=== PATIENT | female | born 1975 | race Caucasian/White ===

== ENCOUNTER 2021-07-16 09:08 | Inpatient (IN) | payer OTHER, MEDICARE, MEDICAID, SELFPAY ==
[2021-07-16] VITALS (8 sets, daily range): BP systolic 118–156; BP diastolic 82–103; PULSE 77–121; RESP 16–21; TEMP -17.7–38.5; O2SAT 92–98; BMI 20.1; BMI 21.3
--- NOTE | 2021-07-16 09:14 | XR_ITS ---
PROCEDURE: XR CHEST PORTABLE CLINICAL HISTORY: SOA COMPARISON: No exams were available for comparison FINDINGS: The cardiomediastinal silhouette and pulmonary vascularity are within normal limits. The lungs are clear without infiltrates, suspicious nodules, or pleural effusions. There is an area of increased density in the left midlung laterally which is felt to represent summation artifact from the overlying scapula and skin fold artifact. No acute bony abnormalities. IMPRESSION: No acute findings. Dictated by: Ronnell Penny MD 07/16/2021 10:59 Ronnell Penny MD in [place] 07/16/2021 10:59
--- NOTE | 2021-07-16 09:35 | HMH.EDGENADL ---
ED Disposition Clinical Impression: Healthcare-associated pneumonia Disposition: Admitted as Observation Condition on Discharge: Fair - Critical Care Critical Care Time: No Attestation: On 07/16/21, the high probability of a clinically significant, sudden or life threatening deterioration of the following system(s) required my full and direct attention, intervention and personal management. The time I documented below is in addition to time spent performing reported procedures but includes the following listed in this critical care notation. Medical Decision Making - Dieudonne Inquiry Pt receiving controlled substance: No Vital Signs: 07/16/21 09:08 07/16/21 12:07 07/16/21 14:10 Temperature 101.3 F H Temperature Source Rectal Pulse Rate 98 H 102 H Pulse Rate [Left Radial] 121 H Respiratory Rate 18 16 16 Blood Pressure 135/95 H 128/85 Blood Pressure [Left Arm] 156/103 H Blood Pressure Mean [Left Arm] 120 Blood Pressure Source Automatic Cuff Automatic Cuff Blood Pressure Source [Left Arm] Automatic Cuff Blood Pressure Position Sitting Sitting Blood Pressure Position [Left Arm] Supine 02 Sat by Pulse Oximetry 93 L 98 98 Oxygen Delivery Method Room Air Room Air Room Air - Lab Data Lab Results 07/16/21 09:00: WBC 11.5 H, RBC 4.08 L, Hgb 13.6, Hct 38.4, MCV 94.1, MCH 33.2 H, MCHC 35.3, RDW 13.5, Plt Count 420, MPV 8.0, Neut % (Auto) 87.4 H, Lymph % (Auto) 8.5 L, Carter % (Auto) 3.6, Eos % (Auto) 0.3, Baso % (Auto) 0.2, Neut # (Auto) 10.1 H, Lymph # (Auto) 1.0, Carter # (Auto) 0.4, Eos # (Auto) 0.0, Baso # (Auto) 0.0, Total Counted 100, Neutrophils % (Manual) 91 H, Lymphocytes % (Manual) 6 L, Monocytes % (Manual) 3, Platelet Estimate Slight increase, RBC Morphology Kn 07/16/21 09:00: Sodium 135 L, Potassium 4.1, Chloride 102, Carbon Dioxide 28, Anion Gap 9.1, BUN 14, Creatinine 0.50 L, Estimated Creat Clear 110, Estimated GFR 132, Est GFR ( Amer) 160, Glucose 128 H, Calcium 9.5, Total Bilirubin 0.4, AST 35, ALT 55, Alkaline Phosphatase 128 H, Total Protein 7.1, Albumin 3.8, Globulin 3.3 H, Albumin/Globulin Ratio 1.2 07/16/21 09:57: Lactate 2.4 H 07/16/21 09:57: Urine Color Yellow, Urine Appearance Sl cloudy, Urine pH 7.0, Ur Specific [place] 1.020, Urine Protein Negative, Urine Glucose (UA) Negative, Urine Ketones Negative, Urine Blood 1+, Urine Nitrate Negative, Urine Bilirubin Negative, Urine Urobilinogen 0.2, Ur Leukocyte Esterase 2+ A, Urine RBC Occasional, Urine WBC 3-5, Ur Squamous Epith Cells Occasional, Urine Bacteria Trace 07/16/21 10:11: SARS-CoV-2 (PCR) Not detected, Influenza A Untype (PCR) Not detected, Influenza Type B (PCR) Not detected Result diagrams: 07/16/21 09:00 07/16/21 09:00 Orders (Tests/Meds): ED MEDICATIONS Generic Name Dose Route Start Last Admin Trade Name Freq PRN Reason Stop Dose Admin Acetaminophen 650 mg 07/16/21 13:55 Acetaminophen 325mg Tab PO 08/15/21 13:54 Q4HP PRN fever/pain Bisacodyl 5 mg 07/16/21 13:55 Bisacodyl 5mg Tablet PO 08/15/21 13:54 NEEDED PRN Constipation Gabapentin 300 mg 07/16/21 21:00 Gabapentin 300mg Capsule PO 08/15/21 20:59 TID VANESSA Cefepime HCl 2 gm/ Sodium 100 mls @ 100 mls/hr 07/16/21 21:30 Chloride IV 07/30/21 21:29 Q8H VANESSA Vancomycin HCl 750 mg/ Sodium 250 mls @ 125 mls/hr 07/16/21 15:00 Chloride IV 07/30/21 14:59 Q12H VANESSA Levofloxacin/Dextrose 750 mg in 150 mls @ 100 mls/hr 07/17/21 13:30 Levofloxacin 750mg/150ml Premix IV 07/30/21 13:29 Q24H VANESSA Sodium Chloride 1,000 mls @ 100 mls/hr 07/16/21 13:55 Sod Chlor 0.9% 1000ml Bag IV 08/15/21 13:54 .Q10H VANESSA Lactulose 20 gm 07/16/21 21:00 Lactulose 20gm/30ml Udc PO 08/15/21 20:59 BID VANESSA Non-Formulary Medication 4 mg 07/16/21 17:00 Hydromorphone Hcl [Dilaudid 4mg Tab] PO 08/15/21 16:59 Q6 VANESSA Non-Formulary Medication 200 mg 07/16/21 17:00 Ibuprofen [Ibuprofen 200
[2021-07-16 09:40] LABS: Basophils % 0.2 % (0.1-2.0); Eosinophils % 0.3 % (0.1-12.0); Hematocrit 38.4 % (37.0-47.0); Hemoglobin 13.6 g/dL (12.2-16.2); Lymphocytes % 8.5 % (10-50); Mean Corpuscular HGB Conc 35.3 g/dL (31.8-35.4); Mean Corpuscular Hemoglobin 33.2 pg (27.0-31.2); Mean Corpuscular Volume 94.1 fl (81-99); Monocytes # 0.4 K/mm3 (0.1-1.0); Monocytes % 3.6 % (1.7-9.3); Neutrophils # 10.1 K/mm3 (1.8-7.8); Neutrophils % 87.4 % (37.0-80.0); Platelet Count 420 K/mm3 (142-424); Red Blood Count 4.08 M/mm3 (4.20-5.40); Red Cell Distribution Width 13.5 % (11.5-17.5); White Blood Count 11.5 K/mm3 (4.8-10.8)
[2021-07-16 09:44] LABS: MANUAL DIFFERENTIAL MANUAL DIFFERENTIAL (MANUAL DIFF)
[2021-07-16 09:50] LABS: Alanine Aminotransferase 55 U/L (12-78); Albumin Level 3.8 g/dl (3.5-5.0); Albumin/Globulin Ratio 1.2 (1.1-1.8); Alkaline Phosphatase 128 U/L (38-126); Anion Gap 9.1 mEq/L (5-15); Aspartate Amino Transferase 35 U/L (14-36); Bilirubin,Total 0.4 mg/dl (0.2-1.3); Blood Urea Nitrogen 14 mg/dl (7-17); Calcium 9.5 mg/dl (8.4-10.2); Carbon Dioxide 28 mmol/L (22.0-30.0); Chloride 102 mmol/L (98-107); Creatinine Clearance Estimated 110 mL/min (50-200); Estimated Glomerular Filt Rate 132 ml/min (>60); GFR (African American) 160 ML/MIN (>60); Globulin 3.3 g/dL (1.3-3.2); Glucose 128 mg/dl (74-100); Potassium 4.1 mmoL/L (3.5-5.1); Sodium 135 mmol/L (136-145); Total Protein,Serum 7.1 g/dl (6.3-8.2)
[2021-07-16 10:07] LABS: Lymphocytes % 6 % (10-50); Monocytes % 3 % (2-9); Neutrophils % 91 % (42-76); Total Cells Counted 100
[2021-07-16 10:07] LABS: Microscopic, Urine URINE MICROSCOPIC (MICROSCOPIC)
[2021-07-16 10:08] LABS: Platelet Estimate Slight Increase; RBC Morphology KN
[2021-07-16 10:09] LABS: Appearance,Urine SL CLOUDY (Clear); Bilirubin,Urine Negative (Negative); Blood, Urine 1+ (Negative); Color,Urine YELLOW (Yellow); Glucose,Urine (UA) Negative (Negative); Ketones,Urine Negative (Negative); Leukocyte Esterase,Urine 2+ (Negative); Nitrate,Urine Negative (Negative); Protein,Urine Negative (Negative); Urobilinogen,Urine 0.2 EU/dl (0.2)
[2021-07-16 10:16] LABS: Lactic Acid 2.4 mmol/L (0.7-2.1)
[2021-07-16 10:21] LABS: Coronavirus 19, PCR Not Detected (NotDetected); Influenza A, PCR Not Detected (NotDetected); Influenza B, PCR Not Detected (NotDetected)
[2021-07-16 10:22] LABS: Bacteria,Urine Trace /lpf; RBC,Urine Occasional #/hpf (0-3); Squamous Epithelial Cell,Urine Occasional #/hpf (0-5)
--- NOTE | 2021-07-16 10:37 | PC.NURSE ---
PT ALSO RECEIVED A NS 500ML BOLUS BY EMS
--- NOTE | 2021-07-16 10:59 | CT_ITS ---
PROCEDURE: CT ABDOMEN PELVIS W CON CLINICAL INDICATION: abdo tenderness, fever COMPARISON: CR XR CHEST PORTABLE from 07/16/2021 TECHNIQUE: IV Contrast: 75ML Isovue 370 Oral Contrast None Axial images obtained with sagittal and coronal reformats. All CT scans at the facility use one or more dose reduction, viz: automated exposure control, ma/kV adjustment per patient size (including targeted exams where dose is matched to indication, i.e. head), or iterative reconstruction technique. FINDINGS: LOWER THORAX: There patchy areas opacification in the lower lobes on both sides consistent with pneumonia. ABDOMEN & PELVIS: No focal liver lesion. The spleen adrenal glands and pancreas have an unremarkable appearance. There is a 3 mm and a 4 mm nonobstructing stone in the mid aspect of the right kidney. 2 mm stone is present the upper pole of the left kidney and also 1 in the mid polar region. There is a 12 mm cyst in the upper pole of the right kidney. No ureteral calculi apparent. There is rectal fecal impaction with the rectum measuring 9.3 cm transverse. Moderate amount retained colonic feces is present within the remaining colon. The the appendix is not clearly delineated. The uterus is enlarged and canted toward the right with heterogeneous density and may represent diffuse fibroid involvement. Free fluid is present in the pelvis. Granad catheter is present. Urinary bladder is decompressed. No acute bony findings. IMPRESSION: 1. Patchy bilateral lower lobe pneumonia 2. Nonobstructing bilateral renal calculi. 3. Rectal fecal impaction with severe constipation. 4. Enlarged uterus with heterogeneous density and may be due to fibroid involvement. The uterus is canted toward the right. Other etiology for pelvic mass not excluded 5. Small amount free fluid in the pelvis Dictated by: Ronnell Penny MD 07/16/2021 12:03 Ronnell Penny MD in [place] 07/16/2021 12:03
--- NOTE | 2021-07-16 11:32 | PC.NURSE ---
went to ct
--- NOTE | 2021-07-16 11:43 | PC.NURSE ---
pt is back from ct
--- NOTE | 2021-07-16 13:14 | PC.NURSE ---
DR ANDIE COLE
--- NOTE | 2021-07-16 13:20 | PC.NURSE ---
Notified care management of admission
--- NOTE | 2021-07-16 13:33 | HMH.PHACONS ---
- Pharmacy Consult Date: 07/16/21 Time: 13:34 Referring provider: DR. HESS Reason for Consult:: VANCOMYCIN DOSING Allergies and ADEs:: Allergies Allergy/AdvReac Type Severity Reaction Status Date / Time methylprednisolone Allergy Verified 07/16/21 10:13 Home Medications:: Home Medications Medication Instructions Recorded Confirmed Type Acetaminophen [Acetaminophen 325mg 650 mg PO Q4HP PRN 07/16/21 07/16/21 History tab] Bisacodyl [Bisacodyl 10mg Supp] 10 mg RC NEEDED PRN 07/16/21 07/16/21 History Bisacodyl [Women's Laxative] 5 mg PO NEEDED PRN 07/16/21 07/16/21 History Docusate Sodium [Colace 250mg 250 mg PO BID 07/16/21 07/16/21 History capsule] Folic Acid/Vit B Complex and C 0.8 mg PO DAILY 07/16/21 07/16/21 History [Tika-Ella Tablet] Gabapentin 300 mg PO TID 07/16/21 07/16/21 History Hydromorphone HCl [Dilaudid 4mg 4 mg PO Q6 07/16/21 07/16/21 History Tab] Ibuprofen [Ibuprofen 200MG Capsule] 200 mg PO Q6 07/16/21 07/16/21 History Lactulose 30 ml PO BID 07/16/21 07/16/21 History Melatonin 5 mg PO HS 07/16/21 07/16/21 History Sennosides/Docusate Sodium 2 tab PO BID 07/16/21 07/16/21 History [Senexon-S 50-8.6 mg Tablet] Thiamine HCl [Vitamin B-1] 100 mg PO DAILY 07/16/21 07/16/21 History Vitamin A Palmitate [Vitamin A] 3,000 mcg PO DAILY 07/16/21 07/16/21 History Height: 1.57 m Weight: 49.895 kg Laboratory Results:: Laboratory Results - last 24 hr 07/16/21 09:00: WBC 11.5 H, RBC 4.08 L, Hgb 13.6, Hct 38.4, MCV 94.1, MCH 33.2 H, MCHC 35.3, RDW 13.5, Plt Count 420, MPV 8.0, Neut % (Auto) 87.4 H, Lymph % (Auto) 8.5 L, [place] % (Auto) 3.6, Eos % (Auto) 0.3, Baso % (Auto) 0.2, Neut # (Auto) 10.1 H, Lymph # (Auto) 1.0, [place] # (Auto) 0.4, Eos # (Auto) 0.0, Baso # (Auto) 0.0, Total Counted 100, Neutrophils % (Manual) 91 H, Lymphocytes % (Manual) 6 L, Monocytes % (Manual) 3, Platelet Estimate Slight increase, RBC Morphology Kn 07/16/21 09:00: Sodium 135 L, Potassium 4.1, Chloride 102, Carbon Dioxide 28, Anion Gap 9.1, BUN 14, Creatinine 0.50 L, Estimated Creat Clear 110, Estimated GFR 132, Est GFR ( Amer) 160, Glucose 128 H, Calcium 9.5, Total Bilirubin 0.4, AST 35, ALT 55, Alkaline Phosphatase 128 H, Total Protein 7.1, Albumin 3.8, Globulin 3.3 H, Albumin/Globulin Ratio 1.2 07/16/21 09:57: Lactate 2.4 H 07/16/21 09:57: Urine Color Yellow, Urine Appearance Sl cloudy, Urine pH 7.0, Ur Specific [place] 1.020, Urine Protein Negative, Urine Glucose (UA) Negative, Urine Ketones Negative, Urine Blood 1+, Urine Nitrate Negative, Urine Bilirubin Negative, Urine Urobilinogen 0.2, Ur Leukocyte Esterase 2+ A, Urine RBC Occasional, Urine WBC 3-5, Ur Squamous Epith Cells Occasional, Urine Bacteria Trace 07/16/21 10:11: SARS-CoV-2 (PCR) Not detected, Influenza A Untype (PCR) Not detected, Influenza Type B (PCR) Not detected Assessment and Plan - Assessment and plan all Dx Assessment and Plan for all problems:: Pharmacokinetic dosing service Objective: Patient: Floor: Age: 45 yo Serum creatinine: 0.60 mg/dL Height: 61.8 Inches Weight (kg): 50 Assessment: IBW (kg): 49.64 Dosing wt(kg): 50 Estimated Creatinine clearance (ml/min): 90.8 CRCL method: Cockcroft and Gault using ibw(default). Drug selected: Vancomycin Loading dose (mg): Vd (liters): 35.0 (factor used: 0.7 L/kg) Braxton (hr-1): 0.080 Half life (hrs): 8.66 CLvanco=?? 2.800 L/hr Recommended dose: 750 mg Interval: 12 hrs Infusion time (hrs): 2.0 Predicted peak (mcg/mL): 32.1 Predicted trough (mcg/mL): 14.42 Total body weight is being used for vancomycin dosing. Recommendations: Give Vancomycin 750 mg q 12 hrs with an expected Cpeak of 32.1 mcg/ml and an expected Ctrough of 14.42 mcg/ml AUC 0-24 /MONICA Data:
--- NOTE | 2021-07-16 13:40 | SW/DCPLANNER ---
Addendum entered by Mary Gates 07/17/21 10:28: PATIENT IS RETURNING BACK TO HER SENIOR LIVING BED AT [facility].. UPDATES HAVE BEEN SENT AND I HAVE NOTIFIED HOSPICE PATIENT WILL BE RETURNING TO HER SENIOR LIVING BED..... Original Note: Viriglio Kovacs spoke with Winsome from [facility]. Winsome has confirmed this patient is established with Hospice services, stay will be related and patient is a full code. This patient currently resides at [facility]. I will follow up with Hospice/[facility] during patients stay.
[2021-07-16 14:06] LABS: Reflex Lactic Add Lactic Reflex
--- NOTE | 2021-07-16 14:09 | HMH.PHAVTE ---
[facility] Pharmacy VTE Monitoring - Patient Demographics Admission date: 07/16/21 Report Date: 07/16/21 Time: 14:09 Allergies/Adverse Reactions: Patient Allergies methylprednisolone Allergy (Verified 07/16/21 10:13) Height: 1.57 m Weight: 49.895 kg Patient Problems: Current Active Problems Healthcare-associated pneumonia (Acute) - VTE Risk Labs: VTE Related Lab Results Hgb 13.6 g/dL (12.2-16.2) 07/16/21 09:00 Hct 38.4 % (37.0-47.0) 07/16/21 09:00 Plt Count 420 K/mm3 (142-424) 07/16/21 09:00 BUN 14 mg/dl (7-17) 07/16/21 09:00 Creatinine 0.50 mg/dl (0.52-1.04) L 07/16/21 09:00 Estimated Creat Clear 110 mL/min (50-200) 07/16/21 09:00 - Prophylaxis VTE Prophylaxis Ordered?: Yes Types of VTE Prophylaxis: TEDS Knee High Location of Applied Device: Bilateral Lower Extremeties
--- NOTE | 2021-07-16 14:40 | PC.NURSE ---
Speech is in there with pt
[2021-07-16 14:46] LABS: Lactic Acid Follow Up (RFLX 1) 1.3 mmol/L (0.7-2.1)
--- NOTE | 2021-07-16 15:02 | HMH.SLDYSPHA ---
Speech & Language Evaluation Speech/Language Dysphagia Evaluation Start: 07/16/21 14:53 Freq: ONCE Status: Active Protocol: Document 07/16/21 14:53 LIZABETH (Rec: 07/16/21 15:02 LIZABETH [id number]) Dysphagia Assess/Goals/Plan Assessment Date of Evaluation: 07/16/21 Evaluation Type Initial Certification Assessment/Problems Dysphagia Does Patient Qualify for Service No Qualify/Failure Comment Patient placed on leasts restrictive diet. Recommendations PHYSICIAN CERTIFICATION: The specified therapy services are required, authorized, and reviewed every 30 days. Diet Recommendations Pureed Liquid Type Recommendations Pudding Consistency SL Swallow Guidelines Assist w/all meals,High aspiration risk Dysphagia Swallow Precautions/Strategies Sitting Upright (90 deg), Liquids from Spoon,Small Bites and Sips,Alternate Liquids/ Solids Plan Pt/Guardian verbally ack understanding Yes: Notified of dx/prognosis/goals G -code Required No General Information General Current Food Consistancy Pureed,Pudding Liquids Dentition Poor Dentition Oxygen Status Room Air Patient Orientation Person,Place,Time,Situation Ability to Follow Directions Excellent Dysphagia:Food Presentation Evaluation Food Type Pureed,Pudding Dysphagia Evaluation Summary Ms. Medina was given the following consistencies: pudding thick liquids and pureed. She reports she is on this diet at the intermediate. No overt signs/symptoms of dysphagia were noted. At this time, it is recommended that he be placed on pureed diet with pudding thick liquids. Speech therapy is not warranted. Should her problems continue, a modified barium swallow study is warranted. Stroke Dysphagia Assessment PHYSICIAN CERTIFICATION: I certify the specified therapy services for Jeanne Medina are required, authorized, and reviewed every 30 days.
--- NOTE | 2021-07-16 15:27 | HMH.PHAINT ---
MEDICATION RECONCILIATION COMPLETED ON PATIENT USING MAR FROM [facility]. -JOSELIN PADGETT, LAURAD
--- NOTE | 2021-07-16 18:14 | HMH.HP ---
*Admission Date: 07/16/21 <Ole Patel - 07/16/21 18:15> *Chief complaint: fever and pneumonia <Ole Patel - 07/16/21 18:25> *History of present illness: Patient is a 45-year-old white female, fairly new admission to [place], who was evaluated in the emergency room earlier today with fever tachycardia and behavior changes. T-max at [facility] was 101.5. She was tachycardic but maintained decent saturations on room air. Upon arrival to the ER she was 1013 rectal with a respiratory rate between 16 and 18. Lab work was done. Her urinalysis was equivocal. Palpation to the abdomen elicited some signs of discomfort. The patient is a very poor communicator. CT of the abdomen was done which demonstrated a lower lobe pneumonia. She is admitted for further evaluation and treatment. Will be placed on a regimen for healthcare acquired pneumonia. When seen after her arrival to the floor patient did not complain about her right leg hurting her. Examination of the legs reveals disuse atrophy. She has some arthritic changes at the knee without warmth or effusion. There are no palpable bony changes. She is unable to relay a history of falling or other trauma. Patient is noted to be eating a pur?ed meal. <Ole Patel - 07/16/21 18:25> [facility] History I have reviewed the patient's past medical history: Yes <Deepa Butler - 07/17/21 12:44> Yes (patient with limited ability to give history) <Ole Patel - 07/16/21 18:34> *Have you ever received a pneumonia vaccine?: No <Deepa Butler - 07/17/21 12:44> No <Ole Patel - 07/16/21 18:15> *Have you received a flu vaccine this season?: No <Deepa Butler - 07/17/21 12:44> No <Ole Patel - 07/16/21 18:15> Other Medical History: Reports: Other <Deepa uBtler - 07/17/21 12:44> Reports: Other <Ole Patel - 07/16/21 18:34> Other Surgeries: Yes: Other <Deepa Butler - 07/17/21 12:44> Yes: Other <Ole Patel - 07/16/21 18:34> - *Social History Last grade of school completed: High school graduate <Deepa Butler - 07/17/21 12:44> High school graduate <Ole Patel - 07/16/21 18:34> Smoking Status: Unknown if ever smoked <LukeDeepa - 07/17/21 12:44> Unknown if ever smoked <Ole Patel - 07/16/21 18:34> Alcohol Intake: former <Deepa Butler - 07/17/21 12:44> Alcohol Intake Frequency:: 0-2 drinks per day <paulFidealexconnor - 07/17/21 12:44> 0-2 drinks per day <JorgeOle - 07/16/21 18:34> Substance Use Type: unknown <paulDeepa - 07/17/21 12:44> unknown <JorgeOle - 07/16/21 18:34> Last Used Substance: unknown <Deepa Butler - 07/17/21 12:44> unknown <Ole Patel - 07/16/21 18:34> *Occupational Status:: disabled <LukeDeepa - 07/17/21 12:44> disabled <Ole Patel - 07/16/21 18:34> *Travel in the last 8 weeks: None <LukeDeepa - 07/17/21 12:44> None <JorgeOle - 07/16/21 18:34> Family Hx:: Unable to obtain <Deepa Butler - 07/17/21 12:44> Unable to obtain <Ole Patel - 07/16/21 18:34> Review of Systems - Review of Systems Review of systems:: unable to obtain <CruzkamalaFidealexconnor - 07/17/21 12:44> unable to obtain <JorgeOle - 07/16/21 18:25> Meds Home Medications Medication Instructions Recorded Confirmed Type Acetaminophen [Acetaminophen 325mg 650 mg PO Q4HP PRN 07/16/21 07/16/21 History tab] Bisacodyl [Bisacodyl 10mg Supp] 10 mg RC DAILYP PRN 07/16/21 07/16/21 History Bisacodyl [Women's Laxative] 5 mg PO DAILYP PRN 07/16/21 07/16/21 History Docusate
--- NOTE | 2021-07-16 18:38 | XR_ITS ---
PROCEDURE INFORMATION: Exam: XR Right Knee Exam date and time: 07/16/2021 6:38 PM Age: 45 years old Clinical indication: Pain; Knee; Right TECHNIQUE: Imaging protocol: XR Right knee. Views: 3 views. COMPARISON: No relevant prior studies available. FINDINGS: Bones/joints: Small joint effusion. 10 mm ossification at the patellar tendon insertion. Somewhat heterogeneous mottled appearance to the bone marrow. No acute fracture or dislocation. Soft tissues: No radiopaque foreign body. IMPRESSION: 1. Small joint effusion without visualized acute fracture or dislocation. If there is concern for internal derangement, MRI would be more sensitive. 2. Somewhat heterogeneous mottled appearance to the bone marrow which is abnormal but nonspecific and potentially secondary to osteopenia. This could also be further evaluated on MRI.
--- NOTE | 2021-07-16 18:39 | XR_ITS ---
PROCEDURE INFORMATION: Exam: XR Right Tibia and Fibula Exam date and time: 07/16/2021 6:39 PM Age: 45 years old Clinical indication: Pain; Lower leg; Right TECHNIQUE: Imaging protocol: XR Right tibia and fibula. Views: 2 views. COMPARISON: No relevant prior studies available. FINDINGS: Bones/joints: Small joint effusion. 10 mm ossicle at the patellar tendon insertion which appears chronic. Mottled appearance to the bone marrow. No acute fracture or dislocation. Soft tissues: No radiopaque foreign body. IMPRESSION: 1. Small joint effusion without visualized acute fracture or dislocation. If there is concern for internal derangement, MRI is recommended for further evaluation. 2. Mottled appearance to the bone marrow which is abnormal but nonspecific and potentially related to osteopenia. This could also be further evaluated on MRI.
[2021-07-17 04:15] VITALS: BP 106/68; PULSE 61; RESP 16; TEMP 36.9; O2SAT 100
[2021-07-17 04:29] VITALS: BMI 21.2
--- NOTE | 2021-07-17 05:35 | PC.NURSE ---
pt rested well most of the night, no issues noted, vss, antibiotics administered as ordered. pt remains on room air with o2 sats 100%
[2021-07-17 08:00] VITALS: BP 162/57; PULSE 86; RESP 16; TEMP 36.4; O2SAT 97
[2021-07-17 09:48] LABS: Basophils % 0.4 % (0.1-2.0); Eosinophils # 0.1 K/mm3 (0.0-0.4); Eosinophils % 1.8 % (0.1-12.0); Hematocrit 35.4 % (37.0-47.0); Hemoglobin 11.9 g/dL (12.2-16.2); Lymphocytes # 1.4 K/mm3 (0.7-4.5); Mean Corpuscular HGB Conc 33.7 g/dL (31.8-35.4); Mean Corpuscular Hemoglobin 32.5 pg (27.0-31.2); Mean Corpuscular Volume 96.4 fl (81-99); Monocytes # 0.3 K/mm3 (0.1-1.0); Monocytes % 4.8 % (1.7-9.3); Neutrophils # 3.9 K/mm3 (1.8-7.8); Platelet Count 359 K/mm3 (142-424); Red Blood Count 3.67 M/mm3 (4.20-5.40); Red Cell Distribution Width 12.9 % (11.5-17.5); White Blood Count 5.6 K/mm3 (4.8-10.8)
[2021-07-17 09:52] LABS: Chloride 107 mmol/L (98-107); Sodium 139 mmol/L (136-145)
[2021-07-17 09:53] LABS: Potassium 3.9 mmoL/L (3.5-5.1)
[2021-07-17 09:55] LABS: Blood Urea Nitrogen 11 mg/dl (7-17); Creatinine Clearance Estimated 134 mL/min (50-200); Estimated Glomerular Filt Rate 171 ml/min (>60); GFR (African American) 207 ML/MIN (>60)
[2021-07-17 09:56] LABS: Anion Gap 10.9 mEq/L (5-15); Calcium 8.5 mg/dl (8.4-10.2); Carbon Dioxide 25 mmol/L (22.0-30.0); Glucose 118 mg/dl (74-100)
--- NOTE | 2021-07-17 11:02 | HMH.DCSUM ---
General - General Admission date:: 07/16/21 Discharge date: 07/17/21 HPI HPI: Patient is a 45-year-old white female, fairly new admission to [place], who was evaluated in the emergency room earlier today with fever tachycardia and behavior changes. T-max at [facility] was 101.5. She was tachycardic but maintained decent saturations on room air. Upon arrival to the ER she was 1013 rectal with a respiratory rate between 16 and 18. Lab work was done. Her urinalysis was equivocal. Palpation to the abdomen elicited some signs of discomfort. The patient is a very poor communicator. CT of the abdomen was done which demonstrated a lower lobe pneumonia. She is admitted for further evaluation and treatment. Will be placed on a regimen for healthcare acquired pneumonia. When seen after her arrival to the floor patient did not complain about her right leg hurting her. Examination of the legs reveals disuse atrophy. She has some arthritic changes at the knee without warmth or effusion. There are no palpable bony changes. She is unable to relay a history of falling or other trauma. Patient is noted to be eating a pur?ed meal. Hospital Course Hospital Course: Laboratory Tests 07/16/21 07/16/21 07/16/21 09:00 09:00 09:57 WBC 11.5 H RBC 4.08 L Hgb 13.6 Hct 38.4 MCV 94.1 MCH 33.2 H MCHC 35.3 RDW 13.5 Plt Count 420 MPV 8.0 Neut % (Auto) 87.4 H Lymph % (Auto) 8.5 L [place] % (Auto) 3.6 Eos % (Auto) 0.3 Baso % (Auto) 0.2 Neut # (Auto) 10.1 H Lymph # (Auto) 1.0 [place] # (Auto) 0.4 Eos # (Auto) 0.0 Baso # (Auto) 0.0 Total Counted 100 Neutrophils % (Manual) 91 H Lymphocytes % (Manual) 6 L Monocytes % (Manual) 3 Platelet Estimate Slight increase RBC Morphology Kn Sodium 135 L Potassium 4.1 Chloride 102 Carbon Dioxide 28 Anion Gap 9.1 BUN 14 Creatinine 0.50 L Estimated Creat Clear 110 Estimated GFR 132 Est GFR ( Amer) 160 Glucose 128 H Lactate 2.4 H Calcium 9.5 Total Bilirubin 0.4 AST 35 ALT 55 Alkaline Phosphatase 128 H Total Protein 7.1 Albumin 3.8 Globulin 3.3 H Albumin/Globulin Ratio 1.2 Urine Color Urine Appearance Urine pH Ur Specific [place] Urine Protein Urine Glucose (UA) Urine Ketones Urine Blood Urine Nitrate Urine Bilirubin Urine Urobilinogen Ur Leukocyte Esterase Urine RBC Urine WBC Ur Squamous Epith Cells Urine Bacteria SARS-CoV-2 (PCR) Influenza A Untype (PCR) Influenza Type B (PCR) 07/16/21 07/16/21 07/16/21 09:57 10:11 14:18 WBC RBC Hgb Hct MCV MCH MCHC RDW Plt Count MPV Neut % (Auto) Lymph % (Auto) [place] % (Auto) Eos % (Auto) Baso % (Auto) Neut # (Auto) Lymph # (Auto) [place] # (Auto) Eos # (Auto) Baso # (Auto) Total Counted Neutrophils % (Manual) Lymphocytes % (Manual) Monocytes % (Manual) Platelet Estimate RBC Morphology Sodium Potassium Chloride Carbon Dioxide Anion Gap BUN Creatinine Estimated Creat Clear Estimated GFR Est GFR ( Amer) Glucose Lactate 1.3 Calcium Total Bilirubin AST ALT Alkaline Phosphatase Total Protein Albumin Globulin Albumin/Globulin Ratio Urine Color Yellow Urine Appearance Sl cloudy Urine pH 7.0 Ur Specific [place] 1.020 Urine Protein Negative Urine Glucose (UA) Negative Urine Ketones Negative Urine Blood 1+ Urine Nitrate Negative Urine Bilirubin Negative Urine Urobilinogen 0.2 Ur Leukocyte Esterase 2+ A Urine RBC Occasional Urine WBC 3-5 Ur Squamous Epith Cells Occasional Urine Bacteria Trace SARS-CoV-2 (PCR) Not detected Influenza A Untype (PCR) Not detected Influenza Type B (PCR) Not detected 1
--- NOTE | 2021-07-17 14:55 | PC.NURSE ---
Patient is ready to discharge back to [place]. Granda and IV discontinued
[2021-07-18 21:33] LABS: POC Glucose,Bedside 112 (70-110)
== END 2021-07-17 15:38 | disposition hospice, inpatient (51) | DRG 179 ==
LOC: ER 13:22 → 2ND 13:43
PROVIDERS: Nurse Practitioner Family; Admitting Provider Emergency Medicine; Emergency Provider Emergency Medicine; PCP Emergency Medicine; Visit Provider Emergency Medicine
DX: J69.0 Pneumonitis due to inhalation of food and vomit (principal); G35 Multiple sclerosis; K59.00 Constipation, unspecified; M79.661 Pain in right lower leg; Z20.822 Contact with and (suspected) exposure to COVID-19; Z51.5 Encounter for palliative care
CPT/HCPCS: 36415; 71045; 73562; 73590; 74177; 80048; 80053; 81001; 82962; 83605; 85007; 85025; 87040; 87086; 92610; 96365; 99284; C9803; J3370; Q9967; U0003; U0005

== ENCOUNTER 2021-07-24 13:28 | Inpatient (IN) | payer MEDICARE, MEDICAID, SELFPAY ==
[2021-07-24] VITALS (15 sets, daily range): BP systolic 107–199; BP diastolic 78–116; PULSE 108–150; RESP 18–26; TEMP 36.3–38.7; O2SAT 83–100; BMI 18.9; BMI 16.9
--- NOTE | 2021-07-24 13:30 | XR_ITS ---
PROCEDURE: XR CHEST PORTABLE CLINICAL HISTORY: sob COMPARISON: CR XR CHEST PORTABLE from 07/16/2021 FINDINGS: The cardiomediastinal silhouette and pulmonary vascularity are within normal limits. The lungs are clear without infiltrates, suspicious nodules, or pleural effusions. No acute bony abnormalities. IMPRESSION: No acute findings. Dictated by: Ronnell Penny MD 07/24/2021 16:13 Ronnell Penny MD in [place] 07/24/2021 16:13
--- NOTE | 2021-07-24 13:34 | ECG_ITS ---
APPROVED REPORT Exam: Resting ECG HR:144 bpm ECG Measurements Heart Rate 144 AXES VT 146 P 77 QRSd 72 QRS 63 QT 344 T 64 QTc 532 Conclusion Sinus tachycardia Biatrial enlargement Nonspecific T wave abnormality Abnormal ECG Electronically signed by : Eddie Blanton MD 07/25/2021 06:13:53
[2021-07-24 13:45] LABS: Chloride 104 mmol/L (98-107)
[2021-07-24 13:46] LABS: Potassium 4.4 mmoL/L (3.5-5.1); Sodium 142 mmol/L (136-145)
[2021-07-24 13:48] LABS: Alanine Aminotransferase 55 U/L (12-78); Alkaline Phosphatase 150 U/L (38-126); Aspartate Amino Transferase 53 U/L (14-36); Bilirubin,Total 0.7 mg/dl (0.2-1.3); Blood Urea Nitrogen 18 mg/dl (7-17); Estimated Glomerular Filt Rate 171 ml/min (>60); GFR (African American) 207 ML/MIN (>60)
[2021-07-24 13:49] LABS: Albumin/Globulin Ratio 1.1 (1.1-1.8); Anion Gap 13.4 mEq/L (5-15); Calcium 10.3 mg/dl (8.4-10.2); Carbon Dioxide 29 mmol/L (22.0-30.0); Globulin 3.6 g/dL (1.3-3.2); Glucose 159 mg/dl (74-100); Total Protein,Serum 7.6 g/dl (6.3-8.2)
[2021-07-24 13:55] LABS: Basophils # 0.2 K/mm3 (0-0.2); Basophils % 0.9 % (0.1-2.0); Eosinophils # 0.1 K/mm3 (0.0-0.4); Eosinophils % 0.4 % (0.1-12.0); Hematocrit 43.1 % (37.0-47.0); Hemoglobin 14.4 g/dL (12.2-16.2); Lymphocytes # 2.9 K/mm3 (0.7-4.5); Lymphocytes % 15.2 % (10-50); Mean Corpuscular HGB Conc 33.5 g/dL (31.8-35.4); Mean Corpuscular Volume 95.4 fl (81-99); Mean Platelet Volume 8.4 fl (7.4-10.4); Monocytes # 0.8 K/mm3 (0.1-1.0); Monocytes % 4.1 % (1.7-9.3); Neutrophils # 15.1 K/mm3 (1.8-7.8); Neutrophils % 79.4 % (37.0-80.0); Platelet Count 700 K/mm3 (142-424); Red Blood Count 4.51 M/mm3 (4.20-5.40); Red Cell Distribution Width 13.9 % (11.5-17.5)
--- NOTE | 2021-07-24 13:55 | XR_ITS ---
PROCEDURE: XR CHEST PORTABLE CLINICAL HISTORY: sob COMPARISON: CR XR CHEST PORTABLE from 07/16/2021 FINDINGS: Unremarkable cardiovascular structures. COPD changes. One images obtained at 13:42 and 08/21/2020. At 14:21 image demonstrates an endotracheal tube in place 1.6 cm above the lovely. There is vague increased density in the left lung base and may be related to an area of developing infiltrate IMPRESSION: Endotracheal tube tip 1.6 cm above the lovely at the T5 level. COPD with patchy infiltrate in the left lower lobe Dictated by: Ronnell Penny MD 07/24/2021 14:31 Ronnell Penny MD in OV 07/24/2021 15:37
[2021-07-24 14:03] LABS: Troponin I < 0.01 ng/ml (0.00-0.034)
--- NOTE | 2021-07-24 14:17 | PC.NURSE ---
Upon pt arrival to ED, Hospice nurse, Winsome called and stated that family is removing pt from Hospice care to be as aggressive as she wants with treatment.
[2021-07-24 14:30] LABS: MANUAL DIFFERENTIAL MANUAL DIFFERENTIAL (MANUAL DIFF)
[2021-07-24 14:31] LABS: Lymphocytes % 11 % (10-50); Monocytes % 2 % (2-9); Neutrophils % 87 % (42-76); Total Cells Counted 100
[2021-07-24 14:32] LABS: Anisocytosis 1+; Hypochromasia 1+; Macrocytosis 1+; Platelet Estimate Normal
[2021-07-24 14:39] LABS: Bilirubin,Total 0.8 mg/dl (0.2-1.3)
--- NOTE | 2021-07-24 14:42 | PC.NURSE ---
Pt came in with altered mental status, low o2 sats. Dr. Clark intubated pt. We hooked pt up to fluids gave 20 mg of etomidate, and 50 mg of succinylcholine. This started at 1346 and was successful at 1348 with a size 7 tube, and is at 22 at the teeth. We started propofol 3ml/hr. Pt is resting confortably in bed.
[2021-07-24 14:43] LABS: Lactic Acid 1.2 mmol/L (0.7-2.1)
--- NOTE | 2021-07-24 15:08 | PC.NURSE ---
Pt started to move her eye and hands. We titrated up her propofol to 6.
[2021-07-24 15:13] LABS: Activated Partial Thrombo Time 29.6 seconds (22.8-30.6); INR 1.01 (0.9-1.1); Prothrombin Time 11.4 seconds (10.1-12.5)
--- NOTE | 2021-07-24 15:19 | PC.NURSE ---
Dr Clark speaking with Dr Welsh for possible admission
[2021-07-24 15:20] LABS: ABG Base Excess -1.5 mmol/L (-2.4-2.3); ABG HCO3 22.8 mmhg (22.0-26.0); ABG PCO2 34.9 mmhg (35.0-45.0); ABG PH 7.43 mmol/L (7.35-7.45); ABG PO2 251.5 mmhg (80-100); ABG TCO2 23.9 mmhg (23-27)
--- NOTE | 2021-07-24 15:21 | XR_ITS ---
PROCEDURE: XR CHEST PORTABLE CLINICAL HISTORY: eval ETT COMPARISON: CR XR CHEST PORTABLE from 07/16/2021 CR XR CHEST PORTABLE from 07/24/2021 CR XR CHEST PORTABLE from 07/24/2021 FINDINGS: 3:32 p.m. endotracheal tube tip is approximately 1.6 cm above the lovely at the T5 level and could be withdrawn approximately 2 cm for optimal positioning. Normal heart size. There is increasing density in the left lower lobe consistent with pneumonia with possible small effusion. The right lung is clear. No acute bony abnormalities. IMPRESSION: Endotracheal tube tip 1.5 cm above the lovely and could be withdrawn 1-1/2 2 cm. Developing left lower lobe infiltrate with small effusion. Dictated by: Ronnell Penny MD 07/24/2021 16:23 Ronnell Penny MD in OV 07/24/2021 16:23
[2021-07-24 15:22] LABS: Microscopic, Urine URINE MICROSCOPIC (MICROSCOPIC)
[2021-07-24 15:28] LABS: Appearance,Urine CLEAR (Clear); Bilirubin,Urine Negative (Negative); Blood, Urine Negative (Negative); Color,Urine YELLOW (Yellow); Glucose,Urine (UA) Negative (Negative); Ketones,Urine Negative (Negative); Leukocyte Esterase,Urine Negative (Negative); Nitrate,Urine Negative (Negative); Protein,Urine Negative (Negative); Urobilinogen,Urine 0.2 EU/dl (0.2)
[2021-07-24 15:33] LABS: Oxygen 100 %; Tidal Volume 380
[2021-07-24 15:34] LABS: Allen's Test Patient Unable; PEEP 5; Source Left Brachial; Vent Rate 20
[2021-07-24 15:46] LABS: Bacteria,Urine Trace /lpf; WBC,Urine Occasional #/hpf (0-3)
[2021-07-24 15:52] LABS: Coronavirus 19, PCR Not Detected (NotDetected); Influenza A, PCR Not Detected (NotDetected); Influenza B, PCR Not Detected (NotDetected)
--- NOTE | 2021-07-24 16:14 | PC.NURSE ---
Talked to [facility] about Vanc. He is going to mix and bring down.
--- NOTE | 2021-07-24 16:17 | HMH.PHACONS ---
- Pharmacy Consult Date: 07/24/21 Time: 16:17 Referring provider: DR. PULLIAM Reason for Consult:: VANCOMYCIN CONSULT Allergies and ADEs:: Allergies Allergy/AdvReac Type Severity Reaction Status Date / Time methylprednisolone Allergy Verified 07/24/21 15:31 Home Medications:: Home Medications Medication Instructions Recorded Confirmed Type Acetaminophen [Acetaminophen 325mg 650 mg PO Q4HP PRN 07/16/21 07/24/21 History tab] Bisacodyl [Bisacodyl 10mg Supp] 10 mg RC DAILYP PRN 07/16/21 07/24/21 History Bisacodyl [Women's Laxative] 5 mg PO DAILYP PRN 07/16/21 07/24/21 History Docusate Sodium [Colace 250mg 250 mg PO BID 07/16/21 07/24/21 History capsule] Folic Acid/Vit B Complex and C 0.8 mg PO DAILY 07/16/21 07/24/21 History [Tika-Ella Tablet] Gabapentin 300 mg PO TID 07/16/21 07/24/21 History Hydromorphone HCl [Dilaudid 4mg 4 mg PO Q6H 07/16/21 07/24/21 History Tab] Ibuprofen [Ibuprofen 200MG Capsule] 200 mg PO Q6HP PRN 07/16/21 07/24/21 History Lactulose 30 ml PO DAILYP PRN 07/16/21 07/24/21 History Melatonin 5 mg PO HS 07/16/21 07/24/21 History Sennosides/Docusate Sodium 2 tab PO BID 07/16/21 07/24/21 History [Senexon-S 50-8.6 mg Tablet] Thiamine HCl [Vitamin B-1] 100 mg PO DAILY 07/16/21 07/24/21 History Vitamin A Palmitate [Vitamin A] 3,000 mcg PO DAILY 07/16/21 07/24/21 History Amoxicillin/Potassium Clav 500 mg PO BID 07/24/21 07/24/21 History [Augmentin 500mg tab] Ceftriaxone Sodium [Rocephin 1gm 1 gm IM ONCE 07/24/21 07/24/21 History vial] levoFLOXacin [Levaquin 500mg 500 mg PO DAILY 07/24/21 07/24/21 History tab] Height: 1.63 m Weight: 50 kg Laboratory Results:: Laboratory Results - last 24 hr 07/24/21 13:15: WBC 19.0 H, RBC 4.51, Hgb 14.4, Hct 43.1, MCV 95.4, MCH 32.0 H, MCHC 33.5, RDW 13.9, Plt Count 700 H, MPV 8.4, Neut % (Auto) 79.4, Lymph % (Auto) 15.2, [place] % (Auto) 4.1, Eos % (Auto) 0.4, Baso % (Auto) 0.9, Neut # (Auto) 15.1 H, Lymph # (Auto) 2.9, [place] # (Auto) 0.8, Eos # (Auto) 0.1, Baso # (Auto) 0.2, Total Counted 100, Neutrophils % (Manual) 87 H, Lymphocytes % (Manual) 11, Monocytes % (Manual) 2, Platelet Estimate Normal, Hypochromasia 1+, Anisocytosis 1+, Macrocytosis 1+ 07/24/21 13:15: Sodium 142, Potassium 4.4, Chloride 104, Carbon Dioxide 29, Anion Gap 13.4, BUN 18 H, Creatinine 0.40 L, Estimated GFR 171, Est GFR ( Amer) 207, Glucose 159 H, Calcium 10.3 H, Total Bilirubin 0.7, AST 53 H, ALT 55, Alkaline Phosphatase 150 H, Troponin I < 0.01, Total Protein 7.6, Albumin 4.0, Globulin 3.6 H, Albumin/Globulin Ratio 1.1 07/24/21 13:15: PT 11.4, INR 1.01, APTT 29.6 07/24/21 13:15: Total Bilirubin 0.8 07/24/21 14:00: Lactate 1.2 07/24/21 14:00: Urine Color Yellow, Urine Appearance Clear, Urine pH 6.0, Ur Specific Bath 1.020, Urine Protein Negative, Urine Glucose (UA) Negative, Urine Ketones Negative, Urine Blood Negative, Urine Nitrate Negative, Urine Bilirubin Negative, Urine Urobilinogen 0.2, Ur Leukocyte Esterase Negative, Urine RBC None, Urine WBC Occasional, Ur Squamous Epith Cells None, Urine Bacteria Trace 07/24/21 15:00: Specimen Source Left brachial, O2 % 100, ABG pH 7.43, ABG pCO2 34.9 L, ABG pO2 251.5 H, ABG HCO3 22.8, ABG Total CO2 23.9, ABG Base Excess -1.5, Ronnell Test Patient unable, Vent Rate 20, Tidal Volume 380, PEEP 5 07/24/21 15:48: SARS-CoV-2 (PCR) Not detected, Influenza A Untype (PCR) Not detected, Influenza Type B (PCR) Not detected Assessment and Plan - Assessment and plan all Dx Assessment and Plan for all problems:: Age: 45 yo Serum creatinine: 0.8 mg/dL Height: 64.0 Inches Weight (kg): 50 Assessment: IBW (kg): 54.70 Dosing wt(kg): 50 Estimated Creatinine clearance (ml/min): 68.6 CRCL method: Cockcroft and Gault using ibw(default). Drug selected: Vancomycin Loading dose (mg): 0 Vd (liters): 40.0 (factor used: 0.8 L/kg) Braxton (hr-1): 0.061 Half life (hrs): 11.36
--- NOTE | 2021-07-24 16:22 | PC.NURSE ---
house called for bed placement
--- NOTE | 2021-07-24 16:52 | PC.NURSE ---
Pt had a loose bowel movement. Pt changed and new brief applied. Pt does have a small area of breakdown on her coccyx
[2021-07-24 17:32] LABS: Troponin I < 0.01 ng/ml (0.00-0.034)
--- NOTE | 2021-07-24 20:41 | PC.NURSE ---
Assessment of pt coccyx/sacral area for skin injuries.
--- NOTE | 2021-07-24 21:39 | PC.NURSE ---
spoke with pt daughter, password of [place] put in place. verified pt code status as a full code as well.
--- NOTE | 2021-07-24 21:52 | PC.NURSE ---
1920 called and spoke to ER staff. had them remind ER MD that physician documentation was needed from the ER
--- NOTE | 2021-07-24 22:29 | HMH.EDGENADL ---
ED Disposition Clinical Impression: Respiratory failure Qualifiers: Chronicity: acute Respiratory failure complication: hypoxia Qualified Code(s): J96.01 - Acute respiratory failure with hypoxia Disposition: Admitted As Inpatient Condition on Discharge: Undetermined - Critical Care Critical Care Time: Yes (Required emergent intubation and admission to ICU) Attestation: On 07/24/21, the high probability of a clinically significant, sudden or life threatening deterioration of the following system(s) required my full and direct attention, intervention and personal management. The time I documented below is in addition to time spent performing reported procedures but includes the following listed in this critical care notation. Total Critical Care Time: 60 Vital system(s) involved:: Central Nervous System, Respiratory Failure, Shock (Septic) My critical care processes included: Assessment & monitoring of V/S, Initial and Re-exams, Data Review/Interpretation, Coordinating Care, Medication Orders and management, Documentation Medical Decision Making - Medical Records Medical records reviewed: Yes: I reviewed the patient's medical records. - Dieudonne Inquiry Pt receiving controlled substance: No Vital Signs: 07/24/21 14:15 07/24/21 15:05 07/24/21 15:15 Temperature 101.7 F H Temperature Source Rectal Pulse Rate 125 H 120 H Pulse Rate [Right Radial] 150 H Respiratory Rate 26 H Blood Pressure 115/84 115/82 Blood Pressure [Right Arm] 199/116 H Blood Pressure Mean 90 Blood Pressure Mean [Right Arm] 143 Blood Pressure Source [Right Arm] Automatic Cuff Blood Pressure Position [Right Arm] Supine 02 Sat by Pulse Oximetry 83 L 97 98 Oxygen Delivery Method Nasal Cannula Mechanical Ventilation Mechanical Ventilation Oxygen Flow Rate (LPM) 5 07/24/21 15:30 07/24/21 15:45 07/24/21 16:00 Temperature Temperature Source Pulse Rate 122 H 118 H 112 H Pulse Rate [Right Radial] Respiratory Rate Blood Pressure 112/80 108/80 L 111/81 Blood Pressure [Right Arm] Blood Pressure Mean 87 85 87 Blood Pressure Mean [Right Arm] Blood Pressure Source [Right Arm] Blood Pressure Position [Right Arm] 02 Sat by Pulse Oximetry 98 98 98 Oxygen Delivery Method Mechanical Ventilation Mechanical Ventilation Mechanical Ventilation Oxygen Flow Rate (LPM) 07/24/21 16:30 07/24/21 16:45 07/24/21 18:00 Temperature 100 F H Temperature Source Rectal Pulse Rate 110 H 110 H Pulse Rate [Right Radial] Respiratory Rate 20 Blood Pressure 107/83 L 116/78 Blood Pressure [Right Arm] Blood Pressure Mean 88 88 Blood Pressure Mean [Right Arm] Blood Pressure Source [Right Arm] Blood Pressure Position [Right Arm] 02 Sat by Pulse Oximetry 98 98 94 L Oxygen Delivery Method Mechanical Ventilation Mechanical Ventilation Oxygen Flow Rate (LPM) - Lab Data Lab results reviewed: Yes: I reviewed the patient's lab results. Lab Results 07/24/21 13:15: WBC 19.0 H, RBC 4.51, Hgb 14.4, Hct 43.1, MCV 95.4, MCH 32.0 H, MCHC 33.5, RDW 13.9, Plt Count 700 H, MPV 8.4, Neut % (Auto) 79.4, Lymph % (Auto) 15.2, [place] % (Auto) 4.1, Eos % (Auto) 0.4, Baso % (Auto) 0.9, Neut # (Auto) 15.1 H, Lymph # (Auto) 2.9, [place] # (Auto) 0.8, Eos # (Auto) 0.1, Baso # (Auto) 0.2, Total Counted 100, Neutrophils % (Manual) 87 H, Lymphocytes % (Manual) 11, Monocytes % (Manual) 2, Platelet Estimate Normal, Hypochromasia 1+, Anisocytosis 1+, Macrocytosis 1+ 07/24/21 13:15: Sodium 142, Potassium 4.4, Chloride 104, Carbon Dioxide 29, Anion Gap 13.4, BUN 18 H, Creatinine 0.40 L, Estimated GFR 171, Est GFR ( Amer) 207, Glucose 159 H, Calcium 10.3 H, Total Bilirubin 0.7, AST 53 H, ALT 55, Alkaline Phosphatase 150 H, Troponin I < 0.01, Total Protein 7.6, Albumin 4.0, Globulin 3.6 H, Albumin/Globulin Ratio 1.1 07/24/21 13:15: PT 11.4, INR 1.01, APTT 29.6 07/24/21 13:15: Total Bilirubin 0.8 07/24/21 14:00: Lactate 1.2
[2021-07-25] VITALS (24 sets, daily range): BP systolic 103–166; BP diastolic 72–123; PULSE 85–112; RESP 0–28; TEMP 36.6–37.8; O2SAT 40–100; BMI 17.4
[2021-07-25 06:09] LABS: POC Glucose,Bedside 133 (70-110)
[2021-07-25 06:29] LABS: Chloride 109 mmol/L (98-107); Sodium 145 mmol/L (136-145)
[2021-07-25 06:31] LABS: Blood Urea Nitrogen 16 mg/dl (7-17); Creatinine Clearance Estimated 102 mL/min (50-200); Estimated Glomerular Filt Rate 132 ml/min (>60); GFR (African American) 160 ML/MIN (>60)
[2021-07-25 06:32] LABS: Alanine Aminotransferase 38 U/L (12-78); Albumin Level 3.4 g/dl (3.5-5.0); Alkaline Phosphatase 134 U/L (38-126); Aspartate Amino Transferase 40 U/L (14-36); Bilirubin,Total 0.8 mg/dl (0.2-1.3); Calcium 9.2 mg/dl (8.4-10.2); Carbon Dioxide 27 mmol/L (22.0-30.0); Globulin 3.5 g/dL (1.3-3.2); Glucose 118 mg/dl (74-100); Phosphorous 3.2 mg/dl (2.5-4.5); Total Protein,Serum 6.9 g/dl (6.3-8.2)
[2021-07-25 06:33] LABS: Magnesium 1.7 mg/dl (1.6-2.3)
[2021-07-25 06:38] LABS: Basophils % 0.5 % (0.1-2.0); Eosinophils % 0.5 % (0.1-12.0); Hematocrit 33.8 % (37.0-47.0); Lymphocytes # 1.6 K/mm3 (0.7-4.5); Lymphocytes % 18.9 % (10-50); Mean Corpuscular HGB Conc 35.4 g/dL (31.8-35.4); Mean Corpuscular Hemoglobin 32.9 pg (27.0-31.2); Mean Corpuscular Volume 92.8 fl (81-99); Mean Platelet Volume 8.6 fl (7.4-10.4); Monocytes # 0.3 K/mm3 (0.1-1.0); Monocytes % 3.9 % (1.7-9.3); Neutrophils # 6.5 K/mm3 (1.8-7.8); Neutrophils % 76.3 % (37.0-80.0); Platelet Count 373 K/mm3 (142-424); Red Blood Count 3.64 M/mm3 (4.20-5.40); Red Cell Distribution Width 13.7 % (11.5-17.5); White Blood Count 8.6 K/mm3 (4.8-10.8)
--- NOTE | 2021-07-25 06:44 | PC.NURSE ---
no acute events overnight. pt sedated on 50mcg propofol but still able to answer questions by nodding head. pt has had 2 large loose BMs this shift. draining cloudy yellow urine via man. pt has thick white secretions, oral care q2h, turned q2h, heels floated.
--- NOTE | 2021-07-25 07:57 | PC.NURSE ---
received call from lab ([facility]) reporting K 3.0. Name and verified. Dr. Welsh notified.
[2021-07-25 07:59] LABS: ABG Base Excess 1.3 mmol/L (-2.4-2.3); ABG HCO3 23.8 mmhg (22.0-26.0); ABG Oxygen Saturation 99 % (90-100); ABG PCO2 28.3 mmhg (35.0-45.0); ABG PH 7.54 mmol/L (7.35-7.45); ABG PO2 157.8 mmhg (80-100); ABG TCO2 24.7 mmhg (23-27)
[2021-07-25 08:01] LABS: Allen's Test Patient Unable; Oxygen 60 %; PEEP 5; Source Right Radial; Tidal Volume 380; Vent Rate 20
--- NOTE | 2021-07-25 08:31 | XR_ITS ---
PROCEDURE INFORMATION: Exam: XR Chest Exam date and time: 07/25/2021 8:31 AM Age: 45 years old Clinical indication: Shortness of breath; Additional info: Pnm, SOB, on a vent TECHNIQUE: Imaging protocol: XR of the chest. Views: 1 view. COMPARISON: CR XR CHEST PORTABLE 07/24/2021 3:30 PM FINDINGS: Tubes, catheters and devices: Endotracheal tube terminates 4.2 cm above the lovely. Enteric tube is seen within the stomach. The tip is not identified.. Lungs: Unremarkable. No consolidation. Pleural spaces: Unremarkable. No pleural effusion. No pneumothorax. Heart/Mediastinum: Unremarkable. No cardiomegaly. Bones/joints: Unremarkable. IMPRESSION: 1. Endotracheal tube terminates 4.2 cm above the lovely. 2. Enteric tube is seen within the stomach. The tip is not identified..
--- NOTE | 2021-07-25 10:58 | PC.NURSE ---
RESP CARE NOTE: Pt placed on SPONT ventilation mode with 5 cmH2O of pressure support and 5 cmH2O of PEEP per Dr Monahan t/o.
--- NOTE | 2021-07-25 11:12 | PC.NURSE ---
RESP CARE NOTE: Pt on spontaneous mode of ventilation with settings of 5/5cmH2O. Vt on average 400-450ml with a rate of 20 bpm. SPO2 remains 100%. Will continue to monitor.
--- NOTE | 2021-07-25 12:07 | HMH.HP ---
*Admission Date: 07/24/21 *Chief complaint: sob *History of present illness: this patient was sent from [facility] to [facility] ed for resp distress -called from [place] she stated that pt may have reaspirated. She stated that she was on 2 L and her o2 sat was 65% she changed it to 5L and was unable to give me new o2 sat on new flow rate. She stated that auxillary temp was 101.1, RR 26, pulse was 136. She has hx of UTI and MS. She is unable to move by her self. She has dysphagia. She was lethargic, and altered mental status Patient is a 45-year-old female with a history of MS and frequent aspiration is presenting via EMS from [facility] for chief complaint of respiratory distress. On arrival, patient is not able to answer and state name, has diffuse rales bilaterally with oxygen saturation of 83% on a nonrebreather. No further history is obtained from patient due to acuity of situation and no family at bedside. Additionally, patient is tachycardic and febrile on arrival, concerning for sepsis. acute hypoxic respiratory failure with altered mental status. Differential diagnosis is broad and includes respiratory infection, sepsis, urinary tract infection, other. On initial exam, patient has diffuse rhonchi throughout her lung sounds and has oxygen saturations of 83% on room air. Given this, patient was emergently intubated in the emergency department and placed on propofol drip. Chest x-ray confirmed appropriate ET tube placement. Given critical condition, patient was started on antibiotics and admitted [facility] History I have reviewed the patient's past medical history: Yes *Have you ever received a pneumonia vaccine?: No *Have you received a flu vaccine this season?: No Other Medical History: Reports: Other Other Surgeries: Yes: Other - *Social History Smoking Status: Unknown if ever smoked Alcohol Intake: never Alcohol Intake Frequency:: 0-2 drinks per day Substance Use Type: unknown *Occupational Status:: unemployed, disabled Housing: [facility] *Travel in the last 8 weeks: None Family Hx:: Unable to obtain Review of Systems - Review of Systems Review of systems:: unable to obtain Meds Home Medications Medication Instructions Recorded Confirmed Type Acetaminophen [Acetaminophen 325mg 650 mg PO Q4HP PRN 07/16/21 07/24/21 History tab] Bisacodyl [Bisacodyl 10mg Supp] 10 mg RC DAILYP PRN 07/16/21 07/24/21 History Bisacodyl [Women's Laxative] 5 mg PO DAILYP PRN 07/16/21 07/24/21 History Docusate Sodium [Colace 250mg 250 mg PO BID 07/16/21 07/24/21 History capsule] Folic Acid/Vit B Complex and C 0.8 mg PO DAILY 07/16/21 07/24/21 History [Tika-Ella Tablet] Gabapentin 300 mg PO TID 07/16/21 07/24/21 History Hydromorphone HCl [Dilaudid 4mg 4 mg PO Q6H 07/16/21 07/24/21 History Tab] Ibuprofen [Ibuprofen 200MG Capsule] 200 mg PO Q6HP PRN 07/16/21 07/24/21 History Lactulose 30 ml PO DAILYP PRN 07/16/21 07/24/21 History Melatonin 5 mg PO HS 07/16/21 07/24/21 History Sennosides/Docusate Sodium 2 tab PO BID 07/16/21 07/24/21 History [Senexon-S 50-8.6 mg Tablet] Thiamine HCl [Vitamin B-1] 100 mg PO DAILY 07/16/21 07/24/21 History Vitamin A Palmitate [Vitamin A] 3,000 mcg PO DAILY 07/16/21 07/24/21 History Amoxicillin/Potassium Clav 500 mg PO BID 07/24/21 07/24/21 History [Augmentin 500mg tab] Ceftriaxone Sodium [Rocephin 1gm 1 gm IM ONCE 07/24/21 07/24/21 History vial] levoFLOXacin [Levaquin 500mg 500 mg PO DAILY 07/24/21 07/24/21 History tab] Allergies Allergy/AdvReac Type Severity Reaction Status Date / Time methylprednisolone Allergy Verified 07/24/21 15:31 Exam Vital signs and Labs for Last 24 Hours: Temp Pulse Resp BP Pulse Ox 97.9 F 85 16 103/72 L 100 07/25/21 08:00 07/25/21 10:00 07/25/21 10:00 07/25/21 10:00 07/25/21 10:00 Laboratory Results - last 24 hr 07/24/21 13:15: WBC 19.0 H, RBC 4.51, Hgb 14.4, Hct 43.1, MCV 95.4, MCH 32.0 H, MCHC 33.5, RDW
[2021-07-25 12:59] LABS: POC Glucose,Bedside 113 (70-110)
--- NOTE | 2021-07-25 13:09 | HMH.PHAVTE ---
[facility] Pharmacy VTE Monitoring - Patient Demographics Admission date: 07/25/21 Report Date: 07/25/21 Time: 13:09 Allergies/Adverse Reactions: Patient Allergies methylprednisolone Allergy (Verified 07/24/21 15:31) Height: 1.63 m Weight: 46.465 kg Patient Problems: Current Active Problems Healthcare-associated pneumonia (Acute) Multiple sclerosis (Chronic) Respiratory failure (Acute) Low body mass index (BMI) (Acute) Severe sepsis with acute organ dysfunction (Acute) - VTE Risk Labs: VTE Related Lab Results Hgb 12.0 g/dL (12.2-16.2) L D 07/25/21 05:56 Hct 33.8 % (37.0-47.0) L 07/25/21 05:56 Plt Count 373 K/mm3 (142-424) D 07/25/21 05:56 PT 11.4 seconds (10.1-12.5) 07/24/21 13:15 INR 1.01 (0.9-1.1) 07/24/21 13:15 APTT 29.6 seconds (22.8-30.6) 07/24/21 13:15 BUN 16 mg/dl (7-17) 07/25/21 05:56 Creatinine 0.50 mg/dl (0.52-1.04) L D 07/25/21 05:56 Estimated Creat Clear 102 mL/min (50-200) 07/25/21 05:56 Was VTE Risk Assessment Performed: Yes VTE Score: 2 VTE Risk Level: Low Risk - Prophylaxis Types of VTE Prophylaxis: TEDS Knee High Location of Applied Device: Bilateral Lower Extremeties (TREVOR HOSE ORDER PLACED)
[2021-07-25 17:02] LABS: POC Glucose,Bedside 101 (70-110)
[2021-07-26] VITALS (30 sets, daily range): BP systolic 122–174; BP diastolic 60–116; PULSE 84–103; RESP 16–28; TEMP 36.7–37.3; O2SAT 96–100; BMI 18.8
[2021-07-26 00:47] LABS: POC Glucose,Bedside 83 (70-110)
[2021-07-26 05:25] LABS: POC Glucose,Bedside 83 (70-110)
[2021-07-26 05:56] LABS: Basophils % 0.4 % (0.1-2.0); Eosinophils # 0.1 K/mm3 (0.0-0.4); Eosinophils % 0.6 % (0.1-12.0); Hematocrit 32.4 % (37.0-47.0); Lymphocytes # 1.1 K/mm3 (0.7-4.5); Lymphocytes % 12.6 % (10-50); Mean Corpuscular HGB Conc 32.4 g/dL (31.8-35.4); Mean Corpuscular Hemoglobin 31.7 pg (27.0-31.2); Mean Corpuscular Volume 97.9 fl (81-99); Mean Platelet Volume 7.9 fl (7.4-10.4); Monocytes # 0.3 K/mm3 (0.1-1.0); Monocytes % 2.9 % (1.7-9.3); Neutrophils # 7.5 K/mm3 (1.8-7.8); Neutrophils % 83.6 % (37.0-80.0); Platelet Count 349 K/mm3 (142-424); Red Blood Count 3.31 M/mm3 (4.20-5.40); Red Cell Distribution Width 13.5 % (11.5-17.5)
[2021-07-26 05:57] LABS: Hemoglobin 10.5 g/dL (12.2-16.2)
--- NOTE | 2021-07-26 06:00 | XR_ITS ---
PROCEDURE INFORMATION: Exam: XR Chest Exam date and time: 07/26/2021 6:00 AM Age: 45 years old Clinical indication: Other: Intubated; Additional info: Daily while intubated TECHNIQUE: Imaging protocol: XR of the chest. Views: 1 view. COMPARISON: CR XR CHEST PORTABLE 07/25/2021 8:57 AM FINDINGS: Tubes, catheters and devices: Endotracheal tube terminates approximately 2 cm above the lovely. NG tube passes into the stomach. Lungs: Left basilar airspace opacity. Pleural spaces: Query small left pleural effusion. No pneumothorax. Heart/Mediastinum: Unremarkable. No cardiomegaly. Bones/joints: Unremarkable. IMPRESSION: 1. Endotracheal tube terminates approximately 2 cm above the lovely. 2. Left basilar airspace opacity may reflect atelectasis versus aspiration or pneumonia. 3. Query small left pleural effusion.
[2021-07-26 06:01] LABS: Chloride 112 mmol/L (98-107); Sodium 148 mmol/L (136-145)
[2021-07-26 06:04] LABS: Alanine Aminotransferase 30 U/L (12-78); Albumin Level 3.3 g/dl (3.5-5.0); Albumin/Globulin Ratio 0.9 (1.1-1.8); Alkaline Phosphatase 132 U/L (38-126); Aspartate Amino Transferase 28 U/L (14-36); Bilirubin,Total 0.8 mg/dl (0.2-1.3); Blood Urea Nitrogen 16 mg/dl (7-17); Calcium 9.3 mg/dl (8.4-10.2); Carbon Dioxide 21 mmol/L (22.0-30.0); Creatinine Clearance Estimated 110 mL/min (50-200); Estimated Glomerular Filt Rate 132 ml/min (>60); GFR (African American) 160 ML/MIN (>60); Globulin 3.5 g/dL (1.3-3.2); Glucose 113 mg/dl (74-100); Total Protein,Serum 6.8 g/dl (6.3-8.2)
[2021-07-26 06:06] LABS: Anion Gap 17.8 mEq/L (5-15); Potassium 2.8 mmoL/L (3.5-5.1)
--- NOTE | 2021-07-26 06:41 | PC.NURSE ---
notified MD Sorensen guest relations officer of pt's critical potassium of 2.8, no new orders at this time
--- NOTE | 2021-07-26 07:12 | PC.NURSE ---
Placed Pt on Spontaneous Breathing Trial, discussed with RN agrees with plan Per Dr. Monahan. Pt tolerating well at this time, will continue to monitor.
[2021-07-26 08:35] LABS: Vancomycin,Random 26.1 ug/ml
[2021-07-26 09:48] LABS: ABG Base Excess -2.3 mmol/L (-2.4-2.3); ABG Oxygen Saturation 96 % (90-100); ABG PCO2 28.1 mmhg (35.0-45.0); ABG PH 7.49 mmol/L (7.35-7.45); ABG PO2 79.6 mmhg (80-100); ABG TCO2 21.9 mmhg (23-27)
[2021-07-26 09:55] LABS: Oxygen 40 %; PEEP 5; Pressure Support 10
[2021-07-26 09:56] LABS: Allen's Test Acceptable; Source Left Radial
--- NOTE | 2021-07-26 11:16 | PC.NURSE ---
Pt placed on T-piece for weaning per Dr. Monahan discussed with RN aware of the plan. Pt placed on cool aerosol T-piece at 60% FiO2 bleed in. HR 92, RR 22, SPO2 99%. Pt tolerating well at this time, no respiratory distress noted. Will continue to monitor.
[2021-07-26 12:59] LABS: POC Glucose,Bedside 111 (70-110)
--- NOTE | 2021-07-26 13:21 | HMH.ACPN2 ---
Internal Medicine - PN: Subj *Date: 07/26/21 *Time: 13:27 Interval history: Patient has made decent progress overnight. She was intubated in the emergency room, now is to a T-piece. White count went from 19-9. We have noted a drop in her hemoglobin from 12-10.5. She is on vancomycin and Zosyn was on a Protonix and dipper Van drip. She is more alert. She appears to be in no distress. Is hypokalemic today at 2.8 I spoke to respiratory therapy. We will make a move to extubate the patient later today Exam Vital signs and Labs for Last 24 Hours: Temp Pulse Resp BP Pulse Ox 98.6 F 96 H 21 147/94 H 99 07/26/21 12:00 07/26/21 12:00 07/26/21 12:00 07/26/21 12:00 07/26/21 12:00 Laboratory Results - last 24 hr 07/25/21 16:56: POC Glucose 101 07/26/21 00:21: POC Glucose 83 07/26/21 05:12: POC Glucose 83 07/26/21 05:36: WBC 9.0, RBC 3.31 L, Hgb 10.5 L D, Hct 32.4 L, MCV 97.9, MCH 31.7 H, MCHC 32.4, RDW 13.5, Plt Count 349, MPV 7.9, Neut % (Auto) 83.6 H, Lymph % (Auto) 12.6, [place] % (Auto) 2.9, Eos % (Auto) 0.6, Baso % (Auto) 0.4, Neut # (Auto) 7.5, Lymph # (Auto) 1.1, [place] # (Auto) 0.3, Eos # (Auto) 0.1, Baso # (Auto) 0.0 07/26/21 05:36: Sodium 148 H, Potassium 2.8 L*, Chloride 112 H, Carbon Dioxide 21 L, Anion Gap 17.8 H, BUN 16, Creatinine 0.50 L, Estimated Creat Clear 110, Estimated GFR 132, Est GFR ( Amer) 160, Glucose 113 H, Calcium 9.3, Total Bilirubin 0.8, AST 28 D, ALT 30, Alkaline Phosphatase 132 H, Total Protein 6.8, Albumin 3.3 L, Globulin 3.5 H, Albumin/Globulin Ratio 0.9 L 07/26/21 05:36: Random Vancomycin 26.1 07/26/21 06:00: Specimen Source Left radial, O2 % 40, ABG pH 7.49 H, ABG pCO2 28.1 L, ABG pO2 79.6 L, ABG HCO3 21.0 L, ABG Total CO2 21.9 L, ABG O2 Saturation 96, ABG Base Excess -2.3, Ronnell Test Acceptable, PEEP 5 07/26/21 12:51: POC Glucose 111 H I & O for Last 24 hours: Intake & Output 07/23/21 07/24/21 07/25/21 07/26/21 23:59 23:59 23:59 23:59 Intake Total 1969 944 / 944 Output Total 170 220 939 / 977 483 / 483 Balance -170 / -220 1031 / 1064 461 / 461 Weight 99 lb 4 oz 102 lb 7 oz 110 lb Microbiology Reports for the Last 24 Hours: Microbiology 07/24/21 13:50 Sputum - Expectorated Sputum Gram Stain - Final 07/24/21 13:50 Sputum - Expectorated Sputum Sputum Culture - Preliminary 07/24/21 14:00 Urine,Random Urine Culture - Preliminary NO GROWTH AFTER 24 HOURS - Constitutional chronically ill appearing - *Routine HEENT Exam Head: Present: normocephalic Eye: Present: EOMI, PERRL ENT: Present: mucous membranes moist - *Routine Neck Exam Present: supple. Absent: lymphadenopathy - *Routine Respiratory Exam Present: CTA bilaterally. Absent: respiratory distress - *Routine Cardiovascular Exam Present: RRR - *Routine Abdominal Exam Present: soft, normoactive bowel sounds. Absent: tenderness - *Routine Extremities Exam Absent: cyanosis, clubbing, edema - *Routine Skin Exam Present: warm. Absent: rash - *Routine Neurological Exam Present: alert, oriented X3, vision grossly intact, hearing grossly intact. Absent: normal speech Assessment and Plan (1) Healthcare-associated pneumonia Status: Acute Category: Medical Code(s): J18.9 - Pneumonia, unspecified organism (2) Multiple sclerosis Status: Chronic Category: Medical Code(s): G35 - Multiple sclerosis (3) Low body mass index (BMI) Status: Acute Category: Medical (4) Respiratory failure Status: Acute Qualifiers: Chronicity: acute Respiratory failure complication: hypoxia Qualified Code(s): J96.01 - Acute respiratory failure with hypoxia Category: Medical Code(s): J96.90 - Respiratory failure, unspecified, unspecified whether with hypoxia or hypercapnia (5) Severe sepsis with acute organ dysfunction Status: Acute Category: Medical Code(s): A41.9 - Sepsis, unspecified organism; R65.20 - Severe sepsis without se
[2021-07-26 20:11] LABS: POC Glucose,Bedside 97 (70-110)
[2021-07-27] VITALS (20 sets, daily range): BP systolic 142–194; BP diastolic 92–122; PULSE 79–115; RESP 18–24; TEMP 36.9–37.2; O2SAT 91–100; BMI 18.6
--- NOTE | 2021-07-27 06:00 | XR_ITS ---
PROCEDURE INFORMATION: Exam: XR Chest Exam date and time: 07/27/2021 6:00 AM Age: 45 years old Clinical indication: Device placement; Ett placement (vent status); Additional info: Daily while intubated TECHNIQUE: Imaging protocol: XR of the chest. Views: 1 view. COMPARISON: CR XR CHEST PORTABLE 07/26/2021 6:06 AM FINDINGS: Tubes, catheters and devices: Nasogastric tube and ET tubes are in good position. Lungs: Some retrocardiac density is unchanged. Pleural spaces: Unremarkable. No pleural effusion. No pneumothorax. Heart/Mediastinum: Unremarkable. No cardiomegaly. Bones/joints: Unremarkable. IMPRESSION: Stable retrocardiac opacity.
[2021-07-27 06:57] LABS: Basophils % 0.3 % (0.1-2.0); Eosinophils # 0.1 K/mm3 (0.0-0.4); Eosinophils % 0.5 % (0.1-12.0); Hematocrit 33.7 % (37.0-47.0); Lymphocytes # 1.1 K/mm3 (0.7-4.5); Lymphocytes % 11.4 % (10-50); Mean Corpuscular HGB Conc 32.7 g/dL (31.8-35.4); Mean Corpuscular Hemoglobin 31.7 pg (27.0-31.2); Mean Corpuscular Volume 96.8 fl (81-99); Mean Platelet Volume 8.2 fl (7.4-10.4); Monocytes # 0.4 K/mm3 (0.1-1.0); Monocytes % 3.8 % (1.7-9.3); Neutrophils # 8.2 K/mm3 (1.8-7.8); Neutrophils % 83.9 % (37.0-80.0); Platelet Count 398 K/mm3 (142-424); Red Blood Count 3.48 M/mm3 (4.20-5.40); Red Cell Distribution Width 13.5 % (11.5-17.5); White Blood Count 9.8 K/mm3 (4.8-10.8)
[2021-07-27 07:00] LABS: Chloride 115 mmol/L (98-107); Sodium 149 mmol/L (136-145)
[2021-07-27 07:02] LABS: Blood Urea Nitrogen 10 mg/dl (7-17); Creatinine Clearance Estimated 109 mL/min (50-200); Estimated Glomerular Filt Rate 132 ml/min (>60); GFR (African American) 160 ML/MIN (>60)
[2021-07-27 07:03] LABS: Alanine Aminotransferase 22 U/L (12-78); Albumin Level 3.3 g/dl (3.5-5.0); Albumin/Globulin Ratio 0.9 (1.1-1.8); Alkaline Phosphatase 121 U/L (38-126); Aspartate Amino Transferase 21 U/L (14-36); Bilirubin,Total 0.6 mg/dl (0.2-1.3); Calcium 8.9 mg/dl (8.4-10.2); Carbon Dioxide 22 mmol/L (22.0-30.0); Globulin 3.5 g/dL (1.3-3.2); Glucose 96 mg/dl (74-100); Total Protein,Serum 6.8 g/dl (6.3-8.2)
[2021-07-27 07:05] LABS: Potassium 2.8 mmoL/L (3.5-5.1)
--- NOTE | 2021-07-27 07:06 | PC.NURSE ---
notified MD Welsh of pt's critical potassium of 2.8, no new orders at this time time
--- NOTE | 2021-07-27 09:42 | HMH.ACPN2 ---
Internal Medicine - PN: Subj *Date: 07/27/21 *Time: 08:50 Interval history: pt laying in bed alert, on t piece trial Exam Vital signs and Labs for Last 24 Hours: Temp Pulse Resp BP Pulse Ox 98.9 F 93 H 20 164/104 H 94 L 07/27/21 08:00 07/27/21 08:00 07/27/21 08:00 07/27/21 08:00 07/27/21 08:00 Laboratory Results - last 24 hr 07/26/21 06:00: Specimen Source Left radial, O2 % 40, ABG pH 7.49 H, ABG pCO2 28.1 L, ABG pO2 79.6 L, ABG HCO3 21.0 L, ABG Total CO2 21.9 L, ABG O2 Saturation 96, ABG Base Excess -2.3, Ronnell Test Acceptable, PEEP 5 07/26/21 12:51: POC Glucose 111 H 07/26/21 20:04: POC Glucose 97 07/27/21 05:42: WBC 9.8, RBC 3.48 L, Hgb 11.0 L, Hct 33.7 L, MCV 96.8, MCH 31.7 H, MCHC 32.7, RDW 13.5, Plt Count 398, MPV 8.2, Neut % (Auto) 83.9 H, Lymph % (Auto) 11.4, [place] % (Auto) 3.8, Eos % (Auto) 0.5, Baso % (Auto) 0.3, Neut # (Auto) 8.2 H, Lymph # (Auto) 1.1, [place] # (Auto) 0.4, Eos # (Auto) 0.1, Baso # (Auto) 0.0 07/27/21 05:42: Sodium 149 H, Potassium 2.8 L*, Chloride 115 H, Carbon Dioxide 22, Anion Gap 12.0, BUN 10 D, Creatinine 0.50 L, Estimated Creat Clear 109, Estimated GFR 132, Est GFR ( Amer) 160, Glucose 96, Calcium 8.9, Total Bilirubin 0.6, AST 21, ALT 22 D, Alkaline Phosphatase 121, Total Protein 6.8, Albumin 3.3 L, Globulin 3.5 H, Albumin/Globulin Ratio 0.9 L I & O for Last 24 hours: Intake & Output 12/07/25/21 07/26/21 07/27/21 11:59 11:59 11:59 11:59 Intake Total 2914 / 2914 2685 / 2685 Output Total 787 / 802 785 / 805 1090 / 1090 Balance -787 / -802 9 / 210 1595 / 1595 Weight 102 lb 7 oz 110 lb 109 lb Microbiology Reports for the Last 24 Hours: Microbiology 07/24/21 13:50 Sputum - Expectorated Sputum Gram Stain - Final 07/24/21 13:50 Sputum - Expectorated Sputum Sputum Culture - Final Yeast 07/24/21 14:00 Urine,Random Urine Culture - Final NO GROWTH AFTER 48 HOURS 07/24/21 14:00 Blood Blood Culture - Preliminary NO GROWTH AFTER 48 HOURS 07/24/21 14:00 Blood Blood Culture - Preliminary NO GROWTH AFTER 48 HOURS - Constitutional no acute distress, chronically ill appearing - *Routine HEENT Exam Head: Present: normocephalic Eye: Present: PERRL ENT: Present: mucous membranes moist - *Routine Neck Exam Present: supple. Absent: lymphadenopathy - *Routine Respiratory Exam Present: patient mechanically ventilated, rhonchi - *Routine Cardiovascular Exam Present: RRR - *Routine Abdominal Exam Present: soft, normoactive bowel sounds. Absent: tenderness - *Routine Extremities Exam Absent: cyanosis, clubbing, edema - *Routine Skin Exam Present: warm. Absent: rash - *Routine Neurological Exam Present: alert Assessment and Plan (1) Healthcare-associated pneumonia Status: Acute Category: Medical Code(s): J18.9 - Pneumonia, unspecified organism (2) Multiple sclerosis Status: Chronic Category: Medical Code(s): G35 - Multiple sclerosis (3) Low body mass index (BMI) Status: Acute Category: Medical (4) Respiratory failure Status: Acute Qualifiers: Chronicity: acute Respiratory failure complication: hypoxia Qualified Code(s): J96.01 - Acute respiratory failure with hypoxia Category: Medical Code(s): J96.90 - Respiratory failure, unspecified, unspecified whether with hypoxia or hypercapnia (5) Severe sepsis with acute organ dysfunction Status: Acute Category: Medical Code(s): A41.9 - Sepsis, unspecified organism; R65.20 - Severe sepsis without septic shock - Assessment and plan all Dx Assessment and Plan for all problems:: rounded with dr castillo all orders per dr castillo pulizabel consult poss extubate today
[2021-07-27 11:14] LABS: POC Glucose,Bedside 95 (70-110)
[2021-07-27 11:28] LABS: Vancomycin,Trough 12.9 ug/mL (5.0-10.0)
--- NOTE | 2021-07-27 11:28 | SW/DCPLANNER ---
Addendum entered by Chen Yoon 07/28/21 09:51: I have faxed updated patient information to Sita hunt/ [facility] Smiley. Original Note: This patient currently resides at [facility]. Patient was under Hospice services prior to admission and has since revoked Hospice. Updated patient information has been faxed to Sita with [facility]. I will follow up with Sita once patient is medically stable for discharge.
--- NOTE | 2021-07-27 11:34 | HMH.PULMCON ---
*Admission Date: 07/25/21 *Reason for consult:: Acute hypoxic respiratory failure *History of present illness: Patient was intubatedAND could not engage in meaningful conversation. Much of the history is obtained from chart review. Ms. Medina is a 45-year-old female with a prior history of multiple sclerosis, recurrent aspiration pneumonia and UTI presented to the hospital for management with worsening respiratory distress along with febrile episodes and tachycardia eventually needing intubation and mechanical ventilatory support and pulmonary was called for further management. [facility] History *Have you ever received a pneumonia vaccine?: No *Have you received a flu vaccine this season?: No Other Medical History: Reports: Other Other Surgeries: Yes: Other - *Social History Smoking Status: Unknown if ever smoked Alcohol Intake: never Alcohol Intake Frequency:: 0-2 drinks per day Substance Use Type: unknown *Occupational Status:: unemployed, disabled Housing: group home *Travel in the last 8 weeks: None Family Hx:: Unable to obtain ROS - Review of Systems Review of systems:: unable to obtain Intubated Meds Home Medications Medication Instructions Recorded Confirmed Type Acetaminophen [Acetaminophen 325mg 650 mg PO Q4HP PRN 07/16/21 07/24/21 History tab] Bisacodyl [Bisacodyl 10mg Supp] 10 mg RC DAILYP PRN 07/16/21 07/24/21 History Bisacodyl [Women's Laxative] 5 mg PO DAILYP PRN 07/16/21 07/24/21 History Docusate Sodium [Colace 250mg 250 mg PO BID 07/16/21 07/24/21 History capsule] Folic Acid/Vit B Complex and C 0.8 mg PO DAILY 07/16/21 07/24/21 History [Tika-Ella Tablet] Gabapentin 300 mg PO TID 07/16/21 07/24/21 History Hydromorphone HCl [Dilaudid 4mg 4 mg PO Q6H 07/16/21 07/24/21 History Tab] Ibuprofen [Ibuprofen 200MG Capsule] 200 mg PO Q6HP PRN 07/16/21 07/24/21 History Lactulose 30 ml PO DAILYP PRN 07/16/21 07/24/21 History Melatonin 5 mg PO HS 07/16/21 07/24/21 History Sennosides/Docusate Sodium 2 tab PO BID 07/16/21 07/24/21 History [Senexon-S 50-8.6 mg Tablet] Thiamine HCl [Vitamin B-1] 100 mg PO DAILY 07/16/21 07/24/21 History Vitamin A Palmitate [Vitamin A] 3,000 mcg PO DAILY 07/16/21 07/24/21 History Allergies Allergy/AdvReac Type Severity Reaction Status Date / Time methylprednisolone Allergy Verified 07/24/21 15:31 Exam - Constitutional Constitutional:: Present: no acute distress, comfortable - HENMT Exam HENMT: Present: normocephalic, atraumatic - Eye Exam Eyes:: Present: normal appearance both eyes and related structures - Neck Exam Neck:: Present: normal visual inspection - Respiratory Exam Respiratory:: Present: no respiratory distress, normal respiratory effort, rhonchi - Cardiovascular Exam Cardiac:: Present: S1, S2 - GI Exam GI:: Present: soft - Skin Exam Skin: Present: warm - Neurological Exam Neurological: Present: awake. Absent: alert, normal cognition - Extremities Exam Extremities: Present: no cyanosis, no clubbing, edema - Psychiatric Exam Psychiatric: Present: normal affect Internal Medicine - CN: Reslt - Labs CBC & Chem 7: 07/27/21 05:42 07/27/21 05:42 Labs: Short CBC 07/27/21 Range/Units 05:42 WBC 9.8 (4.8-10.8) K/mm3 Hgb 11.0 L (12.2-16.2) g/dL Hct 33.7 L (37.0-47.0) % Plt Count 398 (142-424) K/mm3 BMP 07/27/21 05:42 Sodium 149 H Potassium 2.8 L* Chloride 115 H Carbon Dioxide 22 BUN 10 D Creatinine 0.50 L Glucose 96 Calcium 8.9 Liver Function 07/27/21 Range/Units 05:42 Total Bilirubin 0.6 (0.2-1.3) mg/dl AST 21 (14-36) U/L ALT 22 D (12-78) U/L Alkaline Phosphatase 121 (38-126) U/L Albumin 3.3 L (3.5-5.0) g/dl - ABG Interpretation ABG results: 07/24/21 07/25/21 07/26/21 15:00 06:00 06:00 ABG pH 7.43 7.54 H 7.49 H ABG pCO2 34.9 L 28.3 L 28.1 L ABG pO2 251.5 H 157.8 H 79.6 L ABG HCO3 22.8 23.8 21.0 L ABG Total C
[2021-07-27 11:44] LABS: POC Glucose,Bedside 95 (70-110)
--- NOTE | 2021-07-27 14:35 | HMH.ACPN ---
Internal Medicine - PN: Subj *Date: 07/27/21 *Time: 14:35 Exam Vital signs and Labs for Last 24 Hours: Temp Pulse Resp BP Pulse Ox 98.9 F 87 18 156/93 H 96 07/27/21 08:00 07/27/21 13:00 07/27/21 13:00 07/27/21 13:00 07/27/21 13:40 Laboratory Results - last 24 hr 07/26/21 20:04: POC Glucose 97 07/27/21 05:42: WBC 9.8, RBC 3.48 L, Hgb 11.0 L, Hct 33.7 L, MCV 96.8, MCH 31.7 H, MCHC 32.7, RDW 13.5, Plt Count 398, MPV 8.2, Neut % (Auto) 83.9 H, Lymph % (Auto) 11.4, [place] % (Auto) 3.8, Eos % (Auto) 0.5, Baso % (Auto) 0.3, Neut # (Auto) 8.2 H, Lymph # (Auto) 1.1, [place] # (Auto) 0.4, Eos # (Auto) 0.1, Baso # (Auto) 0.0 07/27/21 05:42: Sodium 149 H, Potassium 2.8 L*, Chloride 115 H, Carbon Dioxide 22, Anion Gap 12.0, BUN 10 D, Creatinine 0.50 L, Estimated Creat Clear 109, Estimated GFR 132, Est GFR ( Amer) 160, Glucose 96, Calcium 8.9, Total Bilirubin 0.6, AST 21, ALT 22 D, Alkaline Phosphatase 121, Total Protein 6.8, Albumin 3.3 L, Globulin 3.5 H, Albumin/Globulin Ratio 0.9 L 07/27/21 06:28: POC Glucose 95 07/27/21 10:30: Vancomycin Trough 12.9 H 07/27/21 11:34: POC Glucose 95 I & O for Last 24 hours: Intake & Output 07/24/21 07/25/21 07/26/21 07/27/21 23:59 23:59 23:59 23:59 Intake Total 1969 / 2040 2878 / 3030 1451 / 1451 Output Total 170 / 220 939 / 977 1003 / 1078 550 / 550 Balance -170 / -220 1031 / 1064 1875 / 1952 901 / 901 Weight 45.019 kg 46.465 kg 49.895 kg 49.442 kg Microbiology Reports for the Last 24 Hours: Microbiology 07/24/21 13:50 Sputum - Expectorated Sputum Gram Stain - Final 07/24/21 13:50 Sputum - Expectorated Sputum Sputum Culture - Final Yeast 07/24/21 14:00 Urine,Random Urine Culture - Final NO GROWTH AFTER 48 HOURS 07/24/21 14:00 Blood Blood Culture - Preliminary NO GROWTH AFTER 48 HOURS 07/24/21 14:00 Blood Blood Culture - Preliminary NO GROWTH AFTER 48 HOURS Assessment and Plan (1) Healthcare-associated pneumonia Status: Acute Category: Medical Code(s): J18.9 - Pneumonia, unspecified organism (2) Multiple sclerosis Status: Chronic Category: Medical Code(s): G35 - Multiple sclerosis (3) Low body mass index (BMI) Status: Acute Category: Medical (4) Respiratory failure Status: Acute Qualifiers: Chronicity: acute Respiratory failure complication: hypoxia Qualified Code(s): J96.01 - Acute respiratory failure with hypoxia Category: Medical Code(s): J96.90 - Respiratory failure, unspecified, unspecified whether with hypoxia or hypercapnia (5) Severe sepsis with acute organ dysfunction Status: Acute Category: Medical Code(s): A41.9 - Sepsis, unspecified organism; R65.20 - Severe sepsis without septic shock The patient's infection will respond to the chosen ABx?: Yes Is the patient receiving the right drug, dose, and route?: Yes Could a more targeted ABx be ordered?: No (URINE/BLOOD CX (-), AFEBRILE, WBC WNL, YEAST IN SPUTUM.)
[2021-07-27 16:28] LABS: POC Glucose,Bedside 83 (70-110)
--- NOTE | 2021-07-27 16:34 | PC.NURSE ---
Patient was extubated at 1015 this am and tolerated well, has been weaned to 4LNC, had large liquid BM this shift, has c/o pain x1 this shift, MD contacted and obtained order for diluadid, treated pain per emar with good results, pt has been hypertensive at times this shift, given one time dose of lopressor per MD order, vital signs stable at this time, no s/s of distress noted, has been turned q2h and provided oral care, FC patent and draining clear yellow urine at bedside.
[2021-07-27 20:09] LABS: POC Glucose,Bedside 81 (70-110)
--- NOTE | 2021-07-27 23:20 | PC.NURSE ---
No care needed.
[2021-07-28] VITALS (11 sets, daily range): BP systolic 114–183; BP diastolic 60–114; PULSE 60–97; RESP 16–28; TEMP 36.5–37.1; O2SAT 91–98
--- NOTE | 2021-07-28 00:35 | PC.NURSE ---
pt's oxygen saturation 89% sustained on 4LNC, increased oxygen to 5LNC and pt's sats 91%
--- NOTE | 2021-07-28 03:52 | PC.NURSE ---
pt's sats dropped to 84% on 5LNC, increased to 6LNC, sats still 84% sustained, notified Janet with respiratory therapy, RT gave pt neb treatment for wheezing, sats still 86%, RT applying hi-flow nasal cannula to increase oxygen saturations
--- NOTE | 2021-07-28 04:05 | PC.NURSE ---
RT Janet increased high flow nasal cannula to 15L and is NT suctioning, pt sats still mid to high 80's
--- NOTE | 2021-07-28 04:30 | PC.NURSE ---
pt's respiratory effort increased and respirations shallow, pt on 15 L high flow nasal cannula and oxygen saturations are 90-92%
[2021-07-28 05:41] LABS: POC Glucose,Bedside 88 (70-110)
--- NOTE | 2021-07-28 05:54 | PC.NURSE ---
Emptied trash and linens
--- NOTE | 2021-07-28 05:54 | PC.NURSE ---
Emptied trash and linens
--- NOTE | 2021-07-28 06:00 | XR_ITS ---
PROCEDURE INFORMATION: Exam: XR Chest Exam date and time: 07/28/2021 6:00 AM Age: 45 years old Clinical indication: Device placement; Ett placement (vent status); Patient HX: Extubated 07/27; Additional info: Daily while intubated TECHNIQUE: Imaging protocol: XR of the chest. Views: 1 view. COMPARISON: CR XR CHEST PORTABLE 07/27/2021 5:12 AM FINDINGS: Tubes, catheters and devices: Interval removal of endotracheal and NG tubes. Lungs: Persistent left base pulmonary opacities. Pleural spaces: Unremarkable. No pleural effusion. No pneumothorax. Heart/Mediastinum: Unremarkable. No cardiomegaly. Bones/joints: Unremarkable. IMPRESSION: 1. Persistent left base pulmonary opacities. 2. Interval extubation and removal of NG tube.
[2021-07-28 07:16] LABS: Basophils % 0.2 % (0.1-2.0); Eosinophils % 0.3 % (0.1-12.0); Hematocrit 34.9 % (37.0-47.0); Hemoglobin 11.4 g/dL (12.2-16.2); Lymphocytes # 1.1 K/mm3 (0.7-4.5); Lymphocytes % 13.3 % (10-50); Mean Corpuscular HGB Conc 32.6 g/dL (31.8-35.4); Mean Corpuscular Hemoglobin 31.4 pg (27.0-31.2); Mean Corpuscular Volume 96.5 fl (81-99); Mean Platelet Volume 7.2 fl (7.4-10.4); Monocytes # 0.3 K/mm3 (0.1-1.0); Monocytes % 3.8 % (1.7-9.3); Neutrophils # 6.7 K/mm3 (1.8-7.8); Neutrophils % 82.3 % (37.0-80.0); Platelet Count 398 K/mm3 (142-424); Red Blood Count 3.61 M/mm3 (4.20-5.40); White Blood Count 8.1 K/mm3 (4.8-10.8)
[2021-07-28 07:24] LABS: Chloride 115 mmol/L (98-107); Sodium 149 mmol/L (136-145)
[2021-07-28 07:27] LABS: Alanine Aminotransferase 19 U/L (12-78); Albumin Level 3.3 g/dl (3.5-5.0); Alkaline Phosphatase 116 U/L (38-126); Aspartate Amino Transferase 20 U/L (14-36); Bilirubin,Total 0.4 mg/dl (0.2-1.3); Blood Urea Nitrogen 9 mg/dl (7-17); Calcium 8.8 mg/dl (8.4-10.2); Carbon Dioxide 21 mmol/L (22.0-30.0); Creatinine Clearance Estimated 109 mL/min (50-200); Estimated Glomerular Filt Rate 132 ml/min (>60); GFR (African American) 160 ML/MIN (>60); Globulin 3.2 g/dL (1.3-3.2); Glucose 92 mg/dl (74-100); Total Protein,Serum 6.5 g/dl (6.3-8.2)
--- NOTE | 2021-07-28 07:34 | PC.NURSE ---
received call from lab ([place]) reporting K 3.0. Name and verified. Dr. Welsh updated.
--- NOTE | 2021-07-28 09:06 | PC.NURSE ---
Dr. Monahan @ [facility]. Orders received to discontinue LR @ 75ml/hr, suction pt via oral route using oral airway, add Robinul prn for increased secretions, attempt to wean 15L HFNC. He states that he will enter orders.
--- NOTE | 2021-07-28 09:19 | HMH.ACPN2 ---
Internal Medicine - PN: Subj *Date: 07/28/21 *Time: 16:31 Interval history: 45-year-old female patient sitting up in bed, she does not engage in conversation. She was extubated yesterday and today oxygen saturation is 92% on 15 L per high flow nasal cannula. There is a moderate amount of blood and suction tubing Exam Vital signs and Labs for Last 24 Hours: Temp Pulse Resp BP Pulse Ox 98.4 F 96 H 28 H 178/107 H 92 L 07/28/21 08:00 07/28/21 08:00 07/28/21 08:00 07/28/21 08:00 07/28/21 08:00 Laboratory Results - last 24 hr 07/27/21 06:28: POC Glucose 95 07/27/21 10:30: Vancomycin Trough 12.9 H 07/27/21 11:34: POC Glucose 95 07/27/21 16:21: POC Glucose 83 07/27/21 20:02: POC Glucose 81 07/28/21 05:28: POC Glucose 88 07/28/21 06:10: WBC 8.1, RBC 3.61 L, Hgb 11.4 L, Hct 34.9 L, MCV 96.5, MCH 31.4 H, MCHC 32.6, RDW 13.0, Plt Count 398, MPV 7.2 L, Neut % (Auto) 82.3 H, Lymph % (Auto) 13.3, [place] % (Auto) 3.8, Eos % (Auto) 0.3, Baso % (Auto) 0.2, Neut # (Auto) 6.7, Lymph # (Auto) 1.1, [place] # (Auto) 0.3, Eos # (Auto) 0.0, Baso # (Auto) 0.0 07/28/21 06:10: Sodium 149 H, Potassium 3.0 L, Chloride 115 H, Carbon Dioxide 21 L, Anion Gap 16.0 H, BUN 9, Creatinine 0.50 L, Estimated Creat Clear 109, Estimated GFR 132, Est GFR ( Amer) 160, Glucose 92, Calcium 8.8, Total Bilirubin 0.4, AST 20, ALT 19, Alkaline Phosphatase 116, Total Protein 6.5, Albumin 3.3 L, Globulin 3.2, Albumin/Globulin Ratio 1.0 L I & O for Last 24 hours: Intake & Output 12/18/21 12/19/21 12/20/21 12/21/21 23:59 23:59 23:59 23:59 Intake Total 1969 2878 / 3030 2937 / 2937 Output Total 939 / 977 1003 / 1078 550 / 800 250 / 250 Balance 1031 / 1064 1875 / 1952 2387 / 2137 -250 / -250 Weight 102 lb 7 oz 110 lb 109 lb 0.015 oz Microbiology Reports for the Last 24 Hours: Microbiology 07/24/21 13:50 Sputum - Expectorated Sputum Gram Stain - Final 07/24/21 13:50 Sputum - Expectorated Sputum Sputum Culture - Final Yeast - Constitutional no acute distress, chronically ill appearing - *Routine HEENT Exam Head: Present: normocephalic Eye: Present: EOMI ENT: Present: mucous membranes moist - *Routine Neck Exam Present: trachea midline. Absent: tracheal deviation - *Routine Respiratory Exam Present: rhonchi. Absent: accessory muscle use - *Routine Cardiovascular Exam Present: RRR - *Routine Abdominal Exam Present: soft, normoactive bowel sounds. Absent: tenderness - *Routine Extremities Exam Present: full ROM, pulses intact. Absent: cyanosis, clubbing - *Routine Skin Exam Present: intact, warm. Absent: cyanosis, erythema - *Routine Neurological Exam Present: alert, altered mental status. Absent: motor deficit - Routine Psychiatric Exam Present: unable to assess Assessment and Plan (1) Healthcare-associated pneumonia Status: Acute Category: Medical Code(s): J18.9 - Pneumonia, unspecified organism (2) Multiple sclerosis Status: Chronic Category: Medical Code(s): G35 - Multiple sclerosis (3) Low body mass index (BMI) Status: Acute Category: Medical (4) Respiratory failure Status: Acute Qualifiers: Chronicity: acute Respiratory failure complication: hypoxia Qualified Code(s): J96.01 - Acute respiratory failure with hypoxia Category: Medical Code(s): J96.90 - Respiratory failure, unspecified, unspecified whether with hypoxia or hypercapnia (5) Severe sepsis with acute organ dysfunction Status: Acute Category: Medical Code(s): A41.9 - Sepsis, unspecified organism; R65.20 - Severe sepsis without septic shock - Assessment and plan all Dx Assessment and Plan for all problems:: Rounded with Dr. Welsh, all orders per Dr. Welsh: 1. Continue current medical regimen 2. Wean O2 as tolerated 3. Pulmonology following
--- NOTE | 2021-07-28 10:17 | HMH.PULMPN ---
Internal Medicine - PN: Subj *Date: 07/28/21 *Time: 10:17 Interval history: Patient respiratory status continued to worsen with increasing oxygen requirements. Patient unable to engage in meaningful conversations. Exam - Constitutional Constitutional:: Absent: no acute distress, comfortable - HENMT Exam HENMT: Present: normocephalic, atraumatic - Eye Exam Eyes:: Present: normal appearance both eyes and related structures - Neck Exam Neck:: Present: normal visual inspection - Respiratory Exam Respiratory:: Present: respiratory distress, rhonchi. Absent: able to speak in complete sentences - Cardiovascular Exam Cardiac:: Present: S1, S2 - GI Exam GI:: Present: soft, no hepatosplenomegaly - Skin Exam Skin: Present: warm - Neurological Exam Neurological: Present: awake. Absent: alert, normal cognition, normal speech - Extremities Exam Extremities: Present: no cyanosis, no clubbing, no edema - Psychiatric Exam Psychiatric: Present: anxious Assessment and Plan (1) Healthcare-associated pneumonia Status: Acute Category: Medical Code(s): J18.9 - Pneumonia, unspecified organism (2) Multiple sclerosis Status: Chronic Category: Medical Code(s): G35 - Multiple sclerosis (3) Low body mass index (BMI) Status: Acute Category: Medical (4) Respiratory failure Status: Acute Qualifiers: Chronicity: acute Respiratory failure complication: hypoxia Qualified Code(s): J96.01 - Acute respiratory failure with hypoxia Category: Medical Code(s): J96.90 - Respiratory failure, unspecified, unspecified whether with hypoxia or hypercapnia (5) Severe sepsis with acute organ dysfunction Status: Acute Category: Medical Code(s): A41.9 - Sepsis, unspecified organism; R65.20 - Severe sepsis without septic shock - Assessment and plan all Dx Assessment and Plan for all problems:: #Acute hypoxic respiratory failure: 45-year-old history of multiple sclerosis, high risk of aspiration and history of recurrent aspiration pneumonia presents with worsening respiratory distress monitoring intubation and mechanical ventilatory support. Patient respiratory status significantly improved, successfully passing spontaneous breathing well on T-piece and was successfully extubated this morning. Chest x-ray showed stable and minimal left lower lobe opacity. Patient was initiated on vancomycin and Zosyn on admission. Tracheal aspirate from admission showing gram-positive cocci in pairs and clusters along with moderate yeast. Blood and urine cultures no growth so far. Patient respiratory status continued to worsen post intubation. Patient is not having a strong cough reflex and her inability to clear the secretions along with her high risk of aspiration are contributing to her worsening respiratory status. Repeat chest x-ray from today did not show any worsening infiltrates. Plan: -Aggressive pulmonary toilet - NG/OG suction as needed along with chest percussion therapy. Patient unable use external oscillating devices for clearance techniques. -Nasal cannula to maintain a O2 saturation goal of 88% and above -Zosyn to complete a total of 7-day course.Nasal MRSA PCR -Strict aspiration precautions. F/U speech eval #Thank you for involving pulmonary in this patient care. We will continue to follow.
[2021-07-28 11:49] LABS: POC Glucose,Bedside 89 (70-110)
--- NOTE | 2021-07-28 12:43 | PC.NURSE ---
RESP CARE NOTE: Pt NT suctioned via Left nare and Nasal trumpet placement. Copious amounts of creamy yellow sputum suctioned. Pt did attempt a weak cough with each advancement. SpO2 increased back to 96% on 15 lpm HFNC.
--- NOTE | 2021-07-28 13:37 | PC.NURSE ---
pt has pulled her 15L HFNC off and O2 sat is 95% on RA. Dr. Monahan made aware and ordered to keep O2 sat > 88%. Pt to remain on RA at this time
--- NOTE | 2021-07-28 14:03 | PC.NURSE ---
Addendum entered by Gi Mills, RT 07/28/21 14:06: Pt on room air, SPO2 remains at 94% on room air. Original Note: RESP CARE NOTE: Oxygen slowly weaned to 2 lpm nc, SPO2 remains at 96%. Pt resting comfortably, will continue to monitor.
[2021-07-28 16:55] LABS: POC Glucose,Bedside 89 (70-110)
[2021-07-29] VITALS (15 sets, daily range): BP systolic 103–178; BP diastolic 82–123; PULSE 90–147; RESP 14–29; TEMP 36.8–37.8; O2SAT 92–100
--- NOTE | 2021-07-29 06:00 | XR_ITS ---
PROCEDURE INFORMATION: Exam: XR Chest Exam date and time: 07/29/2021 6:00 AM Age: 45 years old Clinical indication: Device placement; Ett placement (vent status); Patient HX: Extubated; Additional info: Daily while intubated TECHNIQUE: Imaging protocol: XR of the chest. Views: 1 view. COMPARISON: CR XR CHEST PORTABLE 07/28/2021 5:27 AM FINDINGS: Lungs: Subtle left basal atelectasis. No focal consolidation. Pleural spaces: Unremarkable. No pleural effusion. No pneumothorax. Heart/Mediastinum: Unremarkable. No cardiomegaly. Bones/joints: Unremarkable. IMPRESSION: Subtle left basal atelectasis.
[2021-07-29 06:37] LABS: Chloride 114 mmol/L (98-107); Sodium 148 mmol/L (136-145)
[2021-07-29 06:39] LABS: Alanine Aminotransferase 16 U/L (12-78); Alkaline Phosphatase 94 U/L (38-126); Aspartate Amino Transferase 27 U/L (14-36); Bilirubin,Total 0.4 mg/dl (0.2-1.3); Blood Urea Nitrogen 7 mg/dl (7-17); Creatinine Clearance Estimated 109 mL/min (50-200); Estimated Glomerular Filt Rate 132 ml/min (>60); GFR (African American) 160 ML/MIN (>60)
[2021-07-29 06:40] LABS: Albumin Level 3.2 g/dl (3.5-5.0); Anion Gap 11.7 mEq/L (5-15); Calcium 8.7 mg/dl (8.4-10.2); Carbon Dioxide 25 mmol/L (22.0-30.0); Globulin 3.3 g/dL (1.3-3.2); Glucose 87 mg/dl (74-100); Total Protein,Serum 6.5 g/dl (6.3-8.2)
[2021-07-29 06:46] LABS: Potassium 2.7 mmoL/L (3.5-5.1)
[2021-07-29 06:56] LABS: Basophils % 0.4 % (0.1-2.0); Eosinophils # 0.1 K/mm3 (0.0-0.4); Eosinophils % 0.6 % (0.1-12.0); Hematocrit 36.5 % (37.0-47.0); Hemoglobin 11.9 g/dL (12.2-16.2); Lymphocytes # 1.2 K/mm3 (0.7-4.5); Lymphocytes % 15.2 % (10-50); Mean Corpuscular HGB Conc 32.7 g/dL (31.8-35.4); Mean Corpuscular Volume 94.9 fl (81-99); Mean Platelet Volume 7.2 fl (7.4-10.4); Monocytes # 0.4 K/mm3 (0.1-1.0); Monocytes % 5.2 % (1.7-9.3); Neutrophils # 6.4 K/mm3 (1.8-7.8); Neutrophils % 78.6 % (37.0-80.0); Platelet Count 419 K/mm3 (142-424); Red Blood Count 3.84 M/mm3 (4.20-5.40); Red Cell Distribution Width 13.1 % (11.5-17.5); White Blood Count 8.1 K/mm3 (4.8-10.8)
--- NOTE | 2021-07-29 08:45 | PC.NURSE ---
RESP CARE NOTE: Pt NT suctioned due to decreased SPO2 and increased oxygenation needs. Copious amounts of bloody and creamy yellow secretions sucitoned via multiple advancements of suction catheter. 26 bul[place]ian Nasal trumpet also placed in the left nare, prior to suctioning, to decrease trauma to the nasal passage.
--- NOTE | 2021-07-29 10:59 | P.PN_ITS ---
Internal Medicine - PN: Subj *Date: 07/29/21 *Time: 12:43 Interval history: No acute respiratory events overnight. Exam - Constitutional Constitutional:: Present: no acute distress, comfortable - HENMT Exam HENMT: Present: normocephalic - Eye Exam Eyes:: Present: normal appearance both eyes and related structures - Neck Exam Neck:: Present: normal visual inspection - Respiratory Exam Respiratory:: Present: no respiratory distress, rhonchi. Absent: accessory muscle use, wheezing - Cardiovascular Exam Cardiac:: Present: S1, S2 - GI Exam GI:: Present: soft - Skin Exam Skin: Present: warm, no rash - Neurological Exam Neurological: Present: awake. Absent: alert, normal cognition - Extremities Exam Extremities: Present: no cyanosis, no clubbing, edema Assessment and Plan (1) Healthcare-associated pneumonia Status: Acute Category: Medical Code(s): J18.9 - Pneumonia, unspecified organism (2) Multiple sclerosis Status: Chronic Category: Medical Code(s): G35 - Multiple sclerosis (3) Low body mass index (BMI) Status: Acute Category: Medical (4) Respiratory failure Status: Acute Qualifiers: Chronicity: acute Respiratory failure complication: hypoxia Qualified Code(s): J96.01 - Acute respiratory failure with hypoxia Category: Medical Code(s): J96.90 - Respiratory failure, unspecified, unspecified whether with hypoxia or hypercapnia (5) Severe sepsis with acute organ dysfunction Status: Acute Category: Medical Code(s): A41.9 - Sepsis, unspecified organism; R65.20 - Severe sepsis without septic shock - Assessment and plan all Dx Assessment and Plan for all problems:: #Acute hypoxic respiratory failure: # Tracheitis 45-year-old history of multiple sclerosis, high risk of aspiration and history of recurrent aspiration pneumonia presents with worsening respiratory distress monitoring intubation and mechanical ventilatory support. Patient respiratory status significantly improved, successfully passing spontaneous breathing well on T-piece and was successfully extubated this morning. Chest x-ray showed stable and minimal left lower lobe opacity. Patient was init iated on vancomycin and Zosyn on admission. Tracheal aspirate from admission showing gram-positive cocci in pairs and clusters along with moderate yeast. Blood and urine cultures no growth so far. Patient noted her copious amount of secretions, poor cough and gag reflex. Unable to clear. Waxing and waning respiratory status secondary to secretions. Patient was on 15 L nasal cannula yesterday morning was weaned to room air post suctioning. Patient this morning on 2 L nasal cannula post suctioning. No evidence of respiratory distress noted. Sputum culture from this admission is growing moderate yeast, no obvious consolidation noted on chest x-ray. Leukocytosis improved and stable. Low-grade fever with a T-max of 100.0 in the last 24 hours. Plan: -Repeat cultures from NG suction -Continue aggressive pulmonary toilet - NG/OG suction as needed along with chest percussion therapy. Patient unable use external oscillating devices for clearance techniques. -Nasal cannula to maintain a O2 saturation goal of 88% and above -Zosyn to complete a total of 7-day course. F/U Nasal MRSA PCR and repeat cultures. -Strict aspiration precautions. F/U speech recs #Thank you for involving pulmonary in this patient care. We will continue to follow.
[2021-07-29 11:39] LABS: POC Glucose,Bedside 88 (70-110)
[2021-07-29 11:39] LABS: POC Glucose,Bedside 85 (70-110)
--- NOTE | 2021-07-29 11:54 | HMH.ACPN2 ---
Internal Medicine - PN: Subj *Date: 07/29/21 *Time: 08:45 Exam Vital signs and Labs for Last 24 Hours: Temp Pulse Resp BP Pulse Ox 99.5 F 102 H 15 171/117 H 95 07/29/21 11:10 07/29/21 11:10 07/29/21 11:10 07/29/21 11:10 07/29/21 11:10 Laboratory Results - last 24 hr 07/28/21 16:49: POC Glucose 89 07/28/21 19:55: POC Glucose 88 07/29/21 05:13: WBC 8.1, RBC 3.84 L, Hgb 11.9 L, Hct 36.5 L, MCV 94.9, MCH 31.0, MCHC 32.7, RDW 13.1, Plt Count 419, MPV 7.2 L, Neut % (Auto) 78.6, Lymph % (Auto) 15.2, [place] % (Auto) 5.2, Eos % (Auto) 0.6, Baso % (Auto) 0.4, Neut # (Auto) 6.4, Lymph # (Auto) 1.2, [place] # (Auto) 0.4, Eos # (Auto) 0.1, Baso # (Auto) 0.0 07/29/21 05:13: Sodium 148 H, Potassium 2.7 L*, Chloride 114 H, Carbon Dioxide 25, Anion Gap 11.7, BUN 7, Creatinine 0.50 L, Estimated Creat Clear 109, Estimated GFR 132, Est GFR ( Amer) 160, Glucose 87, Calcium 8.7, Total Bilirubin 0.4, AST 27 D, ALT 16, Alkaline Phosphatase 94, Total Protein 6.5, Albumin 3.2 L, Globulin 3.3 H, Albumin/Globulin Ratio 1.0 L 07/29/21 06:07: POC Glucose 85 I & O for Last 24 hours: Intake & Output 07/26/21 07/27/21 07/28/21 07/29/21 11:59 11:59 11:59 11:59 Intake Total 2914 / 2914 3035 / 3210 2864 / 2864 200 / 200 Output Total 785 / 805 1090 / 1090 250 / 250 1250 / 1250 Balance 2128 / 2109 1945 / 0 2614 / 2614 -1050 / -1050 Weight 110 lb 109 lb 109 lb 0.015 oz - Constitutional no acute distress - *Routine HEENT Exam Head: Present: normocephalic Eye: Present: PERRL ENT: Present: mucous membranes moist - *Routine Neck Exam Present: supple. Absent: lymphadenopathy - *Routine Respiratory Exam Present: rhonchi - *Routine Cardiovascular Exam Present: RRR - *Routine Abdominal Exam Present: soft, normoactive bowel sounds. Absent: tenderness - *Routine Extremities Exam Absent: cyanosis, clubbing, edema - *Routine Skin Exam Present: warm. Absent: rash - *Routine Neurological Exam Present: alert pt opens eyes to questions Assessment and Plan (1) Healthcare-associated pneumonia Status: Acute Category: Medical Code(s): J18.9 - Pneumonia, unspecified organism (2) Multiple sclerosis Status: Chronic Category: Medical Code(s): G35 - Multiple sclerosis (3) Low body mass index (BMI) Status: Acute Category: Medical (4) Respiratory failure Status: Acute Qualifiers: Qualified Code(s): J96.01 - Acute respiratory failure with hypoxia Category: Medical Code(s): J96.90 - Respiratory failure, unspecified, unspecified whether with hypoxia or hypercapnia (5) Severe sepsis with acute organ dysfunction Status: Acute Category: Medical Code(s): A41.9 - Sepsis, unspecified organism; R65.20 - Severe sepsis without septic shock - Assessment and plan all Dx Assessment and Plan for all problems:: rounded with dr castillo all orders per dr castillo consult pulm
--- NOTE | 2021-07-29 16:32 | PC.NURSE ---
No acute changes noted this shift, pt has required NT suctioning once this shift, large amount of white thin secretions noted with suctioning, on 2LNC at this time and tolerating well, pt has been medicated for pain x2 this shift per emar, patient moans out in pain and reports her pain is in her knees and her back, pt has been repositioned frequently and provided oral care, stage I noted to buttocks, pt has been hypertensive this shift, MD is aware.
--- NOTE | 2021-07-29 21:33 | XR_ITS ---
PROCEDURE INFORMATION: Exam: XR Chest Exam date and time: 07/29/2021 9:33 PM Age: 45 years old Clinical indication: Device placement; Ett placement (vent status); Additional info: Ett placement verification TECHNIQUE: Imaging protocol: XR of the chest. Views: 2 views. COMPARISON: CR XR CHEST PORTABLE 07/29/2021 5:28 AM FINDINGS: Tubes, catheters and devices: ET tube terminating overlying the midthoracic trachea. Lungs: Relative hyperinflation of the left lung and hypoinflation of the right lung with elevation of the right hemidiaphragm. Pleural spaces: Unremarkable. No pleural effusion. No pneumothorax. Heart/Mediastinum: Unremarkable. No cardiomegaly. Bones/joints: Unremarkable. IMPRESSION: 1. ET tube terminating overlying the midthoracic trachea. 2. Relative hyperinflation of the left lung and hypoinflation of the right lung with elevation of the right hemidiaphragm.
[2021-07-29 21:36] LABS: POC Glucose,Bedside 118 (70-110)
[2021-07-29 21:42] LABS: ABG Base Excess -10.3 mmol/L (-2.4-2.3); ABG HCO3 16.8 mmhg (22.0-26.0); ABG Oxygen Saturation 55 % (90-100); ABG PCO2 38.4 mmhg (35.0-45.0); ABG PH 7.26 mmol/L (7.35-7.45)
[2021-07-29 21:56] LABS: ABG Base Excess -15.1 mmol/L (-2.4-2.3); ABG HCO3 14.1 mmhg (22.0-26.0); ABG Oxygen Saturation 37 % (90-100); ABG PCO2 43.4 mmhg (35.0-45.0); ABG TCO2 15.4 mmhg (23-27)
[2021-07-29 22:08] LABS: Oxygen 100 %
[2021-07-29 22:09] LABS: ABG PO2 32.2 mmhg (80-100); Allen's Test Acceptable; Source Left Radial
[2021-07-29 22:10] LABS: Allen's Test Acceptable; Oxygen 100 %; Source Right Femoral
[2021-07-29 22:11] LABS: ABG PH 7.13 mmol/L (7.35-7.45); ABG PO2 28.9 mmhg (80-100)
--- NOTE | 2021-07-29 22:11 | HMH.RR ---
Acute Rapid Response Note - Subjective Date Responded: 07/29/21 Time Responded: 21:45 Provider Note: called because of low sat and dec resp effort -pt with low pulse oxy and dec resp rate - after intubation had episode of dec hr and required cpr and epi but responded after a few minutes has sig secretions - Objective Findings: Vital Signs - Last 4 Hours Temperature 98.3 F 07/29/21 15:37 Temperature Source Oral 07/29/21 15:37 Pulse Rate 96 H 07/29/21 16:00 Respiratory Rate 14 07/29/21 15:37 Blood Pressure 146/102 H 07/29/21 15:37 Blood Pressure Mean 116 07/29/21 15:37 Blood Pressure Source Automatic Cuff 07/29/21 15:37 Blood Pressure Position Supine 07/29/21 15:37 02 Sat by Pulse Oximetry 93 L 07/29/21 18:04 Oxygen Delivery Method 07/29/21 18:31 Oxygen Flow Rate (LPM) 2 07/29/21 18:31 Lab Results for Past 12 Hours 07/29/21 21:54: Specimen Source Right femoral, O2 % 100, Ronnell Test Acceptable 07/29/21 21:31: Specimen Source Left radial, O2 % 100, ABG pH 7.26 L, ABG pCO2 38.4, ABG pO2 32.2 L, ABG HCO3 16.8 L, ABG Total CO2 18.0 L, ABG O2 Saturation 55 L*, ABG Base Excess -10.3 L, Ronnell Test Acceptable 07/29/21 21:27: POC Glucose 118 H 07/29/21 06:07: POC Glucose 85 07/28/21 19:55: POC Glucose 88 My Orders Category Date Time Status Communication order ONCE Care 07/29/21 21:31 Active XR chest portable Stat Exams 07/29/21 21:33 Completed Basic Metabolic Panel Stat Lab 07/29/21 22:00 Received Complete Blood Count Auto Diff Stat Lab 07/29/21 22:00 Received POC Glucose,Bedside Routine Lab 07/29/21 21:27 Completed Sodium Chloride For Inhalation [Sodium Chloride 3% 15mL Med 07/29/21 21:34 Ordered Neb] 3 ml IH ONCE PRN Sputum Culture & Gram Stain Routine Micro 07/29/21 21:34 Ordered ABG [Arterial Blood Gas] Stat RT 07/29/21 21:31 Completed ABG [Arterial Blood Gas] Stat RT 1222/21 22:02 Ordered Arterial Blood Gas Routine RT 07/29/21 21:54 Results - Radiology Findings #1 Xray Reviewed: Chest Image Reviewed: Yes I reviewed the patient's radiology image ED XR Results: Abnormal (et tube ) Rapid Response Exam - General General appearance: obtunded, in distress, cachectic, other (Unresponsive to sternal rub) - Head Head exam: atraumatic - Eye Eye exam: Present: PERRL, EOMI. Absent: scleral icterus - ENT ENT exam: Present: mucous membranes dry - Neck Neck exam: Present: trachea midline - Respiratory Respiratory exam: Present: respiratory distress - Cardiovascular Cardiovascular exam: Present: tachycardia - Abdominal Exam Abdominal exam: Present: soft - Extremities Exam Extremities exam: Absent: pedal edema - Neurological Exam Neurological exam: Present: other (obtunded w/o posturing) - Skin Skin exam: Absent: rash RR Procedures/Assess/Plan - Bedside Intubation Time Out Performed: Yes Sedative: Etomidate Mg given: 20 Paralytic: Succinylcholine Mg given: 100 Laryngoscope: Roberto Tube size: 7 Tube uncuffed: No Secured Depth: 23 Secured location: lips Placement confirmation: visualized tube passing through cords, confirmation by capnometry Patient tolerated procedure intubation: no complications (1) Healthcare-associated pneumonia Status: Acute (2) Multiple sclerosis Status: Chronic (3) Low body mass index (BMI) Status: Acute (4) Respiratory failure Status: Acute Qualifiers: Chronicity: acute Respiratory failure complication: hypoxia Qualified Code(s): J96.01 - Acute respiratory failure with hypoxia (5) Severe sepsis with acute organ dysfunction Status: Acute - Assessment and plan all Dx Assessment and Plan for all problems:: had acute resp distress requiring intubation and brief cpr with epi
[2021-07-29 22:16] LABS: Basophils # 0.5 K/mm3 (0-0.2); Eosinophils # 0.1 K/mm3 (0.0-0.4); Eosinophils % 0.2 % (0.1-12.0); Hematocrit 41.6 % (37.0-47.0); Lymphocytes % 45.8 % (10-50); Mean Corpuscular HGB Conc 32.1 g/dL (31.8-35.4); Mean Corpuscular Hemoglobin 32.2 pg (27.0-31.2); Mean Corpuscular Volume 100.6 fl (81-99); Mean Platelet Volume 8.1 fl (7.4-10.4); Monocytes # 0.7 K/mm3 (0.1-1.0); Monocytes % 2.7 % (1.7-9.3); Neutrophils # 11.8 K/mm3 (1.8-7.8); Neutrophils % 49.3 % (37.0-80.0); Platelet Count 693 K/mm3 (142-424); Red Blood Count 4.13 M/mm3 (4.20-5.40); Red Cell Distribution Width 13.5 % (11.5-17.5); White Blood Count 23.9 K/mm3 (4.8-10.8)
[2021-07-29 22:20] LABS: MANUAL DIFFERENTIAL MANUAL DIFFERENTIAL (MANUAL DIFF)
[2021-07-29 22:23] LABS: Chloride 115 mmol/L (98-107)
[2021-07-29 22:26] LABS: Blood Urea Nitrogen 7 mg/dl (7-17)
[2021-07-29 22:27] LABS: Calcium 7.9 mg/dl (8.4-10.2); Carbon Dioxide 18 mmol/L (22.0-30.0); Glucose 85 mg/dl (74-100)
[2021-07-29 22:30] LABS: Sodium 150 mmol/L (136-145)
[2021-07-29 22:32] LABS: Creatinine Clearance Estimated 90 mL/min (50-200); Estimated Glomerular Filt Rate 107 ml/min (>60); GFR (African American) 130 ML/MIN (>60)
[2021-07-29 23:50] LABS: Anisocytosis 1+; Eosinophils % 2 % (0-3); Lymphocytes % 13 % (10-50); Monocytes % 7 % (2-9); Neutrophils % 78 % (42-76); Platelet Estimate Normal; Total Cells Counted 100
[2021-07-30] VITALS (28 sets, daily range): BP systolic 90–121; BP diastolic 67–86; PULSE 90–130; RESP 18–24; TEMP 36.8–37.8; O2SAT 96–100; BMI 16.9
--- NOTE | 2021-07-30 00:03 | PC.NURSE ---
People in room: Libby Rico RT Phillip hammer RN Carmel Stubbs SRNA Dary Horowitz RT IONA Castillo 2124 Rapid red called, RT @ bedside NT suctioning O2 sat 48% BP 195/132 P [address] [address] castillo to bedside [address] castillo states to prepare for intubation 2134 chest xray and sputum ordered 2135 20mg etomidate given, 100mg succinylcholine given [address] castillo with 7.0 ett, secured at 23 @ lip. 2140 chest xray obtained 2141 Anna ordered to pull tube back 1 inch, tube now 21 @ lip 2142 2nd chest xray done, anna confirmed tube in good position 2145 HR 35, no pulse felt, compressions started 2146 1mg of epi given 2149 2nd blood gas drawn 2151 1 of bicarb given, 1 epi given 2151 BP 182/120, HR 167, O2 100 2158 Family called and updated, they are unable to come to hospital and request automatic data processing planner be called. confirmed pt is still a full code. 2200 pt placed on vent. settings- 100 Fio2, TV 380, RR 16, PEEP 5 2213 HR 152, O2 84, BP 116/[address] castillo left room 2214 pH 7.07, CO2 60.4, PO2 436, Bicarb 16.9, Sat 99.8, Lactic 8.62. Results called to Dr Castillo- ordered 1 amp bicarb, increase rate to 24, decrease FiO2 to 80% 2246 Propofol started at 50mcg 2340 BP 77/61, Levophed started at 4mcg 2350 Fentanyl gtt started at 50mcg
[2021-07-30 00:37] LABS: Hemoglobin 13.1 g/dL (12.2-16.2)
--- NOTE | 2021-07-30 05:41 | PC.NURSE ---
Addendum entered by Yaritza Pelaez RN 07/30/21 05:45: pt turned q2h and oral care done q2h since intubation. heels floated. Original Note: Propofol infusing at 40 mcg, Fent @ 50 mcg, Levo at 6 mcg. OG inserted at 60.
[2021-07-30 05:56] LABS: Basophils # 0.3 K/mm3 (0-0.2); Basophils % 1.5 % (0.1-2.0); Eosinophils % 0.2 % (0.1-12.0); Hematocrit 45.3 % (37.0-47.0); Lymphocytes # 2.4 K/mm3 (0.7-4.5); Lymphocytes % 12.7 % (10-50); Mean Corpuscular HGB Conc 32.2 g/dL (31.8-35.4); Mean Corpuscular Hemoglobin 31.3 pg (27.0-31.2); Mean Corpuscular Volume 97.1 fl (81-99); Mean Platelet Volume 8.6 fl (7.4-10.4); Monocytes # 0.6 K/mm3 (0.1-1.0); Monocytes % 3.2 % (1.7-9.3); Neutrophils # 15.6 K/mm3 (1.8-7.8); Neutrophils % 82.3 % (37.0-80.0); Platelet Count 698 K/mm3 (142-424); Red Blood Count 4.67 M/mm3 (4.20-5.40); Red Cell Distribution Width 13.8 % (11.5-17.5); White Blood Count 18.9 K/mm3 (4.8-10.8)
--- NOTE | 2021-07-30 06:00 | XR_ITS ---
PROCEDURE INFORMATION: Exam: XR Chest Exam date and time: 07/30/2021 6:00 AM Age: 45 years old Clinical indication: Device placement; Ett placement (vent status); Additional info: Daily while intubated TECHNIQUE: Imaging protocol: XR of the chest. Views: 1 view. COMPARISON: CR XR CHEST PORTABLE 07/29/2021 9:45 PM FINDINGS: Tubes, catheters and devices: Endotracheal tube noted with the tip above the lovely approximately 3.2 cm. Multiple overlying cardiac leads are present. The endogastric tube is noted with distal portion overlying the stomach. Lungs: There is increasing left lower lung field airspace opacity, worrisome for pneumonia. Pleural spaces: Unremarkable. No pleural effusion. No pneumothorax. Heart/Mediastinum: Unremarkable. No cardiomegaly. Bones/joints: Unremarkable. IMPRESSION: 1. Increasing left lower lung field airspace opacity, worrisome for pneumonia. 2. Support catheters noted, as above. No pneumothorax.
[2021-07-30 06:03] LABS: Hemoglobin 14.5 g/dL (12.2-16.2)
[2021-07-30 06:10] LABS: Chloride 119 mmol/L (98-107); Potassium 3.1 mmoL/L (3.5-5.1)
[2021-07-30 06:13] LABS: Alanine Aminotransferase 214 U/L (12-78); Albumin/Globulin Ratio 0.9 (1.1-1.8); Alkaline Phosphatase 156 U/L (38-126); Anion Gap 20.1 mEq/L (5-15); Aspartate Amino Transferase 344 U/L (14-36); Bilirubin,Total 0.7 mg/dl (0.2-1.3); Blood Urea Nitrogen 11 mg/dl (7-17); Carbon Dioxide 15 mmol/L (22.0-30.0); Creatinine Clearance Estimated 99 mL/min (50-200); Estimated Glomerular Filt Rate 132 ml/min (>60); GFR (African American) 160 ML/MIN (>60); Globulin 3.2 g/dL (1.3-3.2); Total Protein,Serum 6.2 g/dl (6.3-8.2)
[2021-07-30 06:14] LABS: Calcium 8.4 mg/dl (8.4-10.2); Glucose 143 mg/dl (74-100)
[2021-07-30 06:52] LABS: Sodium 151 mmol/L (136-145)
[2021-07-30 07:00] LABS: ABG PH 7.07 mmol/L (7.35-7.45)
[2021-07-30 07:01] LABS: ABG Base Excess -13.3 mmol/L (-2.4-2.3); ABG HCO3 16.9 mmhg (22.0-26.0); ABG Oxygen Saturation 100 % (90-100); ABG PCO2 60.4 mmhg (35.0-45.0); ABG PO2 436.1 mmhg (80-100); ABG TCO2 18.8 mmhg (23-27); Oxygen 100 %
[2021-07-30 07:43] LABS: POC Glucose,Bedside 136 (70-110)
--- NOTE | 2021-07-30 09:29 | HMH.ACPN2 ---
Internal Medicine - PN: Subj *Date: 07/30/21 *Time: 13:45 Interval history: 45-year-old female patient went into respiratory distress late last evening, was intubated. Remains on ventilator today with settings VC 24/380/40 +5. Blood pressure was soft during the night and Levophed was started and remains on today. She is sedated with propofol and fentanyl, she is in no respiratory distress at present. Family was made aware of patient's condition last night Exam Vital signs and Labs for Last 24 Hours: Temp Pulse Resp BP Pulse Ox 98.2 F 115 H 24 105/83 L 99 07/30/21 05:00 07/30/21 06:36 07/30/21 06:36 07/30/21 06:36 07/30/21 06:36 Laboratory Results - last 24 hr 07/28/21 19:55: POC Glucose 88 07/29/21 06:07: POC Glucose 85 07/29/21 21:27: POC Glucose 118 H 07/29/21 21:31: Specimen Source Left radial, O2 % 100, ABG pH 7.26 L, ABG pCO2 38.4, ABG pO2 32.2 L, ABG HCO3 16.8 L, ABG Total CO2 18.0 L, ABG O2 Saturation 55 L*, ABG Base Excess -10.3 L, Ronnell Test Acceptable 07/29/21 21:54: Specimen Source Right femoral, O2 % 100, ABG pH 7.13 L*, ABG pCO2 43.4, ABG pO2 28.9 L, ABG HCO3 14.1 L, ABG Total CO2 15.4 L, ABG O2 Saturation 37 L*, ABG Base Excess -15.1 L, Ronnell Test Acceptable 07/29/21 22:00: WBC 23.9 H* D, RBC 4.13 L, Hgb 13.1 D, Hct 41.6, MCV 100.6 H, MCH 32.2 H, MCHC 32.1, RDW 13.5, Plt Count 693 H D, MPV 8.1, Neut % (Auto) 49.3, Lymph % (Auto) 45.8, [place] % (Auto) 2.7, Eos % (Auto) 0.2, Baso % (Auto) 2.0, Neut # (Auto) 11.8 H, Lymph # (Auto) 11.0 H, [place] # (Auto) 0.7, Eos # (Auto) 0.1, Baso # (Auto) 0.5 H, Total Counted 100, Neutrophils % (Manual) 78 H, Lymphocytes % (Manual) 13, Monocytes % (Manual) 7, Eosinophils % (Manual) 2, Platelet Estimate Normal, Anisocytosis 1+ 07/29/21 22:00: Sodium 150 H, Potassium 5.0 D, Chloride 115 H, Carbon Dioxide 18 L, Anion Gap 22.0 H, BUN 7, Creatinine 0.60, Estimated Creat Clear 90, Estimated GFR 107, Est GFR ( Amer) 130, Glucose 85, Calcium 7.9 L 07/29/21 22:02: Specimen Source r femoral, O2 % 100, ABG pH 7.07 L*, ABG pCO2 60.4 H, ABG pO2 436.1 H, ABG HCO3 16.9 L, ABG Total CO2 18.8 L, ABG O2 Saturation 100, ABG Base Excess -13.3 L 07/30/21 05:30: POC Glucose 136 H 07/30/21 05:41: WBC 18.9 H, RBC 4.67, Hgb 14.5 D, Hct 45.3, MCV 97.1, MCH 31.3 H, MCHC 32.2, RDW 13.8, Plt Count 698 H, MPV 8.6, Neut % (Auto) 82.3 H, Lymph % (Auto) 12.7, [place] % (Auto) 3.2, Eos % (Auto) 0.2, Baso % (Auto) 1.5, Neut # (Auto) 15.6 H, Lymph # (Auto) 2.4, [place] # (Auto) 0.6, Eos # (Auto) 0.0, Baso # (Auto) 0.3 H 07/30/21 05:41: Sodium 151 H*, Potassium 3.1 L D, Chloride 119 H, Carbon Dioxide 15 L, Anion Gap 20.1 H, BUN 11 D, Creatinine 0.50 L, Estimated Creat Clear 99, Estimated GFR 132, Est GFR ( Amer) 160 D, Glucose 143 H D, Calcium 8.4, Total Bilirubin 0.7, AST 344 H* D, ALT 214 H D, Alkaline Phosphatase 156 H, Total Protein 6.2 L, Albumin 3.0 L, Globulin 3.2, Albumin/Globulin Ratio 0.9 L I & O for Last 24 hours: Intake & Output 07/27/21 07/28/21 07/29/21 07/30/21 23:59 23:59 23:59 23:59 Intake Total 2937 / 2937 1228 / 1228 500 / 500 315 / 315 Output Total 550 / 800 1300 / 1500 755 / 835 590 / 590 Balance 2387 / 2137 -72 / -272 -255 / -335 -275 / -275 Weight 109 lb 0.015 oz 99 lb 9.6 oz Microbiology Reports for the Last 24 Hours: Microbiology 07/29/21 22:20 Sputum - Endotracheal Tube Aspirate Gram Stain - Final 07/24/21 14:00 Blood Blood Culture - Final NO GROWTH AFTER 5 DAYS 07/24/21 14:00 Blood Blood Culture - Final NO GROWTH AFTER 5 DAYS - Constitutional no acute distress Comments: Sedated - *Routine HEENT Exam Head: Present: normocephalic ENT: Present: mucous membranes moist - *Routine Neck Exam Present: trachea midline. Absent: tracheal deviation - *Routine Respiratory Exam Present: patient mechanically ventilated, rhonchi - *Routine Cardiovascular Exam Present: RRR - *Routine Abdominal
[2021-07-30 09:35] LABS: ABG PH 7.54 mmol/L (7.35-7.45)
[2021-07-30 09:36] LABS: ABG Base Excess -3.8 mmol/L (-2.4-2.3); ABG Oxygen Saturation 98 % (90-100); ABG PCO2 19.1 mmhg (35.0-45.0); ABG PO2 88.5 mmhg (80-100); ABG TCO2 16.6 mmhg (23-27); Oxygen 40 %
[2021-07-30 09:37] LABS: Allen's Test acceptable; Lactate Arterial 1.9 mmol/L (0.4-2.0); PEEP 5; Tidal Volume 380; Vent Rate 24
--- NOTE | 2021-07-30 09:49 | PC.NURSE ---
ABG critical called by RT-- CO2 19; provider ([facility] office and MD Taniya) notified. RR decreased from 24 to 18.
--- NOTE | 2021-07-30 10:27 | PC.NURSE ---
Called office of [facility], spoke with engineering secretary. Requested doppler for RUE to assess for possible blood clot. Patients pulse is +1 radial and extremity is cold to the touch, edema +3, mottled. Left call back number.
--- NOTE | 2021-07-30 10:58 | CA_ITS ---
APPROVED REPORT Right Upper Extremity Venous Study for DVT. Chemistry Quality Control Analyst: Sidra Collins RT(R) Indications Upper Extremity Edema: Right Shortness of breath Patient has multiple sclerosis, sepsis, resp distress currently ventilated. Risk Factors Bed Rest Vein Imaging IJV (R): Normal phasic flow is seen. Normal flow, augmentation and compression is seen. No evidence of Deep Vein Thrombosis. No abnormalities are demonstrated. Axillary (R): Compressible Brachial (R): Compressible Radial (R): Compressible Ulnar (R): Compressible Findings Duplex evaluation of the right upper extremity demonstrates no evidence of DVT. Limited scanning due to patient currently on ventilator and unable to abduct arm. Interstitial edema noted in distal right arm. Conclusion Duplex evaluation of the right upper extremity demonstrates no evidence of DVT. Limited scanning due to patient currently on ventilator and unable to abduct arm. Interstitial edema noted in distal right arm. Electronically signed by : Ronnell Penny MD 07/30/2021 14:19:52
--- NOTE | 2021-07-30 12:42 | PC.NURSE ---
Placed pt in spont breathing mode. Pt did not breathe on her own for 2 minutes. Pt still sleeply and RN aware. Will reasses for later time.
[2021-07-30 17:21] LABS: POC Glucose,Bedside 120 (70-110)
[2021-07-30 17:21] LABS: POC Glucose,Bedside 136 (70-110)
--- NOTE | 2021-07-30 17:33 | ECG_ITS ---
APPROVED REPORT Exam: Resting ECG HR:115 bpm ECG Measurements Heart Rate 115 AXES VA 130 P 74 QRSd 68 QRS 61 QT 290 T -87 QTc 401 Conclusion Sinus tachycardia Septal infarct, age undetermined Possible Lateral infarct, age undetermined Abnormal ECG Electronically signed by : Eddie Blanton MD 07/31/2021 12:35:05
--- NOTE | 2021-07-30 17:43 | XR_ITS ---
PROCEDURE INFORMATION: Exam: XR Chest Exam date and time: 07/30/2021 5:43 PM Age: 45 years old Clinical indication: Other: Change in respiratory status TECHNIQUE: Imaging protocol: XR of the chest. Views: 1 view. COMPARISON: CR XR CHEST PORTABLE 07/30/2021 5:56 AM FINDINGS: Tubes, catheters and devices: ET tube is below the thoracic inlet and above the lovely. NG tube is in the stomach. Lungs: Left lower lobe infiltrate. Pleural spaces: Left costophrenic angle hydropneumothorax. Heart/Mediastinum: Unremarkable. No cardiomegaly. Bones/joints: Unremarkable. IMPRESSION: 1. Left costophrenic angle hydropneumothorax. 2. Left lower lobe infiltrate.
--- NOTE | 2021-07-30 18:28 | PC.NURSE ---
at bedside at this time.
--- NOTE | 2021-07-30 18:38 | PC.NURSE ---
Patient was being turned for qshift picture of skin integrity, patient HR dropped to 14. BP sustained, RN overrode atropine. Atropine not given, patient rebounded to HR 110's. MD Parker paged (provider medication technician). STAT CXR, STAT EKG ordered. As well as breathing treatments added to care plan to aid in thinning secretions. Patient has bilateral rhonchi. Family notified of deteriorating patient condition. RN requested that family come to bedside, educated family on potential progression of care regarding code status, family reaffirmed they wanted patient to be full code. When questioned regarding whether they could come to bedside, family stated, we care for our other elderly mother... and it[place]. Family will continue to be updated.
--- NOTE | 2021-07-30 18:45 | PC.NURSE ---
RN changed propofol line, began new bag of fentanyl drip and LR. unable to properly scan in eMAR. VErified with Lizette Puga RN
--- NOTE | 2021-07-30 19:33 | PC.NURSE ---
MD Jorge on location, notified of critical CXR result
[2021-07-31] VITALS (31 sets, daily range): BP systolic 93–143; BP diastolic 56–103; PULSE 66–99; RESP 16–32; TEMP 36.4–37.2; O2SAT 91–100; BMI 18.4
--- NOTE | 2021-07-31 04:53 | PC.NURSE ---
No acute events overnight. pt remains moderately sedated on prop @ 50, Fent at 50. Levo at 4. Vent settings FiO2 @ 40%, TV 380, PEEP 5, RR 18. 2+ nonpitting edema noted to BLE and BUE. oral care q2h, turned q2h.
[2021-07-31 06:13] LABS: POC Glucose,Bedside 138 (70-110)
[2021-07-31 06:47] LABS: Basophils # 0.3 K/mm3 (0-0.2); Basophils % 1.8 % (0.1-2.0); Eosinophils # 0.1 K/mm3 (0.0-0.4); Eosinophils % 0.8 % (0.1-12.0); Hematocrit 39.9 % (37.0-47.0); Hemoglobin 13.1 g/dL (12.2-16.2); Lymphocytes # 3.5 K/mm3 (0.7-4.5); Lymphocytes % 24.7 % (10-50); Mean Corpuscular HGB Conc 32.7 g/dL (31.8-35.4); Mean Corpuscular Volume 97.8 fl (81-99); Mean Platelet Volume 9.7 fl (7.4-10.4); Monocytes # 0.7 K/mm3 (0.1-1.0); Monocytes % 4.7 % (1.7-9.3); Neutrophils # 9.5 K/mm3 (1.8-7.8); Neutrophils % 68.1 % (37.0-80.0); Platelet Count 472 K/mm3 (142-424); Red Blood Count 4.08 M/mm3 (4.20-5.40); Red Cell Distribution Width 14.2 % (11.5-17.5)
[2021-07-31 07:13] LABS: Chloride 122 mmol/L (98-107)
[2021-07-31 07:16] LABS: Blood Urea Nitrogen 9 mg/dl (7-17); Creatinine Clearance Estimated 134 mL/min (50-200); Estimated Glomerular Filt Rate 171 ml/min (>60); GFR (African American) 207 ML/MIN (>60)
[2021-07-31 07:17] LABS: Anion Gap 19.7 mEq/L (5-15); Calcium 8.5 mg/dl (8.4-10.2); Carbon Dioxide 14 mmol/L (22.0-30.0); Glucose 128 mg/dl (74-100)
[2021-07-31 07:35] LABS: Potassium 2.7 mmoL/L (3.5-5.1); Sodium 153 mmol/L (136-145)
--- NOTE | 2021-07-31 08:03 | XR_ITS ---
PROCEDURE: XR CHEST PORTABLE CLINICAL HISTORY: daily while intubated COMPARISON: CR XR CHEST PORTABLE from 07/29/2021 CR XR CHEST PORTABLE from 07/30/2021 CR XR CHEST PORTABLE from 07/30/2021 FINDINGS: 8:33 a.m.. Endotracheal tube tip is in good position 3.7 cm above the lovely. Nasogastric tube tip at the antral region of the stomach. Left lower lobe pneumonia once again noted. Small left-sided hydropneumothorax unchanged in the left CP angle. No acute bony anomalies. IMPRESSION: No change left lower lobe pneumonia with small hydropneumothorax with good position of the endotracheal tube and nasogastric tube. Dictated by: Ronnell Penny MD 07/31/2021 08:45 Ronnell Penny MD in OV 07/31/2021 08:45
--- NOTE | 2021-07-31 09:09 | HMH.PULMPN ---
Internal Medicine - PN: Subj *Date: 07/31/21 *Time: 09:38 Interval history: Patient continues remain on minimal vent settings. Exam - Constitutional Constitutional:: Present: no acute distress, comfortable - HENMT Exam HENMT: Present: normocephalic, atraumatic - Eye Exam Eyes:: Present: normal appearance both eyes and related structures - Neck Exam Neck:: Present: normal visual inspection - Respiratory Exam Respiratory:: Present: no respiratory distress, rhonchi. Absent: wheezing - Cardiovascular Exam Cardiac:: Present: S1, S2 - GI Exam GI:: Present: soft - Skin Exam Skin: Present: warm - Neurological Exam Neurological: Present: awake. Absent: alert, normal cognition - Extremities Exam Extremities: Present: no cyanosis, no clubbing, no edema Assessment and Plan (1) Healthcare-associated pneumonia Status: Acute Category: Medical Code(s): J18.9 - Pneumonia, unspecified organism (2) Multiple sclerosis Status: Chronic Category: Medical Code(s): G35 - Multiple sclerosis (3) Low body mass index (BMI) Status: Acute Category: Medical (4) Respiratory failure Status: Acute Qualifiers: Chronicity: acute Respiratory failure complication: hypoxia Qualified Code(s): J96.01 - Acute respiratory failure with hypoxia Category: Medical Code(s): J96.90 - Respiratory failure, unspecified, unspecified whether with hypoxia or hypercapnia (5) Severe sepsis with acute organ dysfunction Status: Acute Category: Medical Code(s): A41.9 - Sepsis, unspecified organism; R65.20 - Severe sepsis without septic shock - Assessment and plan all Dx Assessment and Plan for all problems:: #Acute hypoxic respiratory failure: # Tracheitis: #Left lower lobe pneumonia: Hydropneumothorax: 45-year-old history of multiple sclerosis, high risk of aspiration and history of recurrent aspiration pneumonia presents with worsening respiratory distress monitoring intubation and mechanical ventilatory support. Patient respiratory status significantly improved, successfully passing spontaneous breathing well on T-piece and was successfully extubated this morning. Chest x-ray showed stable and minimal left lower lobe opacity. Patient was initiated on vancomycin and Zosyn on admission. Tracheal aspirate from admission showing gram-positive cocci in pairs and clusters along with moderate yeast. Blood and urine cultures no growth so far. Patient noted her copious amount of secretions, poor cough and gag reflex. Unable to clear. Waxing and waning respiratory status secondary to secretions. Patient was on 15 L nasal cannula yesterday morning was weaned to room air post suctioning. Patient this morning on 2 L nasal cannula post suctioning. Interval update: Patient had a cardiopulmonary decompensation leading to bradycardia with intubation and mechanical ventilatory support. Patient remained on minimal vent settings post intubation. Repeat chest x-ray continued to show left costophrenic angle hydropneumothorax which was stable in the last 12 hours. Plan: -Continue on all the sedation with propofol and fentanyl. Wean sedation as tolerated. Respiratory status remained stable on low vent settings. 380 of tidal volume, rate of 18, 30% FiO2 and PEEP of 5. We will follow repeat ABG Chest x-ray from this morning stable left costophrenic hydropneumothorax. Chest auscultation continue to show rhonchi, significantly improved along with improving secretions. Blood and urine cultures no growth. Nasal MRSA PCR negative. Repeat tracheal aspirate gram-positive cocci, less than 10 WBC and less than 10 epithelial cells.. Sputum culture on admission growing yeast. Continue to receive Zosyn. Continue aggressive pulmonary toilet. Blood gas around intubation showed metabolic acidosis. Repeat blood gas post intubation showed respiratory alkalosis and patient minute ventilation was raised. Abdomen soft nontender. Transaminitis n
--- NOTE | 2021-07-31 09:10 | HMH.ACPN2 ---
Internal Medicine - PN: Subj *Date: 08/01/21 *Time: 06:40 Interval history: pt on vent at this time - doing some better but has dec u/o - pul following pt also Exam Vital signs and Labs for Last 24 Hours: Temp Pulse Resp BP Pulse Ox 97.6 F 66 18 109/71 L 100 07/31/21 08:00 07/31/21 09:00 07/31/21 09:00 07/31/21 09:00 07/31/21 09:00 Laboratory Results - last 24 hr 07/30/21 09:33: Specimen Source l radial, O2 % 40, ABG pH 7.54 H, ABG pCO2 19.1 L, ABG pO2 88.5, ABG HCO3 16.0 L, ABG Total CO2 16.6 L, ABG O2 Saturation 98, ABG Base Excess -3.8 L, Ronnell Test acceptable, ABG Lactate 1.9, Vent Rate 24, Tidal Volume 380, PEEP 5 07/30/21 12:51: POC Glucose 136 H 07/30/21 16:33: POC Glucose 120 H 07/31/21 05:51: WBC 14.0 H D, RBC 4.08 L, Hgb 13.1, Hct 39.9, MCV 97.8, MCH 32.0 H, MCHC 32.7, RDW 14.2, Plt Count 472 H D, MPV 9.7, Neut % (Auto) 68.1, Lymph % (Auto) 24.7, [place] % (Auto) 4.7, Eos % (Auto) 0.8, Baso % (Auto) 1.8, Neut # (Auto) 9.5 H, Lymph # (Auto) 3.5, [place] # (Auto) 0.7, Eos # (Auto) 0.1, Baso # (Auto) 0.3 H 07/31/21 05:51: Sodium 153 H*, Potassium 2.7 L*, Chloride 122 H, Carbon Dioxide 14 L, Anion Gap 19.7 H, BUN 9, Creatinine 0.40 L, Estimated Creat Clear 134, Estimated GFR 171, Est GFR ( Amer) 207 D, Glucose 128 H, Calcium 8.5 07/31/21 06:06: POC Glucose 138 H I & O for Last 24 hours: Intake & Output 1207/29/21 07/30/21 07/31/21 11:59 11:59 11:59 11:59 Intake Total 2864 / 2864 200 / 200 1177 / 1273 2394 / 2394 Output Total 250 / 250 1250 / 1250 1370 / 1430 1047 / 1047 Balance 2614 / 2614 -1050 / -1050 -193 / -157 1347 / 1347 Weight 109 lb 0.015 oz 99 lb 9.6 oz 108 lb Microbiology Reports for the Last 24 Hours: Microbiology 07/27/21 13:48 Nose - Nasal MRSA Culture - Final Negative - Constitutional Comments: sedated - *Routine HEENT Exam Head: Present: normocephalic Eye: Present: PERRL ENT: Present: other (intubated) - *Routine Neck Exam Absent: JVD - *Routine Respiratory Exam Present: patient mechanically ventilated - *Routine Cardiovascular Exam Present: RRR - *Routine Abdominal Exam Present: soft - *Routine Extremities Exam Absent: calf tenderness - *Routine Skin Exam Present: intact - *Routine Neurological Exam Present: altered mental status - Routine Psychiatric Exam Present: unable to assess Assessment and Plan (1) Healthcare-associated pneumonia Status: Acute Category: Medical Code(s): J18.9 - Pneumonia, unspecified organism (2) Multiple sclerosis Status: Chronic Category: Medical Code(s): G35 - Multiple sclerosis (3) Low body mass index (BMI) Status: Acute Category: Medical (4) Respiratory failure Status: Acute Qualifiers: Chronicity: acute Respiratory failure complication: hypoxia Qualified Code(s): J96.01 - Acute respiratory failure with hypoxia Category: Medical Code(s): J96.90 - Respiratory failure, unspecified, unspecified whether with hypoxia or hypercapnia (5) Severe sepsis with acute organ dysfunction Status: Acute Category: Medical Code(s): A41.9 - Sepsis, unspecified organism; R65.20 - Severe sepsis without septic shock
--- NOTE | 2021-07-31 09:36 | PC.NURSE ---
Propofol gtt and Fentanyl gtt turned OFF at this time.
[2021-07-31 09:39] LABS: ABG Base Excess -1.9 mmol/L (-2.4-2.3); ABG Oxygen Saturation 98 % (90-100); ABG PO2 105.1 mmhg (80-100); ABG TCO2 20.7 mmhg (23-27)
[2021-07-31 09:42] LABS: Oxygen 30% %
[2021-07-31 09:43] LABS: ABG PH 7.58 mmol/L (7.35-7.45); Allen's Test UNABLE; PEEP 5; Source L RADIAL; Tidal Volume 380; Vent Rate 18
--- NOTE | 2021-07-31 09:55 | PC.NURSE ---
pH 7.[address] Monahan notified.
--- NOTE | 2021-07-31 09:57 | DIET.NUTRFU ---
recommend initiating TF if not extubated within 24 hours, to meet 100% nutrition needs- pulmocare 1.5 at 40ml/hr ATC providing 1380kcal and 57.5gm protein and 722ml free water with flush of 30ml/hr ATC with feeding for total fluid of 1412ml/day. CBW is 49kg.
--- NOTE | 2021-07-31 10:03 | PC.NURSE ---
BP 136/95. Levo gtt turned OFF at this time
[2021-07-31 11:42] LABS: POC Glucose,Bedside 115 (70-110)
--- NOTE | 2021-07-31 13:06 | DIET.NUTRFU ---
TF was initiated with pulmocare 20ml with goal rate of 40ml;/hr ATC with 100mL free water Q4hrs= providing 1380kcal and 57.5gm protein and 722ml free water with total fluid of 1322ml/day. CBW is 49kg. Reviewed labs, potassium replacement started. Propofol ordered but not given yet today. With current order it will provide 1320kcal/day in addition to TF. Will adjust if continues when goal rate is met.
--- NOTE | 2021-07-31 14:00 | PC.NURSE ---
Pulmocare initiated @ 20mL/hr. Goal rate of 40mL/hr.
[2021-07-31 16:58] LABS: Chloride 121 mmol/L (98-107)
[2021-07-31 16:59] LABS: Potassium 3.5 mmoL/L (3.5-5.1)
[2021-07-31 17:01] LABS: Alanine Aminotransferase 93 U/L (12-78); Aspartate Amino Transferase 41 U/L (14-36); Blood Urea Nitrogen 9 mg/dl (7-17); Creatinine Clearance Estimated 134 mL/min (50-200); Estimated Glomerular Filt Rate 171 ml/min (>60); GFR (African American) 207 ML/MIN (>60)
[2021-07-31 17:02] LABS: Albumin Level 2.9 g/dl (3.5-5.0); Alkaline Phosphatase 107 U/L (38-126); Anion Gap 14.5 mEq/L (5-15); Bilirubin,Total 0.7 mg/dl (0.2-1.3); Calcium 8.3 mg/dl (8.4-10.2); Carbon Dioxide 19 mmol/L (22.0-30.0); Globulin 2.9 g/dL (1.3-3.2); Glucose 123 mg/dl (74-100); Magnesium 1.3 mg/dl (1.6-2.3); Total Protein,Serum 5.8 g/dl (6.3-8.2)
[2021-07-31 17:04] LABS: Sodium 151 mmol/L (136-145)
--- NOTE | 2021-07-31 17:05 | PC.NURSE ---
received call from lab ([facility]) reporting Na [id number]. Name and verified. Dr. Monahan notified.
--- NOTE | 2021-07-31 17:10 | PC.NURSE ---
pt has 1 PIV in left AC vein. Mulitple RNs have attempted to start a 2nd PIV but have been unsuccessful. Right FA PIV was discontinued this morning @ 0715 r/t infiltation of LR. Compression dressing was applied.
[2021-07-31 21:44] LABS: POC Glucose,Bedside 133 (70-110)
[2021-08-01] VITALS (30 sets, daily range): BP systolic 102–136; BP diastolic 69–91; PULSE 79–96; RESP 0–26; TEMP 37–38.4; O2SAT 94–99; BMI 19.7
[2021-08-01 05:19] LABS: POC Glucose,Bedside 121 (70-110)
--- NOTE | 2021-08-01 06:00 | XR_ITS ---
PROCEDURE INFORMATION: Exam: XR Chest Exam date and time: 08/01/2021 6:00 AM Age: 45 years old Clinical indication: Device placement; Ett placement (vent status); Additional info: Daily while intubated TECHNIQUE: Imaging protocol: XR of the chest. Views: 1 view. COMPARISON: CR XR CHEST PORTABLE 07/31/2021 8:33 AM FINDINGS: Tubes, catheters and devices: In theEndotracheal tube, and enteric tube unchanged in position. Lungs: Lung opacities unchanged from prior. Pleural spaces: No pneumothorax. Heart/Mediastinum: Unremarkable. No cardiomegaly. Bones/joints: Unremarkable. IMPRESSION: Stable chest examination.
[2021-08-01 07:20] LABS: Lactate Arterial 0.8 mmol/L (0.4-2.0)
[2021-08-01 07:21] LABS: ABG Base Excess -1.1 mmol/L (-2.4-2.3); ABG HCO3 20.6 mmhg (22.0-26.0); ABG Oxygen Saturation 99 % (90-100); ABG PO2 141.2 mmhg (80-100); ABG TCO2 21.3 mmhg (23-27)
[2021-08-01 07:25] LABS: Allen's Test Patient Unable; Oxygen 30 %; PEEP 5; Source Left Radial; Tidal Volume 360; Vent Rate 16
[2021-08-01 07:25] LABS: Chloride 121 mmol/L (98-107)
[2021-08-01 07:26] LABS: ABG PH 7.59 mmol/L (7.35-7.45)
--- NOTE | 2021-08-01 07:26 | HMH.ACPN2 ---
Internal Medicine - PN: Subj *Date: 08/02/21 *Time: 04:39 Interval history: still on vent seems less alert but no focal changes - labs pending Exam Vital signs and Labs for Last 24 Hours: Temp Pulse Resp BP Pulse Ox 99.5 F 91 H 16 113/74 96 08/01/21 04:00 08/01/21 06:00 08/01/21 06:00 08/01/21 06:00 08/01/21 06:00 Laboratory Results - last 24 hr 07/31/21 05:51: Sodium 153 H*, Potassium 2.7 L*, Chloride 122 H, Carbon Dioxide 14 L, Anion Gap 19.7 H, BUN 9, Creatinine 0.40 L, Estimated Creat Clear 134, Estimated GFR 171, Est GFR ( Amer) 207 D, Glucose 128 H, Calcium 8.5 07/31/21 08:03: Specimen Source L radial, O2 % 30%, ABG pH 7.58 H*, ABG pCO2 22.0 L, ABG pO2 105.1 H, ABG HCO3 20.0 L, ABG Total CO2 20.7 L, ABG O2 Saturation 98, ABG Base Excess -1.9, Ronnell Test Unable, Vent Rate 18, Tidal Volume 380, PEEP 5 07/31/21 11:31: POC Glucose 115 H 07/31/21 16:30: Sodium 151 H*, Potassium 3.5 D, Chloride 121 H, Carbon Dioxide 19 L, Anion Gap 14.5, BUN 9, Creatinine 0.40 L, Estimated Creat Clear 134, Estimated GFR 171, Est GFR ( Amer) 207, Glucose 123 H, Calcium 8.3 L, Magnesium 1.3 L, Total Bilirubin 0.7, AST 41 H D, ALT 93 H D, Alkaline Phosphatase 107, Total Protein 5.8 L, Albumin 2.9 L, Globulin 2.9, Albumin/Globulin Ratio 1.0 L 07/31/21 21:35: POC Glucose 133 H 08/01/21 05:10: POC Glucose 121 H 08/01/21 06:00: Specimen Source Left radial, O2 % 30, ABG pH 7.59 H*, ABG pCO2 22.0 L, ABG pO2 141.2 H, ABG HCO3 20.6 L, ABG Total CO2 21.3 L, ABG O2 Saturation 99, ABG Base Excess -1.1, Ronnell Test Patient unable, Vent Rate 16, Tidal Volume 360, PEEP 5 I & O for Last 24 hours: Intake & Output 07/29/21 07/30/21 07/31/21 08/01/21 11:59 11:59 11:59 11:59 Intake Total 200 / 200 1177 / 1273 2394 / 2494 2255 / 2255 Output Total 1250 / 1250 1370 / 1430 1079 / 1089 506 / 506 Balance -1050 / -1050 -193 / -157 1315 / 1405 1749 / 1749 Weight 99 lb 9.6 oz 108 lb 115 lb 9 oz Microbiology Reports for the Last 24 Hours: Microbiology 07/29/21 22:20 Sputum - Endotracheal Tube Aspirate Gram Stain - Final 07/29/21 22:20 Sputum - Endotracheal Tube Aspirate Sputum Culture - Preliminary - Constitutional Comments: sedated on vent - *Routine HEENT Exam Head: Present: normocephalic Eye: Present: PERRL ENT: Present: mucous membranes dry - *Routine Neck Exam Absent: JVD - *Routine Respiratory Exam Present: patient mechanically ventilated, decreased breath sounds - *Routine Cardiovascular Exam Present: RRR - *Routine Abdominal Exam Present: soft - *Routine Extremities Exam Absent: joint swelling - *Routine Skin Exam Present: intact - *Routine Neurological Exam Present: altered mental status (no posturing ) - Routine Psychiatric Exam Present: unable to assess Assessment and Plan (1) Healthcare-associated pneumonia Status: Acute Category: Medical Code(s): J18.9 - Pneumonia, unspecified organism (2) Multiple sclerosis Status: Chronic Category: Medical Code(s): G35 - Multiple sclerosis (3) Low body mass index (BMI) Status: Acute Category: Medical (4) Respiratory failure Status: Acute Qualifiers: Chronicity: acute Respiratory failure complication: hypoxia Qualified Code(s): J96.01 - Acute respiratory failure with hypoxia Category: Medical Code(s): J96.90 - Respiratory failure, unspecified, unspecified whether with hypoxia or hypercapnia (5) Severe sepsis with acute organ dysfunction Status: Acute Category: Medical Code(s): A41.9 - Sepsis, unspecified organism; R65.20 - Severe sepsis without septic shock (6) Hypernatremia Status: Acute Category: Medical Code(s): E87.0 - Hyperosmolality and hypernatremia (7) Hypokalemia Status: Acute Category: Medical Code(s): E87.6 - Hypokalemia
[2021-08-01 07:28] LABS: Anion Gap 8.6 mEq/L (5-15); Blood Urea Nitrogen 10 mg/dl (7-17); Carbon Dioxide 23 mmol/L (22.0-30.0); Creatinine Clearance Estimated 144 mL/min (50-200); Estimated Glomerular Filt Rate 171 ml/min (>60); GFR (African American) 207 ML/MIN (>60)
[2021-08-01 07:29] LABS: Glucose 139 mg/dl (74-100)
[2021-08-01 09:00] LABS: Basophils # 0.1 K/mm3 (0-0.2); Basophils % 0.7 % (0.1-2.0); Eosinophils # 0.2 K/mm3 (0.0-0.4); Hematocrit 34.5 % (37.0-47.0); Hemoglobin 11.5 g/dL (12.2-16.2); Lymphocytes # 1.6 K/mm3 (0.7-4.5); Lymphocytes % 16.4 % (10-50); Mean Corpuscular HGB Conc 33.4 g/dL (31.8-35.4); Mean Corpuscular Hemoglobin 32.1 pg (27.0-31.2); Mean Platelet Volume 10.1 fl (7.4-10.4); Monocytes # 0.2 K/mm3 (0.1-1.0); Monocytes % 2.1 % (1.7-9.3); Neutrophils # 7.8 K/mm3 (1.8-7.8); Neutrophils % 78.7 % (37.0-80.0); Platelet Count 190 K/mm3 (142-424); Red Cell Distribution Width 14.7 % (11.5-17.5); White Blood Count 9.9 K/mm3 (4.8-10.8)
[2021-08-01 09:01] LABS: Potassium 2.6 mmoL/L (3.5-5.1); Sodium 150 mmol/L (136-145)
--- NOTE | 2021-08-01 11:10 | PC.NURSE ---
Placed pt in sbt at 10:45. At 1100 pt resp rate is 20 and resting. Pt elinor well at this time. Will continue to monitor.
[2021-08-01 11:44] LABS: POC Glucose,Bedside 138 (70-110)
--- NOTE | 2021-08-01 12:38 | PC.WOUNDNOTE ---
Stage II, dsg applied
--- NOTE | 2021-08-01 14:15 | PC.NURSE ---
Pt lpaced back in ac mode on venttilator at 1400. Pt was starting to have some apnea and tire. Pt is now resting well.
--- NOTE | 2021-08-01 16:35 | PC.NURSE ---
No acute changes noted this shift, patient completed four hour SBT this shift, remains intubated with 7.0 ETT, 21@lip, vent settings as follows AC mode, FiO2 30%, TV 340, RR 14, Peep 5. OG tube present with pulmocare infusing at goal rate of 40ml/hr, minimal GRV noted this shift 10-20, 16F Granda catheter present, reduced urine output noted this shift, output 10-20 per hour, 1+ edema noted to BUE, Patient has been turned q2h, provided oral care and suctioning, two stage II noted to buttocks, pictures uploaded, dsg placed, patient has received no sedation this shift but remains minimally responsive, does blink her eyes and flinches to painful stimuli but cannot track or follow any commands, patient was febrile this shift treated with tylenol suppository per emar, had one liquid BM, no s/s of distress noted, will continue to monitor for changes.
--- NOTE | 2021-08-01 22:31 | PC.NURSE ---
No care needed
[2021-08-01 23:54] LABS: POC Glucose,Bedside 114 (70-110)
[2021-08-02] VITALS (32 sets, daily range): BP systolic 128–158; BP diastolic 88–107; PULSE 70–84; RESP 14–22; TEMP 36.8–37.8; O2SAT 96–100; BMI 18.4
--- NOTE | 2021-08-02 03:59 | PC.NURSE ---
Pt was febrile early in shift. Medicated per oct. Has slept at intervals this shift. Pt was noted multiple times biting and or pacifying on ETT. Oral care and suctioning provided. Moderate amount of sputum noted. Clear to cream and thin. Pt is following some direction this AM. She blinked eyes twice after asked. Pt also noted to smile twice. Bed bath given this shift. VS currently stable. Vent settings are as follows: AC, FiO2 30%, TV 340, R 14, PEEP5. OG in place. Pulmocare infusing @ 40 ml/hr. Residuals 0-5 ml. F/C draining to bedside with dark yellow urine. Sediment noted. Urine output has been no more than 35 ml per hour. No other concerns at this time. Will continue to monitor.
[2021-08-02 06:01] LABS: Basophils # 0.1 K/mm3 (0-0.2); Eosinophils # 0.2 K/mm3 (0.0-0.4); Eosinophils % 2.2 % (0.1-12.0); Hematocrit 33.7 % (37.0-47.0); Hemoglobin 10.8 g/dL (12.2-16.2); Lymphocytes # 1.5 K/mm3 (0.7-4.5); Lymphocytes % 19.8 % (10-50); Mean Corpuscular Hemoglobin 31.9 pg (27.0-31.2); Mean Corpuscular Volume 99.7 fl (81-99); Mean Platelet Volume 10.2 fl (7.4-10.4); Monocytes # 0.3 K/mm3 (0.1-1.0); Monocytes % 3.6 % (1.7-9.3); Neutrophils # 5.5 K/mm3 (1.8-7.8); Neutrophils % 73.5 % (37.0-80.0); Platelet Count 315 K/mm3 (142-424); Red Blood Count 3.38 M/mm3 (4.20-5.40); Red Cell Distribution Width 14.8 % (11.5-17.5); White Blood Count 7.5 K/mm3 (4.8-10.8)
[2021-08-02 06:05] LABS: POC Glucose,Bedside 136 (70-110)
[2021-08-02 06:10] LABS: Blood Urea Nitrogen 13 mg/dl (7-17); Calcium 7.8 mg/dl (8.4-10.2); Carbon Dioxide 25 mmol/L (22.0-30.0); Chloride 120 mmol/L (98-107); Creatinine Clearance Estimated 134 mL/min (50-200); Estimated Glomerular Filt Rate 171 ml/min (>60); GFR (African American) 207 ML/MIN (>60); Glucose 126 mg/dl (74-100)
[2021-08-02 06:21] LABS: Sodium 150 mmol/L (136-145)
--- NOTE | 2021-08-02 06:37 | PC.NURSE ---
Critical lab results reported.
--- NOTE | 2021-08-02 07:00 | XR_ITS ---
PROCEDURE INFORMATION: Exam: XR Chest Exam date and time: 08/02/2021 7:00 AM Age: 45 years old Clinical indication: Other: Intubated; Additional info: Ett and og placment TECHNIQUE: Imaging protocol: XR of the chest. Views: 1 view. COMPARISON: CR XR CHEST PORTABLE 08/01/2021 5:37 AM FINDINGS: Tubes, catheters and devices: Tip of ET tube lies 5.5 cm from the lovely. Tip of NG tube lies below the GE junction, however tip is not included on the study. Lungs: Resolving consolidation at the left lung base. Pleural spaces: Unremarkable. No pleural effusion. No pneumothorax. Heart/Mediastinum: Unremarkable. No cardiomegaly. Bones/joints: Unremarkable. IMPRESSION: 1. Resolving consolidation left lower lobe. 2. Support lines and tubes as above.
--- NOTE | 2021-08-02 09:33 | HMH.ACPN2 ---
Internal Medicine - PN: Subj *Date: 08/04/21 *Time: 02:18 Interval history: more alert- labs noted- will give k- on vent Exam Vital signs and Labs for Last 24 Hours: Temp Pulse Resp BP Pulse Ox 99.0 F 72 18 133/89 99 08/02/21 04:00 08/02/21 06:59 08/02/21 06:59 08/02/21 06:59 08/02/21 06:59 Laboratory Results - last 24 hr 08/01/21 08:50: WBC 9.9 D, RBC 3.60 L, Hgb 11.5 L, Hct 34.5 L, MCV 96.0, MCH 32.1 H, MCHC 33.4, RDW 14.7, Plt Count 190 D, MPV 10.1, Neut % (Auto) 78.7, Lymph % (Auto) 16.4, [place] % (Auto) 2.1, Eos % (Auto) 2.0, Baso % (Auto) 0.7, Neut # (Auto) 7.8, Lymph # (Auto) 1.6, [place] # (Auto) 0.2, Eos # (Auto) 0.2, Baso # (Auto) 0.1 08/01/21 11:23: POC Glucose 138 H 08/01/21 21:24: POC Glucose 114 H 08/02/21 05:32: WBC 7.5, RBC 3.38 L, Hgb 10.8 L, Hct 33.7 L, MCV 99.7 H, MCH 31.9 H, MCHC 32.0, RDW 14.8, Plt Count 315 D, MPV 10.2, Neut % (Auto) 73.5, Lymph % (Auto) 19.8, [place] % (Auto) 3.6, Eos % (Auto) 2.2, Baso % (Auto) 1.0, Neut # (Auto) 5.5, Lymph # (Auto) 1.5, [place] # (Auto) 0.3, Eos # (Auto) 0.2, Baso # (Auto) 0.1 08/02/21 05:32: Sodium 150 H, Potassium 3.0 L, Chloride 120 H, Carbon Dioxide 25, Anion Gap 8.0, BUN 13 D, Creatinine 0.40 L, Estimated Creat Clear 134, Estimated GFR 171, Est GFR ( Amer) 207, Glucose 126 H, Calcium 7.8 L 08/02/21 05:43: POC Glucose 136 H I & O for Last 24 hours: Intake & Output 07/30/21 07/31/21 08/01/21 08/02/21 11:59 11:59 11:59 11:59 Intake Total 1177 / 1273 2394 / 2494 2515 / 2555 1560 / 1560 Output Total 1370 / 1430 1079 / 1089 586 / 601 352 / 352 Balance -193 / -157 1315 / 1405 1929 / 1954 1208 / 1208 Weight 99 lb 9.6 oz 108 lb 115 lb 9 oz 108 lb Microbiology Reports for the Last 24 Hours: Microbiology 07/29/21 22:20 Sputum - Endotracheal Tube Aspirate Gram Stain - Final 07/29/21 22:20 Sputum - Endotracheal Tube Aspirate Sputum Culture - Final Yeast - Constitutional no acute distress - *Routine HEENT Exam Head: Absent: CSF otorrhea Eye: Present: PERRL ENT: Present: mucous membranes dry - *Routine Neck Exam Absent: JVD - *Routine Respiratory Exam Present: CTA bilaterally - *Routine Cardiovascular Exam Present: RRR - *Routine Abdominal Exam Present: soft - *Routine Extremities Exam Absent: calf tenderness - *Routine Skin Exam Present: intact - *Routine Neurological Exam Present: alert, oriented X3, CN II-XII intact - Routine Psychiatric Exam Present: normal affect Assessment and Plan (1) Healthcare-associated pneumonia Status: Acute Category: Medical Code(s): J18.9 - Pneumonia, unspecified organism (2) Multiple sclerosis Status: Chronic Category: Medical Code(s): G35 - Multiple sclerosis (3) Low body mass index (BMI) Status: Acute Category: Medical (4) Respiratory failure Status: Acute Qualifiers: Chronicity: acute Respiratory failure complication: hypoxia Qualified Code(s): J96.01 - Acute respiratory failure with hypoxia Category: Medical Code(s): J96.90 - Respiratory failure, unspecified, unspecified whether with hypoxia or hypercapnia (5) Severe sepsis with acute organ dysfunction Status: Acute Category: Medical Code(s): A41.9 - Sepsis, unspecified organism; R65.20 - Severe sepsis without septic shock (6) Hypernatremia Status: Acute Category: Medical Code(s): E87.0 - Hyperosmolality and hypernatremia (7) Hypokalemia Status: Acute Category: Medical Code(s): E87.6 - Hypokalemia
--- NOTE | 2021-08-02 12:46 | PC.WOUNDNOTE ---
Stage IIs with excoriation from frequent liquid stools, dsg changed
--- NOTE | 2021-08-02 18:22 | PC.NURSE ---
No acute changes noted this shift, patient has been much more alert than previous day, has been able to nod head yes or no appropriately to questions, has smiled, and is moving her right upper extremity at baseline, completed four hour SBT this shift and tolerated well, secretions much less today than previous day, patient has been turned q2h and provided oral care and suctioning, pt has had two large liquids BMs this shift, two small stage II areas on buttocks, pictures uploaded on chart and dsg changed, heels floated in bed, FC patent and draining clear yellow urine at bedside, UOP 30-35 per hour, vital signs have remained stable, no s/s of distress noted.
[2021-08-03] VITALS (43 sets, daily range): BP systolic 114–200; BP diastolic 78–123; PULSE 78–98; RESP 14–22; TEMP 36.3–37.1; O2SAT 92–100
--- NOTE | 2021-08-03 03:51 | XR_ITS ---
PROCEDURE INFORMATION: Exam: XR Chest Exam date and time: 08/03/2021 3:51 AM Age: 45 years old Clinical indication: Other: 02 sats have dropped; Additional info: Change in o2 sat TECHNIQUE: Imaging protocol: XR of the chest. Views: 1 view. COMPARISON: CR XR CHEST PORTABLE 08/02/2021 7:24 AM FINDINGS: Tubes, catheters and devices: ET tube and nasogastric tube. Lungs: New retrocardiac density is noted with loss of the left hemidiaphragm to lung interface suggestive of possible left lower lobe collapse and or development of infiltrate and effusion. Pleural spaces: Unremarkable. No pleural effusion. No pneumothorax. Heart/Mediastinum: Unremarkable. No cardiomegaly. Bones/joints: Unremarkable. IMPRESSION: New left lower lobe process with effusion as described
--- NOTE | 2021-08-03 04:08 | ECG_ITS ---
APPROVED REPORT Exam: Resting ECG HR:91 bpm ECG Measurements Heart Rate 91 AXES IA 112 P 71 QRSd 72 QRS 16 QT 388 T 46 QTc 477 Conclusion Normal sinus rhythm Nonspecific T wave abnormality Prolonged QT Abnormal ECG Electronically signed by : Eddie Blanton MD 08/05/2021 13:27:53
[2021-08-03 04:48] LABS: Basophils # 0.1 K/mm3 (0-0.2); Basophils % 1.2 % (0.1-2.0); Eosinophils # 0.2 K/mm3 (0.0-0.4); Eosinophils % 1.9 % (0.1-12.0); Hematocrit 33.8 % (37.0-47.0); Hemoglobin 10.9 g/dL (12.2-16.2); Lymphocytes % 21.3 % (10-50); Mean Corpuscular HGB Conc 32.4 g/dL (31.8-35.4); Mean Corpuscular Hemoglobin 31.6 pg (27.0-31.2); Mean Corpuscular Volume 97.7 fl (81-99); Mean Platelet Volume 8.2 fl (7.4-10.4); Monocytes # 0.2 K/mm3 (0.1-1.0); Monocytes % 2.3 % (1.7-9.3); Neutrophils # 6.8 K/mm3 (1.8-7.8); Neutrophils % 73.3 % (37.0-80.0); Platelet Count 345 K/mm3 (142-424); Red Blood Count 3.46 M/mm3 (4.20-5.40); White Blood Count 9.3 K/mm3 (4.8-10.8)
[2021-08-03 05:08] LABS: Anion Gap 9.7 mEq/L (5-15); Blood Urea Nitrogen 12 mg/dl (7-17); Carbon Dioxide 22 mmol/L (22.0-30.0); Chloride 120 mmol/L (98-107); Creatinine Clearance Estimated 134 mL/min (50-200); Estimated Glomerular Filt Rate 171 ml/min (>60); GFR (African American) 207 ML/MIN (>60); Glucose 112 mg/dl (74-100); Potassium 3.7 mmoL/L (3.5-5.1); Sodium 148 mmol/L (136-145)
--- NOTE | 2021-08-03 07:02 | PC.NURSE ---
Pt became restless this AM around 0330 after receiving bath and oral care. Pt desat due to biting ETT. Pt was bagged and bite guard was placed. RT was present in room. Pt was placed back on vent after sats increased. Pt was positioned on (L) side and O2 sats declined into the mid 80s. Diana was paged. Pt was then repositioned again on back and O2 sats increased to low 90s. Pt was noted to be hypertensive. MD Welsh was updated on pt status due to unable to contact Taniya. New orders received. CXR, CBC, BMP, EKG. Pt FiO2 was increased to 50% temporarily, but is back on 30%. BP has improved. Currently 136/93. Will continue to monitor.
[2021-08-03 08:03] LABS: ABG Base Excess -0.5 mmol/L (-2.4-2.3); ABG HCO3 22.8 mmhg (22.0-26.0); ABG Oxygen Saturation 98 % (90-100); ABG PCO2 30.3 mmhg (35.0-45.0); ABG PH 7.49 mmol/L (7.35-7.45); ABG PO2 99.5 mmhg (80-100); ABG TCO2 23.7 mmhg (23-27)
[2021-08-03 08:06] LABS: Allen's Test Acceptable; Oxygen 30 %; PEEP 5; Source Right Radial; Tidal Volume 340; Vent Rate 14
--- NOTE | 2021-08-03 08:17 | PC.NURSE ---
RESP CARE NOTE: Pt switched to Spont breathing trial per protocol. Settings of 8/5cmH2O and FIO2 of 30%.
--- NOTE | 2021-08-03 08:20 | PC.NURSE ---
abg given to Dr Welsh at 0820 sbt began at 0816
--- NOTE | 2021-08-03 09:07 | HMH.ACPN2 ---
Internal Medicine - PN: Subj *Date: 08/03/21 *Time: 08:50 Interval history: intubated- sedation off and spontaneous breathing trial- abg competed Exam Vital signs and Labs for Last 24 Hours: Temp Pulse Resp BP Pulse Ox 98.5 F 81 14 137/109 H 98 08/03/21 08:41 08/03/21 08:00 08/03/21 08:00 08/03/21 08:00 08/03/21 08:00 Laboratory Results - last 24 hr 08/03/21 04:40: WBC 9.3, RBC 3.46 L, Hgb 10.9 L, Hct 33.8 L, MCV 97.7, MCH 31.6 H, MCHC 32.4, RDW 15.0, Plt Count 345, MPV 8.2, Neut % (Auto) 73.3, Lymph % (Auto) 21.3, [place] % (Auto) 2.3, Eos % (Auto) 1.9, Baso % (Auto) 1.2, Neut # (Auto) 6.8, Lymph # (Auto) 2.0, [place] # (Auto) 0.2, Eos # (Auto) 0.2, Baso # (Auto) 0.1 08/03/21 04:40: Sodium 148 H, Potassium 3.7 D, Chloride 120 H, Carbon Dioxide 22, Anion Gap 9.7, BUN 12, Creatinine 0.40 L, Estimated Creat Clear 134, Estimated GFR 171, Est GFR ( Amer) 207, Glucose 112 H, Calcium 8.0 L 08/03/21 06:00: Specimen Source Right radial, O2 % 30, ABG pH 7.49 H, ABG pCO2 30.3 L, ABG pO2 99.5, ABG HCO3 22.8, ABG Total CO2 23.7, ABG O2 Saturation 98, ABG Base Excess -0.5, Ronnell Test Acceptable, Vent Rate 14, Tidal Volume 340, PEEP 5 I & O for Last 24 hours: Intake & Output 07/31/21 08/01/21 08/02/21 08/03/21 11:59 11:59 11:59 11:59 Intake Total 2394 / 2494 2515 / 2555 2420 / 2560 1711 / 1711 Output Total 1079 / 1089 586 / 601 487 / 517 1023 / 1023 Balance 1315 / 1405 1928 / 1953 688 / 688 Weight 108 lb 115 lb 9 oz 108 lb - Constitutional no acute distress, chronically ill appearing - *Routine HEENT Exam Head: Present: normocephalic Eye: Present: PERRL ENT: Present: mucous membranes moist - *Routine Neck Exam Present: supple. Absent: lymphadenopathy - *Routine Respiratory Exam Present: patient mechanically ventilated, CTA bilaterally - *Routine Cardiovascular Exam Present: RRR - *Routine Abdominal Exam Present: soft, normoactive bowel sounds. Absent: tenderness - *Routine Extremities Exam Absent: cyanosis, clubbing, edema - *Routine Skin Exam Present: warm. Absent: rash - *Routine Neurological Exam Present: alert Assessment and Plan (1) Healthcare-associated pneumonia Status: Acute Category: Medical Code(s): J18.9 - Pneumonia, unspecified organism (2) Multiple sclerosis Status: Chronic Category: Medical Code(s): G35 - Multiple sclerosis (3) Low body mass index (BMI) Status: Acute Category: Medical (4) Respiratory failure Status: Acute Qualifiers: Chronicity: acute Respiratory failure complication: hypoxia Qualified Code(s): J96.01 - Acute respiratory failure with hypoxia Category: Medical Code(s): J96.90 - Respiratory failure, unspecified, unspecified whether with hypoxia or hypercapnia (5) Severe sepsis with acute organ dysfunction Status: Acute Category: Medical Code(s): A41.9 - Sepsis, unspecified organism; R65.20 - Severe sepsis without septic shock (6) Hypernatremia Status: Acute Category: Medical Code(s): E87.0 - Hyperosmolality and hypernatremia (7) Hypokalemia Status: Acute Category: Medical Code(s): E87.6 - Hypokalemia - Assessment and plan all Dx Assessment and Plan for all problems:: rounded with dr barrett all orders per dr barrett pulm consult- poss extubate today bronch planned for today vent settings- fi02 30,tv 340,rate 14.ps 8, peep 5
--- NOTE | 2021-08-03 09:43 | PC.NURSE ---
Notified switchboard operator receptionist OR team of scheduled Bronch at 11:30am.
--- NOTE | 2021-08-03 10:37 | HMH.PULMPN ---
Internal Medicine - PN: Subj *Date: 08/03/21 *Time: 10:37 Interval history: No acute respiratory events over the weekend Exam - Constitutional Constitutional:: Present: no acute distress, comfortable - HENMT Exam HENMT: Present: normocephalic, atraumatic - Eye Exam Eyes:: Present: normal appearance both eyes and related structures - Neck Exam Neck:: Present: normal visual inspection - Respiratory Exam Respiratory:: Present: normal breath sounds, normal respiratory effort, decreased breath sounds, rhonchi - Cardiovascular Exam Cardiac:: Present: S1, S2 - GI Exam GI:: Present: soft - Skin Exam Skin: Present: warm, no rash - Neurological Exam Neurological: Present: awake. Absent: alert, normal cognition - Extremities Exam Extremities: Present: no cyanosis, no clubbing, edema Assessment and Plan (1) Healthcare-associated pneumonia Status: Acute Category: Medical Code(s): J18.9 - Pneumonia, unspecified organism (2) Multiple sclerosis Status: Chronic Category: Medical Code(s): G35 - Multiple sclerosis (3) Low body mass index (BMI) Status: Acute Category: Medical (4) Respiratory failure Status: Acute Qualifiers: Chronicity: acute Respiratory failure complication: hypoxia Qualified Code(s): J96.01 - Acute respiratory failure with hypoxia Category: Medical Code(s): J96.90 - Respiratory failure, unspecified, unspecified whether with hypoxia or hypercapnia (5) Severe sepsis with acute organ dysfunction Status: Acute Category: Medical Code(s): A41.9 - Sepsis, unspecified organism; R65.20 - Severe sepsis without septic shock (6) Hypernatremia Status: Acute Category: Medical Code(s): E87.0 - Hyperosmolality and hypernatremia (7) Hypokalemia Status: Acute Category: Medical Code(s): E87.6 - Hypokalemia - Assessment and plan all Dx Assessment and Plan for all problems:: #Acute hypoxic respiratory failure: # Tracheitis: #Left lower lobe pneumonia: # Left Pleural Effusion 45-year-old history of multiple sclerosis, high risk of aspiration and history of recurrent aspiration pneumonia presents with worsening respiratory distress needing intubation and mechanical ventilatory support. Patient was also changed to vancomycin and Zosyn was deescalated to Zosyn for hospital-acquired pneumonia. Chest x-ray showed possible left lower lobe airspace disease. Patient also have poor cough and gag reflex, significant amount of secretions in the leading to frequent respiratory compromise needing aggressive pulmonary toilet. Patient also noted an episode of bradycardia and hypotensive eventually needing reintubation. Patient ventilatory has been relatively stable and minimal since then. Chest x-ray 2 days post intubation showed small left costophrenic angle hydropneumothorax that was followed and her pneumothorax resolved. X-ray from today showed slight worsening of left lower lobe pleural effusion. Airspace disease improving. Patient secretions improved, still not to moderate amount of thick secretions needing every 2-3 hours pulmonary toilet. We will proceed with bronchoscopy and will plan for extubation later today. Plan: -Continue PRN sedation protocol. Wean sedation as tolerated. Respiratory status remained stable on low vent settings. Repeat ABG improving oxygenation improving respiratory alkalosis Chest x-ray from this morning resolved left costophrenic pneumothorax, slight worsening effusion on the left side Chest auscultation continue to show rhonchi, though improved from prior Blood and urine cultures no growth. Nasal MRSA PCR negative. Repeat tracheal aspirate gram-positive cocci, less than 10 WBC and less than 10 epithelial cells.. Sputum culture on admission growing yeast. Continue to receive Zosyn. Continue aggressive pulmonary toilet. Abdomen soft nontender. Transaminitis improving. Continue tube feeds. BUN/creatinine stable. Hypokalemia resolved now
--- NOTE | 2021-08-03 11:20 | DIET.NUTRFU ---
During rounds with Dr. Welsh today he indicated she will need placement an is high risk for readmission. Propofol was discontinued on 07/31. She continues on tubefeeding to provide 100% of nutrition. Providing 1380kcal and 57.5gm protein and 722ml free water with total fluid of 1322ml/day. Tolerating 40ml/hr with 5-10ml residuals. Weights fluctuating d/t edema, +3 noted 07/30, +2 07/31, +1 08/01. CBW 48.9kg. Will continue enteral feedings until weaned off vent. Once weaned initiate oral diet if appropriate.
--- NOTE | 2021-08-03 11:35 | PC.NURSE ---
called and spoke with pt daughter to obtain consent for bronchoscopy. Niurka Posada RN verified consent
--- NOTE | 2021-08-03 11:52 | PC.NURSE ---
Addendum entered by Yenny Purcell RN 08/03/21 12:16: case complete at approx 1208 Original Note: DR Monahan, D Virgie RT, Lucy Gregory RT, Nehemias Monae at bedside and monitoring pt for bronchoscopy at this time.
--- NOTE | 2021-08-03 11:55 | PC.NURSE ---
RESP CARE NOTE: Assisted Dr Monahan with Broncheal lavage. Specimen collected and Pt with all normal vital signs. Will continue to monitor.
--- NOTE | 2021-08-03 13:10 | HMH.BRONCH ---
- Procedure: Date: 08/03/21 Patient Date of :: 1975 Procedure Performed:: Bronchoscopy airway examination and alveolar lavage Indications:: Pneumonia, acute hypoxic respiratory failure Performing Provider:: Farhan Monahan MD Referring Provider:: Dr. Welsh Sedation:: Conscious sedation Procedure:: Bronchoscopy airway examination alveolar lavage: Clean therapeutic bronchoscope ET tube. Copious amounts of thick mucoid secretions were suctioned from the ET tube. Examined up to the lovely and airways were examined up to subsegmental bronchi. No obvious evidence of secretions noted in the bronchi. Airway appeared grossly normal. Bronchoalveolar lavage was performed the left lower lobe specimen was sent for bacterial Gram stain culture and sensitivity. Patient tolerated the procedure well. Findings:: Please see the procedure note Recommendations:: Please see the progress note from today Complications:: None Estimated blood obtained (mL): 0
--- NOTE | 2021-08-03 13:15 | PC.NURSE ---
RESP CARE NOTE: Pt placed back into AC mode of ventilation per Dr Monahan t/o. Will monitor.
--- NOTE | 2021-08-03 13:48 | PC.NURSE ---
telephone order from Dr Monahan at 1235 for pt to get lasix 40 iv x 1. med verified with gladys will rn and admin prior to being in comp
--- NOTE | 2021-08-03 14:30 | PC.NURSE ---
RESP CARE NOTE: Pt placed back into Spontaneous Breathing Trial per Dr Monahan t/o. 8/5 cmH2O FIO2 30%. Will monitor patient.
--- NOTE | 2021-08-03 15:43 | PC.NURSE ---
1300 called and notified RT that pt was experiencing apnea with tv inhale of 0 tv exhale of no greater than 80. pt was given o2 boost at 100% per vent. 1315 RT at bedside. pt placed back on AC mode for 1 hour in anticipation of extubation this afternoon. will monitor for further episodes of apnea. RT notified Dr Monahan of pt situation as well at this time 1444 Dr Randolph notified of pt consistent elevated bp. 161/98. pt received ordered dilaudid this am at approx 1213 r/t pt discomfort. (pt was able to nod head and indicate she was uncomfortable. 1530- pt bp 181/[address] more office to notify. no answer at office. 1540 called office again, message left to return call as soon as provider was available.
--- NOTE | 2021-08-03 16:30 | PC.NURSE ---
[address] Chawla office, ordered relayed through Giovanni. pt bp 170/110 new order for vasotec 1.25mg iv x 1
--- NOTE | 2021-08-03 22:19 | ECG_ITS ---
APPROVED REPORT Exam: Resting ECG HR:84 bpm ECG Measurements Heart Rate 84 AXES NC 104 P 84 QRSd 70 QRS 74 QT 378 T -58 QTc 446 Conclusion Sinus rhythm with short NC Nonspecific T wave abnormality Abnormal ECG Electronically signed by : Eddie Blanton MD 08/05/2021 13:25:24
--- NOTE | 2021-08-03 22:50 | PC.NURSE ---
Pt noted to have 14 beat run of Vtach. BP remains elevated. MD Welsh notified. Advised to consult MD Crockett. Spoke with MD Crockett with new order received. Give Metoprolol Tartrate 50 mg once and call back 2 hrs if it doesn't improve.
[2021-08-04] VITALS (28 sets, daily range): BP systolic 141–178; BP diastolic 93–115; PULSE 70–94; RESP 12–29; TEMP 36.4–37.7; O2SAT 92–100; BMI 18.8
--- NOTE | 2021-08-04 06:00 | PC.NURSE ---
MD Crockett notified of hypertension. New orders received. Metoprolol tartrate 50 mg once. Metoprolol tartrate 100 mg BID.
[2021-08-04 06:01] LABS: Basophils # 0.1 K/mm3 (0-0.2); Basophils % 1.2 % (0.1-2.0); Eosinophils # 0.1 K/mm3 (0.0-0.4); Eosinophils % 1.2 % (0.1-12.0); Hemoglobin 12.1 g/dL (12.2-16.2); Lymphocytes # 1.6 K/mm3 (0.7-4.5); Lymphocytes % 15.6 % (10-50); Mean Corpuscular HGB Conc 31.9 g/dL (31.8-35.4); Mean Corpuscular Hemoglobin 31.6 pg (27.0-31.2); Mean Corpuscular Volume 98.9 fl (81-99); Mean Platelet Volume 8.4 fl (7.4-10.4); Monocytes # 0.3 K/mm3 (0.1-1.0); Monocytes % 3.2 % (1.7-9.3); Neutrophils # 7.8 K/mm3 (1.8-7.8); Neutrophils % 78.7 % (37.0-80.0); Platelet Count 403 K/mm3 (142-424); Red Blood Count 3.84 M/mm3 (4.20-5.40); Red Cell Distribution Width 14.9 % (11.5-17.5)
[2021-08-04 06:14] LABS: Chloride 116 mmol/L (98-107)
[2021-08-04 06:15] LABS: Sodium 148 mmol/L (136-145)
[2021-08-04 06:17] LABS: Blood Urea Nitrogen 11 mg/dl (7-17); Creatinine Clearance Estimated 110 mL/min (50-200); Estimated Glomerular Filt Rate 132 ml/min (>60); GFR (African American) 160 ML/MIN (>60)
[2021-08-04 06:18] LABS: Anion Gap 8.9 mEq/L (5-15); Calcium 8.3 mg/dl (8.4-10.2); Carbon Dioxide 26 mmol/L (22.0-30.0); Glucose 121 mg/dl (74-100)
[2021-08-04 06:27] LABS: Potassium 2.9 mmoL/L (3.5-5.1)
--- NOTE | 2021-08-04 07:58 | PC.NURSE ---
RESP CARE NOTE: Pt placed in spontaneous breathing trial with settings of 8/5 cmH2O and FIO2 of 30%. Will continue to monitor patient.
--- NOTE | 2021-08-04 09:22 | HMH.PULMPN ---
Internal Medicine - PN: Subj *Date: 08/04/21 *Time: 10:44 Interval history: No acute respiratory events overnight. Patient continued to remain on minimal ventilator settings. Exam - Constitutional Constitutional:: Present: no acute distress, comfortable - HENMT Exam HENMT: Present: normocephalic, atraumatic - Eye Exam Eyes:: Present: normal appearance both eyes and related structures - Neck Exam Neck:: Present: normal visual inspection - Respiratory Exam Respiratory:: Present: lungs clear, no respiratory distress, normal respiratory effort. Absent: rhonchi - Cardiovascular Exam Cardiac:: Present: S1, S2 - GI Exam GI:: Present: soft - Skin Exam Skin: Present: warm - Neurological Exam Neurological: Absent: alert, awake, normal cognition Assessment and Plan (1) Healthcare-associated pneumonia Status: Acute Category: Medical Code(s): J18.9 - Pneumonia, unspecified organism (2) Multiple sclerosis Status: Chronic Category: Medical Code(s): G35 - Multiple sclerosis (3) Low body mass index (BMI) Status: Acute Category: Medical (4) Respiratory failure Status: Acute Qualifiers: Chronicity: acute Respiratory failure complication: hypoxia Qualified Code(s): J96.01 - Acute respiratory failure with hypoxia Category: Medical Code(s): J96.90 - Respiratory failure, unspecified, unspecified whether with hypoxia or hypercapnia (5) Severe sepsis with acute organ dysfunction Status: Acute Category: Medical Code(s): A41.9 - Sepsis, unspecified organism; R65.20 - Severe sepsis without septic shock (6) Hypernatremia Status: Acute Category: Medical Code(s): E87.0 - Hyperosmolality and hypernatremia (7) Hypokalemia Status: Acute Category: Medical Code(s): E87.6 - Hypokalemia - Assessment and plan all Dx Assessment and Plan for all problems:: #Acute hypoxic respiratory failure: # Tracheitis: #Left lower lobe pneumonia: # Left Pleural Effusion 45-year-old history of multiple sclerosis, high risk of aspiration and history of recurrent aspiration pneumonia presents with worsening respiratory distress needing intubation and mechanical ventilatory support. Patient was also changed to vancomycin and Zosyn was deescalated to Zosyn for hospital-acquired pneumonia. Chest x-ray showed possible left lower lobe airspace disease. Patient also have poor cough and gag reflex, significant amount of secretions in the leading to frequent respiratory compromise needing aggressive pulmonary toilet. Patient also noted an episode of bradycardia and hypotensive eventually needing reintubation. Patient ventilatory has been relatively stable and minimal since then. Chest x-ray 2 days post intubation showed small left costophrenic angle hydropneumothorax that was followed and her pneumothorax resolved. X-ray from showing slight worsening of left lower lobe pleural effusion. Airspace disease improving. Status post bronchoscopy, auscultation significantly improved with no rhonchi. Continue to remain on minimal vent settings. Plan: -Continue PRN sedation protocol. Patient appears more lethargic compared yesterday. Currently on SBT. Tolerating well. Will await her mentation to improve and will extubate the patient. Decreased opiates to morphine 1 mg every 6 hours RN for pain. F/U CXR. Continue SBT, awaiting mentation to improve for extubation. Respiratory status remained stable on low vent settings. Chest x-ray stable with left-sided pleural effusion. No pneumothorax. Bronchoscopy performed yesterday. No evidence of copious secretions except for thick secretions in the ET tube. Plan was to extubate yesterday, however patient had apneic episodes with SBT. Will reevaluate today and proceed with extubation if appropriate. Blood and urine cultures no growth. Nasal MRSA PCR negative. Repeat tracheal aspirate gram-positive cocci, less than 10 WBC and less than 10 epithelial cells.. Sputum culture
--- NOTE | 2021-08-04 10:48 | XR_ITS ---
PROCEDURE: XR CHEST PORTABLE CLINICAL HISTORY: PNM COMPARISON: CR XR CHEST PORTABLE from 08/03/2021 FINDINGS: 11:09 a.m.. Endotracheal tube tip is in good position at the T3-T4 level. NG tube tip is not visible on the film but is below the GE junction. Patchy infiltrate is present in the left lower lobe. Left lower lobe consolidation appears slightly improved. No evidence of pneumothorax. Suspect small left effusion which appears somewhat improved., IMPRESSION: Tubes and lines in good position with persistent but slightly improved left basilar pneumonia and small effusion Dictated by: Ronnell Penny MD 08/04/2021 11:23 Ronnell Penny MD in [facility] 08/04/2021 11:23
--- NOTE | 2021-08-04 13:15 | PC.NURSE ---
RESP CARE NOTE: Pt extubated per Dr Monahan v/o. Oxygen weaned to 2lpm nc to keep SpO2 above 90%.
--- NOTE | 2021-08-04 20:01 | HMH.ACPN2 ---
Internal Medicine - PN: Subj *Date: 08/04/21 *Time: 09:01 Interval history: 45-year-old female patient resting in bed quietly remains intubated. Is currently on spontaneous breathing trial with plans to extubate this afternoon if tolerated. Patient is still nonresponsive to verbal stimuli. Family has been contacted multiple times they will visit her when she returns to snf, they were informed of her condition and verbalized understanding her poor prognosis. Exam Vital signs and Labs for Last 24 Hours: Temp Pulse Resp BP Pulse Ox 99.2 F 78 24 156/95 H 96 08/04/21 16:00 08/04/21 19:00 08/04/21 19:00 08/04/21 19:00 08/04/21 19:00 Laboratory Results - last 24 hr 08/04/21 05:30: WBC 10.0, RBC 3.84 L, Hgb 12.1 L, Hct 38.0, MCV 98.9, MCH 31.6 H, MCHC 31.9, RDW 14.9, Plt Count 403, MPV 8.4, Neut % (Auto) 78.7, Lymph % (Auto) 15.6, [place] % (Auto) 3.2, Eos % (Auto) 1.2, Baso % (Auto) 1.2, Neut # (Auto) 7.8, Lymph # (Auto) 1.6, [place] # (Auto) 0.3, Eos # (Auto) 0.1, Baso # (Auto) 0.1 08/04/21 05:30: Sodium 148 H, Potassium 2.9 L* D, Chloride 116 H, Carbon Dioxide 26, Anion Gap 8.9, BUN 11, Creatinine 0.50 L D, Estimated Creat Clear 110, Estimated GFR 132, Est GFR ( Amer) 160 D, Glucose 121 H, Calcium 8.3 L I & O for Last 24 hours: Intake & Output 08/01/21 08/02/21 08/03/21 08/04/21 23:59 23:59 23:59 23:59 Intake Total 1680 / 1820 2670 / 2710 1025 / 1155 1555 / 1555 Output Total 567 / 592 774 / 789 3610 / 3630 848 / 848 Balance 1113 / 1228 1896 / 1921 -2585 / -2475 707 / 707 Weight 115 lb 9 oz 108 lb 110 lb Microbiology Reports for the Last 24 Hours: Microbiology 08/03/21 11:58 Bronchial Washings - Left Lower Lobe Gram Stain - Final - Constitutional no acute distress, chronically ill appearing - *Routine HEENT Exam Head: Present: normocephalic Eye: Present: EOMI ENT: Present: mucous membranes moist - *Routine Neck Exam Present: trachea midline. Absent: tracheal deviation - *Routine Respiratory Exam Present: CTA bilaterally. Absent: accessory muscle use - *Routine Cardiovascular Exam Present: RRR - *Routine Abdominal Exam Present: soft, normoactive bowel sounds. Absent: tenderness, firm - *Routine Extremities Exam Present: edema, pulses intact. Absent: cyanosis, clubbing Comments: RUE Edema - *Routine Skin Exam Present: intact, dry, warm. Absent: cyanosis, erythema - *Routine Neurological Exam Present: altered mental status - Routine Psychiatric Exam Present: unable to assess Assessment and Plan (1) Healthcare-associated pneumonia Status: Acute Category: Medical Code(s): J18.9 - Pneumonia, unspecified organism (2) Multiple sclerosis Status: Chronic Category: Medical Code(s): G35 - Multiple sclerosis (3) Low body mass index (BMI) Status: Acute Category: Medical (4) Respiratory failure Status: Acute Qualifiers: Chronicity: acute Respiratory failure complication: hypoxia Qualified Code(s): J96.01 - Acute respiratory failure with hypoxia Category: Medical Code(s): J96.90 - Respiratory failure, unspecified, unspecified whether with hypoxia or hypercapnia (5) Severe sepsis with acute organ dysfunction Status: Acute Category: Medical Code(s): A41.9 - Sepsis, unspecified organism; R65.20 - Severe sepsis without septic shock (6) Hypernatremia Status: Acute Category: Medical Code(s): E87.0 - Hyperosmolality and hypernatremia (7) Hypokalemia Status: Acute Category: Medical Code(s): E87.6 - Hypokalemia - Assessment and plan all Dx Assessment and Plan for all problems:: Rounded with Dr. Patel, all orders per Dr. Patel: 1. Continue continuous breathing trial with plans to extubate this afternoon 2. Pulmonology following
[2021-08-05] VITALS (23 sets, daily range): BP systolic 104–208; BP diastolic 78–123; PULSE 70–107; RESP 14–29; TEMP 36.7–37.7; O2SAT 79–100; BMI 18.4
[2021-08-05 06:10] LABS: Basophils # 0.1 K/mm3 (0-0.2); Basophils % 1.1 % (0.1-2.0); Eosinophils # 0.1 K/mm3 (0.0-0.4); Eosinophils % 1.7 % (0.1-12.0); Hemoglobin 12.1 g/dL (12.2-16.2); Lymphocytes # 1.6 K/mm3 (0.7-4.5); Lymphocytes % 20.5 % (10-50); Mean Corpuscular HGB Conc 31.9 g/dL (31.8-35.4); Mean Corpuscular Hemoglobin 31.9 pg (27.0-31.2); Mean Corpuscular Volume 99.7 fl (81-99); Mean Platelet Volume 10.6 fl (7.4-10.4); Monocytes # 0.4 K/mm3 (0.1-1.0); Monocytes % 5.5 % (1.7-9.3); Neutrophils # 5.5 K/mm3 (1.8-7.8); Neutrophils % 71.1 % (37.0-80.0); Platelet Count 355 K/mm3 (142-424); Red Blood Count 3.81 M/mm3 (4.20-5.40); Red Cell Distribution Width 15.2 % (11.5-17.5); White Blood Count 7.8 K/mm3 (4.8-10.8)
[2021-08-05 06:12] LABS: Chloride 119 mmol/L (98-107); Sodium 147 mmol/L (136-145)
[2021-08-05 06:13] LABS: Potassium 3.9 mmoL/L (3.5-5.1)
[2021-08-05 06:15] LABS: Blood Urea Nitrogen 11 mg/dl (7-17); Creatinine Clearance Estimated 135 mL/min (50-200); Estimated Glomerular Filt Rate 171 ml/min (>60); GFR (African American) 207 ML/MIN (>60)
[2021-08-05 06:16] LABS: Anion Gap 10.9 mEq/L (5-15); Calcium 8.6 mg/dl (8.4-10.2); Carbon Dioxide 21 mmol/L (22.0-30.0); Glucose 91 mg/dl (74-100)
--- NOTE | 2021-08-05 09:21 | HMH.PULMPN ---
Internal Medicine - PN: Subj *Date: 08/05/21 *Time: 12:20 Interval history: No acute respiratory vents overnight. Exam - Constitutional Constitutional:: Present: no acute distress, comfortable - HENMT Exam HENMT: Present: normocephalic, atraumatic - Eye Exam Eyes:: Present: normal appearance both eyes and related structures - Neck Exam Neck:: Present: normal visual inspection - Respiratory Exam Respiratory:: Present: no respiratory distress, normal respiratory effort, rhonchi. Absent: accessory muscle use - Cardiovascular Exam Cardiac:: Present: S1, S2 - GI Exam GI:: Present: soft - Skin Exam Skin: Present: warm, no rash - Neurological Exam Neurological: Present: awake. Absent: alert, normal cognition - Extremities Exam Extremities: Present: no cyanosis, no clubbing, no edema Assessment and Plan (1) Healthcare-associated pneumonia Status: Acute Category: Medical Code(s): J18.9 - Pneumonia, unspecified organism (2) Multiple sclerosis Status: Chronic Category: Medical Code(s): G35 - Multiple sclerosis (3) Low body mass index (BMI) Status: Acute Category: Medical (4) Respiratory failure Status: Acute Qualifiers: Chronicity: acute Respiratory failure complication: hypoxia Qualified Code(s): J96.01 - Acute respiratory failure with hypoxia Category: Medical Code(s): J96.90 - Respiratory failure, unspecified, unspecified whether with hypoxia or hypercapnia (5) Severe sepsis with acute organ dysfunction Status: Acute Category: Medical Code(s): A41.9 - Sepsis, unspecified organism; R65.20 - Severe sepsis without septic shock (6) Hypernatremia Status: Acute Category: Medical Code(s): E87.0 - Hyperosmolality and hypernatremia (7) Hypokalemia Status: Acute Category: Medical Code(s): E87.6 - Hypokalemia - Assessment and plan all Dx Assessment and Plan for all problems:: #Acute hypoxic respiratory failure: #Tracheitis: #Left lower lobe pneumonia: # Left Pleural Effusion 45-year-old history of multiple sclerosis, high risk of aspiration and history of recurrent aspiration pneumonia presents with worsening respiratory distress needing intubation and mechanical ventilatory support. Patient was also changed to vancomycin and Zosyn was deescalated to Zosyn for hospital-acquired pneumonia. Chest x-ray showed possible left lower lobe airspace disease. Patient also have poor cough and gag reflex, significant amount of secretions in the leading to frequent respiratory compromise needing aggressive pulmonary toilet. Patient also noted an episode of bradycardia and hypotensive eventually needing reintubation. Patient ventilatory has been relatively stable and minimal since then. Chest x-ray 2 days post intubation showed small left costophrenic angle hydropneumothorax that was followed and her pneumothorax resolved. X-ray from showing slight worsening of left lower lobe pleural effusion. Airspace disease improving.Respiratory status and maintain significantly improved and patient was eventually extubated to room air on 08/04/2021. She completed 10 days of Zosyn . Repeat BAL from 08/03 more than 25 WBC, no organisms seen. Interval update: Patient respiratory status gradually declining status post bronchoscopy last clinic today reveal significant rhonchi when it was clear post and extubation. She is on room air saturating 90% this morning when she was saturating 98%. Given patient's inability to protect her airway, patient need aggressive pulmonary toilet. I am concerned that patient will have recurrent respiratory issues secondary to her inability to protect her airway. We will closely monitor on the patient were to have frequent respiratory compromise is needing mechanical ventilatory support due her inability to protect her airway, then she will be a candidate for tracheostomy. Plan: -Discontinue antibiotics -Aggressive pulmonary toilet - NG/OG suction as needed al
--- NOTE | 2021-08-05 11:02 | DIET.NUTRFU ---
Reviewed POC today during rounds, she is now on room air. NG tube pulled, need discussions made about G-tube. Patient was on pudding thick puree last admit but continues to aspirate, oral diet is desired by patient but not safe. Long-term tx is G-tube placement for nutrition. Provider to review with family. Labs reviewed on 08/05: Na 147H (down from 150), K 3.9 (up from 2.9L), BUN 11, Cr 0.40L and glucose 91. May need to start IVF or NG well POC is reviewed with family. Provider inidcate family has indicated in the past they will agreed to PEG placement
--- NOTE | 2021-08-05 13:46 | PC.NURSE ---
SBP 185. Nipride gtt started @ 1mcg/kg/min.
--- NOTE | 2021-08-05 13:49 | HMH.CNCARD ---
History of Present Illness Consult date: 08/05/21 Requesting physician: Ole Patel Chief complaint: malignant htn History of present illness: This is a 45-year-old white female who has known end-stage multiple sclerosis with frequent aspiration who was admitted to the hospital from [facility] in respiratory distress. The patient had aspiration pneumonia and ultimately ended up intubated on mechanical ventilation. The patient has actually been intubated twice on this admission and her second extubation was today. The patient is making loud audible noises when I walk into the room but she is not following any commands and cannot answer any of my questions. I was unable to complete a review of systems. She does not appear to be in any distress. Her vital signs are stable except for her malignantly elevated blood pressure. [facility] History I have reviewed the patient's past medical history: Yes *Have you ever received a pneumonia vaccine?: No *Have you received a flu vaccine this season?: No Other Medical History: Reports: Other Comment:: Multiple sclerosis Other Surgeries: Yes: Other - *Social History Smoking Status: Unknown if ever smoked Alcohol Intake: never Alcohol Intake Frequency:: 0-2 drinks per day Substance Use Type: unknown *Occupational Status:: unemployed, disabled Housing: shelter *Travel in the last 8 weeks: None Family Hx:: Unable to obtain Med Home Medications Medication Instructions Recorded Confirmed Type Acetaminophen [Acetaminophen 325mg 650 mg PO Q4HP PRN 07/16/21 07/24/21 History tab] Bisacodyl [Bisacodyl 10mg Supp] 10 mg RC DAILYP PRN 07/16/21 07/24/21 History Bisacodyl [Women's Laxative] 5 mg PO DAILYP PRN 07/16/21 07/24/21 History Docusate Sodium [Colace 250mg 250 mg PO BID 07/16/21 07/24/21 History capsule] Folic Acid/Vit B Complex and C 0.8 mg PO DAILY 07/16/21 07/24/21 History [Tika-Ella Tablet] Gabapentin 300 mg PO TID 07/16/21 07/24/21 History Hydromorphone HCl [Dilaudid 4mg 4 mg PO Q6H 07/16/21 07/24/21 History Tab] Ibuprofen [Ibuprofen 200MG Capsule] 200 mg PO Q6HP PRN 07/16/21 07/24/21 History Lactulose 30 ml PO DAILYP PRN 07/16/21 07/24/21 History Melatonin 5 mg PO HS 07/16/21 07/24/21 History Sennosides/Docusate Sodium 2 tab PO BID 07/16/21 07/24/21 History [Senexon-S 50-8.6 mg Tablet] Thiamine HCl [Vitamin B-1] 100 mg PO DAILY 07/16/21 07/24/21 History Vitamin A Palmitate [Vitamin A] 3,000 mcg PO DAILY 07/16/21 07/24/21 History Allergies Allergy/AdvReac Type Severity Reaction Status Date / Time methylprednisolone Allergy Verified 07/24/21 15:31 Exam Vital signs and Labs for Last 24 Hours: Temp Pulse Resp BP Pulse Ox 98.6 F 101 H 29 H 200/123 H 90 L 08/05/21 12:00 08/05/21 12:00 08/05/21 12:00 08/05/21 12:00 08/05/21 12:00 Laboratory Results - last 24 hr 08/05/21 05:26: WBC 7.8, RBC 3.81 L, Hgb 12.1 L, Hct 38.0, MCV 99.7 H, MCH 31.9 H, MCHC 31.9, RDW 15.2, Plt Count 355, MPV 10.6 H, Neut % (Auto) 71.1, Lymph % (Auto) 20.5, [place] % (Auto) 5.5, Eos % (Auto) 1.7, Baso % (Auto) 1.1, Neut # (Auto) 5.5, Lymph # (Auto) 1.6, [place] # (Auto) 0.4, Eos # (Auto) 0.1, Baso # (Auto) 0.1 08/05/21 05:26: Sodium 147 H, Potassium 3.9 D, Chloride 119 H, Carbon Dioxide 21 L, Anion Gap 10.9, BUN 11, Creatinine 0.40 L, Estimated Creat Clear 135, Estimated GFR 171, Est GFR ( Amer) 207 D, Glucose 91 D, Calcium 8.6 I & O for Last 24 hours: Intake & Output 08/02/21 08/03/21 08/04/21 08/05/21 23:59 23:59 23:59 23:59 Intake Total 8950 / 2710 1025 / 1155 1655 / 1655 100 / 100 Output Total 774 / 789 3610 / 3630 1038 / 1098 925 / 925 Balance 1896 / 1921 -2585 / -2475 617 / 557 -825 / -825 Weight 108 lb 110 lb 108 lb 3 oz Narrative: EKG is sinus rhythm with nonspecific T wave abnormalities and a rate of 84. - Constitutional no acute distress, average body habitus, chronically ill appearing - *Routine HEENT Exam Head: Present: normocephalic,
--- NOTE | 2021-08-05 15:00 | PC.NURSE ---
pt re-intubated today @ [address] Monahan. 7.5 ET tube is 21cm @ the lip. Current vent settings are 50%, 16, 340, 5/-.
--- NOTE | 2021-08-05 15:02 | XR_ITS ---
PROCEDURE: XR CHEST PORTABLE CLINICAL HISTORY: intubation COMPARISON: CR XR CHEST PORTABLE from 08/02/2021 CR XR CHEST PORTABLE from 08/03/2021 CR XR CHEST PORTABLE from 08/04/2021 FINDINGS: 1511 hours. Endotracheal tube tip is in the ostium of the right mainstem bronchus. There has been interval development of left-sided lung collapse with mediastinal shift toward the left at elevated left hemidiaphragm. Endotracheal tube should be withdrawn 4-5 cm. There is mild hyperinflation of the right lung. Nasogastric tube tip is in the region of the body of the stomach. Overlying monitoring devices are present. IMPRESSION: Endotracheal tube tip is low at the ostium of the right mainstem bronchus with resultant collapse of the left lung with mediastinal shift and elevated left hemidiaphragm. This report was called to the floor and report given to Dr. Monahan 08/05/2021 at 3:35 p.m. Dictated by: Ronnell Penny MD 08/05/2021 15:42 Rnonell Penny MD in OV 08/05/2021 15:42
--- NOTE | 2021-08-05 15:52 | PC.NURSE ---
bronch @ BS with Dr. Monahan
--- NOTE | 2021-08-05 16:00 | XR_ITS ---
PROCEDURE: XR CHEST PORTABLE CLINICAL HISTORY: collapsed lung post intubation COMPARISON: CR XR CHEST PORTABLE from 08/03/2021 CR XR CHEST PORTABLE from 08/04/2021 CR XR CHEST PORTABLE from 08/05/2021 FINDINGS: 08/05/2021 at 1547 hours Endotracheal tube has been repositioned and is in good position 3 cm above the lovely. Nasogastric tube tip is in the region the body of the stomach. There remains collapse of the left lung with mediastinal shift toward the left and elevated left hemidiaphragm with hyperinflated right lung. IMPRESSION: Good position of endotracheal tube. Persistent collapse of the left lung. Dictated by: Ronnell Penny MD 08/05/2021 15:55 Ronnell Penny MD in OV 08/05/2021 15:55
--- NOTE | 2021-08-05 16:31 | PC.NURSE ---
son-in-law (Noah) updated by phone. He explains that he and Ivanna (pt's daughter) wish for pt to remain a full code and to receive a trach and PEG when conducive. Informed him that pt can have visitors. He replies we can't deal with hospital traffic right now . He and daughter verbalized understanding of pt's condition.
--- NOTE | 2021-08-05 16:47 | HMH.BRONCH ---
- Procedure: Date: 08/05/21 Patient Date of :: 1975 Procedure Performed:: Emergent bronchoscopy Indications:: Acute hypoxic respiratory failure, left lung collapse Performing Provider:: Farhan Monahan MD Referring Provider:: Dr. Welsh Sedation:: Patient intubated and sedated. Procedure:: Emergent bronchoscopy: Patient noted acute hypoxic respiratory failure needing intubation mechanical ventilatory support and x-ray post implant showed left lung collapse emergent bronchoscopy was performed with concern for mucous plugging. Patient noted to have thick mucoid secretions filled up to her left mainstem bronchus. Mucus secretions were suctioned. Oxygen saturation significantly improved post bronchoscopy. No samples were sent for analysis from this procedure. Findings:: Please see the procedure note Recommendations:: Please see the procedure note and progress note from today Complications:: None Estimated blood obtained (mL): 0
--- NOTE | 2021-08-05 16:56 | HMH.ACPN2 ---
Internal Medicine - PN: Subj *Date: 08/05/21 *Time: 08:15 Interval history: pt laying in bed, Exam Vital signs and Labs for Last 24 Hours: Temp Pulse Resp BP Pulse Ox 98.6 F 101 H 16 200/123 H 93 L 08/05/21 12:00 08/05/21 12:00 08/05/21 15:00 08/05/21 12:00 08/05/21 15:00 Laboratory Results - last 24 hr 08/05/21 05:26: WBC 7.8, RBC 3.81 L, Hgb 12.1 L, Hct 38.0, MCV 99.7 H, MCH 31.9 H, MCHC 31.9, RDW 15.2, Plt Count 355, MPV 10.6 H, Neut % (Auto) 71.1, Lymph % (Auto) 20.5, [place] % (Auto) 5.5, Eos % (Auto) 1.7, Baso % (Auto) 1.1, Neut # (Auto) 5.5, Lymph # (Auto) 1.6, [place] # (Auto) 0.4, Eos # (Auto) 0.1, Baso # (Auto) 0.1 08/05/21 05:26: Sodium 147 H, Potassium 3.9 D, Chloride 119 H, Carbon Dioxide 21 L, Anion Gap 10.9, BUN 11, Creatinine 0.40 L, Estimated Creat Clear 135, Estimated GFR 171, Est GFR ( Amer) 207 D, Glucose 91 D, Calcium 8.6 I & O for Last 24 hours: Intake & Output 08/03/21 08/04/21 08/05/21 08/06/21 11:59 11:59 11:59 11:59 Intake Total 1732 / 1732 1133 / 1133 1105 / 1105 Output Total 1189 / 1299 3445 / 3485 1258 / 1458 200 / 200 Balance 543 / 433 -2312 / -2352 -153 / -353 -200 / -200 Weight 110 lb 108 lb 3 oz - Constitutional no acute distress, chronically ill appearing - *Routine HEENT Exam Head: Present: normocephalic Eye: Present: PERRL ENT: Present: mucous membranes moist - *Routine Neck Exam Present: supple. Absent: lymphadenopathy - *Routine Respiratory Exam Present: rhonchi - *Routine Cardiovascular Exam Present: RRR - *Routine Abdominal Exam Present: soft, normoactive bowel sounds. Absent: tenderness - *Routine Extremities Exam Absent: cyanosis, clubbing, edema - *Routine Skin Exam Present: warm. Absent: rash - *Routine Neurological Exam Present: alert pt is nonverbal Assessment and Plan (1) Healthcare-associated pneumonia Status: Acute Category: Medical Code(s): J18.9 - Pneumonia, unspecified organism (2) Multiple sclerosis Status: Chronic Category: Medical Code(s): G35 - Multiple sclerosis (3) Low body mass index (BMI) Status: Acute Category: Medical (4) Respiratory failure Status: Acute Qualifiers: Chronicity: acute Respiratory failure complication: hypoxia Qualified Code(s): J96.01 - Acute respiratory failure with hypoxia Category: Medical Code(s): J96.90 - Respiratory failure, unspecified, unspecified whether with hypoxia or hypercapnia (5) Severe sepsis with acute organ dysfunction Status: Acute Category: Medical Code(s): A41.9 - Sepsis, unspecified organism; R65.20 - Severe sepsis without septic shock (6) Hypernatremia Status: Acute Category: Medical Code(s): E87.0 - Hyperosmolality and hypernatremia (7) Hypokalemia Status: Acute Category: Medical Code(s): E87.6 - Hypokalemia (8) Malignant hypertension Status: Acute Category: Medical Code(s): I10 - Essential (primary) hypertension (9) Sinus tachycardia Status: Acute Category: Medical Code(s): R00.0 - Tachycardia, unspecified - Assessment and plan all Dx Assessment and Plan for all problems:: rounded with dr thacker and all orders per dr htacker numerous attempts today to contact daughter - pt is unable to eat or drink and is aspirating on her own secretions, is needing deep suctioning per rt. recommending trach and gtube if they want aggressive treatment or dnr/hospice if non aggressive treatment is preferred. left message to return call or be available for phone call at 830 in am.
[2021-08-06] VITALS (32 sets, daily range): BP systolic 94–170; BP diastolic 62–111; PULSE 85–107; RESP 0–30; TEMP 36.6–37.6; O2SAT 97–100; BMI 18.2
--- NOTE | 2021-08-06 02:49 | PC.NURSE ---
Canderide gtt turned off at 2230. BP 119/83
--- NOTE | 2021-08-06 06:00 | XR_ITS ---
PROCEDURE INFORMATION: Exam: XR Chest Exam date and time: 08/06/2021 6:00 AM Age: 45 years old Clinical indication: Device placement; Ett placement (vent status); Additional info: Daily while intubated TECHNIQUE: Imaging protocol: XR of the chest. Views: 1 view. COMPARISON: CR XR CHEST PORTABLE 08/05/2021 3:47 PM FINDINGS: Tubes, catheters and devices: Nasogastric tube remains in place. Endotracheal tube remains in place with the tip above the lovely. Lungs: The left lung is now aerated and there is no longer mediastinal shift to the left. Pleural spaces: Unremarkable. No pleural effusion. No pneumothorax. Heart/Mediastinum: See Lungs finding. Bones/joints: Unremarkable. IMPRESSION: The left lung is now aerated and there is no longer mediastinal shift to the left.
[2021-08-06 08:26] LABS: Basophils # 0.1 K/mm3 (0-0.2); Basophils % 1.2 % (0.1-2.0); Eosinophils # 0.2 K/mm3 (0.0-0.4); Eosinophils % 1.4 % (0.1-12.0); Hematocrit 37.4 % (37.0-47.0); Hemoglobin 12.1 g/dL (12.2-16.2); Lymphocytes # 2.2 K/mm3 (0.7-4.5); Lymphocytes % 19.1 % (10-50); Mean Corpuscular HGB Conc 32.3 g/dL (31.8-35.4); Mean Corpuscular Hemoglobin 31.7 pg (27.0-31.2); Mean Platelet Volume 11.7 fl (7.4-10.4); Monocytes # 0.6 K/mm3 (0.1-1.0); Monocytes % 5.1 % (1.7-9.3); Neutrophils # 8.6 K/mm3 (1.8-7.8); Neutrophils % 73.2 % (37.0-80.0); Platelet Count 443 K/mm3 (142-424); Red Blood Count 3.81 M/mm3 (4.20-5.40); Red Cell Distribution Width 15.7 % (11.5-17.5); White Blood Count 11.8 K/mm3 (4.8-10.8)
--- NOTE | 2021-08-06 08:51 | HMH.PNCARD ---
Subjective Date: 08/06/21 Time: 08:45 Principal diagnosis: malignant htn Interval history: This is a 45-year-old white female with end-stage multiple sclerosis and frequent aspirations who was admitted from [facility] in respiratory distress. The patient has aspiration pneumonia. She has been intubated 3 times on this admission. Cardiology was consulted yesterday for malignant hypertension and she was started on a night pride drip. This did improve her blood pressure. However she had respiratory distress and ultimately ended up reintubated yesterday for the 3rd time. She also had a bronchoscopy yesterday which showed thick mucoid secretions which were suctioned from her left mainstem bronchus and her oxygen saturation improved. She remains intubated and on the ventilator this morning. Her vital signs are stable. She appears to be in no distress. She is alert but does not follow any commands. Exam Vital signs and Labs for Last 24 Hours: Temp Pulse Resp BP Pulse Ox 98.9 F 88 0 L 98/64 L 100 08/06/21 08:00 08/06/21 06:33 08/06/21 06:38 08/06/21 06:33 08/06/21 06:38 Laboratory Results - last 24 hr 08/06/21 05:35: WBC 11.8 H D, RBC 3.81 L, Hgb 12.1 L, Hct 37.4, MCV 98.0, MCH 31.7 H, MCHC 32.3, RDW 15.7, Plt Count 443 H, MPV 11.7 H, Neut % (Auto) 73.2, Lymph % (Auto) 19.1, [place] % (Auto) 5.1, Eos % (Auto) 1.4, Baso % (Auto) 1.2, Neut # (Auto) 8.6 H, Lymph # (Auto) 2.2, [place] # (Auto) 0.6, Eos # (Auto) 0.2, Baso # (Auto) 0.1 I & O for Last 24 hours: Intake & Output 08/03/21 08/04/21 08/05/21 08/06/21 23:59 23:59 23:59 23:59 Intake Total 1025 / 1155 1655 / 1655 235 / 235 240 / 240 Output Total 3610 / 3630 1038 / 1098 1485 / 1545 285 / 285 Balance -2585 / -2475 617 / 557 -1250 / -1310 -45 / -45 Weight 110 lb 108 lb 3 oz 106 lb 12.8 oz Microbiology Reports for the Last 24 Hours: Microbiology 08/05/21 15:09 Sputum - Endotracheal Tube Aspirate Gram Stain - Final Narrative: Telemetry strip is sinus rhythm with a rate of 95. - Constitutional no acute distress, average body habitus, chronically ill appearing - *Routine HEENT Exam Head: Present: normocephalic, atraumatic Eye: Present: PERRL ENT: Present: mucous membranes moist - *Routine Neck Exam Present: normal carotid upstroke. Absent: JVD, carotid bruit, lymphadenopathy - *Routine Respiratory Exam Present: patient mechanically ventilated, rhonchi - *Routine Cardiovascular Exam Present: RRR, Normal S1, Normal S2. Absent: murmur - *Routine Abdominal Exam Present: soft, normoactive bowel sounds. Absent: tenderness - *Routine Extremities Exam Present: pulses intact, normal capillary refill. Absent: cyanosis, clubbing, edema - *Routine Skin Exam Present: intact. Absent: erythema, rash - *Routine Neurological Exam Present: alert, altered mental status - Routine Psychiatric Exam Present: unable to assess Progress Note: A&P (1) Healthcare-associated pneumonia Status: Acute (2) Multiple sclerosis Status: Chronic (3) Low body mass index (BMI) Status: Acute (4) Respiratory failure Status: Acute (5) Severe sepsis with acute organ dysfunction Status: Acute (6) Hypernatremia Status: Acute (7) Malignant hypertension Status: Resolved (8) Sinus tachycardia Status: Resolved Assessment and Plan for All Diagnoses:: Plan: 1. The patient has end-stage multiple sclerosis and was admitted to the hospital for aspiration pneumonia. She had been extubated but had some respiratory failure yesterday and ended up reintubated for the third time and placed back on the ventilator. She underwent bronchoscopy and had thick mucoid secretions suctioned and her oxygen saturations did improve. There is concern that the patient will not be able to protect her airway long-term and she will likely end up with a tracheostomy and on the ventilator long-term. This is being managed per pulmonology. Will defer. 2. The supa
--- NOTE | 2021-08-06 09:29 | HMH.ACPN2 ---
Internal Medicine - PN: Subj *Date: 08/06/21 *Time: 19:45 Interval history: 45-year-old female patient resting in bed intubated/sedated, no distress at present. Patient was emergently intubated yesterday afternoon with left lobe collapse then underwent bronchoscopy with excessive mucus plugging in the left lobe. The patient remains on vent this morning with planned spontaneous breathing trial. Long discussion with son-in-law and daughter explaining grave condition of patient, unable to clear secretions, frequent intubations, and general poor prognosis. Son-in-law and daughter both verbalized understanding patient's poor condition and still insist on full code with trach and PEG placement. Exam Vital signs and Labs for Last 24 Hours: Temp Pulse Resp BP Pulse Ox 98.9 F 95 H 16 131/88 100 08/06/21 08:00 08/06/21 08:00 08/06/21 08:00 08/06/21 08:00 08/06/21 08:00 Laboratory Results - last 24 hr 08/06/21 05:35: WBC 11.8 H D, RBC 3.81 L, Hgb 12.1 L, Hct 37.4, MCV 98.0, MCH 31.7 H, MCHC 32.3, RDW 15.7, Plt Count 443 H, MPV 11.7 H, Neut % (Auto) 73.2, Lymph % (Auto) 19.1, [place] % (Auto) 5.1, Eos % (Auto) 1.4, Baso % (Auto) 1.2, Neut # (Auto) 8.6 H, Lymph # (Auto) 2.2, [place] # (Auto) 0.6, Eos # (Auto) 0.2, Baso # (Auto) 0.1 I & O for Last 24 hours: Intake & Output 08/03/21 08/04/21 08/05/21 08/06/21 23:59 23:59 23:59 23:59 Intake Total 1025 / 1155 1655 / 1655 235 / 235 240 / 240 Output Total 3610 / 3630 1038 / 1098 1485 / 1545 385 / 385 Balance -2585 / -2475 617 / 557 -1250 / -1310 -145 / -145 Weight 110 lb 108 lb 3 oz 106 lb 12.8 oz Microbiology Reports for the Last 24 Hours: Microbiology 08/05/21 15:09 Sputum - Endotracheal Tube Aspirate Gram Stain - Final - Constitutional no acute distress, chronically ill appearing - *Routine HEENT Exam Head: Present: normocephalic Eye: Present: EOMI ENT: Present: mucous membranes moist - *Routine Neck Exam Present: trachea midline. Absent: tracheal deviation - *Routine Respiratory Exam Present: accessory muscle use, patient mechanically ventilated, rhonchi - *Routine Cardiovascular Exam Present: RRR - *Routine Abdominal Exam Present: soft, normoactive bowel sounds. Absent: tenderness, firm - *Routine Extremities Exam Present: edema, pulses intact. Absent: cyanosis, clubbing Comments: RUE Edema - *Routine Skin Exam Present: intact, cyanosis, dry. Absent: erythema - *Routine Neurological Exam Present: altered mental status Intubated/Sedated - Routine Psychiatric Exam Present: unable to assess Comments: Intubated/Sedated Assessment and Plan (1) Healthcare-associated pneumonia Status: Acute Category: Medical Code(s): J18.9 - Pneumonia, unspecified organism (2) Multiple sclerosis Status: Chronic Category: Medical Code(s): G35 - Multiple sclerosis (3) Low body mass index (BMI) Status: Acute Category: Medical (4) Respiratory failure Status: Acute Qualifiers: Chronicity: acute Respiratory failure complication: hypoxia Qualified Code(s): J96.01 - Acute respiratory failure with hypoxia Category: Medical Code(s): J96.90 - Respiratory failure, unspecified, unspecified whether with hypoxia or hypercapnia (5) Severe sepsis with acute organ dysfunction Status: Acute Category: Medical Code(s): A41.9 - Sepsis, unspecified organism; R65.20 - Severe sepsis without septic shock (6) Hypernatremia Status: Acute Category: Medical Code(s): E87.0 - Hyperosmolality and hypernatremia (7) Malignant hypertension Status: Resolved Category: Medical Code(s): I10 - Essential (primary) hypertension (8) Sinus tachycardia Status: Resolved Category: Medical Code(s): R00.0 - Tachycardia, unspecified - Assessment and plan all Dx Assessment and Plan for all problems:: Rounded with Dr. Patel, all orders per Dr. Patel: 1. Continue to wean oxygen as tolerated 2. Plan for trach/
--- NOTE | 2021-08-06 11:31 | DIET.NUTRFU ---
Addendum entered by Liberty Mg RD, LD 08/07/21 11:22: Tubefeeding is running, tolerating at 20ml/hr, will continue to increase to reach goal rate and provide 100% nutrition Original Note: This RD saw pateint during rounds, family had called during rounds and expressed wishes to [employer] to do whatever needed including PEG placement and trach. [facility] home she lives at will not take her back unless she has a PEG placed and does not need trach. May need new placement. [employer] was not sure at this time PEG/trach are feasible at current condition. May need to use NG tube until feasible. Patient has been NPO now since yesterday when extubated. She required intubation again last night, continues to aspirate on her own secretions and oral diet will not be medically feasible. Propofol ordered to start today 14.533ml/hr providing 383kcal/day. Recommend to start TF to provide her nutrition, she has tolerated in the past. Pulomcare at 20ml/hr with goal of 40ml/hr ATC with 100mL free water Q4hrs= providing 1380kcal and 57.5gm protein and 722ml free water with total fluid of 1322ml/day. CBW is 48.4kg. Reviewed labs from 08/05: Na 147, K 3.9, Bun 11, Cr .40, glucose 91.
--- NOTE | 2021-08-06 12:18 | HMH.PULMPN ---
Internal Medicine - PN: Subj *Date: 08/06/21 *Time: 12:18 Interval history: No acute respiratory events overnight. Exam - Constitutional Constitutional:: Present: no acute distress, comfortable - HENMT Exam HENMT: Present: normocephalic, atraumatic - Eye Exam Eyes:: Present: normal appearance both eyes and related structures - Neck Exam Neck:: Present: normal visual inspection - Respiratory Exam Respiratory:: Present: no respiratory distress, rhonchi - Cardiovascular Exam Cardiac:: Present: S1, S2 - GI Exam GI:: Present: soft - Skin Exam Skin: Present: warm, no rash - Neurological Exam Neurological: Present: awake. Absent: alert, normal cognition - Extremities Exam Extremities: Present: no cyanosis, no clubbing, no edema Assessment and Plan (1) Healthcare-associated pneumonia Status: Acute Category: Medical Code(s): J18.9 - Pneumonia, unspecified organism (2) Multiple sclerosis Status: Chronic Category: Medical Code(s): G35 - Multiple sclerosis (3) Low body mass index (BMI) Status: Acute Category: Medical (4) Respiratory failure Status: Acute Qualifiers: Chronicity: acute Respiratory failure complication: hypoxia Qualified Code(s): J96.01 - Acute respiratory failure with hypoxia Category: Medical Code(s): J96.90 - Respiratory failure, unspecified, unspecified whether with hypoxia or hypercapnia (5) Severe sepsis with acute organ dysfunction Status: Acute Category: Medical Code(s): A41.9 - Sepsis, unspecified organism; R65.20 - Severe sepsis without septic shock (6) Hypernatremia Status: Acute Category: Medical Code(s): E87.0 - Hyperosmolality and hypernatremia (7) Malignant hypertension Status: Resolved Category: Medical Code(s): I10 - Essential (primary) hypertension (8) Sinus tachycardia Status: Resolved Category: Medical Code(s): R00.0 - Tachycardia, unspecified - Assessment and plan all Dx Assessment and Plan for all problems:: #Acute hypoxic respiratory failure: 45-year-old history of multiple sclerosis, high risk of aspiration and history of recurrent aspiration pneumonia presents with worsening respiratory distress needing intubation and mechanical ventilatory support. Patient completed 10-day course of Zosyn and clindamycin. Patient predominant problem throughout his hospital admission is her inability to protect her airway and clear her secretions. Patient was intubated 3x04 secondary inability to protect her secretions. Fortunately most recent intubation was secondary to mucous plugging of her left mainstem bronchus with near complete collapse of the left lung. Given her continued inability to for airway and unable to clear the secretions I believe patient would be an ideal candidate for tracheostomy. Patient will need aggressive pulmonary toilet. Primary team has discussed with the family and the family want to proceed with trach and PEG placement. Plan: -Continue PRN sedation protocol. Continue SBT daily. Respiratory status significantly post bronchoscopy. Repeat chest x-ray showed bilateral aeration both lung macdonald. On minimal ventilator settings. Not receiving any antibiotics currently. We will continue current ventilator suppprt and perform daily SBT. We will follow ENT and primary team to facilitate trach and PEG placement. Will perform cuff leak testing as concern for laryngeal edema. Abdomen soft nontender. Reinitiate tube feeds. BUN/creatinine stable. Mild hypernatremia @ 147 150mlevery 4 hour free water flushes with tube feeds - Continue mechanical ventilatory support - VAP bundle Elevate head of the bed at 30 to 45 degrees Oral care with chlorhexidne GI ulcer prophylaxis - Famotidine 20mg IV BID Chemical DVT prophylaxis #Thank you for involving pulmonary in this patient care. We will continue to follow.
[2021-08-06 15:37] LABS: Chloride 113 mmol/L (98-107)
[2021-08-06 15:38] LABS: Sodium 145 mmol/L (136-145)
[2021-08-06 15:40] LABS: Alanine Aminotransferase 29 U/L (12-78); Aspartate Amino Transferase 38 U/L (14-36); Blood Urea Nitrogen 12 mg/dl (7-17); Creatinine Clearance Estimated 106 mL/min (50-200); Estimated Glomerular Filt Rate 132 ml/min (>60); GFR (African American) 160 ML/MIN (>60)
[2021-08-06 15:41] LABS: Albumin Level 3.3 g/dl (3.5-5.0); Alkaline Phosphatase 81 U/L (38-126); Bilirubin,Total 0.8 mg/dl (0.2-1.3); Calcium 8.6 mg/dl (8.4-10.2); Carbon Dioxide 18 mmol/L (22.0-30.0); Globulin 3.2 g/dL (1.3-3.2); Total Protein,Serum 6.5 g/dl (6.3-8.2)
[2021-08-06 15:47] LABS: Glucose 41 mg/dl (74-100)
[2021-08-06 17:14] LABS: Chloride 113 mmol/L (98-107); Potassium 3.5 mmoL/L (3.5-5.1); Sodium 144 mmol/L (136-145)
[2021-08-06 17:17] LABS: Alanine Aminotransferase 27 U/L (12-78); Albumin Level 3.5 g/dl (3.5-5.0); Albumin/Globulin Ratio 1.1 (1.1-1.8); Alkaline Phosphatase 86 U/L (38-126); Anion Gap 15.5 mEq/L (5-15); Aspartate Amino Transferase 29 U/L (14-36); Bilirubin,Total 0.8 mg/dl (0.2-1.3); Blood Urea Nitrogen 10 mg/dl (7-17); Calcium 8.7 mg/dl (8.4-10.2); Carbon Dioxide 19 mmol/L (22.0-30.0); Creatinine Clearance Estimated 133 mL/min (50-200); Estimated Glomerular Filt Rate 171 ml/min (>60); GFR (African American) 207 ML/MIN (>60); Globulin 3.2 g/dL (1.3-3.2); Glucose 84 mg/dl (74-100); Total Protein,Serum 6.7 g/dl (6.3-8.2)
[2021-08-07] VITALS (31 sets, daily range): BP systolic 115–185; BP diastolic 74–118; PULSE 86–133; RESP 16–34; TEMP 36.3–37.8; O2SAT 95–100; BMI 16.9
--- NOTE | 2021-08-07 06:00 | XR_ITS ---
PROCEDURE INFORMATION: Exam: XR Chest Exam date and time: 08/07/2021 6:00 AM Age: 45 years old Clinical indication: Device placement; Ett placement (vent status); Additional info: Daily while intubated TECHNIQUE: Imaging protocol: XR of the chest. Views: 1 view. COMPARISON: CR XR CHEST PORTABLE 08/06/2021 5:15 AM FINDINGS: Tubes, catheters and devices: Endotracheal tube terminates approximately 4 cm above the lovely. NG tube passes into the stomach. Lungs: Left basilar airspace opacity. Pleural spaces: Unremarkable. No pleural effusion. No pneumothorax. Heart/Mediastinum: Unremarkable. No cardiomegaly. Bones/joints: Unremarkable. IMPRESSION: 1. Endotracheal tube terminates approximately 4 cm above the lovely. 2. Left basilar airspace opacity may reflect atelectasis versus aspiration or pneumonia.
[2021-08-07 06:16] LABS: Basophils # 0.1 K/mm3 (0-0.2); Basophils % 0.6 % (0.1-2.0); Eosinophils # 0.1 K/mm3 (0.0-0.4); Eosinophils % 1.5 % (0.1-12.0); Hematocrit 37.2 % (37.0-47.0); Lymphocytes # 1.8 K/mm3 (0.7-4.5); Lymphocytes % 18.8 % (10-50); Mean Corpuscular HGB Conc 32.2 g/dL (31.8-35.4); Mean Corpuscular Hemoglobin 31.1 pg (27.0-31.2); Mean Corpuscular Volume 96.6 fl (81-99); Mean Platelet Volume 8.2 fl (7.4-10.4); Monocytes # 0.4 K/mm3 (0.1-1.0); Monocytes % 4.7 % (1.7-9.3); Neutrophils % 74.3 % (37.0-80.0); Platelet Count 517 K/mm3 (142-424); Red Blood Count 3.85 M/mm3 (4.20-5.40); White Blood Count 9.4 K/mm3 (4.8-10.8)
[2021-08-07 06:47] LABS: Chloride 112 mmol/L (98-107); Sodium 145 mmol/L (136-145)
[2021-08-07 06:49] LABS: Alanine Aminotransferase 22 U/L (12-78); Alkaline Phosphatase 92 U/L (38-126); Aspartate Amino Transferase 28 U/L (14-36); Blood Urea Nitrogen 10 mg/dl (7-17); Carbon Dioxide 20 mmol/L (22.0-30.0); Creatinine Clearance Estimated 99 mL/min (50-200); Estimated Glomerular Filt Rate 132 ml/min (>60); GFR (African American) 160 ML/MIN (>60)
[2021-08-07 06:50] LABS: Albumin Level 3.2 g/dl (3.5-5.0); Calcium 8.7 mg/dl (8.4-10.2); Globulin 3.2 g/dL (1.3-3.2); Glucose 85 mg/dl (74-100); Total Protein,Serum 6.4 g/dl (6.3-8.2)
[2021-08-07 07:38] LABS: ABG Base Excess -5.7 mmol/L (-2.4-2.3); ABG Oxygen Saturation 99 % (90-100); ABG PCO2 25.4 mmhg (35.0-45.0); ABG PH 7.47 mmol/L (7.35-7.45); ABG PO2 158.3 mmhg (80-100); ABG TCO2 18.8 mmhg (23-27)
[2021-08-07 07:45] LABS: Oxygen 40% %; Tidal Volume 340
[2021-08-07 07:46] LABS: Allen's Test Patient Unable; PEEP 10; Source Right Radial; Vent Rate 16
[2021-08-07 07:47] LABS: Lactate Arterial 0.9 mmol/L (0.4-2.0)
--- NOTE | 2021-08-07 09:54 | HMH.ACPN2 ---
Internal Medicine - PN: Subj *Date: 08/07/21 *Time: 13:37 Interval history: 45-year-old female patient resting in bed mechanically ventilated. She is currently on spontaneous breathing trial and tolerating without difficulties. After discussion with family yesterday they insist on PEG and trach placement even after long medical discussion emphasizing poor prognosis. Tube feed restarted Exam Vital signs and Labs for Last 24 Hours: Temp Pulse Resp BP Pulse Ox 100 F H 115 H 26 H 148/106 H 98 08/07/21 08:00 08/07/21 09:00 08/07/21 09:00 08/07/21 09:00 08/07/21 09:00 Laboratory Results - last 24 hr 08/06/21 05:35: Sodium 145, Potassium 4.0, Chloride 113 H, Carbon Dioxide 18 L, Anion Gap 18.0 H, BUN 12, Creatinine 0.50 L D, Estimated Creat Clear 106, Estimated GFR 132, Est GFR ( Amer) 160 D, Glucose 41 L, Calcium 8.6, Total Bilirubin 0.8, AST 38 H, ALT 29, Alkaline Phosphatase 81, Total Protein 6.5, Albumin 3.3 L, Globulin 3.2, Albumin/Globulin Ratio 1.0 L 08/06/21 16:08: Sodium 144, Potassium 3.5, Chloride 113 H, Carbon Dioxide 19 L, Anion Gap 15.5 H, BUN 10, Creatinine 0.40 L, Estimated Creat Clear 133, Estimated GFR 171, Est GFR ( Amer) 207 D, Glucose 84 D, Calcium 8.7, Total Bilirubin 0.8, AST 29, ALT 27, Alkaline Phosphatase 86, Total Protein 6.7, Albumin 3.5, Globulin 3.2, Albumin/Globulin Ratio 1.1 08/07/21 05:12: WBC 9.4, RBC 3.85 L, Hgb 12.0 L, Hct 37.2, MCV 96.6, MCH 31.1, MCHC 32.2, RDW 16.0, Plt Count 517 H, MPV 8.2, Neut % (Auto) 74.3, Lymph % (Auto) 18.8, [place] % (Auto) 4.7, Eos % (Auto) 1.5, Baso % (Auto) 0.6, Neut # (Auto) 7.0, Lymph # (Auto) 1.8, [place] # (Auto) 0.4, Eos # (Auto) 0.1, Baso # (Auto) 0.1 08/07/21 05:12: Sodium 145, Potassium 3.0 L, Chloride 112 H, Carbon Dioxide 20 L, Anion Gap 16.0 H, BUN 10, Creatinine 0.50 L D, Estimated Creat Clear 99, Estimated GFR 132, Est GFR ( Amer) 160 D, Glucose 85, Calcium 8.7, Total Bilirubin 1.0, AST 28, ALT 22, Alkaline Phosphatase 92, Total Protein 6.4, Albumin 3.2 L, Globulin 3.2, Albumin/Globulin Ratio 1.0 L 08/07/21 06:00: Specimen Source Right radial, O2 % 40%, ABG pH 7.47 H, ABG pCO2 25.4 L, ABG pO2 158.3 H, ABG HCO3 18.0 L, ABG Total CO2 18.8 L, ABG O2 Saturation 99, ABG Base Excess -5.7 L, Ronnell Test Patient unable, Vent Rate 16, Tidal Volume 340, PEEP 10 08/07/21 06:57: ABG Lactate 0.9 I & O for Last 24 hours: Intake & Output 08/04/21 08/05/21 08/06/21 08/07/21 23:59 23:59 23:59 23:59 Intake Total 1655 / 1655 235 / 235 440 / 440 Output Total 1038 / 1098 1485 / 1545 1475 / 1560 490 / 490 Balance 617 / 557 -1250 / -1310 -1035 / -1120 -490 / -490 Weight 110 lb 108 lb 3 oz 106 lb 12.8 oz 99 lb 2 oz Microbiology Reports for the Last 24 Hours: Microbiology 08/05/21 15:09 Sputum - Endotracheal Tube Aspirate Gram Stain - Final 08/05/21 15:09 Sputum - Endotracheal Tube Aspirate Sputum Culture - Preliminary 08/03/21 11:58 Bronchial Washings - Left Lower Lobe Gram Stain - Final 08/03/21 11:58 Bronchial Washings - Left Lower Lobe Bronchoalveolar Lavage Culture - Final Yeast - Constitutional no acute distress, chronically ill appearing - *Routine HEENT Exam Head: Present: normocephalic Eye: Present: EOMI ENT: Present: mucous membranes moist - *Routine Neck Exam Present: carotid bruit. Absent: tracheal deviation - *Routine Respiratory Exam Present: patient mechanically ventilated, rhonchi - *Routine Cardiovascular Exam Present: RRR - *Routine Abdominal Exam Present: soft, normoactive bowel sounds. Absent: tenderness, distended - *Routine Extremities Exam Present: edema. Absent: cyanosis, clubbing Comments: RUE Edema - *Routine Skin Exam Present: warm, wounds - *Routine Neurological Exam Intubated - Routine Psychiatric Exam Present: unable to assess Comments: Intubated Assessment and Plan (1) Healthcare-associated pneumonia Status: Acute Category:
[2021-08-07 10:19] LABS: POC Glucose,Bedside 86 (70-110)
--- NOTE | 2021-08-07 10:51 | SUR.OPER ---
Procedure Start: 08/05/21 1555 Procedure End: 08/05/21 1552
--- NOTE | 2021-08-07 11:30 | SW/DCPLANNER ---
PATIENT ADMITTED TO [facility] ON 07/24 FROM [facility] WHERE SHE WAS AN ICF LEVEL OF CARE UNDER HER MEDICAID BENEFIT. PATIENT IS COMPLETELY DEBILITATED AND PRETTY MUCH BEDRIDDEN... SHE PRESENTED INTO THE HOSPITAL WITH ACUTE RESPIRATORY FAILURE AND HYPOXIA.. PATIENT HAS BEEN ON THE VENTILATOR AND WAS WEANED OFF BUT WHEN THEY WEAN HER SHE GETS MUCOUS PLUGS AND PATIENT DOES NOT HAVE THE STRENGTH TO COUGH THEM UP WHICH INHIBITS HER TO BE ABLE TO BREATH. SHE THEN ENDS BACK ON THE VENTILATOR AGAIN BECAUSE SHE IS A FULL CODE. HANK NAVARRETE HAS SPOKEN WITH DAUGHTER AND SON IN LAW AND THEY WISH FOR EVERYTHING TO BE DONE FOR HER CONTRARY TO HER ILL HEALTH AND COMORBIDITIES.. IN ORDER FOR PATIENT TO RETURN TO HER LONGTERM BED PATIENT WILL NEED EITHER A FEEDING TUBE OR HOSPICE SERVICES AND FAMILY DOES NOT WISH TO HAVE HOSPICE. SHE WAS ON HOSPICE CARE AND THEY REVOKED IT FOR HER TO COME TO THE HOSPITAL.. I AM NOT SURE IF PATIENT COULD WITHSTAND TO HAVE PEG TUBE PLACEMENT AND IF IT WOULD BENEFIT HER SINCE SHE HAS NO GAG RESISTANCE AND WOULD CONTINUE TO ASPIRATE. AT THIS TIME HER NUTRITION IS PROVIDED BY NG FEEDINGS.. WILL SEE WHAT THE SURGEON SAYS THE FIRST OF THE WEEK.PATIENT WILL REMAIN HERE AT [facility]...
--- NOTE | 2021-08-07 13:25 | PC.NURSE ---
RESP CARE NOTE: SBT is finished, pt has spent 4 hours in spontaneous breathing trial. She now on AC ventilation mode, back to pre-trial settings.
--- NOTE | 2021-08-07 19:40 | PC.NURSE ---
No acute changes noted this shift, patient has rested well, SBT completed for four hours, tolerated well, remains intubated with 7.5ETT 21@lip, current vent settings AC FiO2 40%, RR 16, TV 340, peep 10. OG in place @65, pulmocare infusing at 30ml/hr, no GRV this shift, two stage IIs, pics on chart, no s/s of distress noted.
[2021-08-08] VITALS (30 sets, daily range): BP systolic 117–146; BP diastolic 71–101; PULSE 72–106; RESP 10–29; TEMP 36.6–37.6; O2SAT 99–100; BMI 16.6
--- NOTE | 2021-08-08 03:13 | PC.NURSE ---
Vent settings are as follows: AC FiO2 40%, TV 340, R 16, PEEP 10. Pt has had copious amount of secretions, cream color. OG in place @65. Pulmocare infusing @ 30 ml/hr. 100 ml flushes q4. Residuals have increased. 40 ml last check. Urine output has decreased. Pt remains off sedation. Oral care and suctioning administered. Pt turned and repositioned. No other concerns. Will continue to monitor.
--- NOTE | 2021-08-08 06:00 | XR_ITS ---
PROCEDURE INFORMATION: Exam: XR Chest Exam date and time: 08/08/2021 6:00 AM Age: 45 years old Clinical indication: Device placement; Ett placement (vent status); Additional info: Daily while intubated TECHNIQUE: Imaging protocol: XR of the chest. Views: 1 view. COMPARISON: CR XR CHEST PORTABLE 08/07/2021 5:15 AM FINDINGS: Tubes, catheters and devices: Endotracheal tube, and enteric tube unchanged in position. Lungs: Lung opacities unchanged from prior. Pleural spaces: Unremarkable. No pleural effusion. No pneumothorax. Heart/Mediastinum: Unremarkable. No cardiomegaly. Bones/joints: Unremarkable. IMPRESSION: Stable chest examination.
[2021-08-08 07:00] LABS: Basophils # 0.1 K/mm3 (0-0.2); Basophils % 0.6 % (0.1-2.0); Eosinophils # 0.1 K/mm3 (0.0-0.4); Eosinophils % 1.1 % (0.1-12.0); Hematocrit 37.2 % (37.0-47.0); Hemoglobin 11.7 g/dL (12.2-16.2); Lymphocytes % 19.1 % (10-50); Mean Corpuscular HGB Conc 31.4 g/dL (31.8-35.4); Mean Corpuscular Hemoglobin 31.2 pg (27.0-31.2); Mean Corpuscular Volume 99.6 fl (81-99); Mean Platelet Volume 8.6 fl (7.4-10.4); Monocytes # 0.6 K/mm3 (0.1-1.0); Monocytes % 5.9 % (1.7-9.3); Neutrophils # 7.4 K/mm3 (1.8-7.8); Neutrophils % 73.3 % (37.0-80.0); Platelet Count 539 K/mm3 (142-424); Red Blood Count 3.74 M/mm3 (4.20-5.40); Red Cell Distribution Width 16.5 % (11.5-17.5); White Blood Count 10.2 K/mm3 (4.8-10.8)
[2021-08-08 07:16] LABS: Alanine Aminotransferase 22 U/L (12-78); Albumin Level 3.1 g/dl (3.5-5.0); Alkaline Phosphatase 102 U/L (38-126); Anion Gap 9.4 mEq/L (5-15); Aspartate Amino Transferase 26 U/L (14-36); Bilirubin,Total 0.5 mg/dl (0.2-1.3); Blood Urea Nitrogen 12 mg/dl (7-17); Calcium 8.5 mg/dl (8.4-10.2); Carbon Dioxide 25 mmol/L (22.0-30.0); Chloride 110 mmol/L (98-107); Creatinine Clearance Estimated 121 mL/min (50-200); Estimated Glomerular Filt Rate 171 ml/min (>60); GFR (African American) 207 ML/MIN (>60); Globulin 3.1 g/dL (1.3-3.2); Glucose 136 mg/dl (74-100); Potassium 3.4 mmoL/L (3.5-5.1); Sodium 141 mmol/L (136-145); Total Protein,Serum 6.2 g/dl (6.3-8.2)
[2021-08-08 08:07] LABS: Lactate Arterial 0.8 mmol/L (0.4-2.0)
[2021-08-08 08:09] LABS: ABG Base Excess -1.7 mmol/L (-2.4-2.3); ABG HCO3 21.9 mmhg (22.0-26.0); ABG Oxygen Saturation 99 % (90-100); ABG PCO2 30.7 mmhg (35.0-45.0); ABG PH 7.47 mmol/L (7.35-7.45); ABG PO2 171.9 mmhg (80-100); ABG TCO2 22.9 mmhg (23-27)
[2021-08-08 08:11] LABS: Allen's Test Patient Unable; Oxygen 40 %; PEEP 10; Source Right Radial; Tidal Volume 340; Vent Rate 16
--- NOTE | 2021-08-08 12:03 | HMH.ACPN2 ---
Internal Medicine - PN: Subj *Date: 08/08/21 *Time: 12:03 Interval history: No significant events or downturns over the night. Patient is currently on a breathing trial and is in no distress. Neurologically she is without much change. Exam Vital signs and Labs for Last 24 Hours: Temp Pulse Resp BP Pulse Ox 99.0 F 97 H 28 H 131/88 100 08/08/21 06:37 08/08/21 06:37 08/08/21 10:06 08/08/21 06:37 08/08/21 10:06 Laboratory Results - last 24 hr 08/08/21 06:00: ABG Lactate 0.8 08/08/21 06:00: Specimen Source Right radial, O2 % 40, ABG pH 7.47 H, ABG pCO2 30.7 L, ABG pO2 171.9 H, ABG HCO3 21.9 L, ABG Total CO2 22.9 L, ABG O2 Saturation 99, ABG Base Excess -1.7, Ronnell Test Patient unable, Vent Rate 16, Tidal Volume 340, PEEP 10 08/08/21 06:20: WBC 10.2, RBC 3.74 L, Hgb 11.7 L, Hct 37.2, MCV 99.6 H, MCH 31.2, MCHC 31.4 L, RDW 16.5, Plt Count 539 H, MPV 8.6, Neut % (Auto) 73.3, Lymph % (Auto) 19.1, [place] % (Auto) 5.9, Eos % (Auto) 1.1, Baso % (Auto) 0.6, Neut # (Auto) 7.4, Lymph # (Auto) 2.0, [place] # (Auto) 0.6, Eos # (Auto) 0.1, Baso # (Auto) 0.1 08/08/21 06:20: Sodium 141, Potassium 3.4 L, Chloride 110 H, Carbon Dioxide 25, Anion Gap 9.4, BUN 12, Creatinine 0.40 L, Estimated Creat Clear 121, Estimated GFR 171, Est GFR ( Amer) 207 D, Glucose 136 H, Calcium 8.5, Total Bilirubin 0.5, AST 26, ALT 22, Alkaline Phosphatase 102, Total Protein 6.2 L, Albumin 3.1 L, Globulin 3.1, Albumin/Globulin Ratio 1.0 L I & O for Last 24 hours: Intake & Output 08/05/21 08/06/21 08/07/21 08/08/21 23:59 23:59 23:59 23:59 Intake Total 235 / 235 440 / 440 647 / 777 310 / 310 Output Total 1485 / 1545 1475 / 1560 893 / 908 90 / 90 Balance -1250 / -1310 -1035 / -1120 -246 / -131 220 / 220 Weight 108 lb 3 oz 106 lb 12.8 oz 99 lb 2 oz 97 lb 6.4 oz Microbiology Reports for the Last 24 Hours: Microbiology 08/07/21 16:20 Anus CRE Surveillance Culture - Final Negative 08/05/21 15:09 Sputum - Endotracheal Tube Aspirate Gram Stain - Final 08/05/21 15:09 Sputum - Endotracheal Tube Aspirate Sputum Culture - Final Yeast 08/03/21 11:58 Bronchial Washings - Left Lower Lobe Gram Stain - Final 08/03/21 11:58 Bronchial Washings - Left Lower Lobe Bronchoalveolar Lavage Culture - Final Yeast - Constitutional chronically ill appearing, cooperative - *Routine HEENT Exam Head: Present: normocephalic Eye: Present: EOMI, PERRL ENT: Present: mucous membranes moist - *Routine Neck Exam Present: supple. Absent: lymphadenopathy - *Routine Respiratory Exam Present: patient mechanically ventilated. Absent: accessory muscle use - *Routine Cardiovascular Exam Present: RRR - *Routine Abdominal Exam Present: soft, normoactive bowel sounds. Absent: tenderness - *Routine Extremities Exam Absent: cyanosis, clubbing, edema - *Routine Skin Exam Present: warm. Absent: rash - *Routine Neurological Exam Present: alert. Absent: normal speech, tremors Assessment and Plan (1) Healthcare-associated pneumonia Status: Acute Category: Medical Code(s): J18.9 - Pneumonia, unspecified organism (2) Multiple sclerosis Status: Chronic Category: Medical Code(s): G35 - Multiple sclerosis (3) Low body mass index (BMI) Status: Acute Category: Medical (4) Respiratory failure Status: Acute Qualifiers: Chronicity: acute Respiratory failure complication: hypoxia Qualified Code(s): J96.01 - Acute respiratory failure with hypoxia Category: Medical Code(s): J96.90 - Respiratory failure, unspecified, unspecified whether with hypoxia or hypercapnia (5) Severe sepsis with acute organ dysfunction Status: Acute Category: Medical Code(s): A41.9 - Sepsis, unspecified organism; R65.20 - Severe sepsis without septic shock (6) Hypernatremia Status: Acute Category: Medical Code(s): E87.0 - Hyperosmolality and hypern
[2021-08-09] VITALS (30 sets, daily range): BP systolic 119–158; BP diastolic 78–103; PULSE 61–91; RESP 14–20; TEMP 36.8–37.3; O2SAT 97–100
--- NOTE | 2021-08-09 06:00 | XR_ITS ---
PROCEDURE INFORMATION: Exam: XR Chest Exam date and time: 08/09/2021 6:00 AM Age: 45 years old Clinical indication: Other: Intubated patient; Additional info: Daily while intubated TECHNIQUE: Imaging protocol: XR of the chest. Views: 1 view. COMPARISON: CR XR CHEST PORTABLE 08/08/2021 5:36 AM FINDINGS: Tubes, catheters and devices: Endotracheal tube remains in place with the tip above the lovely. Nasogastric tube remains in place. Lungs: Unremarkable. No consolidation. Pleural spaces: Unremarkable. No pleural effusion. No pneumothorax. Heart/Mediastinum: Unremarkable. No cardiomegaly. Bones/joints: Unremarkable. IMPRESSION: Stable chest.
[2021-08-09 06:31] LABS: Basophils # 0.1 K/mm3 (0-0.2); Basophils % 0.7 % (0.1-2.0); Eosinophils # 0.1 K/mm3 (0.0-0.4); Eosinophils % 1.2 % (0.1-12.0); Hematocrit 36.3 % (37.0-47.0); Hemoglobin 11.5 g/dL (12.2-16.2); Lymphocytes # 1.9 K/mm3 (0.7-4.5); Lymphocytes % 21.6 % (10-50); Mean Corpuscular HGB Conc 31.7 g/dL (31.8-35.4); Mean Corpuscular Hemoglobin 31.4 pg (27.0-31.2); Mean Platelet Volume 8.1 fl (7.4-10.4); Monocytes # 0.4 K/mm3 (0.1-1.0); Monocytes % 5.1 % (1.7-9.3); Neutrophils # 6.2 K/mm3 (1.8-7.8); Neutrophils % 71.4 % (37.0-80.0); Platelet Count 490 K/mm3 (142-424); Red Blood Count 3.67 M/mm3 (4.20-5.40); Red Cell Distribution Width 16.4 % (11.5-17.5); White Blood Count 8.7 K/mm3 (4.8-10.8)
[2021-08-09 06:45] LABS: Alanine Aminotransferase 20 U/L (12-78); Albumin Level 3.1 g/dl (3.5-5.0); Alkaline Phosphatase 109 U/L (38-126); Anion Gap 9.4 mEq/L (5-15); Aspartate Amino Transferase 23 U/L (14-36); Bilirubin,Total 0.4 mg/dl (0.2-1.3); Blood Urea Nitrogen 11 mg/dl (7-17); Calcium 8.6 mg/dl (8.4-10.2); Carbon Dioxide 27 mmol/L (22.0-30.0); Chloride 108 mmol/L (98-107); Creatinine Clearance Estimated 121 mL/min (50-200); Estimated Glomerular Filt Rate 171 ml/min (>60); GFR (African American) 207 ML/MIN (>60); Globulin 3.2 g/dL (1.3-3.2); Glucose 121 mg/dl (74-100); Potassium 3.4 mmoL/L (3.5-5.1); Sodium 141 mmol/L (136-145); Total Protein,Serum 6.3 g/dl (6.3-8.2)
[2021-08-09 08:32] LABS: ABG Base Excess 0.8 mmol/L (-2.4-2.3); ABG HCO3 24.4 mmhg (22.0-26.0); ABG Oxygen Saturation 99 % (90-100); ABG PCO2 33.8 mmhg (35.0-45.0); ABG PH 7.48 mmol/L (7.35-7.45); ABG PO2 148.2 mmhg (80-100); ABG TCO2 25.4 mmhg (23-27)
[2021-08-09 08:57] LABS: Allen's Test Patient Unable; Oxygen 32% %; PEEP 10; Source Right Radial; Tidal Volume 340; Vent Rate 14
--- NOTE | 2021-08-09 11:20 | PC.NURSE ---
Pt placed back on AC mode on ventilator due to apnea. Tidal volume decreased to [address] Monahan.
--- NOTE | 2021-08-09 17:52 | HMH.ACPN2 ---
Internal Medicine - PN: Subj *Date: 08/09/21 *Time: 17:52 Interval history: vent back to ac mode cxr w/o much interval change Exam Vital signs and Labs for Last 24 Hours: Temp Pulse Resp BP Pulse Ox 98.5 F 77 17 143/95 H 99 08/09/21 16:00 08/09/21 16:00 08/09/21 16:00 08/09/21 16:00 08/09/21 16:00 Laboratory Results - last 24 hr 08/09/21 05:16: WBC 8.7, RBC 3.67 L, Hgb 11.5 L, Hct 36.3 L, MCV 99.0, MCH 31.4 H, MCHC 31.7 L, RDW 16.4, Plt Count 490 H, MPV 8.1, Neut % (Auto) 71.4, Lymph % (Auto) 21.6, [place] % (Auto) 5.1, Eos % (Auto) 1.2, Baso % (Auto) 0.7, Neut # (Auto) 6.2, Lymph # (Auto) 1.9, [place] # (Auto) 0.4, Eos # (Auto) 0.1, Baso # (Auto) 0.1 08/09/21 05:16: Sodium 141, Potassium 3.4 L, Chloride 108 H, Carbon Dioxide 27, Anion Gap 9.4, BUN 11, Creatinine 0.40 L, Estimated Creat Clear 121, Estimated GFR 171, Est GFR ( Amer) 207, Glucose 121 H, Calcium 8.6, Total Bilirubin 0.4, AST 23, ALT 20, Alkaline Phosphatase 109, Total Protein 6.3, Albumin 3.1 L, Globulin 3.2, Albumin/Globulin Ratio 1.0 L 08/09/21 06:00: Specimen Source Right radial, O2 % 32%, ABG pH 7.48 H, ABG pCO2 33.8 L, ABG pO2 148.2 H, ABG HCO3 24.4, ABG Total CO2 25.4, ABG O2 Saturation 99, ABG Base Excess 0.8, Ronnell Test Patient unable, Vent Rate 14, Tidal Volume 340, PEEP 10 I & O for Last 24 hours: Intake & Output 08/06/21 08/07/21 08/08/21 08/09/21 23:59 23:59 23:59 23:59 Intake Total 440 / 440 647 / 777 1185 / 1185 360 / 360 Output Total 1475 / 1560 893 / 908 430 / 450 430 / 430 Balance -1035 / -1120 -246 / -131 755 / 735 -70 / -70 Weight 106 lb 12.8 oz 99 lb 2 oz 97 lb 6.4 oz - Constitutional no acute distress, cachectic, chronically ill appearing, somnolent - *Routine HEENT Exam Head: Present: normocephalic Eye: Present: EOMI, PERRL ENT: Present: mucous membranes moist - *Routine Neck Exam Present: supple. Absent: lymphadenopathy - *Routine Respiratory Exam Present: patient mechanically ventilated - *Routine Cardiovascular Exam Present: RRR - *Routine Abdominal Exam Present: soft, normoactive bowel sounds. Absent: tenderness - *Routine Extremities Exam Absent: cyanosis, clubbing, edema - *Routine Skin Exam Present: warm. Absent: rash - *Routine Neurological Exam Present: altered mental status. Absent: normal speech Assessment and Plan (1) Healthcare-associated pneumonia Status: Acute Category: Medical Code(s): J18.9 - Pneumonia, unspecified organism (2) Multiple sclerosis Status: Chronic Category: Medical Code(s): G35 - Multiple sclerosis (3) Low body mass index (BMI) Status: Acute Category: Medical (4) Respiratory failure Status: Acute Qualifiers: Chronicity: acute Respiratory failure complication: hypoxia Qualified Code(s): J96.01 - Acute respiratory failure with hypoxia Category: Medical Code(s): J96.90 - Respiratory failure, unspecified, unspecified whether with hypoxia or hypercapnia (5) Severe sepsis with acute organ dysfunction Status: Acute Category: Medical Code(s): A41.9 - Sepsis, unspecified organism; R65.20 - Severe sepsis without septic shock (6) Hypernatremia Status: Acute Category: Medical Code(s): E87.0 - Hyperosmolality and hypernatremia (7) Malignant hypertension Status: Resolved Category: Medical Code(s): I10 - Essential (primary) hypertension (8) Sinus tachycardia Status: Resolved Category: Medical Code(s): R00.0 - Tachycardia, unspecified - Assessment and plan all Dx Assessment and Plan for all problems:: continuing current regimen w/vent support ongoing efforts to find optimal penitentiary measures
[2021-08-10] VITALS (31 sets, daily range): BP systolic 121–173; BP diastolic 82–116; PULSE 53–82; RESP 14–23; TEMP 36.4–37.2; O2SAT 90–99; BMI 17.6
--- NOTE | 2021-08-10 06:00 | XR_ITS ---
PROCEDURE INFORMATION: Exam: XR Chest Exam date and time: 08/10/2021 6:00 AM Age: 45 years old Clinical indication: Device placement; Ett placement (vent status); Additional info: Daily while intubated TECHNIQUE: Imaging protocol: XR of the chest. Views: 1 view. COMPARISON: CR XR CHEST PORTABLE 08/09/2021 5:32 AM FINDINGS: Tubes, catheters and devices: ET tube nasogastric tube are in good position. Lungs: Unremarkable. No consolidation. Pleural spaces: Unremarkable. No pleural effusion. No pneumothorax. Heart/Mediastinum: Unremarkable. No cardiomegaly. Bones/joints: Unremarkable. IMPRESSION: ET tube and nasogastric tube in good position.
[2021-08-10 06:37] LABS: Basophils # 0.1 K/mm3 (0-0.2); Basophils % 0.9 % (0.1-2.0); Eosinophils % 0.4 % (0.1-12.0); Hematocrit 41.4 % (37.0-47.0); Hemoglobin 13.5 g/dL (12.2-16.2); Lymphocytes # 0.7 K/mm3 (0.7-4.5); Lymphocytes % 11.3 % (10-50); Mean Corpuscular HGB Conc 32.7 g/dL (31.8-35.4); Mean Corpuscular Hemoglobin 32.3 pg (27.0-31.2); Mean Platelet Volume 10.9 fl (7.4-10.4); Monocytes # 0.3 K/mm3 (0.1-1.0); Neutrophils # 5.3 K/mm3 (1.8-7.8); Neutrophils % 82.3 % (37.0-80.0); Platelet Count 521 K/mm3 (142-424); Red Blood Count 4.18 M/mm3 (4.20-5.40); Red Cell Distribution Width 16.3 % (11.5-17.5); White Blood Count 6.5 K/mm3 (4.8-10.8)
[2021-08-10 07:31] LABS: Alanine Aminotransferase 18 U/L (12-78); Albumin Level 3.3 g/dl (3.5-5.0); Alkaline Phosphatase 96 U/L (38-126); Anion Gap 8.5 mEq/L (5-15); Aspartate Amino Transferase 39 U/L (14-36); Bilirubin,Total 0.5 mg/dl (0.2-1.3); Blood Urea Nitrogen 14 mg/dl (7-17); Calcium 8.7 mg/dl (8.4-10.2); Carbon Dioxide 25 mmol/L (22.0-30.0); Chloride 108 mmol/L (98-107); Creatinine Clearance Estimated 162 mL/min (50-200); Estimated Glomerular Filt Rate 238 ml/min (>60); GFR (African American) 289 ML/MIN (>60); Globulin 3.2 g/dL (1.3-3.2); Glucose 155 mg/dl (74-100); Potassium 4.5 mmoL/L (3.5-5.1); Sodium 137 mmol/L (136-145); Total Protein,Serum 6.5 g/dl (6.3-8.2)
[2021-08-10 08:14] LABS: Lactate Arterial 0.8 mmol/L (0.4-2.0)
--- NOTE | 2021-08-10 08:34 | PC.WOUNDNOTE ---
Right upper extremity rash/petechia Pt coccyx on am assessment
[2021-08-10 08:39] LABS: ABG PCO2 32.9 mmhg (35.0-45.0); ABG PH 7.49 mmol/L (7.35-7.45)
[2021-08-10 08:40] LABS: ABG Base Excess 1.4 mmol/L (-2.4-2.3); ABG HCO3 24.3 mmhg (22.0-26.0); ABG Oxygen Saturation 98 % (90-100); ABG TCO2 25.3 mmhg (23-27); Oxygen 25 %; PEEP 10; Tidal Volume 320; Vent Rate 14
[2021-08-10 08:41] LABS: Allen's Test Acceptable; Source Right Radial
--- NOTE | 2021-08-10 11:36 | HMH.PULMPN ---
Internal Medicine - PN: Subj *Date: 08/10/21 *Time: 11:36 Interval history: No acute respiratory events over the weekend. Exam - Constitutional Constitutional:: Present: no acute distress, comfortable - HENMT Exam HENMT: Present: normocephalic, atraumatic - Eye Exam Eyes:: Present: normal appearance both eyes and related structures - Neck Exam Neck:: Present: normal visual inspection - Respiratory Exam Respiratory:: Present: rhonchi. Absent: no respiratory distress, normal respiratory effort, accessory muscle use, crackles, wheezing - Cardiovascular Exam Cardiac:: Present: S1, S2 - GI Exam GI:: Present: soft - Skin Exam Skin: Present: warm, no rash - Neurological Exam Neurological: Present: awake - Extremities Exam Extremities: Present: no cyanosis, no clubbing, no edema Assessment and Plan (1) Healthcare-associated pneumonia Status: Acute Category: Medical Code(s): J18.9 - Pneumonia, unspecified organism (2) Multiple sclerosis Status: Chronic Category: Medical Code(s): G35 - Multiple sclerosis (3) Low body mass index (BMI) Status: Acute Category: Medical (4) Respiratory failure Status: Acute Qualifiers: Chronicity: acute Respiratory failure complication: hypoxia Qualified Code(s): J96.01 - Acute respiratory failure with hypoxia Category: Medical Code(s): J96.90 - Respiratory failure, unspecified, unspecified whether with hypoxia or hypercapnia (5) Severe sepsis with acute organ dysfunction Status: Acute Category: Medical Code(s): A41.9 - Sepsis, unspecified organism; R65.20 - Severe sepsis without septic shock (6) Hypernatremia Status: Acute Category: Medical Code(s): E87.0 - Hyperosmolality and hypernatremia (7) Malignant hypertension Status: Resolved Category: Medical Code(s): I10 - Essential (primary) hypertension (8) Sinus tachycardia Status: Resolved Category: Medical Code(s): R00.0 - Tachycardia, unspecified - Assessment and plan all Dx Assessment and Plan for all problems:: #Acute hypoxic respiratory failure: 45-year-old history of multiple sclerosis, high risk of aspiration and history of recurrent aspiration pneumonia presents with worsening respiratory distress needing intubation and mechanical ventilatory support. Patient completed 10-day course of Zosyn and clindamycin. Patient predominant problem throughout his hospital admission is her inability to protect her airway and clear her secretions. Patient was intubated 3x04 secondary inability to protect her secretions. Fortunately most recent intubation was secondary to mucous plugging of her left mainstem bronchus with near complete collapse of the left lung. Given her continued inability to for airway and unable to clear the secretions I believe patient would be an ideal candidate for tracheostomy. Patient will need aggressive pulmonary toilet. Primary team has discussed with the family and the family want to proceed with trach and PEG placement. Interval update: Patient respiratory status did not significantly change. She remained on minimal ventilator settings. Absent appropriate cuff leak. Given patient's continued inability to clear secretions along with decreased cuff leak and laryngeal niharika, recurrent respiratory failure needing during intubation (intubated 3 time on this admission) recommend tracheostomy. Plan was relayed to primary team and was working on facilitating this procedure. Plan: -Continue PRN sedation protocol. Continue SBT daily. -Respiratory status remained stable. Chest x-ray reviewed, no obvious pulmonary parenchymal pathology. Blood gas reviewed, continue to show respiratory alkalosis, will decrease her rate to 12 and tidal volume to 300. ET tube in place. Continue to remain on minimal vent settings. Successfully performing SBT's with intermittent apnea episodes. Absent cuff leak status post steroids. Recommend tracheostomy, plan informed
--- NOTE | 2021-08-10 13:21 | HMH.ACPN2 ---
Internal Medicine - PN: Subj *Date: 08/10/21 *Time: 20:12 Interval history: remains on vent and sedated Exam Vital signs and Labs for Last 24 Hours: Temp Pulse Resp BP Pulse Ox 97.8 F 74 19 162/109 H 90 L 08/10/21 05:00 08/10/21 07:00 08/10/21 07:00 08/10/21 07:00 08/10/21 07:00 Laboratory Results - last 24 hr 08/10/21 05:41: WBC 6.5 D, RBC 4.18 L, Hgb 13.5, Hct 41.4, MCV 99.0, MCH 32.3 H, MCHC 32.7, RDW 16.3, Plt Count 521 H, MPV 10.9 H, Neut % (Auto) 82.3 H, Lymph % (Auto) 11.3, [place] % (Auto) 5.0, Eos % (Auto) 0.4, Baso % (Auto) 0.9, Neut # (Auto) 5.3, Lymph # (Auto) 0.7, [place] # (Auto) 0.3, Eos # (Auto) 0.0, Baso # (Auto) 0.1 08/10/21 05:41: Sodium 137, Potassium 4.5 D, Chloride 108 H, Carbon Dioxide 25, Anion Gap 8.5, BUN 14 D, Creatinine 0.30 L D, Estimated Creat Clear 162, Estimated GFR 238, Est GFR ( Amer) 289 D, Glucose 155 H, Calcium 8.7, Total Bilirubin 0.5, AST 39 H D, ALT 18, Alkaline Phosphatase 96, Total Protein 6.5, Albumin 3.3 L, Globulin 3.2, Albumin/Globulin Ratio 1.0 L 08/10/21 06:00: ABG Lactate 0.8 08/10/21 06:00: Specimen Source Right radial, O2 % 25, ABG pH 7.49 H, ABG pCO2 32.9 L, ABG pO2 93.0, ABG HCO3 24.3, ABG Total CO2 25.3, ABG O2 Saturation 98, ABG Base Excess 1.4, Ronnell Test Acceptable, Vent Rate 14, Tidal Volume 320, PEEP 10 I & O for Last 24 hours: Intake & Output 08/07/21 08/08/21 08/09/21 08/10/21 23:59 23:59 23:59 23:59 Intake Total 647 / 777 1185 / 1185 2083 / 2133 400 / 400 Output Total 893 / 908 430 / 450 565 / 615 400 / 400 Balance -246 / -131 755 / 735 1518 / 1518 0 / 0 Weight 99 lb 2 oz 97 lb 6.4 oz - Constitutional no acute distress, cachectic, chronically ill appearing - *Routine HEENT Exam Head: Present: normocephalic Eye: Present: EOMI, PERRL ENT: Present: mucous membranes moist - *Routine Neck Exam Present: supple. Absent: lymphadenopathy - *Routine Respiratory Exam Present: patient mechanically ventilated - *Routine Cardiovascular Exam Present: RRR - *Routine Abdominal Exam Present: soft, normoactive bowel sounds. Absent: tenderness - *Routine Extremities Exam Absent: cyanosis, clubbing, edema - *Routine Skin Exam Present: warm. Absent: rash - *Routine Neurological Exam Present: altered mental status. Absent: alert, oriented X3 Assessment and Plan (1) Healthcare-associated pneumonia Status: Acute Category: Medical Code(s): J18.9 - Pneumonia, unspecified organism (2) Multiple sclerosis Status: Chronic Category: Medical Code(s): G35 - Multiple sclerosis (3) Low body mass index (BMI) Status: Acute Category: Medical (4) Respiratory failure Status: Acute Qualifiers: Chronicity: acute Respiratory failure complication: hypoxia Qualified Code(s): J96.01 - Acute respiratory failure with hypoxia Category: Medical Code(s): J96.90 - Respiratory failure, unspecified, unspecified whether with hypoxia or hypercapnia (5) Severe sepsis with acute organ dysfunction Status: Acute Category: Medical Code(s): A41.9 - Sepsis, unspecified organism; R65.20 - Severe sepsis without septic shock (6) Hypernatremia Status: Acute Category: Medical Code(s): E87.0 - Hyperosmolality and hypernatremia (7) Malignant hypertension Status: Resolved Category: Medical Code(s): I10 - Essential (primary) hypertension (8) Sinus tachycardia Status: Resolved Category: Medical Code(s): R00.0 - Tachycardia, unspecified - Assessment and plan all Dx Assessment and Plan for all problems:: continue regimen following w/pulm
--- NOTE | 2021-08-10 14:36 | PC.NURSE ---
RESP CARE NOTE: Rate decreased to 12 bpm, and Vt decreased to 300ml per Dr Monahan t/o.
--- NOTE | 2021-08-10 14:42 | PC.NURSE ---
pt tube feedings have been held since 1000 when she endorsed abdominal pain to staff. when residuals were checked it was noted that pt had 100ml residual.
[2021-08-11] VITALS (32 sets, daily range): BP systolic 131–185; BP diastolic 84–114; PULSE 60–100; RESP 13–22; TEMP 36.2–37.1; O2SAT 95–100; BMI 16.6
--- NOTE | 2021-08-11 06:00 | XR_ITS ---
PROCEDURE INFORMATION: Exam: XR Chest Exam date and time: 08/11/2021 6:00 AM Age: 45 years old Clinical indication: Device placement; Ett placement (vent status); Additional info: Daily while intubated TECHNIQUE: Imaging protocol: XR of the chest. Views: 1 view. COMPARISON: CR XR CHEST PORTABLE 08/10/2021 5:29 AM FINDINGS: Tubes, catheters and devices: ET tube and nasogastric tube are in good position. Lungs: Unremarkable. No consolidation. Pleural spaces: Unremarkable. No pleural effusion. No pneumothorax. Heart/Mediastinum: Unremarkable. No cardiomegaly. Bones/joints: Unremarkable. IMPRESSION: ET tube and nasogastric tube in good position. The lungs are clear.
--- NOTE | 2021-08-11 06:01 | PC.NURSE ---
Pt has not slept much tonight. Has c/o discomfort to abdomen early in shift. Tube feedings on hold at this time due to residuals of 120 ml this am. Pt has been hypertensive at times. Vent settings are as follows. FiO2 25%, TV 300, R 12, PEEP 5. Pt has remained afebrile this shift. Bed bath given. Pt turned Q2. Oral care and suctioning provided. Will continue to monitor.
[2021-08-11 07:39] LABS: Basophils % 0.4 % (0.1-2.0); Eosinophils % 0.4 % (0.1-12.0); Hematocrit 40.9 % (37.0-47.0); Hemoglobin 12.9 g/dL (12.2-16.2); Lymphocytes % 10.2 % (10-50); Mean Corpuscular HGB Conc 31.6 g/dL (31.8-35.4); Mean Corpuscular Hemoglobin 31.7 pg (27.0-31.2); Mean Corpuscular Volume 100.5 fl (81-99); Mean Platelet Volume 8.9 fl (7.4-10.4); Monocytes # 0.4 K/mm3 (0.1-1.0); Monocytes % 3.5 % (1.7-9.3); Neutrophils # 8.6 K/mm3 (1.8-7.8); Neutrophils % 85.5 % (37.0-80.0); Platelet Count 568 K/mm3 (142-424); Red Blood Count 4.07 M/mm3 (4.20-5.40); Red Cell Distribution Width 16.4 % (11.5-17.5)
[2021-08-11 07:42] LABS: MANUAL DIFFERENTIAL MANUAL DIFFERENTIAL (MANUAL DIFF)
[2021-08-11 08:14] LABS: Alanine Aminotransferase 19 U/L (12-78); Albumin Level 3.5 g/dl (3.5-5.0); Albumin/Globulin Ratio 1.1 (1.1-1.8); Alkaline Phosphatase 92 U/L (38-126); Anion Gap 11.6 mEq/L (5-15); Aspartate Amino Transferase 31 U/L (14-36); Bilirubin,Total 0.6 mg/dl (0.2-1.3); Blood Urea Nitrogen 16 mg/dl (7-17); Carbon Dioxide 24 mmol/L (22.0-30.0); Chloride 106 mmol/L (98-107); Creatinine Clearance Estimated 162 mL/min (50-200); Estimated Glomerular Filt Rate 238 ml/min (>60); GFR (African American) 289 ML/MIN (>60); Globulin 3.1 g/dL (1.3-3.2); Glucose 123 mg/dl (74-100); Potassium 4.6 mmoL/L (3.5-5.1); Sodium 137 mmol/L (136-145); Total Protein,Serum 6.6 g/dl (6.3-8.2)
[2021-08-11 08:23] LABS: Lymphocytes % 16 % (10-50); Macrocytosis 1+; Monocytes % 3 % (2-9); Neutrophils % 81 % (42-76); Platelet Estimate Slight Increase; Total Cells Counted 100
--- NOTE | 2021-08-11 08:24 | HMH.ACPN2 ---
Internal Medicine - PN: Subj *Date: 08/11/21 *Time: 12:07 Interval history: 45-year-old female patient resting quietly in bed remains intubated. Is tolerating daily spontaneous breathing trials. Tube feeds have been on hold for increased residuals. We will consult ENT for trach and general surgery for PEG placement and then eventual senior living placement Exam Vital signs and Labs for Last 24 Hours: Temp Pulse Resp BP Pulse Ox 98.8 F 71 22 162/107 H 99 08/11/21 04:00 08/11/21 08:00 08/11/21 08:00 08/11/21 08:00 08/11/21 08:00 Laboratory Results - last 24 hr 08/10/21 06:00: Specimen Source Right radial, O2 % 25, ABG pH 7.49 H, ABG pCO2 32.9 L, ABG pO2 93.0, ABG HCO3 24.3, ABG Total CO2 25.3, ABG O2 Saturation 98, ABG Base Excess 1.4, Ronnell Test Acceptable, Vent Rate 14, Tidal Volume 320, PEEP 10 08/11/21 06:45: WBC 10.0 D, RBC 4.07 L, Hgb 12.9, Hct 40.9, MCV 100.5 H, MCH 31.7 H, MCHC 31.6 L, RDW 16.4, Plt Count 568 H, MPV 8.9, Neut % (Auto) 85.5 H, Lymph % (Auto) 10.2, [place] % (Auto) 3.5, Eos % (Auto) 0.4, Baso % (Auto) 0.4, Neut # (Auto) 8.6 H, Lymph # (Auto) 1.0, [place] # (Auto) 0.4, Eos # (Auto) 0.0, Baso # (Auto) 0.0 08/11/21 06:45: Sodium 137, Potassium 4.6, Chloride 106, Carbon Dioxide 24, Anion Gap 11.6, BUN 16, Creatinine 0.30 L, Estimated Creat Clear 162, Estimated GFR 238, Est GFR ( Amer) 289, Glucose 123 H, Calcium 9.0, Total Bilirubin 0.6, AST 31, ALT 19, Alkaline Phosphatase 92, Total Protein 6.6, Albumin 3.5, Globulin 3.1, Albumin/Globulin Ratio 1.1 I & O for Last 24 hours: Intake & Output 08/08/21 08/09/21 08/10/21 08/11/21 23:59 23:59 23:59 23:59 Intake Total 1185 / 1185 2083 / 2133 585 / 615 150 / 150 Output Total 430 / 450 565 / 615 930 / 955 265 / 265 Balance 755 / 735 1518 / 1518 -345 / -340 -115 / -115 Weight 97 lb 6.4 oz 103 lb 97 lb 8 oz - Constitutional no acute distress, chronically ill appearing - *Routine HEENT Exam Head: Present: normocephalic Eye: Present: EOMI ENT: Present: mucous membranes moist - *Routine Neck Exam Present: trachea midline. Absent: tracheal deviation - *Routine Respiratory Exam Present: patient mechanically ventilated, rhonchi. Absent: accessory muscle use - *Routine Cardiovascular Exam Present: RRR - *Routine Abdominal Exam Present: soft, normoactive bowel sounds. Absent: distended - *Routine Extremities Exam Present: pulses intact. Absent: cyanosis, clubbing - *Routine Skin Exam Present: intact, dry. Absent: cyanosis, erythema - *Routine Neurological Exam Present: alert, altered mental status. Absent: oriented X3 - Routine Psychiatric Exam Present: unable to assess Assessment and Plan (1) Healthcare-associated pneumonia Status: Acute Category: Medical Code(s): J18.9 - Pneumonia, unspecified organism (2) Multiple sclerosis Status: Chronic Category: Medical Code(s): G35 - Multiple sclerosis (3) Low body mass index (BMI) Status: Acute Category: Medical (4) Respiratory failure Status: Acute Qualifiers: Chronicity: acute Respiratory failure complication: hypoxia Qualified Code(s): J96.01 - Acute respiratory failure with hypoxia Category: Medical Code(s): J96.90 - Respiratory failure, unspecified, unspecified whether with hypoxia or hypercapnia (5) Severe sepsis with acute organ dysfunction Status: Acute Category: Medical Code(s): A41.9 - Sepsis, unspecified organism; R65.20 - Severe sepsis without septic shock (6) Hypernatremia Status: Acute Category: Medical Code(s): E87.0 - Hyperosmolality and hypernatremia (7) Malignant hypertension Status: Resolved Category: Medical Code(s): I10 - Essential (primary) hypertension (8) Sinus tachycardia Status: Resolved Category: Medical Code(s): R00.0 - Tachycardia, unspecified - Assessment and plan all Dx Assessment and Plan for all problems:: Rounded with Dr. Patel, all orders per Dr. Patel: 1. Cont to w
--- NOTE | 2021-08-11 09:16 | HMH.PULMPN ---
Internal Medicine - PN: Subj *Date: 08/11/21 *Time: 16:31 Interval history: No acute respiratory events overnight. Continue to remain on minimal vent settings. Exam - Constitutional Constitutional:: Present: no acute distress, comfortable - HENMT Exam HENMT: Present: normocephalic, atraumatic - Eye Exam Eyes:: Present: normal appearance both eyes and related structures - Neck Exam Neck:: Present: normal visual inspection - Respiratory Exam Respiratory:: Present: no respiratory distress, rhonchi. Absent: crackles, wheezing - Cardiovascular Exam Cardiac:: Present: S1, S2 - GI Exam GI:: Present: soft - Skin Exam Skin: Present: warm, no rash - Neurological Exam Neurological: Present: alert, awake, normal cognition - Extremities Exam Extremities: Present: no cyanosis, no clubbing, no edema Assessment and Plan (1) Healthcare-associated pneumonia Status: Acute Category: Medical Code(s): J18.9 - Pneumonia, unspecified organism (2) Multiple sclerosis Status: Chronic Category: Medical Code(s): G35 - Multiple sclerosis (3) Low body mass index (BMI) Status: Acute Category: Medical (4) Respiratory failure Status: Acute Qualifiers: Chronicity: acute Respiratory failure complication: hypoxia Qualified Code(s): J96.01 - Acute respiratory failure with hypoxia Category: Medical Code(s): J96.90 - Respiratory failure, unspecified, unspecified whether with hypoxia or hypercapnia (5) Severe sepsis with acute organ dysfunction Status: Acute Category: Medical Code(s): A41.9 - Sepsis, unspecified organism; R65.20 - Severe sepsis without septic shock (6) Hypernatremia Status: Acute Category: Medical Code(s): E87.0 - Hyperosmolality and hypernatremia (7) Malignant hypertension Status: Resolved Category: Medical Code(s): I10 - Essential (primary) hypertension (8) Sinus tachycardia Status: Resolved Category: Medical Code(s): R00.0 - Tachycardia, unspecified - Assessment and plan all Dx Assessment and Plan for all problems:: #Acute hypoxic respiratory failure: 45-year-old history of multiple sclerosis, high risk of aspiration and history of recurrent aspiration pneumonia presents with worsening respiratory distress needing intubation and mechanical ventilatory support. Patient completed 10-day course of Zosyn and clindamycin. Patient predominant problem throughout his hospital admission is her inability to protect her airway and clear her secretions. Patient was intubated 3x04 secondary inability to protect her secretions. Fortunately most recent intubation was secondary to mucous plugging of her left mainstem bronchus with near complete collapse of the left lung. Given her continued inability to for airway and unable to clear the secretions I believe patient would be an ideal candidate for tracheostomy. Patient will need aggressive pulmonary toilet. Primary team has discussed with the family and the family want to proceed with trach and PEG placement. Interval update: Patient respiratory status did not significantly change. She remained on minimal ventilator settings. Absent appropriate cuff leak. Given patient's continued inability to clear secretions along with decreased cuff leak and laryngeal edema, recurrent respiratory failure needing during intubation (intubated 3 time on this admission) recommend tracheostomy. Plan was relayed to primary team and was working on facilitating this procedure. Plan: -Continue PRN sedation protocol. Continue SBT daily. -Respiratory status remained stable. Chest x-ray reviewed, no obvious pulmonary parenchymal pathology. ET tube in place. Continue to remain on minimal vent settings. Successfully performing SBT's with intermittent apnea episodes. Cuff leak improving. ENT on board, scheduled for tracheostomy next week. Recommend discontinuing Diflucan if for yeast in her sputum. Abdomen soft nontender. Continue tub
--- NOTE | 2021-08-11 11:07 | DIET.NUTRFU ---
Rd notified of tube feeding on hold due to high residuals, 100-200ml. TF is patient only source of nutrition. Current method via OG tube, for fci success PEG would recommend, sx to consult. Today during rounds patient seemed more agitated then yesterday. Labs reviewed from 08/11 hydration WNL. She continues to have skin breakdown, tx in place. High risk d/t limited mobility, dependent on staff for turning and repositioning and now lack of nutrition. Spoke to nursing they will attempt to restart TF and check residuals as ordered. If cannot tolerate TF will benefit from IVF fluids to provide hydration. Will follow-up with PEG placement recommendations.
--- NOTE | 2021-08-11 11:33 | HMH.PTWOUND ---
Rehab Inpt Wound Evaluation Rehab IP Wound Evaluation Start: 08/11/21 10:09 Freq: ONCE Status: Active Protocol: Document 08/11/21 11:25 [email or web address] (Rec: 08/11/21 11:33 [email or web address] [id number]) Rehab PT Wound Assessment Patient Status Premedicated Prior to Dressing Change No Subjective Subjective Pt nods yes to respond to allow us to look at wound on bottom. Pt on mechaincal ventilation, 45 y/o female w/ history of MS. Wound Medial Distal Sacrum Wound Type Pressure Ulcer Wound Staging Stage II Query Text:Stage I - Unbroken, red skin, no blanching. Stage II - Skin broken, superficial skin loss involving epidermis alone or also dermis. Partial loss of skin layers. Stage III - Pressure area involves epidermis, dermis and subcutaneous tissue, full thickness skin loss. Stage IV - Pressure area involves epidermis, subcutaneous tissue, bone and other supportive tissue. Full thickness skin loss with extensive destruction of underlying tissue and structures. Wound Length (cm) 8 Wound Width (cm) 6 Wound Bed Appearance Beefy Red,Dusky Red Percentage Granulated (%) 100 Wound Margins Description Indistinct Surrounding Tissue Appearance [place] Surrounding Tissue Temperature Warm Wound Drainage Description None Drainage Amount None Drainage Odor No Odor Dressing Status Dry & Intact Primary Dressing Absorbant Pad Comment optifoam sacral for protection Dressing Change Patient Tolerance Tolerated Well Plan/Recommendation Comment PT wound care to supply NSG w/ opticell silver to help absorb moisture and continue to protect skin. Barrier cream to be applied - NSG to follow pressure relief protocol - wound care team to be available for continuing consult if necessary Eval Complexity Eval Charge Codes 29409 - Low Complexity G-codes PT Current Status Other PT/OT Status PT Current Status Modifier CM-At least 80% but less than 100% impaired, limited or restricted PT Goal Status Other PT/OT Status PT Goal Status Modifer CM-At least 80% but less than
--- NOTE | 2021-08-11 12:45 | PC.NURSE ---
RESP CARE NOTE: Cuff leak test performed, per Dr Monahan t/o. 150-250 ml breaths returned by patient, no cough, gag or gurgle during testing.
--- NOTE | 2021-08-11 14:36 | HMH.ACPN ---
Internal Medicine - PN: Subj *Date: 08/11/21 *Time: 14:36 Exam Vital signs and Labs for Last 24 Hours: Temp Pulse Resp BP Pulse Ox 98.1 F 69 20 165/106 H 98 08/11/21 09:00 08/11/21 13:00 08/11/21 13:00 08/11/21 13:00 08/11/21 13:00 Laboratory Results - last 24 hr 08/11/21 06:45: WBC 10.0 D, RBC 4.07 L, Hgb 12.9, Hct 40.9, MCV 100.5 H, MCH 31.7 H, MCHC 31.6 L, RDW 16.4, Plt Count 568 H, MPV 8.9, Neut % (Auto) 85.5 H, Lymph % (Auto) 10.2, [place] % (Auto) 3.5, Eos % (Auto) 0.4, Baso % (Auto) 0.4, Neut # (Auto) 8.6 H, Lymph # (Auto) 1.0, [place] # (Auto) 0.4, Eos # (Auto) 0.0, Baso # (Auto) 0.0, Total Counted 100, Neutrophils % (Manual) 81 H, Lymphocytes % (Manual) 16, Monocytes % (Manual) 3, Platelet Estimate Slight increase, Macrocytosis 1+ 08/11/21 06:45: Sodium 137, Potassium 4.6, Chloride 106, Carbon Dioxide 24, Anion Gap 11.6, BUN 16, Creatinine 0.30 L, Estimated Creat Clear 162, Estimated GFR 238, Est GFR ( Amer) 289, Glucose 123 H, Calcium 9.0, Total Bilirubin 0.6, AST 31, ALT 19, Alkaline Phosphatase 92, Total Protein 6.6, Albumin 3.5, Globulin 3.1, Albumin/Globulin Ratio 1.1 I & O for Last 24 hours: Intake & Output 08/08/21 08/09/21 08/10/21 08/11/21 23:59 23:59 23:59 23:59 Intake Total 1185 / 1185 2083 / 2133 585 / 615 441 / 441 Output Total 430 / 450 565 / 615 930 / 955 589 / 589 Balance 755 / 735 1518 / 1518 -345 / -340 -148 / -148 Weight 44.18 kg 46.72 kg 44.225 kg Assessment and Plan (1) Healthcare-associated pneumonia Status: Acute Category: Medical Code(s): J18.9 - Pneumonia, unspecified organism (2) Multiple sclerosis Status: Chronic Category: Medical Code(s): G35 - Multiple sclerosis (3) Low body mass index (BMI) Status: Acute Category: Medical (4) Respiratory failure Status: Acute Qualifiers: Chronicity: acute Respiratory failure complication: hypoxia Qualified Code(s): J96.01 - Acute respiratory failure with hypoxia Category: Medical Code(s): J96.90 - Respiratory failure, unspecified, unspecified whether with hypoxia or hypercapnia (5) Severe sepsis with acute organ dysfunction Status: Acute Category: Medical Code(s): A41.9 - Sepsis, unspecified organism; R65.20 - Severe sepsis without septic shock (6) Hypernatremia Status: Acute Category: Medical Code(s): E87.0 - Hyperosmolality and hypernatremia (7) Malignant hypertension Status: Resolved Category: Medical Code(s): I10 - Essential (primary) hypertension (8) Sinus tachycardia Status: Resolved Category: Medical Code(s): R00.0 - Tachycardia, unspecified The patient's infection will respond to the chosen ABx?: Yes Is the patient receiving the right drug, dose, and route?: Yes Could a more targeted ABx be ordered?: No (YEAST IN SPUTUM)
--- NOTE | 2021-08-11 15:13 | PC.WOUNDNOTE ---
Addendum entered by Yenny Purcell RN 08/11/21 15:14: Photo taken during assessment at approx 0800 Original Note:
--- NOTE | 2021-08-11 15:16 | HMH.GSCON ---
*Admission Date: 07/25/21 *Reason for consult:: Tracheostomy *History of present illness: Patient was intubatedAND could not engage in meaningful conversation. Much of the history is obtained from chart review. Ms. Medina is a 45-year-old female with a prior history of multiple sclerosis, recurrent aspiration pneumonia and UTI presented to the hospital for management with worsening respiratory distress along with febrile episodes and tachycardia eventually needing intubation and mechanical ventilatory support and pulmonary was called for further management. The patient has failed 3 attempts at ventilator wean and her primary care physician and her change control manager are in agreement that tracheostomy may be necessary. The family is in agreement that they want aggressive measures to be taken. Past medical history, review of systems, medications, past surgical history, and allergies are listed in the H&P and were reviewed. Bedside limited physical exam was performed. She is awake and alert and on the ventilator and orally intubated. Her neck exam is normal. Impression: She has been intubated and has failed ventilator wean 3 times and is likely to require ventilator assistance in the near term at least. I had discussion with both her primary care physician and her change control manager and I think it is reasonable to proceed with tracheostomy. Risks benefits and alternatives were discussed with the patient and she seems to understand and agree. I will also try to have a discussion with her family members. We tried calling them today while I was at bedside but they were not available. Surgery will be scheduled next week. [facility] History *Have you ever received a pneumonia vaccine?: No *Have you received a flu vaccine this season?: No Other Medical History: Reports: Other Other Surgeries: Yes: Other - *Social History Smoking Status: Unknown if ever smoked Alcohol Intake: never Alcohol Intake Frequency:: 0-2 drinks per day Substance Use Type: unknown *Occupational Status:: unemployed, disabled Housing: custodial *Travel in the last 8 weeks: None Family Hx:: Unable to obtain Meds Home Medications Medication Instructions Recorded Confirmed Type Acetaminophen [Acetaminophen 325mg 650 mg PO Q4HP PRN 07/16/21 07/24/21 History tab] Bisacodyl [Bisacodyl 10mg Supp] 10 mg RC DAILYP PRN 07/16/21 07/24/21 History Bisacodyl [Women's Laxative] 5 mg PO DAILYP PRN 07/16/21 07/24/21 History Docusate Sodium [Colace 250mg 250 mg PO BID 07/16/21 07/24/21 History capsule] Folic Acid/Vit B Complex and C 0.8 mg PO DAILY 07/16/21 07/24/21 History [Tika-Ella Tablet] Gabapentin 300 mg PO TID 07/16/21 07/24/21 History Hydromorphone HCl [Dilaudid 4mg 4 mg PO Q6H 07/16/21 07/24/21 History Tab] Ibuprofen [Ibuprofen 200MG Capsule] 200 mg PO Q6HP PRN 07/16/21 07/24/21 History Lactulose 30 ml PO DAILYP PRN 07/16/21 07/24/21 History Melatonin 5 mg PO HS 07/16/21 07/24/21 History Sennosides/Docusate Sodium 2 tab PO BID 07/16/21 07/24/21 History [Senexon-S 50-8.6 mg Tablet] Thiamine HCl [Vitamin B-1] 100 mg PO DAILY 07/16/21 07/24/21 History Vitamin A Palmitate [Vitamin A] 3,000 mcg PO DAILY 07/16/21 07/24/21 History Allergies Allergy/AdvReac Type Severity Reaction Status Date / Time methylprednisolone Allergy Verified 07/24/21 15:31 Exam Vital signs and Labs for Last 24 Hours: Temp Pulse Resp BP Pulse Ox 98.1 F 69 14 165/106 H 99 08/11/21 09:00 08/11/21 13:00 08/11/21 14:10 08/11/21 13:00 08/11/21 14:10 Laboratory Results - last 24 hr 08/11/21 06:45: WBC 10.0 D, RBC 4.07 L, Hgb 12.9, Hct 40.9, MCV 100.5 H, MCH 31.7 H, MCHC 31.6 L, RDW 16.4, Plt Count 568 H, MPV 8.9, Neut % (Auto) 85.5 H, Lymph % (Auto) 10.2, [place] % (Auto) 3.5, Eos % (Auto) 0.4, Baso % (Auto) 0.4, Neut # (Auto) 8.6 H, Lymph # (Auto) 1.0, [place] # (Auto) 0.4, Eos # (Auto) 0.0, Baso # (Auto) 0.0, Total Counted 100, Neutrophils % (Manual) 81 H, Lymphocytes %
--- NOTE | 2021-08-11 15:53 | PC.NURSE ---
notified Dr Becker at 1520 of consult for PEG tube placement. states that pt will be tentatively placed on schedule for
--- NOTE | 2021-08-11 15:54 | PC.NURSE ---
1430 pt iv began leaking. staff contacted for US guided iv. 1530 pt began to endorse abdominal discomfort. residual was checked at this time. at least 60 ml was noted to be in stomach. feeds were stopped at this time r/t pt discomfort.
[2021-08-12] VITALS (28 sets, daily range): BP systolic 124–163; BP diastolic 76–99; PULSE 51–87; RESP 12–19; TEMP 36.8–37.2; O2SAT 96–99; BMI 16.9
--- NOTE | 2021-08-12 05:31 | PC.NURSE ---
No acute changes noted. Pt has slept well this shift. VSS. Pulmocare restarted at 20 ml/hr after residuals improved. Last residual was 20 ml. Feedings are not at goal rate at this time. Oral care provided. Bed bath administered. Pt repositioned. Vent settings are as follows: AC, FiO2 25, TV 300, R 12, PEEP 5. Will continue to monitor.
--- NOTE | 2021-08-12 06:00 | XR_ITS ---
PROCEDURE INFORMATION: Exam: XR Chest Exam date and time: 08/12/2021 6:00 AM Age: 45 years old Clinical indication: Device placement; Ett placement (vent status); Additional info: Daily while intubated TECHNIQUE: Imaging protocol: XR of the chest. Views: 1 view. COMPARISON: CR XR CHEST PORTABLE 08/11/2021 5:35 AM FINDINGS: Tubes, catheters and devices: There is an endotracheal tube in place, the tip of which projects approximately 4.4 cm above the lovely. There is a nasogastric tube traversing the esophagus, with tip and side port well below the gastroesophageal junction. Lungs: Unremarkable. No consolidation. Pleural spaces: Unremarkable. No pleural effusion. No pneumothorax. Heart/Mediastinum: Unremarkable. No cardiomegaly. Bones/joints: Unremarkable. IMPRESSION: No significant change since the prior exam.
[2021-08-12 07:02] LABS: Basophils % 0.3 % (0.1-2.0); Eosinophils % 0.4 % (0.1-12.0); Hematocrit 37.1 % (37.0-47.0); Lymphocytes # 1.5 K/mm3 (0.7-4.5); Lymphocytes % 20.9 % (10-50); Mean Corpuscular HGB Conc 32.3 g/dL (31.8-35.4); Mean Corpuscular Hemoglobin 32.1 pg (27.0-31.2); Mean Corpuscular Volume 99.5 fl (81-99); Monocytes # 0.4 K/mm3 (0.1-1.0); Monocytes % 5.6 % (1.7-9.3); Neutrophils # 5.2 K/mm3 (1.8-7.8); Neutrophils % 72.8 % (37.0-80.0); Platelet Count 466 K/mm3 (142-424); Red Blood Count 3.73 M/mm3 (4.20-5.40); Red Cell Distribution Width 16.7 % (11.5-17.5); White Blood Count 7.2 K/mm3 (4.8-10.8)
[2021-08-12 07:06] LABS: Alanine Aminotransferase 23 U/L (12-78); Albumin Level 3.3 g/dl (3.5-5.0); Albumin/Globulin Ratio 1.1 (1.1-1.8); Alkaline Phosphatase 96 U/L (38-126); Anion Gap 8.5 mEq/L (5-15); Aspartate Amino Transferase 22 U/L (14-36); Bilirubin,Total 0.4 mg/dl (0.2-1.3); Blood Urea Nitrogen 13 mg/dl (7-17); Calcium 8.8 mg/dl (8.4-10.2); Carbon Dioxide 27 mmol/L (22.0-30.0); Chloride 105 mmol/L (98-107); Creatinine Clearance Estimated 124 mL/min (50-200); Estimated Glomerular Filt Rate 171 ml/min (>60); GFR (African American) 207 ML/MIN (>60); Globulin 2.9 g/dL (1.3-3.2); Glucose 96 mg/dl (74-100); Potassium 3.5 mmoL/L (3.5-5.1); Sodium 137 mmol/L (136-145); Total Protein,Serum 6.2 g/dl (6.3-8.2)
--- NOTE | 2021-08-12 08:21 | HMH.GSCON ---
*Admission Date: 07/25/21 *Reason for consult:: Placement of percutaneous endoscopic gastrostomy tube *History of present illness: The surgical service has been consulted for placement of percutaneous endoscopic gastrostomy tube. Please see HPI forwarded from ENT consult below. Forwarded from ENT consultation: Patient was intubatedAND could not engage in meaningful conversation. Much of the history is obtained from chart review. Ms. Medina is a 45-year-old female with a prior history of multiple sclerosis, recurrent aspiration pneumonia and UTI presented to the hospital for management with worsening respiratory distress along with febrile episodes and tachycardia eventually needing intubation and mechanical ventilatory support and pulmonary was called for further management. The patient has failed 3 attempts at ventilator wean and her primary care physician and her telesales consultant are in agreement that tracheostomy may be necessary. The family is in agreement that they want aggressive measures to be taken. Past medical history, review of systems, medications, past surgical history, and allergies are listed in the H&P and were reviewed. Bedside limited physical exam was performed. She is awake and alert and on the ventilator and orally intubated. Her neck exam is normal. Impression: She has been intubated and has failed ventilator wean 3 times and is likely to require ventilator assistance in the near term at least. I had discussion with both her primary care physician and her telesales consultant and I think it is reasonable to proceed with tracheostomy. Risks benefits and alternatives were discussed with the patient and she seems to understand and agree. I will also try to have a discussion with her family members. We tried calling them today while I was at bedside but they were not available. Surgery will be scheduled next week. Review of Systems - Review of Systems Review of systems:: unable to obtain [facility] History *Have you ever received a pneumonia vaccine?: No *Have you received a flu vaccine this season?: No Other Medical History: Reports: Other Other Surgeries: Yes: Other - *Social History Smoking Status: Unknown if ever smoked Alcohol Intake: never Alcohol Intake Frequency:: 0-2 drinks per day Substance Use Type: unknown *Occupational Status:: unemployed, disabled Housing: care home *Travel in the last 8 weeks: None Family Hx:: Unable to obtain Meds Home Medications Medication Instructions Recorded Confirmed Type Acetaminophen [Acetaminophen 325mg 650 mg PO Q4HP PRN 07/16/21 07/24/21 History tab] Bisacodyl [Bisacodyl 10mg Supp] 10 mg RC DAILYP PRN 07/16/21 07/24/21 History Bisacodyl [Women's Laxative] 5 mg PO DAILYP PRN 07/16/21 07/24/21 History Docusate Sodium [Colace 250mg 250 mg PO BID 07/16/21 07/24/21 History capsule] Folic Acid/Vit B Complex and C 0.8 mg PO DAILY 07/16/21 07/24/21 History [Tika-Ella Tablet] Gabapentin 300 mg PO TID 07/16/21 07/24/21 History Hydromorphone HCl [Dilaudid 4mg 4 mg PO Q6H 07/16/21 07/24/21 History Tab] Ibuprofen [Ibuprofen 200MG Capsule] 200 mg PO Q6HP PRN 07/16/21 07/24/21 History Lactulose 30 ml PO DAILYP PRN 07/16/21 07/24/21 History Melatonin 5 mg PO HS 07/16/21 07/24/21 History Sennosides/Docusate Sodium 2 tab PO BID 07/16/21 07/24/21 History [Senexon-S 50-8.6 mg Tablet] Thiamine HCl [Vitamin B-1] 100 mg PO DAILY 07/16/21 07/24/21 History Vitamin A Palmitate [Vitamin A] 3,000 mcg PO DAILY 07/16/21 07/24/21 History Allergies Allergy/AdvReac Type Severity Reaction Status Date / Time methylprednisolone Allergy Verified 07/24/21 15:31 Exam Vital signs and Labs for Last 24 Hours: Temp Pulse Resp BP Pulse Ox 98.7 F 70 14 145/89 H 98 08/12/21 05:00 08/12/21 06:00 08/12/21 06:00 08/12/21 06:00 08/12/21 06:00 Laboratory Results - last 24 hr 08/11/21 06:45: Total Counted 100, Neutrophils % (Manual) 81 H, Lymphocytes % (Manu
--- NOTE | 2021-08-12 09:42 | DIET.NUTRFU ---
During rounds this AM, nursing reported patient is still having residuals and unable to increase TF. Currently receiving 20ml/hr of Pulmocare providing 690kcal, 29gm protein and 361ml plus 600ml from flush= 961ml/day. This is not meeting needs. Patient is noted to have stage II on cocyx, high nutritional needs for healing. PEG scheduled for tomorrow, once PEG placed hopefully will be able to tolerate increased rate. Labs reviewed, Na is down to 137L, need to increase flush to help meet hydration needs. Will increase flush to 160ml Q4H= 960ml with total fluid of 1321ml/day (29ml/kg) to better meet needs.
--- NOTE | 2021-08-12 10:06 | HMH.ACPN2 ---
Internal Medicine - PN: Subj *Date: 08/12/21 *Time: 09:25 Interval history: on vent Exam Vital signs and Labs for Last 24 Hours: Temp Pulse Resp BP Pulse Ox 98.3 F 87 16 144/91 H 98 08/12/21 09:00 08/12/21 09:00 08/12/21 09:00 08/12/21 09:00 08/12/21 09:00 Laboratory Results - last 24 hr 08/12/21 06:35: WBC 7.2 D, RBC 3.73 L, Hgb 12.0 L, Hct 37.1, MCV 99.5 H, MCH 32.1 H, MCHC 32.3, RDW 16.7, Plt Count 466 H, MPV 8.0, Neut % (Auto) 72.8, Lymph % (Auto) 20.9, [place] % (Auto) 5.6, Eos % (Auto) 0.4, Baso % (Auto) 0.3, Neut # (Auto) 5.2, Lymph # (Auto) 1.5, [place] # (Auto) 0.4, Eos # (Auto) 0.0, Baso # (Auto) 0.0 08/12/21 06:35: Sodium 137, Potassium 3.5 D, Chloride 105, Carbon Dioxide 27, Anion Gap 8.5, BUN 13, Creatinine 0.40 L D, Estimated Creat Clear 124, Estimated GFR 171, Est GFR ( Amer) 207 D, Glucose 96 D, Calcium 8.8, Total Bilirubin 0.4, AST 22 D, ALT 23, Alkaline Phosphatase 96, Total Protein 6.2 L, Albumin 3.3 L, Globulin 2.9, Albumin/Globulin Ratio 1.1 I & O for Last 24 hours: Intake & Output 08/09/21 08/10/21 08/11/21 08/12/21 11:59 11:59 11:59 11:59 Intake Total 875 / 995 2363 / 2363 459 / 592 567 / 567 Output Total 495 / 505 790 / 815 919 / 969 875 / 875 Balance 380 / 490 1573 / 1548 -460 / -377 -308 / -308 Weight 97 lb 8 oz 99 lb 9 oz - Constitutional no acute distress, chronically ill appearing - *Routine HEENT Exam Head: Present: normocephalic Eye: Present: PERRL ENT: Present: mucous membranes moist - *Routine Neck Exam Present: supple. Absent: lymphadenopathy - *Routine Respiratory Exam Present: patient mechanically ventilated - *Routine Cardiovascular Exam Present: RRR - *Routine Abdominal Exam Present: soft, normoactive bowel sounds. Absent: tenderness - *Routine Extremities Exam Absent: cyanosis, clubbing, edema - *Routine Skin Exam Present: wounds Comments: stage 2 to coccyx x2 - *Routine Neurological Exam Present: alert Assessment and Plan (1) Healthcare-associated pneumonia Status: Acute Category: Medical Code(s): J18.9 - Pneumonia, unspecified organism (2) Multiple sclerosis Status: Chronic Category: Medical Code(s): G35 - Multiple sclerosis (3) Low body mass index (BMI) Status: Acute Category: Medical (4) Respiratory failure Status: Acute Qualifiers: Chronicity: acute Respiratory failure complication: hypoxia Qualified Code(s): J96.01 - Acute respiratory failure with hypoxia Category: Medical Code(s): J96.90 - Respiratory failure, unspecified, unspecified whether with hypoxia or hypercapnia (5) Severe sepsis with acute organ dysfunction Status: Acute Category: Medical Code(s): A41.9 - Sepsis, unspecified organism; R65.20 - Severe sepsis without septic shock (6) Hypernatremia Status: Acute Category: Medical Code(s): E87.0 - Hyperosmolality and hypernatremia (7) Malignant hypertension Status: Resolved Category: Medical Code(s): I10 - Essential (primary) hypertension (8) Sinus tachycardia Status: Resolved Category: Medical Code(s): R00.0 - Tachycardia, unspecified (9) Feeding difficulty in adult Status: Acute Category: Medical Code(s): R63.39 - Other feeding difficulties - Assessment and plan all Dx Assessment and Plan for all problems:: rounded with dr castillo all orders per dr barrett advance ng feedings as tolerated peg tube placement tomorrow trach placement first of the week continue to follow with pulizabel
--- NOTE | 2021-08-12 10:32 | SW/DCPLANNER ---
Addendum entered by [facility] 08/21/21 09:22: This patient will discharge to [facility] today. All discharge information has been faxed and family has been updated. [facility] will transport this patient via their ambulance transport. Addendum entered by [facility] 08/20/21 12:39: Phone number for nurse to call report to tomorrow is [phone] fax # [phone] Addendum entered by [facility] 08/20/21 10:15: I have also updated patients daughter (Ivanna) regarding discharge plans for tomorrow. Addendum entered by [facility] 08/20/21 09:50: Updated patient information has been faxed to [facility]. Ryann has stated that this patient can be admitted to their facility tomorrow. Addendum entered by [facility] 08/19/21 14:03: Ryann has stated she can accept this patient pending COVID swab (can be collected tomorrow). Ryann has stated that their transportation will transport this patient at 9AM Tuesday morning 08/21/21. I will update MD and nursing staff. Ryann has stated that she will contact patients family. Addendum entered by [facility] 08/19/21 10:13: Updated trach placement information has been faxed to [facility]. Addendum entered by [facility] 08/17/21 10:06: [facility] stated this AM that she feels as if patient will be a good candidate for their facility, she is running insurance now and stated that she can not accept a trach till at least 48 hours after placement (possibly ). Addendum entered by [facility] 08/12/21 11:12: I spoke with Ivanna and she is agreeable to [facility] placement once patient is medically stable. Information has been faxed to Ryann. Original Note: The plan is for this patient to have PEG tube placed tomorrow and trach at the beginning of next week. I attempted to call and speak with patients daughter (Ivanna) regarding this situation and the need for a [facility] at time of discharge: no answer at this time VM left. I also spoke with Ryann from [facility] and she has stated that she does have beds available. I did fax patient information in advance to Ryann with [facility]. I will continue to follow up with patients family and Ryann at [facility]. Ryann phone: [phone] fax: [phone]
--- NOTE | 2021-08-12 11:34 | HMH.PULMPN ---
Internal Medicine - PN: Subj *Date: 08/12/21 *Time: 11:34 Interval history: No acute respiratory events overnight. Patient remained on minimal vent settings. Exam - Constitutional Constitutional:: Present: no acute distress, comfortable - HENMT Exam HENMT: Present: normocephalic, atraumatic - Eye Exam Eyes:: Present: normal appearance both eyes and related structures - Neck Exam Neck:: Present: normal visual inspection - Respiratory Exam Respiratory:: Present: rhonchi. Absent: no respiratory distress, crackles, wheezing - Cardiovascular Exam Cardiac:: Present: S1, S2 - GI Exam GI:: Present: soft, no hepatosplenomegaly - Skin Exam Skin: Present: warm, no rash - Neurological Exam Neurological: Present: awake. Absent: alert, normal cognition - Extremities Exam Extremities: Present: no cyanosis, no clubbing, edema Assessment and Plan (1) Healthcare-associated pneumonia Status: Acute Category: Medical Code(s): J18.9 - Pneumonia, unspecified organism (2) Multiple sclerosis Status: Chronic Category: Medical Code(s): G35 - Multiple sclerosis (3) Low body mass index (BMI) Status: Acute Category: Medical (4) Respiratory failure Status: Acute Qualifiers: Chronicity: acute Respiratory failure complication: hypoxia Qualified Code(s): J96.01 - Acute respiratory failure with hypoxia Category: Medical Code(s): J96.90 - Respiratory failure, unspecified, unspecified whether with hypoxia or hypercapnia (5) Severe sepsis with acute organ dysfunction Status: Acute Category: Medical Code(s): A41.9 - Sepsis, unspecified organism; R65.20 - Severe sepsis without septic shock (6) Hypernatremia Status: Acute Category: Medical Code(s): E87.0 - Hyperosmolality and hypernatremia (7) Malignant hypertension Status: Resolved Category: Medical Code(s): I10 - Essential (primary) hypertension (8) Sinus tachycardia Status: Resolved Category: Medical Code(s): R00.0 - Tachycardia, unspecified (9) Feeding difficulty in adult Status: Acute Category: Medical Code(s): R63.39 - Other feeding difficulties - Assessment and plan all Dx Assessment and Plan for all problems:: #Acute hypoxic respiratory failure: 45-year-old history of multiple sclerosis, high risk of aspiration and history of recurrent aspiration pneumonia presents with worsening respiratory distress needing intubation and mechanical ventilatory support. Patient completed 10-day course of Zosyn and clindamycin. Patient predominant problem throughout his hospital admission is her inability to protect her airway and clear her secretions. Patient was intubated 3x04 secondary inability to protect her secretions. Fortunately most recent intubation was secondary to mucous plugging of her left mainstem bronchus with near complete collapse of the left lung. Given her continued inability to for airway and unable to clear the secretions I believe patient would be an ideal candidate for tracheostomy. Patient will need aggressive pulmonary toilet. Primary team has discussed with the family and the family want to proceed with trach and PEG placement. Patient respiratory has been relatively stable on minimal vent settings. She is successfully passing her spontaneous breathing trials however given her continued respiratory failures post extubation needing mechanical ventilatory support and intubation 3 times so far plan was made to proceed with tracheostomy, primary team has discussed with the patient and the patient family wants aggressive measures at this point of time and she is currently scheduled for trach and PEG placement. Plan: -Continue PRN sedation protocol. Continue SBT daily. -Respiratory status remained stable. Chest x-ray reviewed, no obvious pulmonary parenchymal pathology. ET tube in place. Continue to remain on minimal vent settings. Successfully performing SBT's with intermittent apnea episodes. No cuff
--- NOTE | 2021-08-12 16:43 | PC.NURSE ---
No acute changes noted this shift, patient remains intubated with 7.5ETT 21@lip, vent settings AC FiO2 25%, RR 12, TV 300, Peep 5. Patient has been turned q2h and provided oral care and suctioning. Phone consent for peg tube placement obtained today, patient to be NPO from tube feedings after midnight. No s/s of distress noted, vss, will continue to monitor.
[2021-08-13] VITALS (37 sets, daily range): BP systolic 99–189; BP diastolic 61–121; PULSE 51–117; RESP 12–20; TEMP 35.9–37.2; O2SAT 94–100; BMI 15.5
--- NOTE | 2021-08-13 06:00 | XR_ITS ---
PROCEDURE INFORMATION: Exam: XR Chest Exam date and time: 08/13/2021 6:00 AM Age: 45 years old Clinical indication: Device placement; Ett placement (vent status); Additional info: Daily while intubated TECHNIQUE: Imaging protocol: XR of the chest. Views: 1 view. COMPARISON: CR XR CHEST PORTABLE 08/12/2021 5:40 AM FINDINGS: Tubes, catheters and devices: Endotracheal tube noted with the tip above the lovely approximately 3.6 cm. The endogastric tube is noted with distal portion overlying the stomach. Multiple overlying cardiac leads are present. Lungs: Unremarkable. No consolidation. Pleural spaces: Unremarkable. No pleural effusion. No pneumothorax. Heart/Mediastinum: Unremarkable. No cardiomegaly. Bones/joints: Unremarkable. IMPRESSION: 1. No significant interval change. 2. Support catheters noted, as above. No pneumothorax.
--- NOTE | 2021-08-13 06:44 | HMH.GSPN ---
Subjective Narrative: No changes per nursing. PEG planned for this morning. Progress Note: A&P (1) Healthcare-associated pneumonia Status: Acute (2) Multiple sclerosis Status: Chronic (3) Low body mass index (BMI) Status: Acute (4) Respiratory failure Status: Acute (5) Severe sepsis with acute organ dysfunction Status: Acute (6) Hypernatremia Status: Acute (7) Malignant hypertension Status: Resolved (8) Sinus tachycardia Status: Resolved (9) Feeding difficulty in adult Status: Acute Assessment and plan: PEG planned for this morning Exam Vital signs and Labs for Last 24 Hours: Temp Pulse Resp BP Pulse Ox 97.7 F 62 15 176/99 H 94 L 08/13/21 04:00 08/13/21 06:00 08/13/21 06:00 08/13/21 06:00 08/13/21 06:00 Laboratory Results - last 24 hr 08/12/21 06:35: WBC 7.2 D, RBC 3.73 L, Hgb 12.0 L, Hct 37.1, MCV 99.5 H, MCH 32.1 H, MCHC 32.3, RDW 16.7, Plt Count 466 H, MPV 8.0, Neut % (Auto) 72.8, Lymph % (Auto) 20.9, [place] % (Auto) 5.6, Eos % (Auto) 0.4, Baso % (Auto) 0.3, Neut # (Auto) 5.2, Lymph # (Auto) 1.5, [place] # (Auto) 0.4, Eos # (Auto) 0.0, Baso # (Auto) 0.0 08/12/21 06:35: Sodium 137, Potassium 3.5 D, Chloride 105, Carbon Dioxide 27, Anion Gap 8.5, BUN 13, Creatinine 0.40 L D, Estimated Creat Clear 124, Estimated GFR 171, Est GFR ( Amer) 207 D, Glucose 96 D, Calcium 8.8, Total Bilirubin 0.4, AST 22 D, ALT 23, Alkaline Phosphatase 96, Total Protein 6.2 L, Albumin 3.3 L, Globulin 2.9, Albumin/Globulin Ratio 1.1 I & O for Last 24 hours: Intake & Output 08/10/21 08/11/21 08/12/21 08/13/21 11:59 11:59 11:59 11:59 Intake Total 2363 / 2363 459 / 592 567 / 587 435 / 435 Output Total 790 / 815 919 / 969 940 / 970 980 / 980 Balance 1573 / 1548 -460 / -377 -373 / -383 -545 / -545 Weight 97 lb 8 oz 99 lb 9 oz - Constitutional no acute distress - *Routine Respiratory Exam Present: patient mechanically ventilated
[2021-08-13 06:58] LABS: Alanine Aminotransferase 16 U/L (12-78); Albumin Level 3.3 g/dl (3.5-5.0); Albumin/Globulin Ratio 1.1 (1.1-1.8); Alkaline Phosphatase 91 U/L (38-126); Anion Gap 5.5 mEq/L (5-15); Aspartate Amino Transferase 21 U/L (14-36); Basophils # 0.1 K/mm3 (0-0.2); Basophils % 0.7 % (0.1-2.0); Bilirubin,Total 0.4 mg/dl (0.2-1.3); Blood Urea Nitrogen 9 mg/dl (7-17); Carbon Dioxide 29 mmol/L (22.0-30.0); Chloride 104 mmol/L (98-107); Creatinine Clearance Estimated 124 mL/min (50-200); Eosinophils % 0.5 % (0.1-12.0); Estimated Glomerular Filt Rate 171 ml/min (>60); GFR (African American) 207 ML/MIN (>60); Globulin 2.9 g/dL (1.3-3.2); Glucose 80 mg/dl (74-100); Hematocrit 38.3 % (37.0-47.0); Lymphocytes # 1.7 K/mm3 (0.7-4.5); Lymphocytes % 25.6 % (10-50); Mean Corpuscular HGB Conc 31.4 g/dL (31.8-35.4); Mean Corpuscular Hemoglobin 31.5 pg (27.0-31.2); Mean Corpuscular Volume 100.3 fl (81-99); Mean Platelet Volume 9.3 fl (7.4-10.4); Monocytes # 0.4 K/mm3 (0.1-1.0); Monocytes % 5.5 % (1.7-9.3); Neutrophils # 4.6 K/mm3 (1.8-7.8); Neutrophils % 67.7 % (37.0-80.0); Platelet Count 426 K/mm3 (142-424); Potassium 3.5 mmoL/L (3.5-5.1); Red Blood Count 3.82 M/mm3 (4.20-5.40); Red Cell Distribution Width 16.4 % (11.5-17.5); Sodium 135 mmol/L (136-145); Total Protein,Serum 6.2 g/dl (6.3-8.2); White Blood Count 6.8 K/mm3 (4.8-10.8)
--- NOTE | 2021-08-13 07:42 | HMH.SCOPE ---
- Procedure: Date: 08/13/21 Patient Date of :: 1975 Procedure Performed:: Percutaneous endoscopic gastrostomy tube placement Indications:: Feeding difficulty Performing Provider:: Castro Becker MD Referring Provider:: . Sedation:: Monitored anesthesia care Procedure:: After informed consent was obtained the patient was taken to the operating room and maintained in the supine position. The gastroscope was carefully advanced. Her stomach was insufflated. Transillumination and impulse were both confirmed. A small transverse incision was made at the site of maximal transillumination/impulse after the area was prepped and draped in a sterile fashion. Under direct visualization a large bore Angiocath was placed into the gastric lumen through the incision. The guidewire was then secured with the retrieval device and pulled in a retrograde fashion. The gastrostomy tube was secured to the guidewire and then pulled through the abdominal wall. The gastrostomy tube was secured at 1.5 cm. The bumper was then taped to the tube. The tape margin was 4 cm. The gastroscope was readvanced into the gastric lumen. The bumper was in good position. The tube rotated without difficulty. No sign of bleeding was noted. The gastroscope was carefully removed and the patient was transferred back to the intensive care unit in guarded condition. Findings:: Tube secured at 1.5 cm Tape margin at 4 cm Specimens:: None Recommendations:: Post PEG orders Complications:: No immediate Estimated blood obtained (mL): 1
--- NOTE | 2021-08-13 09:26 | DIET.NUTRFU ---
Patient had PEG placed today, spoke to nursing. Plan is to start TF around lunch at 20ml/hr and advance as tolerated
--- NOTE | 2021-08-13 09:32 | HMH.ACPN2 ---
Internal Medicine - PN: Subj *Date: 08/13/21 *Time: 09:35 Interval history: 45-year-old female patient lying in bed remains mechanically intubated. PEG tube placed this morning per general surgery. Procedure:: After informed consent was obtained the patient was taken to the operating room and maintained in the supine position. The gastroscope was carefully advanced. Her stomach was insufflated. Transillumination and impulse were both confirmed. A small transverse incision was made at the site of maximal transillumination/impulse after the area was prepped and draped in a sterile fashion. Under direct visualization a large bore Angiocath was placed into the gastric lumen through the incision. The guidewire was then secured with the retrieval device and pulled in a retrograde fashion. The gastrostomy tube was secured to the guidewire and then pulled through the abdominal wall. The gastrostomy tube was secured at 1.5 cm. The bumper was then taped to the tube. The tape margin was 4 cm. The gastroscope was readvanced into the gastric lumen. The bumper was in good position. The tube rotated without difficulty. No sign of bleeding was noted. The gastroscope was carefully removed and the patient was transferred back to the intensive care unit in guarded condition. Findings:: Tube secured at 1.5 cm Tape margin at 4 cm Exam Vital signs and Labs for Last 24 Hours: Temp Pulse Resp BP Pulse Ox 97.7 F 62 15 176/99 H 94 L 08/13/21 04:00 08/13/21 06:00 08/13/21 06:00 08/13/21 06:00 08/13/21 06:00 Laboratory Results - last 24 hr 08/13/21 05:07: WBC 6.8, RBC 3.82 L, Hgb 12.0 L, Hct 38.3, MCV 100.3 H, MCH 31.5 H, MCHC 31.4 L, RDW 16.4, Plt Count 426 H, MPV 9.3, Neut % (Auto) 67.7, Lymph % (Auto) 25.6, [place] % (Auto) 5.5, Eos % (Auto) 0.5, Baso % (Auto) 0.7, Neut # (Auto) 4.6, Lymph # (Auto) 1.7, [place] # (Auto) 0.4, Eos # (Auto) 0.0, Baso # (Auto) 0.1 08/13/21 05:07: Sodium 135 L, Potassium 3.5, Chloride 104, Carbon Dioxide 29, Anion Gap 5.5, BUN 9 D, Creatinine 0.40 L, Estimated Creat Clear 124, Estimated GFR 171, Est GFR ( Amer) 207, Glucose 80, Calcium 9.0, Total Bilirubin 0.4, AST 21, ALT 16 D, Alkaline Phosphatase 91, Total Protein 6.2 L, Albumin 3.3 L, Globulin 2.9, Albumin/Globulin Ratio 1.1 I & O for Last 24 hours: Intake & Output 08/10/21 08/11/21 08/12/21 08/13/21 23:59 23:59 23:59 23:59 Intake Total 585 / 615 601 / 601 675 / 675 Output Total 930 / 955 1026 / 1114 1058 / 1088 325 / 325 Balance -345 / -340 -425 / -513 -383 / -413 -325 / -325 Weight 103 lb 97 lb 8 oz 99 lb 9 oz 91 lb 6.4 oz - Constitutional no acute distress - *Routine HEENT Exam Head: Present: normocephalic Eye: Present: EOMI ENT: Present: mucous membranes moist - *Routine Neck Exam Present: trachea midline. Absent: tracheal deviation - *Routine Respiratory Exam Present: patient mechanically ventilated, rhonchi. Absent: accessory muscle use - *Routine Cardiovascular Exam Present: RRR - *Routine Abdominal Exam Present: soft, normoactive bowel sounds. Absent: tenderness Comments: PEG tube with abdominal binder - *Routine Extremities Exam Present: pulses intact. Absent: cyanosis, clubbing - *Routine Skin Exam Present: dry. Absent: cyanosis, erythema Comments: PEG tube with abdominal binder - *Routine Neurological Exam Present: alert, altered mental status. Absent: oriented X3 - Routine Psychiatric Exam Present: unable to assess Assessment and Plan (1) Healthcare-associated pneumonia Status: Acute Category: Medical Code(s): J18.9 - Pneumonia, unspecified organism (2) Multiple sclerosis Status: Chronic Category: Medical Code(s): G35 - Multiple sclerosis (3) Low body mass index (BMI) Status: Acute Category: Medical (4) Respiratory failure Status: Acute Qualifiers: Chronicity: acute Respiratory failure complication: hypoxia Qualified Code(s): J96.01 - Acute respi
--- NOTE | 2021-08-13 10:22 | SUR.PHASEI ---
0755- Pt sedated during procedure in OR per anesthesia (see anesthesia record for details). Pt taken straight to ICU after completion of procedure. Pt transferred via appeals coordinator and anesthesia with continual monitoring and oxygenating per ambu bag. Upon arrival to ICU, appeals coordinator stayed at bedside with primary CLINICAL RESEARCH ASSISTANT during recovery period. Detail report given at bedside. Vital signs stable. Pt remains drowsy and asleep. Pt left in care of Claire CLINICAL RESEARCH ASSISTANT. See PACU charting for recovery details.
--- NOTE | 2021-08-13 13:21 | HMH.PULMPN ---
Internal Medicine - PN: Subj *Date: 08/13/21 *Time: 13:21 Interval history: No acute respiratory vents overnight. Continue to remain on minimal ventilator settings. Exam - Constitutional Constitutional:: Present: no acute distress, comfortable - HENMT Exam HENMT: Present: normocephalic, atraumatic - Eye Exam Eyes:: Present: normal appearance both eyes and related structures - Neck Exam Neck:: Present: normal visual inspection - Respiratory Exam Respiratory:: Present: no respiratory distress, rhonchi. Absent: wheezing - Cardiovascular Exam Cardiac:: Present: S1, S2 - GI Exam GI:: Present: soft - Skin Exam Skin: Present: warm, no rash - Neurological Exam Neurological: Absent: alert, awake, normal cognition - Extremities Exam Extremities: Present: no cyanosis, no clubbing, edema Assessment and Plan (1) Healthcare-associated pneumonia Status: Acute Category: Medical Code(s): J18.9 - Pneumonia, unspecified organism (2) Multiple sclerosis Status: Chronic Category: Medical Code(s): G35 - Multiple sclerosis (3) Low body mass index (BMI) Status: Acute Category: Medical (4) Respiratory failure Status: Acute Qualifiers: Chronicity: acute Respiratory failure complication: hypoxia Qualified Code(s): J96.01 - Acute respiratory failure with hypoxia Category: Medical Code(s): J96.90 - Respiratory failure, unspecified, unspecified whether with hypoxia or hypercapnia (5) Severe sepsis with acute organ dysfunction Status: Acute Category: Medical Code(s): A41.9 - Sepsis, unspecified organism; R65.20 - Severe sepsis without septic shock (6) Hypernatremia Status: Acute Category: Medical Code(s): E87.0 - Hyperosmolality and hypernatremia (7) Malignant hypertension Status: Resolved Category: Medical Code(s): I10 - Essential (primary) hypertension (8) Sinus tachycardia Status: Resolved Category: Medical Code(s): R00.0 - Tachycardia, unspecified (9) Feeding difficulty in adult Status: Acute Category: Medical Code(s): R63.39 - Other feeding difficulties - Assessment and plan all Dx Assessment and Plan for all problems:: #Acute hypoxic respiratory failure: 45-year-old history of multiple sclerosis, high risk of aspiration and history of recurrent aspiration pneumonia presents with worsening respiratory distress needing intubation and mechanical ventilatory support. Patient completed 10-day course of Zosyn and clindamycin. Patient predominant problem throughout his hospital admission is her inability to protect her airway and clear her secretions. Patient was intubated 3x04 secondary inability to protect her secretions. Fortunately most recent intubation was secondary to mucous plugging of her left mainstem bronchus with near complete collapse of the left lung. Given her continued inability to for airway and unable to clear the secretions I believe patient would be an ideal candidate for tracheostomy. Patient will need aggressive pulmonary toilet. Primary team has discussed with the family and the family want to proceed with trach and PEG placement. Patient respiratory has been relatively stable on minimal vent settings. She is successfully passing her spontaneous breathing trials however given her continued respiratory failures post extubation needing mechanical ventilatory support and intubation 3 times so far plan was made to proceed with tracheostomy, primary team has discussed with the patient and the patient family wants aggressive measures at this point of time. PEG placement by surgery today. Scheduled for tracheostomy Tuesday. Plan: -Continue PRN sedation protocol. Continue SBT daily. -Respiratory status remained stable. Continue to remain on minimal vent settings. Successfully performing SBT's with intermittent apnea episodes. ENT on board, scheduled for tracheostomy next week. Recommend discontinuing Diflucan if for yeast in her sputum.
--- NOTE | 2021-08-13 13:50 | PC.NURSE ---
tubefeeds ([facility]ulmoc[facility]) restarted thru PEG tube @ 20mL/hr with goal rate of 40mL/hr
[2021-08-14] VITALS (30 sets, daily range): BP systolic 105–145; BP diastolic 72–95; PULSE 56–90; RESP 12–17; TEMP 36.1–36.9; O2SAT 25–100; BMI 16.8; BMI 15.4
--- NOTE | 2021-08-14 06:00 | XR_ITS ---
PROCEDURE INFORMATION: Exam: XR Chest Exam date and time: 08/14/2021 6:00 AM Age: 45 years old Clinical indication: Device placement; Ett placement (vent status); Additional info: Daily while intubated TECHNIQUE: Imaging protocol: XR of the chest. Views: 1 view. COMPARISON: CR XR CHEST PORTABLE 08/13/2021 5:55 AM FINDINGS: Tubes, catheters and devices: Endotracheal tube noted with the tip above the lovely approximately 3.0 cm. Multiple overlying cardiac leads are present. Interval removal of the endogastric tube. Lungs: Unremarkable. No consolidation. Pleural spaces: Unremarkable. No pleural effusion. No pneumothorax. Heart/Mediastinum: Unremarkable. No cardiomegaly. Bones/joints: Unremarkable. IMPRESSION: 1. No significant interval change. 2. Support catheters noted, as above. No pneumothorax.
--- NOTE | 2021-08-14 06:37 | P.PN_ITS ---
Subjective Narrative: Per nursing, she has tolerated tube feeds. Progress Note: A&P (1) Healthcare-associated pneumonia Status: Acute (2) Multiple sclerosis Status: Chronic (3) Low body mass index (BMI) Status: Acute (4) Respiratory failure Status: Acute (5) Severe sepsis with acute organ dysfunction Status: Acute (6) Hypernatremia Status: Acute (7) Malignant hypertension Status: Resolved (8) Sinus tachycardia Status: Resolved (9) Feeding difficulty in adult Status: Acute Assessment and plan: Continue tube feedings as per primary service Exam Vital signs and Labs for Last 24 Hours: Temp Pulse Resp BP Pulse Ox 98.0 F 65 12 123/87 96 08/14/21 01:00 08/14/21 06:00 08/14/21 06:00 08/14/21 06:00 08/14/21 06:00 Laboratory Results - last 24 hr 08/13/21 05:07: WBC 6.8, RBC 3.82 L, Hgb 12.0 L, Hct 38.3, MCV 100.3 H, MCH 31.5 H, MCHC 31.4 L, RDW 16.4, Plt Count 426 H, MPV 9.3, Neut % (Auto) 67.7, Lymph % (Auto) 25.6, [place] % (Auto) 5.5, Eos % (Auto) 0.5, Baso % (Auto) 0.7, Neut # (Auto) 4.6, Lymph # (Auto) 1.7, [place] # (Auto) 0.4, Eos # (Auto) 0.0, Baso # (Auto) 0.1 08/13/21 05:07: Sodium 135 L, Potassium 3.5, Chloride 104, Carbon Dioxide 29, Anion Gap 5.5, BUN 9 D, Creatinine 0.40 L, Estimated Creat Clear 124, Estimated GFR 171, Est GFR ( Amer) 207, Glucose 80, Calcium 9.0, Total Bilirubin 0.4, AST 21, ALT 16 D, Alkaline Phosphatase 91, Total Protein 6.2 L, Albumin 3.3 L, Globulin 2.9, Albumin/Globulin Ratio 1.1 I & O for Last 24 hours: Intake & Output 08/11/21 08/12/21 08/13/21 08/14/21 11:59 11:59 11:59 11:59 Intake Total 459 / 592 567 / 587 435 / 555 548 / 548 Output Total 919 / 969 940 / 970 1395 / 1485 865 / 865 Balance -460 / -377 -373 / -383 -960 / -930 -317 / -317 Weight 97 lb 8 oz 99 lb 9 oz 91 lb 6.4 oz - *Routine Respiratory Exam Present: patient mechanically ventilated - *Routine Cardiovascular Exam Absent: tachycardia - *Routine Abdominal Exam Comments: PEG in good position. Tube rotates easily.
[2021-08-14 06:57] LABS: Basophils # 0.2 K/mm3 (0-0.2); Basophils % 2.4 % (0.1-2.0); Eosinophils # 0.1 K/mm3 (0.0-0.4); Eosinophils % 0.8 % (0.1-12.0); Hematocrit 41.4 % (37.0-47.0); Lymphocytes # 1.6 K/mm3 (0.7-4.5); Lymphocytes % 23.2 % (10-50); Mean Corpuscular HGB Conc 31.3 g/dL (31.8-35.4); Mean Corpuscular Hemoglobin 31.3 pg (27.0-31.2); Mean Corpuscular Volume 99.8 fl (81-99); Mean Platelet Volume 8.5 fl (7.4-10.4); Monocytes # 0.4 K/mm3 (0.1-1.0); Monocytes % 5.4 % (1.7-9.3); Neutrophils # 4.8 K/mm3 (1.8-7.8); Neutrophils % 68.2 % (37.0-80.0); Platelet Count 469 K/mm3 (142-424); Red Blood Count 4.15 M/mm3 (4.20-5.40); Red Cell Distribution Width 16.3 % (11.5-17.5)
[2021-08-14 07:01] LABS: Alanine Aminotransferase 16 U/L (12-78); Albumin Level 3.3 g/dl (3.5-5.0); Albumin/Globulin Ratio 1.1 (1.1-1.8); Alkaline Phosphatase 95 U/L (38-126); Anion Gap 10.3 mEq/L (5-15); Aspartate Amino Transferase 21 U/L (14-36); Bilirubin,Total 0.4 mg/dl (0.2-1.3); Blood Urea Nitrogen 9 mg/dl (7-17); Calcium 8.9 mg/dl (8.4-10.2); Carbon Dioxide 28 mmol/L (22.0-30.0); Chloride 104 mmol/L (98-107); Creatinine Clearance Estimated 98 mL/min (50-200); Estimated Glomerular Filt Rate 132 ml/min (>60); GFR (African American) 160 ML/MIN (>60); Globulin 2.9 g/dL (1.3-3.2); Glucose 109 mg/dl (74-100); Potassium 3.3 mmoL/L (3.5-5.1); Sodium 139 mmol/L (136-145); Total Protein,Serum 6.2 g/dl (6.3-8.2)
--- NOTE | 2021-08-14 09:45 | HMH.ACPN2 ---
Internal Medicine - PN: Subj *Date: 08/14/21 *Time: 10:15 Interval history: 45-year-old female patient resting in bed quietly she is alert and will look around the room she will nod her head yes if any pain but unable to discern exactly what is painful. Continue spontaneous breathing trials, tolerating tube feed without difficulties, abdominal binder intact. Plan for trach early next week. Exam Vital signs and Labs for Last 24 Hours: Temp Pulse Resp BP Pulse Ox 97.5 F L 69 12 136/92 H 98 08/14/21 08:00 08/14/21 08:00 08/14/21 08:00 08/14/21 08:00 08/14/21 08:00 Laboratory Results - last 24 hr 08/14/21 05:42: WBC 7.0, RBC 4.15 L, Hgb 13.0, Hct 41.4, MCV 99.8 H, MCH 31.3 H, MCHC 31.3 L, RDW 16.3, Plt Count 469 H, MPV 8.5, Neut % (Auto) 68.2, Lymph % (Auto) 23.2, [place] % (Auto) 5.4, Eos % (Auto) 0.8, Baso % (Auto) 2.4 H, Neut # (Auto) 4.8, Lymph # (Auto) 1.6, [place] # (Auto) 0.4, Eos # (Auto) 0.1, Baso # (Auto) 0.2 08/14/21 05:42: Sodium 139, Potassium 3.3 L, Chloride 104, Carbon Dioxide 28, Anion Gap 10.3, BUN 9, Creatinine 0.50 L D, Estimated Creat Clear 98, Estimated GFR 132, Est GFR ( Amer) 160 D, Glucose 109 H, Calcium 8.9, Total Bilirubin 0.4, AST 21, ALT 16, Alkaline Phosphatase 95, Total Protein 6.2 L, Albumin 3.3 L, Globulin 2.9, Albumin/Globulin Ratio 1.1 I & O for Last 24 hours: Intake & Output 08/11/21 08/12/21 08/13/21 08/14/21 23:59 23:59 23:59 23:59 Intake Total 601 / 601 675 / 675 368 / 398 237 / 237 Output Total 1026 / 1114 1058 / 1088 1400 / 1430 287 / 287 Balance -425 / -513 -383 / -413 -1032 / -1032 -50 / -50 Weight 97 lb 8 oz 99 lb 9 oz 91 lb 6.4 oz 90 lb 5 oz - Constitutional no acute distress - *Routine HEENT Exam Head: Present: normocephalic Eye: Present: EOMI ENT: Present: mucous membranes moist - *Routine Neck Exam Present: trachea midline. Absent: tracheal deviation - *Routine Respiratory Exam Present: patient mechanically ventilated, rhonchi. Absent: accessory muscle use - *Routine Cardiovascular Exam Present: RRR - *Routine Abdominal Exam Present: soft, normoactive bowel sounds. Absent: tenderness, firm Comments: BT with Abd binder - *Routine Extremities Exam Present: pulses intact. Absent: cyanosis, clubbing - *Routine Skin Exam Present: dry, warm. Absent: cyanosis, erythema - *Routine Neurological Exam Present: alert, altered mental status - Routine Psychiatric Exam Present: unable to assess Assessment and Plan (1) Healthcare-associated pneumonia Status: Acute Category: Medical Code(s): J18.9 - Pneumonia, unspecified organism (2) Multiple sclerosis Status: Chronic Category: Medical Code(s): G35 - Multiple sclerosis (3) Low body mass index (BMI) Status: Acute Category: Medical (4) Respiratory failure Status: Acute Qualifiers: Chronicity: acute Respiratory failure complication: hypoxia Qualified Code(s): J96.01 - Acute respiratory failure with hypoxia Category: Medical Code(s): J96.90 - Respiratory failure, unspecified, unspecified whether with hypoxia or hypercapnia (5) Severe sepsis with acute organ dysfunction Status: Acute Category: Medical Code(s): A41.9 - Sepsis, unspecified organism; R65.20 - Severe sepsis without septic shock (6) Hypernatremia Status: Acute Category: Medical Code(s): E87.0 - Hyperosmolality and hypernatremia (7) Malignant hypertension Status: Resolved Category: Medical Code(s): I10 - Essential (primary) hypertension (8) Sinus tachycardia Status: Resolved Category: Medical Code(s): R00.0 - Tachycardia, unspecified (9) Feeding difficulty in adult Status: Acute Category: Medical Code(s): R63.39 - Other feeding difficulties - Assessment and plan all Dx Assessment and Plan for all problems:: Rounded with Dr. Patel, all orders per Dr. Patel: 1. Continue tube feeds 2. Plan for trach early next week 3. Pulmonary following 4. G
--- NOTE | 2021-08-14 09:47 | DIET.NUTRFU ---
nursing reported patient is tolerating TF, up to 30ml/hr this morning and no residuals throughout night. Plan to increase to goal rate today to provide Pulm[facility] 40ml/hr ATC providing 1380kcal (34kcal/kg), 57.5gm protein (1.4gm/kg) and total fluid of 1682ml/day (41ml/kg) exceeding fluid needs, may need to adjust flush once at goal rate. Labs today were: Na 139, K 3.3L, BUN 19, Cr 0.50 and glucose 109H. Na had improved from 136. Patient noted to have stage II to coccyx area, she continues to be at high risk for skin breakdown d/t limited mobility dependent on staff for repositioning. Tx in place. Plan to have trach placed early next week and then finalizing placement to LTC facility.
--- NOTE | 2021-08-14 12:00 | HMH.PULMPN ---
Internal Medicine - PN: Subj *Date: 08/14/21 *Time: 12:00 Interval history: No acute respiratory events overnight Exam - Constitutional Constitutional:: Present: no acute distress, comfortable - HENMT Exam HENMT: Present: normocephalic, atraumatic - Eye Exam Eyes:: Present: normal appearance both eyes and related structures - Neck Exam Neck:: Present: normal visual inspection - Respiratory Exam Respiratory:: Present: lungs clear, no respiratory distress. Absent: wheezing - Cardiovascular Exam Cardiac:: Present: S1, S2 - GI Exam GI:: Present: soft - Skin Exam Skin: Present: warm, no rash - Neurological Exam Neurological: Present: awake. Absent: alert, normal cognition - Extremities Exam Extremities: Present: no cyanosis, no clubbing, no edema Assessment and Plan (1) Healthcare-associated pneumonia Status: Acute Category: Medical Code(s): J18.9 - Pneumonia, unspecified organism (2) Multiple sclerosis Status: Chronic Category: Medical Code(s): G35 - Multiple sclerosis (3) Low body mass index (BMI) Status: Acute Category: Medical (4) Respiratory failure Status: Acute Qualifiers: Chronicity: acute Respiratory failure complication: hypoxia Qualified Code(s): J96.01 - Acute respiratory failure with hypoxia Category: Medical Code(s): J96.90 - Respiratory failure, unspecified, unspecified whether with hypoxia or hypercapnia (5) Severe sepsis with acute organ dysfunction Status: Acute Category: Medical Code(s): A41.9 - Sepsis, unspecified organism; R65.20 - Severe sepsis without septic shock (6) Hypernatremia Status: Acute Category: Medical Code(s): E87.0 - Hyperosmolality and hypernatremia (7) Malignant hypertension Status: Resolved Category: Medical Code(s): I10 - Essential (primary) hypertension (8) Sinus tachycardia Status: Resolved Category: Medical Code(s): R00.0 - Tachycardia, unspecified (9) Feeding difficulty in adult Status: Acute Category: Medical Code(s): R63.39 - Other feeding difficulties - Assessment and plan all Dx Assessment and Plan for all problems:: #Acute hypoxic respiratory failure: 45-year-old history of multiple sclerosis, high risk of aspiration and history of recurrent aspiration pneumonia presents with worsening respiratory distress needing intubation and mechanical ventilatory support. Patient completed 10-day course of Zosyn and clindamycin. Patient predominant problem throughout his hospital admission is her inability to protect her airway and clear her secretions. Patient was intubated 3x04 secondary inability to protect her secretions. Fortunately most recent intubation was secondary to mucous plugging of her left mainstem bronchus with near complete collapse of the left lung. Given her continued inability to for airway and unable to clear the secretions I believe patient would be an ideal candidate for tracheostomy. Patient will need aggressive pulmonary toilet. Primary team has discussed with the family and the family want to proceed with trach and PEG placement. Patient respiratory has been relatively stable on minimal vent settings. She is successfully passing her spontaneous breathing trials however given her continued respiratory failures post extubation needing mechanical ventilatory support and intubation 3 times so far plan was made to proceed with tracheostomy, primary team has discussed with the patient and the patient family wants aggressive measures at this point of time. PEG placement by surgery today. Scheduled for tracheostomy Tuesday. Interval update: Patient continued to remain on minimal ventilator setting successfully passing SBT's. Auscultation significantly improved. Scheduled for tracheostomy Tuesday. Plan: -Continue PRN sedation protocol. Continue SBT daily. -Respiratory status remained stable. Continue to remain on minimal vent settings. Successfully performing SBT's with int
--- NOTE | 2021-08-14 12:10 | PC.NURSE ---
RESP CARE NOTE: Pt placed on Spontaneous Breathing Trial at 5/5 cmH2O and 25% FIO2. Will monitor patient.
--- NOTE | 2021-08-14 12:55 | PC.NURSE ---
RESP CARE NOTE: Pt placed back into A/C mode of ventilation due to continued periods of apnea and low Vt per Dr Monahan t/o. Will continue to monitor patient.
[2021-08-15] VITALS (28 sets, daily range): BP systolic 114–158; BP diastolic 79–102; PULSE 60–84; RESP 0–21; TEMP 36.5–37.2; O2SAT 95–100; BMI 15.7
--- NOTE | 2021-08-15 01:45 | PC.WOUNDNOTE ---
stage 2 coccyx
--- NOTE | 2021-08-15 01:47 | PC.WOUNDNOTE ---
erythema to bilateral inner knees
--- NOTE | 2021-08-15 03:20 | PC.NURSE ---
No acute changes. Pt has slept at intervals this shift. No complaints. Vent settings are as follows: AC, FiO2 25%, R 12, TV 300, PEEP 5. F/C draining to bedside. Decreased urine output noted. VSS. No other concerns. Will continue to monitor.
--- NOTE | 2021-08-15 06:00 | XR_ITS ---
PROCEDURE INFORMATION: Exam: XR Chest Exam date and time: 08/15/2021 6:00 AM Age: 45 years old Clinical indication: Device placement; Ett placement (vent status); Additional info: Daily while intubated TECHNIQUE: Imaging protocol: XR of the chest. Views: 1 view. COMPARISON: CR XR CHEST PORTABLE 08/14/2021 5:09 AM FINDINGS: Tubes, catheters and devices: The ET tube is 4.2 cm from the lovely. Lungs: The lungs remain clear. Pleural spaces: Unremarkable. No pleural effusion. No pneumothorax. Heart/Mediastinum: Unremarkable. No cardiomegaly. Bones/joints: Unremarkable. IMPRESSION: Stable unremarkable exam. ET tube in good position.
[2021-08-15 07:40] LABS: Lactate Arterial 0.7 mmol/L (0.4-2.0)
[2021-08-15 07:42] LABS: ABG Base Excess 3.4 mmol/L (-2.4-2.3); ABG HCO3 26.4 mmhg (22.0-26.0); ABG Oxygen Saturation 98 % (90-100); ABG PH 7.51 mmol/L (7.35-7.45); ABG PO2 110.6 mmhg (80-100); ABG TCO2 27.4 mmhg (23-27)
[2021-08-15 07:43] LABS: Allen's Test Patient Unable; Oxygen 25 %; PEEP 5; Source Right Radial; Tidal Volume 200; Vent Rate 12
--- NOTE | 2021-08-15 10:29 | P.PN_ITS ---
Internal Medicine - PN: Subj *Date: 08/16/21 *Time: 05:10 Interval history: on vent and grossly stable - trach pending Exam Vital signs and Labs for Last 24 Hours: Temp Pulse Resp BP Pulse Ox 99 F 83 21 133/93 H 98 08/15/21 08:00 08/15/21 09:00 08/15/21 09:00 08/15/21 09:00 08/15/21 09:00 Laboratory Results - last 24 hr 08/15/21 06:00: ABG Lactate 0.7 08/15/21 06:00: Specimen Source Right radial, O2 % 25, ABG pH 7.51 H, ABG pCO2 34.0 L, ABG pO2 110.6 H, ABG HCO3 26.4 H, ABG Total CO2 27.4 H, ABG O2 Saturation 98, ABG Base Excess 3.4 H, Ronnell Test Patient unable, Vent Rate 12, Tidal Volume 200, PEEP 5 I & O for Last 24 hours: Intake & Output 08/12/21 08/13/21 08/14/21 08/15/21 11:59 11:59 11:59 11:59 Intake Total 567 / 587 435 / 555 605 / 605 1846 / 1846 Output Total 940 / 970 1395 / 1485 1022 / 1047 735 / 735 Balance -373 / -383 -960 / -930 -417 / -442 1111 / 1111 Weight 99 lb 9 oz 91 lb 6.4 oz 90 lb 5 oz 92 lb 5 oz - Constitutional no acute distress - *Routine HEENT Exam Head: Present: normocephalic Eye: Present: EOMI, PERRL ENT: Present: mucous membranes dry - *Routine Neck Exam Absent: JVD - *Routine Respiratory Exam Present: patient mechanically ventilated - *Routine Cardiovascular Exam Present: RRR - *Routine Abdominal Exam Present: soft - *Routine Extremities Exam Absent: edema - *Routine Skin Exam Absent: rash - *Routine Neurological Exam sedated - Routine Psychiatric Exam Present: unable to assess Assessment and Plan (1) Healthcare-associated pneumonia Status: Acute Category: Medical Code(s): J18.9 - Pneumonia, unspecified organism (2) Multiple sclerosis Status: Chronic Category: Medical Code(s): G35 - Multiple sclerosis (3) Low body mass index (BMI) Status: Acute Category: Medical (4) Respiratory failure Status: Acute Qualifiers: Chronicity: acute Respiratory failure complication: hypoxia Qualified Co de(s): J96.01 - Acute respiratory failure with hypoxia Category: Medical Code(s): J96.90 - Respiratory failure, unspecified, unspecif ied whether with hypoxia or hypercapnia (5) Severe sepsis with acute organ dysfunction Status: Acute Category: Medical Code(s): A41.9 - Sepsis, unspecified organism; R65.20 - Severe sepsis without septic shock (6) Hypernatremia Status: Acute Category: Medical Code(s): E87.0 - Hyperosmolality and hypernatremia (7) Malignant hypertension Status: Resolved Category: Medical Code(s): I10 - Essential (primary) hypertension (8) Sinus tachycardia Status: Resolved Category: Medical Code(s): R00.0 - Tachycardia, unspecified (9) Feeding difficulty in adult Status: Acute Category: Medical Code(s): R63.39 - Other feeding difficulties
[2021-08-15 15:09] LABS: Basophils # 0.1 K/mm3 (0-0.2); Basophils % 1.6 % (0.1-2.0); Eosinophils # 0.1 K/mm3 (0.0-0.4); Eosinophils % 1.2 % (0.1-12.0); Hematocrit 34.8 % (37.0-47.0); Hemoglobin 11.5 g/dL (12.2-16.2); Lymphocytes # 1.6 K/mm3 (0.7-4.5); Lymphocytes % 26.4 % (10-50); Mean Corpuscular HGB Conc 33.2 g/dL (31.8-35.4); Mean Corpuscular Hemoglobin 32.2 pg (27.0-31.2); Mean Corpuscular Volume 97.2 fl (81-99); Mean Platelet Volume 9.4 fl (7.4-10.4); Monocytes # 0.3 K/mm3 (0.1-1.0); Monocytes % 5.4 % (1.7-9.3); Neutrophils # 3.9 K/mm3 (1.8-7.8); Neutrophils % 65.4 % (37.0-80.0); Platelet Count 358 K/mm3 (142-424); Red Blood Count 3.58 M/mm3 (4.20-5.40); Red Cell Distribution Width 16.1 % (11.5-17.5); White Blood Count 5.9 K/mm3 (4.8-10.8)
[2021-08-15 15:28] LABS: Alanine Aminotransferase 14 U/L (12-78); Albumin Level 3.3 g/dl (3.5-5.0); Albumin/Globulin Ratio 1.2 (1.1-1.8); Alkaline Phosphatase 84 U/L (38-126); Anion Gap 8.7 mEq/L (5-15); Aspartate Amino Transferase 23 U/L (14-36); Bilirubin,Total 0.3 mg/dl (0.2-1.3); Blood Urea Nitrogen 11 mg/dl (7-17); Calcium 8.7 mg/dl (8.4-10.2); Carbon Dioxide 28 mmol/L (22.0-30.0); Chloride 103 mmol/L (98-107); Creatinine Clearance Estimated 115 mL/min (50-200); Estimated Glomerular Filt Rate 171 ml/min (>60); GFR (African American) 207 ML/MIN (>60); Globulin 2.7 g/dL (1.3-3.2); Glucose 111 mg/dl (74-100); Potassium 3.7 mmoL/L (3.5-5.1); Sodium 136 mmol/L (136-145)
--- NOTE | 2021-08-15 18:19 | PC.NURSE ---
No acute changes noted this shift, patient was placed on SBT this am for around three hours, current vent settings AC mode, FiOs 25%, RR 12, TV 300, Peep 5, 7.5 ETT 21@lip. Pulmocare infusing through Peg tube at goal rate, max GRV this shift 60, FC patent and draining clear yellow urine at bedside, UOP 30-40ml/hr, Patient at baseline mentation, able to follow commands and nod yes or no appropriately to questions, patient has been turned q2h and provided oral care and suctioning. Secretions thin and white to clear, Stage IIs present on coccyx, pictures uploaded to chart, no s/s of distress noted, vss.
[2021-08-16] VITALS (30 sets, daily range): BP systolic 122–158; BP diastolic 78–106; PULSE 60–88; RESP 12–17; TEMP 36.6–37.2; O2SAT 96–100; BMI 15.7
--- NOTE | 2021-08-16 06:00 | XR_ITS ---
PROCEDURE INFORMATION: Exam: XR Chest Exam date and time: 08/16/2021 6:00 AM Age: 45 years old Clinical indication: Device placement; Ett placement (vent status) TECHNIQUE: Imaging protocol: XR of the chest. Views: 1 view. COMPARISON: CR XR CHEST PORTABLE 08/15/2021 6:18 AM FINDINGS: Tubes, catheters and devices: The ET tube is 6 cm from the lovely. Lungs: Unremarkable. No consolidation. Pleural spaces: Unremarkable. No pleural effusion. No pneumothorax. Heart/Mediastinum: Unremarkable. No cardiomegaly. Bones/joints: Unremarkable. IMPRESSION: ET tube in good
[2021-08-16 08:20] LABS: ABG Base Excess 1.8 mmol/L (-2.4-2.3); ABG HCO3 24.7 mmhg (22.0-26.0); ABG Oxygen Saturation 99 % (90-100); ABG PCO2 31.1 mmhg (35.0-45.0); ABG PH 7.52 mmol/L (7.35-7.45); ABG PO2 125.9 mmhg (80-100); ABG TCO2 25.6 mmhg (23-27)
[2021-08-16 08:23] LABS: Oxygen 25 %; PEEP 5; Tidal Volume 300; Vent Rate 12
[2021-08-16 08:24] LABS: Allen's Test Patient Unable; Source Right Radial
--- NOTE | 2021-08-16 09:46 | HMH.ACPN2 ---
Internal Medicine - PN: Subj *Date: 08/16/21 *Time: 22:09 Interval history: pt on vent - stable Exam Vital signs and Labs for Last 24 Hours: Temp Pulse Resp BP Pulse Ox 98.6 F 87 16 158/101 H 99 08/16/21 09:00 08/16/21 09:00 08/16/21 09:00 08/16/21 09:00 08/16/21 09:00 Laboratory Results - last 24 hr 08/15/21 14:40: WBC 5.9, RBC 3.58 L, Hgb 11.5 L, Hct 34.8 L, MCV 97.2, MCH 32.2 H, MCHC 33.2, RDW 16.1, Plt Count 358, MPV 9.4, Neut % (Auto) 65.4, Lymph % (Auto) 26.4, Collin % (Auto) 5.4, Eos % (Auto) 1.2, Baso % (Auto) 1.6, Neut # (Auto) 3.9, Lymph # (Auto) 1.6, Collin # (Auto) 0.3, Eos # (Auto) 0.1, Baso # (Auto) 0.1 08/15/21 14:40: Sodium 136, Potassium 3.7, Chloride 103, Carbon Dioxide 28, Anion Gap 8.7, BUN 11, Creatinine 0.40 L, Estimated Creat Clear 115, Estimated GFR 171, Est GFR ( Amer) 207 D, Glucose 111 H, Calcium 8.7, Total Bilirubin 0.3, AST 23, ALT 14, Alkaline Phosphatase 84, Total Protein 6.0 L, Albumin 3.3 L, Globulin 2.7, Albumin/Globulin Ratio 1.2 08/16/21 07:00: Specimen Source Right radial, O2 % 25, ABG pH 7.52 H, ABG pCO2 31.1 L, ABG pO2 125.9 H, ABG HCO3 24.7, ABG Total CO2 25.6, ABG O2 Saturation 99, ABG Base Excess 1.8, Ronnell Test Patient unable, Vent Rate 12, Tidal Volume 300, PEEP 5 I & O for Last 24 hours: Intake & Output 08/13/21 08/14/21 08/15/21 08/16/21 11:59 11:59 11:59 11:59 Intake Total 435 / 555 605 / 605 2086 / 2126 1120 / 1120 Output Total 1395 / 1485 1022 / 1047 800 / 825 994 / 994 Balance -960 / -930 -417 / -442 1286 / 1301 126 / 126 Weight 91 lb 6.4 oz 90 lb 5 oz 92 lb 5 oz 92 lb 6 oz - Constitutional Comments: on vent - sedated - *Routine HEENT Exam Head: Present: normocephalic Eye: Present: PERRL ENT: Present: mucous membranes dry - *Routine Neck Exam Absent: JVD - *Routine Respiratory Exam Present: patient mechanically ventilated - *Routine Cardiovascular Exam Present: RRR - *Routine Abdominal Exam Present: soft - *Routine Extremities Exam Absent: calf tenderness - *Routine Skin Exam Absent: jaundice - *Routine Neurological Exam Present: altered mental status - Routine Psychiatric Exam Present: unable to assess Assessment and Plan (1) Healthcare-associated pneumonia Status: Acute Category: Medical Code(s): J18.9 - Pneumonia, unspecified organism (2) Multiple sclerosis Status: Chronic Category: Medical Code(s): G35 - Multiple sclerosis (3) Low body mass index (BMI) Status: Acute Category: Medical (4) Respiratory failure Status: Acute Qualifiers: Chronicity: acute Respiratory failure complication: hypoxia Qualified Code(s): J96.01 - Acute respiratory failure with hypoxia Category: Medical Code(s): J96.90 - Respiratory failure, unspecified, unspecified whether with hypoxia or hypercapnia (5) Severe sepsis with acute organ dysfunction Status: Acute Category: Medical Code(s): A41.9 - Sepsis, unspecified organism; R65.20 - Severe sepsis without septic shock (6) Hypernatremia Status: Acute Category: Medical Code(s): E87.0 - Hyperosmolality and hypernatremia (7) Malignant hypertension Status: Resolved Category: Medical Code(s): I10 - Essential (primary) hypertension (8) Sinus tachycardia Status: Resolved Category: Medical Code(s): R00.0 - Tachycardia, unspecified (9) Feeding difficulty in adult Status: Acute Category: Medical Code(s): R63.39 - Other feeding difficulties
[2021-08-17] VITALS (33 sets, daily range): BP systolic 102–155; BP diastolic 69–114; PULSE 49–99; RESP 12–19; TEMP 36.6–37.3; O2SAT 96–100; BMI 15.7
--- NOTE | 2021-08-17 04:05 | PC.NURSE ---
Pt c/o abdominal discomfort x1 this shift. Medicated per oct. Pt has had 2 BM's. Bed bath given. Pt turned . Oral care and suctioning provided. Secretions have been moderate. F/C draining to bedside with clear, yellow urine. Vent settings are as follows: AC, FiO2 25%, TV 300, R 12, PEEP 5. Pulmocare is infusing @ 40 ml/hr. Residuals 5. No other concerns. Will continue to monitor.
--- NOTE | 2021-08-17 06:21 | XR_ITS ---
FINAL REPORT CLINICAL HISTORY: ETT placement FINDINGS: A single portable view of the chest was obtained. ET tube is present with the tip in the midthoracic trachea. The heart size and pulmonary vascularity are within normal limits. The mediastinum is within normal limits. No acute pulmonary abnormality is identified. The bony thorax is intact. IMPRESSION: ET tube in the midthoracic trachea. No active cardiopulmonary disease. Reviewed, Interpreted and Dictated by Armando Rodriguez III, MD Transcribed by Charmaine Mansfield Authenticated by Armando Rodriguez III, MD on 08/17/2021 07:32:11 AM [facility]
[2021-08-17 07:05] LABS: Basophils # 0.1 K/mm3 (0-0.2); Basophils % 1.5 % (0.1-2.0); Eosinophils # 0.1 K/mm3 (0.0-0.4); Eosinophils % 0.9 % (0.1-12.0); Hematocrit 39.6 % (37.0-47.0); Hemoglobin 12.7 g/dL (12.2-16.2); Lymphocytes # 2.5 K/mm3 (0.7-4.5); Lymphocytes % 32.9 % (10-50); Mean Corpuscular Hemoglobin 31.6 pg (27.0-31.2); Mean Corpuscular Volume 98.7 fl (81-99); Mean Platelet Volume 8.7 fl (7.4-10.4); Monocytes # 0.5 K/mm3 (0.1-1.0); Monocytes % 7.1 % (1.7-9.3); Neutrophils # 4.4 K/mm3 (1.8-7.8); Neutrophils % 57.5 % (37.0-80.0); Platelet Count 337 K/mm3 (142-424); Red Blood Count 4.01 M/mm3 (4.20-5.40); Red Cell Distribution Width 16.1 % (11.5-17.5); White Blood Count 7.6 K/mm3 (4.8-10.8)
[2021-08-17 07:28] LABS: Anion Gap 7.4 mEq/L (5-15); Blood Urea Nitrogen 13 mg/dl (7-17); Calcium 8.9 mg/dl (8.4-10.2); Carbon Dioxide 28 mmol/L (22.0-30.0); Chloride 103 mmol/L (98-107); Creatinine Clearance Estimated 115 mL/min (50-200); Estimated Glomerular Filt Rate 171 ml/min (>60); GFR (African American) 207 ML/MIN (>60); Glucose 106 mg/dl (74-100); Potassium 4.4 mmoL/L (3.5-5.1); Sodium 134 mmol/L (136-145)
--- NOTE | 2021-08-17 08:15 | PC.NURSE ---
RESP CARE NOTE: Pt placed on Spontaneous Breathing Trial at 5/5 cmH2O with 25% FIO2.
--- NOTE | 2021-08-17 08:36 | PC.NURSE ---
RESP CARE NOTE: Pt failed SBT trial due to low Ve and apnea, consistently triggering back up ventilation mode.
--- NOTE | 2021-08-17 09:17 | HMH.ACPN2 ---
Internal Medicine - PN: Subj *Date: 08/17/21 *Time: 10:14 Interval history: 45-year-old female patient intubated on ventilator, scheduled for tracheostomy tomorrow. G-tube infusing with no difficulty Exam Vital signs and Labs for Last 24 Hours: Temp Pulse Resp BP Pulse Ox 98.5 F 72 16 136/114 H 98 08/17/21 09:00 08/17/21 08:00 08/17/21 07:00 08/17/21 09:00 08/17/21 09:00 Laboratory Results - last 24 hr 08/17/21 06:48: WBC 7.6 D, RBC 4.01 L, Hgb 12.7, Hct 39.6, MCV 98.7, MCH 31.6 H, MCHC 32.0, RDW 16.1, Plt Count 337, MPV 8.7, Neut % (Auto) 57.5, Lymph % (Auto) 32.9, Sumner % (Auto) 7.1, Eos % (Auto) 0.9, Baso % (Auto) 1.5, Neut # (Auto) 4.4, Lymph # (Auto) 2.5, Sumner # (Auto) 0.5, Eos # (Auto) 0.1, Baso # (Auto) 0.1 08/17/21 06:48: Sodium 134 L, Potassium 4.4, Chloride 103, Carbon Dioxide 28, Anion Gap 7.4, BUN 13, Creatinine 0.40 L, Estimated Creat Clear 115, Estimated GFR 171, Est GFR ( Amer) 207, Glucose 106 H, Calcium 8.9 I & O for Last 24 hours: Intake & Output 08/14/21 08/15/21 08/16/21 08/17/21 23:59 23:59 23:59 23:59 Intake Total 1523 / 1723 1360 / 1400 1280 / 1320 320 / 320 Output Total 732 / 757 1074 / 1114 1125 / 1150 640 / 640 Balance 791 / 966 286 / 286 155 / 170 -320 / -320 Weight 90 lb 5 oz 92 lb 5 oz 92 lb 6 oz 92 lb 3.2 oz - Constitutional no acute distress - *Routine HEENT Exam Head: Present: normocephalic Eye: Present: EOMI ENT: Present: mucous membranes moist - *Routine Neck Exam Present: trachea midline. Absent: tracheal deviation - *Routine Respiratory Exam Present: patient mechanically ventilated, rhonchi - *Routine Cardiovascular Exam Present: RRR - *Routine Abdominal Exam Present: soft, normoactive bowel sounds. Absent: tenderness, firm Comments: PEG Tube w/ Binder - *Routine Extremities Exam Present: pulses intact. Absent: cyanosis, clubbing - *Routine Skin Exam Present: dry. Absent: cyanosis, erythema - *Routine Neurological Exam Present: alert, altered mental status - Routine Psychiatric Exam Present: unable to assess Assessment and Plan (1) Healthcare-associated pneumonia Status: Acute Category: Medical Code(s): J18.9 - Pneumonia, unspecified organism (2) Multiple sclerosis Status: Chronic Category: Medical Code(s): G35 - Multiple sclerosis (3) Low body mass index (BMI) Status: Acute Category: Medical (4) Respiratory failure Status: Acute Qualifiers: Chronicity: acute Respiratory failure complication: hypoxia Qualified Code(s): J96.01 - Acute respiratory failure with hypoxia Category: Medical Code(s): J96.90 - Respiratory failure, unspecified, unspecified whether with hypoxia or hypercapnia (5) Severe sepsis with acute organ dysfunction Status: Acute Category: Medical Code(s): A41.9 - Sepsis, unspecified organism; R65.20 - Severe sepsis without septic shock (6) Hypernatremia Status: Acute Category: Medical Code(s): E87.0 - Hyperosmolality and hypernatremia (7) Malignant hypertension Status: Resolved Category: Medical Code(s): I10 - Essential (primary) hypertension (8) Sinus tachycardia Status: Resolved Category: Medical Code(s): R00.0 - Tachycardia, unspecified (9) Feeding difficulty in adult Status: Acute Category: Medical Code(s): R63.39 - Other feeding difficulties - Assessment and plan all Dx Assessment and Plan for all problems:: Follow-up with Dr. Welsh, all orders per Dr. Welsh: 1. Continue to wean O2 as tolerated 2. Continue tube feeding 3. Plan for tracheostomy tomorrow
--- NOTE | 2021-08-17 09:34 | HMH.PULMPN ---
Internal Medicine - PN: Subj *Date: 08/17/21 *Time: 15:25 Interval history: No acute respiratory events over the weekend. Exam - Constitutional Constitutional:: Present: no acute distress, comfortable - HENMT Exam HENMT: Present: normocephalic, atraumatic - Eye Exam Eyes:: Present: normal appearance both eyes and related structures - Neck Exam Neck:: Present: normal visual inspection - Respiratory Exam Respiratory:: Present: no respiratory distress. Absent: crackles, stridor - Cardiovascular Exam Cardiac:: Present: S1, S2 - GI Exam GI:: Present: soft - Skin Exam Skin: Present: warm, no rash - Neurological Exam Neurological: Present: awake. Absent: alert, normal cognition - Extremities Exam Extremities: Present: no cyanosis, no clubbing, no edema Assessment and Plan (1) Healthcare-associated pneumonia Status: Acute Category: Medical Code(s): J18.9 - Pneumonia, unspecified organism (2) Multiple sclerosis Status: Chronic Category: Medical Code(s): G35 - Multiple sclerosis (3) Low body mass index (BMI) Status: Acute Category: Medical (4) Respiratory failure Status: Acute Qualifiers: Chronicity: acute Respiratory failure complication: hypoxia Qualified Code(s): J96.01 - Acute respiratory failure with hypoxia Category: Medical Code(s): J96.90 - Respiratory failure, unspecified, unspecified whether with hypoxia or hypercapnia (5) Severe sepsis with acute organ dysfunction Status: Acute Category: Medical Code(s): A41.9 - Sepsis, unspecified organism; R65.20 - Severe sepsis without septic shock (6) Hypernatremia Status: Acute Category: Medical Code(s): E87.0 - Hyperosmolality and hypernatremia (7) Malignant hypertension Status: Resolved Category: Medical Code(s): I10 - Essential (primary) hypertension (8) Sinus tachycardia Status: Resolved Category: Medical Code(s): R00.0 - Tachycardia, unspecified (9) Feeding difficulty in adult Status: Acute Category: Medical Code(s): R63.39 - Other feeding difficulties - Assessment and plan all Dx Assessment and Plan for all problems:: #Acute hypoxic respiratory failure: 45-year-old history of multiple sclerosis, high risk of aspiration and history of recurrent aspiration pneumonia presents with worsening respiratory distress needing intubation and mechanical ventilatory support. Patient completed 10-day course of Zosyn and clindamycin. Patient predominant problem throughout his hospital admission is her inability to protect her airway and clear her secretions. Patient was intubated 3x04 secondary inability to protect her secretions. Fortunately most recent intubation was secondary to mucous plugging of her left mainstem bronchus with near complete collapse of the left lung. Given her continued inability to for airway and unable to clear the secretions I believe patient would be an ideal candidate for tracheostomy. Patient will need aggressive pulmonary toilet. Primary team has discussed with the family and the family want to proceed with trach and PEG placement. Patient respiratory has been relatively stable on minimal vent settings. She is successfully passing her spontaneous breathing trials however given her continued respiratory failures post extubation needing mechanical ventilatory support and intubation 3 times so far plan was made to proceed with tracheostomy, primary team has discussed with the patient and the patient family wants aggressive measures at this point of time. PEG placed by surgery. Interval update: Patient continued to remain on minimal ventilator setting. Patient has not been passing her SBT's over the weekend with increasing apnea episodes. Given her history of multiple sclerosis and increasing episodes of apneic events with her SBT's this is a little bit concerning for the possibility of worsening MS/flare at this point of time. However this can well be her deconditioning g
--- NOTE | 2021-08-17 12:06 | DIET.NUTRFU ---
RD reviewed labs, Na 134L, K 4.4, BUN 13, Cr 0.4 and glucose 106H. Patient is tolerating goal rate of TF at 40ml/hr providinkcal (34kcal/kg), 57.5gm protein (1.4gm/kg) and total fluid of 1682ml/day (41ml/kg) exceeding fluid needs. Based on labs will decrease flush to 100ml Q4H providing 600ml/day with total fluid of 1322ml (32ml/kg). Plans to have trach placed tomorrow and possible placement for this week.
[2021-08-18] VITALS (29 sets, daily range): BP systolic 93–181; BP diastolic 65–113; PULSE 60–80; RESP 12–21; TEMP 36.6–37.2; O2SAT 94–100; BMI 16.2
[2021-08-18 06:45] LABS: Basophils # 0.2 K/mm3 (0-0.2); Basophils % 3.6 % (0.1-2.0); Eosinophils # 0.1 K/mm3 (0.0-0.4); Hematocrit 37.3 % (37.0-47.0); Lymphocytes # 1.8 K/mm3 (0.7-4.5); Lymphocytes % 30.9 % (10-50); Mean Corpuscular HGB Conc 32.1 g/dL (31.8-35.4); Mean Corpuscular Hemoglobin 31.7 pg (27.0-31.2); Mean Corpuscular Volume 98.6 fl (81-99); Mean Platelet Volume 7.9 fl (7.4-10.4); Monocytes # 0.3 K/mm3 (0.1-1.0); Monocytes % 4.8 % (1.7-9.3); Neutrophils # 3.5 K/mm3 (1.8-7.8); Neutrophils % 59.7 % (37.0-80.0); Platelet Count 309 K/mm3 (142-424); Red Blood Count 3.78 M/mm3 (4.20-5.40); White Blood Count 5.8 K/mm3 (4.8-10.8)
[2021-08-18 06:58] LABS: Anion Gap 11.2 mEq/L (5-15); Blood Urea Nitrogen 15 mg/dl (7-17); Calcium 8.9 mg/dl (8.4-10.2); Carbon Dioxide 28 mmol/L (22.0-30.0); Chloride 103 mmol/L (98-107); Creatinine Clearance Estimated 118 mL/min (50-200); Estimated Glomerular Filt Rate 171 ml/min (>60); GFR (African American) 207 ML/MIN (>60); Glucose 104 mg/dl (74-100); Potassium 4.2 mmoL/L (3.5-5.1); Sodium 138 mmol/L (136-145)
--- NOTE | 2021-08-18 07:17 | XR_ITS ---
FINAL REPORT CLINICAL HISTORY: intubated COMPARISON: August 10, 2021 FINDINGS: The NG tube has been removed. The ET tube remains in place. The heart size is normal. The mediastinum is normal. There is no focal infiltrate or edema. There are no pleural effusions. There is no pneumothorax. There is no osseous abnormality. IMPRESSION: No acute cardiopulmonary process. Interval removal of NG tube. Reviewed, Interpreted and Dictated by Armando Rodriguez III, MD Transcribed by Sarabjit Melvin Authenticated by Armando Rodriguez III, MD on 08/18/2021 09:18:00 AM [facility]
--- NOTE | 2021-08-18 09:30 | HMH.ACPN2 ---
Internal Medicine - PN: Subj *Date: 08/18/21 *Time: 09:30 Interval history: 45-year-old female remains mechanically ventilated, shakes head no when asked if in pain schedule for tracheostomy placement today Exam Vital signs and Labs for Last 24 Hours: Temp Pulse Resp BP Pulse Ox 98.8 F 78 16 124/80 99 08/18/21 07:00 08/18/21 07:00 08/18/21 07:00 08/18/21 07:00 08/18/21 07:00 Laboratory Results - last 24 hr 08/18/21 06:31: WBC 5.8, RBC 3.78 L, Hgb 12.0 L, Hct 37.3, MCV 98.6, MCH 31.7 H, MCHC 32.1, RDW 16.0, Plt Count 309, MPV 7.9, Neut % (Auto) 59.7, Lymph % (Auto) 30.9, Brooks % (Auto) 4.8, Eos % (Auto) 1.0, Baso % (Auto) 3.6 H, Neut # (Auto) 3.5, Lymph # (Auto) 1.8, Brooks # (Auto) 0.3, Eos # (Auto) 0.1, Baso # (Auto) 0.2 08/18/21 06:31: Sodium 138, Potassium 4.2, Chloride 103, Carbon Dioxide 28, Anion Gap 11.2, BUN 15, Creatinine 0.40 L, Estimated Creat Clear 118, Estimated GFR 171, Est GFR ( Amer) 207, Glucose 104 H, Calcium 8.9 I & O for Last 24 hours: Intake & Output 08/15/21 08/16/21 08/17/21 08/18/21 23:59 23:59 23:59 23:59 Intake Total 1360 / 1400 1280 / 1320 1489 / 1629 380 / 380 Output Total 1074 / 1114 1125 / 1150 1260 / 1360 500 / 500 Balance 286 / 286 155 / 170 229 / 269 -120 / -120 Weight 92 lb 5 oz 92 lb 6 oz 92 lb 3.2 oz 95 lb 2 oz - Constitutional no acute distress - *Routine HEENT Exam Head: Present: normocephalic ENT: Present: mucous membranes moist - *Routine Neck Exam Present: trachea midline. Absent: tracheal deviation - *Routine Respiratory Exam Present: patient mechanically ventilated, wheezes - *Routine Cardiovascular Exam Present: RRR - *Routine Abdominal Exam Present: soft, normoactive bowel sounds. Absent: tenderness, firm - *Routine Extremities Exam Present: pulses intact. Absent: cyanosis, clubbing - *Routine Skin Exam Present: dry. Absent: cyanosis, erythema - *Routine Neurological Exam Present: alert, altered mental status. Absent: oriented X3 - Routine Psychiatric Exam Present: unable to assess Assessment and Plan (1) Healthcare-associated pneumonia Status: Acute Category: Medical Code(s): J18.9 - Pneumonia, unspecified organism (2) Multiple sclerosis Status: Chronic Category: Medical Code(s): G35 - Multiple sclerosis (3) Low body mass index (BMI) Status: Acute Category: Medical (4) Respiratory failure Status: Acute Qualifiers: Chronicity: acute Respiratory failure complication: hypoxia Qualified Code(s): J96.01 - Acute respiratory failure with hypoxia Category: Medical Code(s): J96.90 - Respiratory failure, unspecified, unspecified whether with hypoxia or hypercapnia (5) Severe sepsis with acute organ dysfunction Status: Acute Category: Medical Code(s): A41.9 - Sepsis, unspecified organism; R65.20 - Severe sepsis without septic shock (6) Hypernatremia Status: Acute Category: Medical Code(s): E87.0 - Hyperosmolality and hypernatremia (7) Malignant hypertension Status: Resolved Category: Medical Code(s): I10 - Essential (primary) hypertension (8) Sinus tachycardia Status: Resolved Category: Medical Code(s): R00.0 - Tachycardia, unspecified (9) Feeding difficulty in adult Status: Acute Category: Medical Code(s): R63.39 - Other feeding difficulties - Assessment and plan all Dx Assessment and Plan for all problems:: Rounded with Dr. Welsh, all orders per Dr. Welsh: 1. Trach placement today 2. Start planning for discharge 3. Pulmonology following
--- NOTE | 2021-08-18 11:42 | HMH.PULMPN ---
Internal Medicine - PN: Subj *Date: 08/18/21 *Time: 11:42 Interval history: No acute respiratory events overnight. Patient continues to remain on minimal ventilator settings. Exam - Constitutional Constitutional:: Present: no acute distress, comfortable - HENMT Exam HENMT: Present: normocephalic - Eye Exam Eyes:: Present: normal appearance both eyes and related structures - Respiratory Exam Respiratory:: Present: no respiratory distress, rhonchi. Absent: crackles, rales, wheezing - Cardiovascular Exam Cardiac:: Present: S1, S2 - GI Exam GI:: Present: soft - Skin Exam Skin: Present: warm - Neurological Exam Neurological: Present: awake. Absent: alert, normal cognition - Extremities Exam Extremities: Present: no cyanosis, no clubbing, edema Assessment and Plan (1) Healthcare-associated pneumonia Status: Acute Category: Medical Code(s): J18.9 - Pneumonia, unspecified organism (2) Multiple sclerosis Status: Chronic Category: Medical Code(s): G35 - Multiple sclerosis (3) Low body mass index (BMI) Status: Acute Category: Medical (4) Respiratory failure Status: Acute Qualifiers: Chronicity: acute Respiratory failure complication: hypoxia Qualified Code(s): J96.01 - Acute respiratory failure with hypoxia Category: Medical Code(s): J96.90 - Respiratory failure, unspecified, unspecified whether with hypoxia or hypercapnia (5) Severe sepsis with acute organ dysfunction Status: Acute Category: Medical Code(s): A41.9 - Sepsis, unspecified organism; R65.20 - Severe sepsis without septic shock (6) Hypernatremia Status: Acute Category: Medical Code(s): E87.0 - Hyperosmolality and hypernatremia (7) Malignant hypertension Status: Resolved Category: Medical Code(s): I10 - Essential (primary) hypertension (8) Sinus tachycardia Status: Resolved Category: Medical Code(s): R00.0 - Tachycardia, unspecified (9) Feeding difficulty in adult Status: Acute Category: Medical Code(s): R63.39 - Other feeding difficulties - Assessment and plan all Dx Assessment and Plan for all problems:: #Acute hypoxic respiratory failure: 45-year-old history of multiple sclerosis, high risk of aspiration and history of recurrent aspiration pneumonia presents with worsening respiratory distress needing intubation and mechanical ventilatory support. Patient completed 10-day course of Zosyn and clindamycin. Patient predominant problem throughout his hospital admission is her inability to protect her airway and clear her secretions. Patient was intubated 3x04 secondary inability to protect her secretions. Fortunately most recent intubation was secondary to mucous plugging of her left mainstem bronchus with near complete collapse of the left lung. Given her continued inability to for airway and unable to clear the secretions I believe patient would be an ideal candidate for tracheostomy. Patient will need aggressive pulmonary toilet. Primary team has discussed with the family and the family want to proceed with trach and PEG placement. Patient respiratory has been relatively stable on minimal vent settings. She is successfully passing her spontaneous breathing trials however given her continued respiratory failures post extubation needing mechanical ventilatory support and intubation 3 times so far plan was made to proceed with tracheostomy, primary team has discussed with the patient and the patient family wants aggressive measures at this point of time. PEG placed by surgery. Interval update: Patient continued to remain on minimal ventilator setting. Increasing apnea episodes with SBT, given her history of multiple sclerosis and increasing episodes of apneic events with her SBT's this is a little bit concerning for the possibility of worsening MS/flare at this point of time. However this can well be her deconditioning given her prolonged intubation. Will recommend getting an MRI
[2021-08-19] VITALS (36 sets, daily range): BP systolic 119–180; BP diastolic 77–117; PULSE 61–87; RESP 12–16; TEMP 36.3–36.7; O2SAT 95–100; BMI 16.2
--- NOTE | 2021-08-19 06:00 | XR_ITS ---
PROCEDURE INFORMATION: Exam: XR Chest Exam date and time: 08/19/2021 6:00 AM Age: 45 years old Clinical indication: Device placement; Ett placement (vent status); Additional info: Daily while on the vent TECHNIQUE: Imaging protocol: XR of the chest. Views: 1 view. COMPARISON: CR XR CHEST PORTABLE 08/18/2021 8:41 AM FINDINGS: Tubes, catheters and devices: Endotracheal tube terminates approximately 5.6 cm above the lovely. Lungs: Unremarkable. No consolidation. Pleural spaces: Unremarkable. No pleural effusion. No pneumothorax. Heart/Mediastinum: Unremarkable. No cardiomegaly. Bones/joints: Unremarkable. IMPRESSION: Endotracheal tube terminates approximately 5.6 cm above the lovely.
[2021-08-19 06:28] LABS: Basophils # 0.1 K/mm3 (0-0.2); Basophils % 1.1 % (0.1-2.0); Eosinophils % 0.5 % (0.1-12.0); Hematocrit 39.9 % (37.0-47.0); Hemoglobin 12.8 g/dL (12.2-16.2); Lymphocytes # 1.5 K/mm3 (0.7-4.5); Lymphocytes % 24.5 % (10-50); Mean Corpuscular HGB Conc 32.1 g/dL (31.8-35.4); Mean Corpuscular Hemoglobin 31.7 pg (27.0-31.2); Mean Corpuscular Volume 98.6 fl (81-99); Mean Platelet Volume 8.9 fl (7.4-10.4); Monocytes # 0.3 K/mm3 (0.1-1.0); Monocytes % 5.3 % (1.7-9.3); Neutrophils # 4.1 K/mm3 (1.8-7.8); Neutrophils % 68.5 % (37.0-80.0); Platelet Count 292 K/mm3 (142-424); Red Blood Count 4.05 M/mm3 (4.20-5.40)
[2021-08-19 06:32] LABS: Anion Gap 11.1 mEq/L (5-15); Carbon Dioxide 28 mmol/L (22.0-30.0); Chloride 103 mmol/L (98-107); Potassium 4.1 mmoL/L (3.5-5.1); Sodium 138 mmol/L (136-145)
[2021-08-19 06:33] LABS: Blood Urea Nitrogen 15 mg/dl (7-17); Calcium 9.2 mg/dl (8.4-10.2); Creatinine Clearance Estimated 118 mL/min (50-200); Estimated Glomerular Filt Rate 171 ml/min (>60); GFR (African American) 207 ML/MIN (>60); Glucose 95 mg/dl (74-100)
--- NOTE | 2021-08-19 07:55 | PC.NURSE ---
pt to OR for trach
--- NOTE | 2021-08-19 08:20 | P.PN_ITS ---
[facility] Anesthesia Checklist - Patient Identification Patient Identification: Arm Band - Structural Data Admitted From: Inpatient Planned Operative Procedure/s: Tracheostomy Consent for Planned Operative Procedure(s) Verified: Yes Verified Documents: Surgical Consent - NPO Status Verified Time NPO: 00:00 - Chart Verification Results Verified: None - Anesthesia Plan Anesthesia Plan: Patient unable to respond/answer ASA Class: IV Anesthesia Type: General [facility] History I have reviewed the patient's past medical history: Yes *Have you ever received a pneumonia vaccine?: No *Have you received a flu vaccine this season?: No Other Medical History: Reports: Other Anesthesia experience/problems:: none Other Surgeries: Yes: Other - *Social History Smoking Status: Unknown if ever smoked Alcohol Intake: never Alcohol Intake Frequency:: 0-2 drinks per day Substance Use Type: unknown *Occupational Status:: unemployed, disabled Housing: intermediate *Travel in the last 8 weeks: None Family Hx:: Unable to obtain
--- NOTE | 2021-08-19 09:05 | PC.NURSE ---
pt returned back to room 261 from OR. Pt now has a #[address] Obturator placed in specimen bag and taped to wall above the head of her bed. Sutures are in place. Incision is CDI.
--- NOTE | 2021-08-19 09:05 | HMH.OPNOTE ---
Date of procedure: 08/19/21 Pre-op Diagnosis:: Respiratory failure Post-op Diagnosis:: Respiratory failure Procedure performed:: Tracheotomy Surgeon:: Champ Leon MD CONSTRUCTION MGR:: Freeman Castillo Anesthesia: GETA Estimated blood loss (mL): 10 Operative findings:: Thyroid isthmus was normal Operative note:: Patient was brought to the operating room and positioned supine. 1% lidocaine with epinephrine was used to locally infiltrate the skin anterior to the trachea. An incision was then made above the sternal notch and below the palpable cricoid in transverse fashion and carried through the underlying subcutaneous tissues down to the strap muscles. Midline strap muscles were divided at midline and then retracted laterally then the thyroid isthmus was elevated from the anterior tracheal wall and then sequentially clamped divided and suture ligated with 2 o chromic. Then a transverse tracheotomy was created between tracheal rings 2 and 3 and then an inferior flap created on tracheal ring 3. As anesthesia withdrew the endotracheal tube, a #6 cuffed Shiley was placed into the tracheal lumen under direct vision. The cuff of the tube was inflated and the position confirmed and ventilation of both lungs with adequate. The trach collar was secured to skin using 2-0 silk and then trach ties were placed loosely. A trach dressing was placed as well and the procedure concluded. All counts correct blood loss was less than 10 mL and patient was sent back to ICU in stable condition. Condition: stable Disposition: ICU Complications:: none
--- NOTE | 2021-08-19 10:09 | SUR.OPER ---
0800 redness noted to inner thighs near man catheter site prior to surgery
--- NOTE | 2021-08-19 10:27 | SUR.PHASEI ---
0904- Pt transported to the ICU floor immediately following procedure. Pt transferred with continuous monitoring and manual oxygenation via hannah donohue, my becerril and my chin. Upon arrival to the ICU, my becerril and my chin stay at the pt bedside with primary MECHANICAL MAINTENANCE TECHNICIAN (my pinon) to recover pt. Pt remains drowsy/asleep during this time. Detailed report given to my pinon and left in stable condition under her care at 0934. See PACU charting for recovery details. 0904- PEG tube in place, no skin breakdown/drainage/redness noted at this time.
--- NOTE | 2021-08-19 13:51 | HMH.PULMPN ---
Internal Medicine - PN: Subj *Date: 08/19/21 *Time: 13:51 Interval history: No acute respiratory events overnight. Underwent tracheostomy this morning. Exam - Constitutional Constitutional:: Present: no acute distress, comfortable - HENMT Exam HENMT: Present: normocephalic - Eye Exam Eyes:: Present: normal appearance both eyes and related structures - Neck Exam Neck:: Present: normal visual inspection - Respiratory Exam Respiratory:: Present: normal respiratory effort, rhonchi. Absent: respiratory distress, wheezing - Cardiovascular Exam Cardiac:: Present: S1, S2 - GI Exam GI:: Present: soft - Skin Exam Skin: Present: warm, no rash - Neurological Exam Neurological: Present: awake. Absent: alert, normal cognition - Extremities Exam Extremities: Present: no cyanosis, no clubbing, no edema Assessment and Plan (1) Healthcare-associated pneumonia Status: Acute Category: Medical Code(s): J18.9 - Pneumonia, unspecified organism (2) Multiple sclerosis Status: Chronic Category: Medical Code(s): G35 - Multiple sclerosis (3) Low body mass index (BMI) Status: Acute Category: Medical (4) Respiratory failure Status: Acute Qualifiers: Chronicity: acute Respiratory failure complication: hypoxia Qualified Code(s): J96.01 - Acute respiratory failure with hypoxia Category: Medical Code(s): J96.90 - Respiratory failure, unspecified, unspecified whether with hypoxia or hypercapnia (5) Severe sepsis with acute organ dysfunction Status: Acute Category: Medical Code(s): A41.9 - Sepsis, unspecified organism; R65.20 - Severe sepsis without septic shock (6) Hypernatremia Status: Acute Category: Medical Code(s): E87.0 - Hyperosmolality and hypernatremia (7) Malignant hypertension Status: Resolved Category: Medical Code(s): I10 - Essential (primary) hypertension (8) Sinus tachycardia Status: Resolved Category: Medical Code(s): R00.0 - Tachycardia, unspecified (9) Feeding difficulty in adult Status: Acute Category: Medical Code(s): R63.39 - Other feeding difficulties - Assessment and plan all Dx Assessment and Plan for all problems:: #Chronic hypoxic respiratory failure: 45-year-old history of multiple sclerosis, high risk of aspiration and history of recurrent aspiration pneumonia presents with worsening respiratory distress needing intubation and mechanical ventilatory support. Patient completed 10-day course of Zosyn and clindamycin. Patient predominant problem throughout his hospital admission is her inability to protect her airway and clear her secretions. Patient was intubated 3x04 secondary inability to protect her secretions. Fortunately most recent intubation was secondary to mucous plugging of her left mainstem bronchus with near complete collapse of the left lung. Given her continued inability to for airway and unable to clear the secretions I believe patient would be an ideal candidate for tracheostomy. Patient will need aggressive pulmonary toilet. Primary team has discussed with the family and the family want to proceed with trach and PEG placement. Patient respiratory has been relatively stable on minimal vent settings. She is successfully passing her spontaneous breathing trials however given her continued respiratory failures post extubation needing mechanical ventilatory support and intubation 3 times so far plan was made to proceed with tracheostomy, primary team has discussed with the patient and the patient family wants aggressive measures at this point of time. PEG placed by surgery. Tracheostomy by ENT. Tolerated procedures well. Increasing apnea episodes with SBT, given her history of multiple sclerosis and increasing episodes of apneic events with her SBT's this is a little bit concerning for the possibility of worsening MS/flare at this point of time. However this can well be her deconditioning given her prolonged intubation. Wi
--- NOTE | 2021-08-19 14:30 | DIET.NUTRFU ---
Patient is NPO, had trach placed today. When medically feasible start TF at 20ml/hr with goal rate of 40ml/hr providinkcal (34kcal/kg), 57.5gm protein (1.4gm/kg) and flush of 100ml Q4H providing 600ml/day with total fluid of 1322ml (32ml/kg). Labs reviewed on 08/19 with hydration WNL. CBW of 43kg, up slightly from 40kg on 08/14. No GI issues noted, BM daily and good urine output. Provider recommended a MRI to review brain activity d/t progression of MS. Will continue to monitor TF tolerance and discharge plans
[2021-08-20] VITALS (29 sets, daily range): BP systolic 106–156; BP diastolic 70–109; PULSE 63–99; RESP 12–23; TEMP 36.6–37.3; O2SAT 92–100; BMI 15.5
--- NOTE | 2021-08-20 04:40 | PC.NURSE ---
Pt has slept at intervals this shift. Turned Q2 hrs. Trach collar in place. Mechanically ventilated. Blood tinged sputum noted. Pt has desat x2 this shift. Recovered quickly. Pt bathed. Pt refused oral care. F/C draining to bedside with dark, yellow urine. Peg tube in place. Pulmocare is in infusing @ 30 ml/hr. 0 residual this shift. No other concerns at this time. Will continue to monitor.
[2021-08-20 07:32] LABS: Coronavirus 19, PCR Not Detected (NotDetected); Influenza A, PCR Not Detected (NotDetected); Influenza B, PCR Not Detected (NotDetected)
--- NOTE | 2021-08-20 09:15 | DIET.NUTRFU ---
Saw patient during rounds today, nursing has increased to goal rate of 40ml/hr. Tolerating with no residuals. TF to providing 100% of needs. 1380kcal (34kcal/kg), 57.5gm protein (1.4gm/kg) and flush of 100ml Q4H providing 600ml/day with total fluid of 1322ml (32ml/kg). No new labs to review. Wt is stable at 41kg. Trach sx completed yesterday. Plans to discharge to [facility] tomorrow for LTC.
--- NOTE | 2021-08-20 09:36 | XR_ITS ---
FINAL REPORT CLINICAL HISTORY: PNM COMPARISON: August 19, 2021 FINDINGS: SINGLE VIEW CHEST. An endotracheal tube has been removed. A tracheostomy tube has been placed. The heart is normal in size. The mediastinum is unremarkable. The lungs are clear. There is no pneumothorax. IMPRESSION: No acute process. Reviewed, Interpreted and Dictated by Armando Rodriguez III, MD Transcribed by Charmaine Mansfield Authenticated by Armando Rodriguez III, MD on 08/20/2021 11:21:57 AM [facility]
--- NOTE | 2021-08-20 09:36 | HMH.PULMPN ---
Internal Medicine - PN: Subj *Date: 08/20/21 *Time: 12:43 Interval history: No acute respiratory events overnight. Exam - Constitutional Constitutional:: Present: no acute distress, comfortable - HENMT Exam HENMT: Present: normocephalic, atraumatic - Eye Exam Eyes:: Present: normal appearance both eyes and related structures - Respiratory Exam Respiratory:: Present: no respiratory distress. Absent: crackles, wheezing - Cardiovascular Exam Cardiac:: Present: S1, S2 - GI Exam GI:: Present: soft, no hepatosplenomegaly - Skin Exam Skin: Present: warm - Neurological Exam Neurological: Present: awake. Absent: alert, normal cognition - Extremities Exam Extremities: Present: no cyanosis, no clubbing, no edema Assessment and Plan (1) Healthcare-associated pneumonia Status: Acute Category: Medical Code(s): J18.9 - Pneumonia, unspecified organism (2) Multiple sclerosis Status: Chronic Category: Medical Code(s): G35 - Multiple sclerosis (3) Low body mass index (BMI) Status: Acute Category: Medical (4) Respiratory failure Status: Acute Qualifiers: Chronicity: acute Respiratory failure complication: hypoxia Qualified Code(s): J96.01 - Acute respiratory failure with hypoxia Category: Medical Code(s): J96.90 - Respiratory failure, unspecified, unspecified whether with hypoxia or hypercapnia (5) Severe sepsis with acute organ dysfunction Status: Acute Category: Medical Code(s): A41.9 - Sepsis, unspecified organism; R65.20 - Severe sepsis without septic shock (6) Hypernatremia Status: Acute Category: Medical Code(s): E87.0 - Hyperosmolality and hypernatremia (7) Malignant hypertension Status: Resolved Category: Medical Code(s): I10 - Essential (primary) hypertension (8) Sinus tachycardia Status: Resolved Category: Medical Code(s): R00.0 - Tachycardia, unspecified (9) Feeding difficulty in adult Status: Acute Category: Medical Code(s): R63.39 - Other feeding difficulties - Assessment and plan all Dx Assessment and Plan for all problems:: #Chronic hypoxic respiratory failure: 45-year-old history of multiple sclerosis, high risk of aspiration and history of recurrent aspiration pneumonia presents with worsening respiratory distress needing intubation and mechanical ventilatory support. Patient completed 10-day course of Zosyn and clindamycin. Patient predominant problem throughout his hospital admission is her inability to protect her airway and clear her secretions. Patient was intubated three times secondary inability to protect her secretions. One of her intubationwas secondary to mucous plugging of her left mainstem bronchus with near complete collapse of the left lung. Given her continued inability to protect her airway and unable to clear the secretions plan was made for tracheostomy and to continue aggressive pulmonary toilet. Primary team has discussed with the family and the family want to proceed with trach and PEG placement. PEG placed by surgery. Tracheostomy by ENT- Size 6. Tolerated procedures well. Increasing apnea episodes with SBT, given her history of multiple sclerosis and increasing episodes of apneic events with her SBT's this is a little bit concerning for the possibility of worsening MS/flare at this point of time. However this can well be her deconditioning given her prolonged intubation. Will recommend getting an MRI of the brain to rule out MS exacerbation. Plan: - Daily SBT's and ventilator weaning per protocol. -Respiratory status remained stable. Continue to remain on minimal vent settings. Chest x-ray stable with no acute infiltrates. Daily SBT and vent weaning Abdomen soft nontender. Continue tube feeds via PEG tube. BUN/creatinine stable. - Continue mechanical ventilatory support - VAP bundle Elevate head of the bed at 30 to 45 degrees Oral care with chlorhexidne GI ulcer prophylaxis - Famo
--- NOTE | 2021-08-20 09:54 | PC.NURSE ---
RESP CARE NOTE: Pt placed on SPONT breathing treatment. At bedside for approx 5 mins, and back up ventilation was initiated 7 times, pt is awake and alert but won't breathe unless prompted to.
--- NOTE | 2021-08-20 13:36 | P.PN_ITS ---
Internal Medicine - PN: Subj *Date: 08/20/21 *Time: 13:36 Interval history: 45-year-old female patient resting quietly in bed, no apparent respiratory distress. Planning for discharge to [facility] tomorrow. She did have Tracheotomy surgery yesterday site looks good. Exam Vital signs and Labs for Last 24 Hours: Temp Pulse Resp BP Pulse Ox 98.7 F 76 23 128/92 H 99 08/20/21 13:00 08/20/21 13:00 08/20/21 13:00 08/20/21 13:00 08/20/21 13:00 Laboratory Results - last 24 hr 08/20/21 07:28: SARS-CoV-2 (PCR) Not detected, Influenza A Untype (PCR) Not detected, Influenza Type B (PCR) Not detected I & O for Last 24 hours: Intake & Output 08/17/21 08/18/21 08/19/21 08/20/21 23:59 23:59 23:59 23:59 Intake Total 1489 / 1629 935 / 935 60 / 80 200 / 200 Output Total 1260 / 1360 1142 / 1152 1120 / 1157 590 / 590 Balance 229 / 269 -207 / -217 -1060 / -1077 -390 / -390 Weight 92 lb 3.2 oz 95 lb 2 oz 95 lb 1 oz 91 lb 1 oz - Constitutional no acute distress - *Routine HEENT Exam Head: Present: normocephalic ENT: Present: mucous membranes moist - *Routine Respiratory Exam Present: decreased breath sounds. Absent: accessory muscle use - *Routine Cardiovascular Exam Present: RRR - *Routine Abdominal Exam Present: soft, normoactive bowel sounds. Absent: tenderness, firm - *Routine Extremities Exam Present: edema, pulses intact. Absent: cyanosis, clubbing - *Routine Skin Exam Present: dry, wounds. Absent: cyanosis, erythema Comments: PEG Tube with Abdomen binder Tracheotomy - *Routine Neurological Exam Present: alert Intubated - Routine Psychiatric Exam Present: unable to assess Comments: Intubated Assessment and Plan (1) Healthcare-associated pneumonia Status: Acute Category: Medical Code(s): J18.9 - Pneumonia, unspecified organism (2) Multiple sclerosis Status: Chronic Category: Medical Code(s): G35 - Multiple sclerosis (3) Low body mass index (BMI) Status: Acute Category: Medical (4) Respiratory failure Status: Acute Qualifiers: Chronicity: acute Respiratory failure complication: hypoxia Qualified Code(s): J96.01 - Acute respiratory failure with hypoxia Category: Medical Code(s): J96.90 - Respiratory failure, unspecified, uns pecified whether with hypoxia or hypercapnia (5) Severe sepsis with acute organ dysfunction Status: Acute Category: Medical Code(s): A41.9 - Sepsis, unspecified organism; R65.20 - Severe sepsis without septic shock (6) Hypernatremia Status: Acute Category: Medical Code(s): E87.0 - Hyperosmolality and hypernatremia (7) Malignant hypertension Status: Resolved Category: Medical Code(s): I10 - Essential (primary) hypertension (8) Sinus tachycardia Status: Resolved Category: Medical Code(s): R00.0 - Tachycardia, unspecified (9) Feeding difficulty in adult Status: Acute Category: Medical Code(s): R63.39 - Other feeding difficulties - Assessment and plan all Dx Assessment and Plan for all problems:: Rounded with Dr. Patel, all orders per Dr. Patel: 1. Plan D/C [facility] tomorrow
--- NOTE | 2021-08-20 18:26 | PC.NURSE ---
Patient had an uneventful day today. Trach cleaned and she tolerated well. No acute distress noted this shift; will continue to monitor.
--- NOTE | 2021-08-20 19:06 | PC.WOUNDNOTE ---
clean dressing applied
--- NOTE | 2021-08-20 20:18 | HMH.DCSUM ---
General - General Admission date:: 07/24/21 <Ole Patel - 08/21/21 08:21> 07/24/21 <Chencho Grubbs - 08/20/21 20:24> Discharge date: 08/21/21 <Chencho Grubbs - 08/20/21 20:24> HPI HPI: this patient was sent from [facility] to [facility] for resp distress -called from [facility] she stated that pt may have reaspirated. She stated that she was on 2 L and her o2 sat was 65% she changed it to 5L and was unable to give me new o2 sat on new flow rate. She stated that auxillary temp was 101.1, RR 26, pulse was 136. She has hx of UTI and MS. She is unable to move by her self. She has dysphagia. She was lethargic, and altered mental status Patient is a 45-year-old female with a history of MS and frequent aspiration is presenting via EMS from long-term care facility for chief complaint of respiratory distress. On arrival, patient is not able to answer and state name, has diffuse rales bilaterally with oxygen saturation of 83% on a nonrebreather. No further history is obtained from patient due to acuity of situation and no family at bedside. Additionally, patient is tachycardic and febrile on arrival, concerning for sepsis. acute hypoxic respiratory failure with altered mental status. Differential diagnosis is broad and includes respiratory infection, sepsis, urinary tract infection, other. On initial exam, patient has diffuse rhonchi throughout her lung sounds and has oxygen saturations of 83% on room air. Given this, patient was emergently intubated in the emergency department and placed on propofol drip. Chest x-ray confirmed appropriate ET tube placement. Given critical condition, patient was started on antibiotics and admitted <Chencho Grubbs - 08/20/21 20:24> Hospital Course Hospital Course: no overnight changes stable this am discharge to [facility] today <Ole Patel - 08/21/21 08:21> Patient is a 45-year-old female with a history of MS and frequent aspiration is presenting via EMS from long-term [facility] for chief complaint of respiratory distress. On arrival, patient is not able to answer and state name, has diffuse rales bilaterally with oxygen saturation of 83% on a nonrebreather. No further history is obtained from patient due to acuity of situation and no family at bedside. Additionally, patient is tachycardic and febrile on arrival, concerning for sepsis. acute hypoxic respiratory failure with altered mental status. Differential diagnosis is broad and includes respiratory infection, sepsis, urinary tract infection, other. On initial exam, patient has diffuse rhonchi throughout her lung sounds and has oxygen saturations of 83% on room air. Given this, patient was emergently intubated in the emergency department and placed on propofol drip. Chest x-ray confirmed appropriate ET tube placement. Given critical condition, patient was started on antibiotics and admitted 07/30/21 RUE Venous Doppler: Conclusion Duplex evaluation of the right upper extremity demonstrates no evidence of DVT. Limited scanning due to patient currently on ventilator and unable to abduct arm. Interstitial edema noted in distal right arm. Electronically signed by : Ronnell Penny MD 08/05/21 ECHO: LV sys function wnl, LVEF 55-60% LV filling pressure elevated RV size wnl RV SYS function normal No significant valvular stenosis or regurgitation There is asmall pericardium effusion. No echocardiographic evidence of cardiac tamponade 08/05/21 - 08/19/21 CXR's: Tubes, catheters and devices: Endotracheal tube, and enteric tube unchanged in position. Lungs: Lung opacities unchanged from prior. Pleural spaces: Unremarkable. No pleural effusion. No pneumothorax. Heart/Mediastinum: Unremarkable. No cardiomegaly. Bones/joints: Unremarkable. IMPRESSION: Stable chest examination. 08/20/21 CXR: FINDINGS: SINGLE VIEW CHEST. An endotracheal tube has been removed. A tracheostomy tube has been placed. The heart is normal in
[2021-08-21] VITALS (14 sets, daily range): BP systolic 103–142; BP diastolic 75–98; PULSE 60–82; RESP 12–23; TEMP 36.3–36.7; O2SAT 97–99; BMI 15.5
--- NOTE | 2021-08-21 05:48 | PC.NURSE ---
Pt has slept at intervals this shift. Turned Q2 hr. Bed bath provided. Oral care and trach care provided. Vent settings are as follows: AC, FiO2 25%, R 12, TV 300, peep 5. Peg tube in place with [employer] infusing @ 40 ml/hr. No residuals. VSS. F/C draining to bedside. Will continue to monitor.
--- NOTE | 2021-08-21 09:22 | PC.NURSE ---
spoke with pts son in law, advised pt is being transferred to [facility]. called report to Antonia at [facility] at [id number]. awaiting transport to arrive at this time
--- NOTE | 2021-08-21 09:30 | HMH.PHAINT ---
PATIENT DISCHARGING TO SNF, REVIEWED MEDICATION LIST PRIOR TO DISCHARGE.
--- NOTE | 2021-08-21 09:59 | PC.NURSE ---
Patient left with transport crew at this time
[2021-10-08 09:45] LABS: Lactate Arterial 0.8 mmol/L (0.4-2.0)
== END 2021-08-21 09:50 | DRG 4 ==
LOC: ER 14:05 → 2ND 16:34 → ICU 08-06 10:42
PROVIDERS: Internal Medicine Pulmonary Disease; Nurse Practitioner Family; Otolaryngology; Surgery; Admitting Provider Emergency Medicine; Emergency Provider Emergency Medicine; PCP Emergency Medicine; Visit Provider Emergency Medicine
PROC: 0DH63UZ Insertion of Feeding Device into Stomach, Percutaneous Approach (ICD-10-PCS; CPT 43246; principal; 2021-08-13 07:30)
PROC: 0B113F4 Bypass Trachea to Cutaneous with Tracheostomy Device, Percutaneous Approach (ICD-10-PCS; principal; 2021-08-19 07:30)
DX: J96.01 Acute respiratory failure with hypoxia (principal); J18.9 Pneumonia, unspecified organism; A41.9 Sepsis, unspecified organism; R65.20 Severe sepsis without septic shock; Z68.1 Body mass index [BMI] 19.9 or less, adult; E87.0 Hyperosmolality and hypernatremia; E87.2 Acidosis; G35 Multiple sclerosis; R13.10 Dysphagia, unspecified; Y95 Nosocomial condition; E87.6 Hypokalemia; E83.42 Hypomagnesemia; J04.10 Acute tracheitis without obstruction; Z20.822 Contact with and (suspected) exposure to COVID-19
CPT/HCPCS: 31500; 94002; 31600; 36415; 71045; 80048; 80053; 80202; 81001; 82247; 82803; 82962; 83605; 83735; 84100; 84484; 85007; 85025; 85610; 85730; 87040; 87070; 87077; 87081; 87086; 87205; 93005; 93306; 93971; 94003; 94640; 94668; 94760; 94761; 96365; 99152; 99285; C9803; J0330; J2543; J2704; J3370; U0003; U0005